=== PATIENT | female | born 1975 | race Caucasian/White ===

== ENCOUNTER 2016-12-08 08:35 | Day surgery (SDC) | payer OTHER ==
[~2016-12-08 08:35] MED LIST: Kenalog-40 IM ONE; Sensorcaine 0.25% 10 ML IJ ONE
[2016-12-08] MEDS ORDERED: DIPRIVAN 200 MG/20 ML IV ONE (09:00)
[2016-12-08] MEDS ORDERED: Lactated Ringers 1,000 ML IV SCH (10:30)
[2016-12-08] MEDS ORDERED: Lactated Ringers 1,000 ML IV ONE (10:48)
[2016-12-08 11:34] VITALS: BP 144/98; PULSE 100; O2SAT 94
[2016-12-08] MEDS ORDERED: XYLOCAINE 1% HCL 20 ML MDV ONE (12:14)
--- NOTE | 2016-12-08 14:00 | XRAY ---
Indication: Right SI injection. Intraoperative fluoroscopy was provided for 22 seconds. A single digital spot image demonstrates a needle tip projecting over the right SI joint. Small amount of contrast injected for needle tip placement. Correlate with intraoperative findings/report.
--- NOTE | 2016-12-08 14:50 | XRAY ---
22 seconds fluoroscopy time in surgery for right JESSICA S1.
== END 2016-12-08 13:03 | disposition home or self-care (01) ==
LOC: SDC-PAIN 08:35
PROVIDERS: ATTEND Pain Medicine Interventional Pain Medicine
DX: M46.1 Sacroiliitis, not elsewhere classified (principal); M51.36 Other intervertebral disc degeneration, lumbar region; M79.7 Fibromyalgia; Z79.891 Long term (current) use of opiate analgesic
CPT/HCPCS: 01992; 27096; 72020; 77003; J2704; J3301

== ENCOUNTER 2017-07-22 15:31 | Observation (INO) | payer OTHER ==
[2017-07-22] MEDS ORDERED: NITRO-BID 2% UD PACKETS TOP ONE (15:41)
[2017-07-22] MEDS ORDERED: BABY ASPIRIN 81 MG CHEW PO ONE (15:41)
--- NOTE | 2017-07-22 15:49 | ERPHSYRPT ---
- History of Present Illness Time Seen by Provider: 07/22/17 15:41 Historian: patient Physician History: CC: chest pain Hx: 42 y/o patient of Dr Obrien and Dr Moi Moise. She has hx of CHF, alpha 1 antitrypsen def, DM, obesity. She has 3 days of chest pain, central, some in her back. She has FRANCOIS that is uncharacteristic for her. No cough. No fever or chills. Pain off and on and moderate. Prior BTL. She has port a cath. Prior heart cath 2016- no cardiac stents. Quality: aching, sharpness Location: central Chest Pain Radiation: jaw, neck, back Severity of Pain-Max: moderate Severity of Pain-Current: moderate Aspirin Treatment Today: 81 mg x 2, provided by ED Allergies/Adverse Reactions: Iodinated Contrast- Oral and IV Dye [IV Dye, Iodine Containing Contrast ] Allergy (Mild, Verified 07/22/17 15:45) Sulfa (Sulfonamide Antibiotics) [Sulfa(Sulfonamide Antibiotics)] Allergy (Mild, Verified 07/22/17 15:45) Home Medications: Albuterol Sulfate [Proair Hfa] 8.5 gm IH BID 12/19/14 [History] Budesonide/Formoterol Fumarate [Symbicort 160-4.5 Mcg Inhaler] 6 gm IH BID 12/19 [History] Levothyroxine Sodium 50 Mcg [Synthroid 50 Mcg] 75 mcg PO DAILY 12/19/14 [ History] Loratadine 10 mg [Claritin 10 mg] 10 mg PO DAILY 12/19/14 [History] Metoclopramide HCl 10 mg [Reglan 10 MG] 10 mg PO BID 12/19/14 [History] Montelukast Sodium [Singulair] 10 mg PO DAILY 12/19/14 [History] Nabumetone [Relafen] 750 mg PO BID 12/19/14 [History] Aspirin [Aspirin EC] 81 mg PO DAILY 09/02/16 [History] Bumetanide [Bumex] 2 mg PO UD 09/02/16 [History] Dicyclomine HCl 20 mg [Bentyl 20 mg] 20 mg PO BID 09/02/16 [History] Famotidine 40 mg PO BID 09/02/16 [History] Hydroxyzine HCl 25 mg [Atarax 25 mg] 25 mg PO UD 09/02/16 [History] Metformin HCl 500 mg [Glucophage 500 MG] 500 mg PO DAILY 09/02/16 [History ] Nebulizer 09/02/16 [History] Nitroglycerin 0.4 mg Tablet [Nitrostat 0.4 MG Tablet] UD 09/02/16 [History ] Potassium Chloride 20 Meq [Klor-Con 20 MEQ] 20 meq PO UD 09/02/16 [History] Pregabalin [Lyrica] 75 mg PO BID 09/02/16 [History] Simvastatin 20 mg PO DAILY 09/02/16 [History] Spironolactone 25 mg [Aldactone 25 MG] 25 mg PO UD 09/02/16 [History] Venlafaxine HCl [Venlafaxine HCl ER] 150 mg PO DAILY 09/02/16 [History] Ferrous Sulfate 325 mg PO DAILY 12/08/16 [History] Ibuprofen 200 mg [Motrin 200 mg] 600 mg PO TID 12/08/16 [History] Metoprolol Tartrate 50 mg [Lopressor 50 MG] 50 mg PO BID 12/08/16 [History ] Hx Tetanus, Diphtheria Vaccination/Date Given: Yes Hx Influenza Vaccination/Date Given: No Hx Pneumococcal Vaccination/Date Given: No - Review of Systems Constitutional: No Fever, No Chills Eyes: No Symptoms Ears, Nose, & Throat: No Symptoms Respiratory: Dyspnea on Exertion (FRANCOIS), No Cough Cardiac: Chest Pain Abdominal/Gastrointestinal: No Abdominal Pain, No Nausea, No Vomiting Genitourinary Symptoms: No Dysuria Skin: No Rash Neurological: No Focal Weakness, No Headache, No Parasthesia All Other Systems: Reviewed and Negative - Past Medical History Pertinent Past Medical History: Yes Neurological History: Migraines, Seizures Cardiac History: Arrhythmia, Congestive Heart Failure, Hypertension Respiratory History: Asthma, COPD, Other (alpha 1 antitrypsen deficiency) Endocrine Medical History: Diabetes Type II, Hypothyroidism Musculoskeletal History: Arthritis, Fibromyalgia GI Medical History: No Pertinent History History: No Pertinent History Psycho-Social History: Anxiety, Depression Female Reproductive Disorders: No Pertinent History Other Medical History: Carpal tunnes both hands 2016. - Past Surgical History Past Surgical History: Yes Cardiac: Cardiac Catheterization Gastrointestinal: Cholecystectomy Female Surgical History: Tubal Ligation, Other - Social History Smoking Status: Never smoker Exposure to second hand smoke: No Drug Use: none Patient Lives Alone: No - Female History Hx Now: No - Nursing Vital Signs Nursing Vital Signs: Initial Vital Signs Temperature 97.4 F 07/22/17 15:35 Pulse Rate 98 H 07/22/17 15:35 Respiratory Rate 18 07/22/17 15:35 Blood Pressure 143/108 07/22/17 15:35 O2 Sat by Pulse Oximetry 97 07/22/17 15:35 Pain Scale Pain Intensity 5 - Physical Exam General Appearance: alert, obese Eye Exam: PERRL/EOMI Ears, Nose, Throat Exam: normal ENT inspection, moist mucous membranes Neck Exam: normal inspection, non-tender, supple Respiratory Exam: normal breath sounds Cardiovascular Exam: regular rate/rhythm Gastrointestinal/Abdomen Exam: soft, No tenderness, No distention Extremity Exam: pedal edema (trace), No calf tenderness Skin Exam: warm, dry, No rash - Course Nursing assessment & vital signs reviewed: Yes EKG Interpreted by Me: RATE (99), Sinus Rhythm, Left [place] Deviation, NORMAL INTERVALS (QTc 462), Other (r R wave progression) - Radiology Exams cxr X-ray Interpretation: Reviewed by me (limited but grossly normal) Ordered Tests: Active Orders 24 hr Category Date Time Status Field Education Director STAT Care 07/22/17 15:42 Active EKG-ER Only STAT Care 07/22/17 15:41 Active IV Insertion STAT Care 07/22/17 15:41 Active Pulse Oximetry (ED) STAT Care 07/22/17 15:41 Active CHEST 1 VIEW (PORTABLE) Stat Exams 07/22/17 15:42 Taken CBC W DIFF Stat Lab 07/22/17 16:15 Completed CMP Stat Lab 07/22/17 16:15 Completed NT PRO BNP Stat Lab 07/22/17 16:15 Completed TROPONIN Q3H Lab 07/22/17 16:15 Completed TROPONIN Q3H Lab 07/22/17 18:45 Ordered TROPONIN Q3H Lab 07/22/17 21:45 Ordered TROPONIN Q3H Lab 07/23/17 00:45 Ordered TROPONIN Q3H Lab 07/23/17 03:45 Ordered Medication Summary Discontinued Medications Generic Name Dose Route Start Last Admin Trade Name Suresh PRN Reason Stop Dose Admin Aspirin 162 mg 07/22/17 15:41 07/22/17 15:59 Baby Aspirin 81 Mg Chew PO 07/22/17 15:42 162 mg STAT ONE Administration Aspirin Confirm 07/22/17 15:53 Baby Aspirin 81 Mg Chew Administered 07/22/17 15:54 Dose 162 mg .ROUTE .STK-MED ONE Nitroglycerin 1 gm 07/22/17 15:41 07/22/17 15:59 Nitro-Bid 2% Ud Packets TOP 07/22/17 15:42 1 gm STAT ONE Administration Nitroglycerin Confirm 07/22/17 15:53 Nitro-Bid 2% Ud Packets Administered 07/22/17 15:54 Dose 1 gm .ROUTE .STK-MED ONE Lab/Rad Data: Laboratory Result Diagrams 07/22/17 16:15 07/22/17 16:15 Laboratory Results 07/22/17 07/22/17 07/22/17 Range/Units 16:15 16:15 16:15 WBC 8.8 (4.0-10.5) K/mm3 RBC 4.15 (4.1-5.4) M/mm3 Hgb 11.7 L (12.0-16.0) gm/dl Hct 36.3 (35-47) % MCV 87.5 (78-100) fl MCH 28.1 (26-32) pg MCHC 32.2 (32-36) g/dl RDW 14.2 H (11.5-14.0) % Plt Count 244 (150-450) K/mm3 MPV 11.5 H (6-9.5) fl Gran % 68.4 H (36.0-66.0) % Lymphocytes % 22.1 L (24.0-44.0) % Monocytes % 5.7 (0.0-12.0) % Eosinophils % 3.5 (0.00-5.0) % Basophils % 0.3 (0.0-0.4) % Basophils # 0.03 (0-0.4) Sodium 140 (136-145) mEq/L Potassium 4.1 (3.5-5.1) mEq/L Chloride 104 (98-107) mEq/L Carbon Dioxide 25.8 (21-32) mEq/L Anion Gap 14.0 (5-15) MEQ/L BUN 12 (9-20) mg/dL Creatinine 1.00 (0.55-1.30) mg/dl Estimated GFR > 60 ML/MIN Glucose 174 H (70-110) MG/DL Calcium 8.9 (8.5-10.1) mg/dL Total Bilirubin 0.50 (0.2-1.0) mg/dL AST 25 (15-37) U/L ALT 43 (12-78) U/L Alkaline Phosphatase 86 (46-116) U/L Troponin I < 0.017 (0.000-0.056) ng/ml NT-Pro-B Natriuret Pep 85 (0-125) pg/ml Serum Total Protein 7.6 (6.4-8.2) gm/dL Albumin 3.6 (3.4-5.0) g/dL - Progress Progress Note: 07/22/17 17:23 Pain improved with NTG paste. She agrees for chest pain observation. Called Dr Mehta for [place] and will place in tele obs. Discussed with : Tyson Will see patient in: hospital (observation) Counseled pt/family regarding: lab results, diagnosis, need for follow-up, rad results - Departure Time of Disposition: 17:24 Departure Disposition: Observation (Tele) Clinical Impression: Chest pain, rule out acute myocardial infarction Condition: Fair Critical Care Time: No Referrals: RICKY OBRIEN [Primary Care Provider] -
[2017-07-22] MEDS ORDERED: BABY ASPIRIN 81 MG CHEW ONE (15:53)
[2017-07-22] MEDS ORDERED: NITRO-BID 2% UD PACKETS ONE (15:53)
[2017-07-22 16:31] LABS: BASOPHIL % 0.3 % (0.0-0.4); Eosinophil % 3.5 % (0.00-5.0); Granulocytes % 68.4 % (36.0-66.0); Lymphocytes % 22.1 % (24.0-44.0); Mean Cell Volume 87.5 fl (78-100); Mean Platelet Volume 11.5 fl (6-9.5); Monocytes % 5.7 % (0.0-12.0); Platelet Count 244 K/mm3 (150-450); Red Blood Count 4.15 M/mm3 (4.1-5.4); Red Cell Distribution Width 14.2 % (11.5-14.0); White Blood Count 8.8 K/mm3 (4.0-10.5)
[2017-07-22 16:38] LABS: Mean Corpuscular Hemoglobin 28.1 pg (26-32)
[2017-07-22 16:51] LABS: ALBUMIN 3.6 g/dL (3.4-5.0); ALKALINE PHOSPHATASE 86 U/L (46-116); BLOOD UREA NITROGEN 12 mg/dL (9-20); CHLORIDE 104 mEq/L (98-107); Carbon Dioxide 25.8 mEq/L (21-32); Glucose 174 MG/DL (70-110); Potassium 4.1 mEq/L (3.5-5.1); SGOT/AST 25 U/L (15-37); SGPT/ALT 43 U/L (12-78); SODIUM 140 mEq/L (136-145); Total Protein 7.6 gm/dL (6.4-8.2)
[2017-07-22] MEDS ORDERED: Zofran 4 MG/2 ML VIAL IV PRN (17:45)
[2017-07-22] MEDS ORDERED: MILK OF MAGNESIA 30 ML PO PRN (17:45)
[2017-07-22] MEDS ORDERED: Senokot-S Tablet PO PRN (17:45)
[2017-07-22] MEDS ORDERED: NovoLOG Insulin SQ PRN (17:45)
[2017-07-22] MEDS ORDERED: MAALOX ES 30 ML UNIT DOSE PO PRN (17:45)
[2017-07-22] MEDS: TYLENOL 325 MG PO PRN ×2 (19:10→23:10)
[2017-07-22] MEDS ORDERED: PATIENT OWN MEDICATION IH PRN (20:32)
[2017-07-22] MEDS ORDERED: DUONEB 0.5-3 MG/3 ml Neb IH PRN (20:38)
[2017-07-22] MEDS ORDERED: Cyclobenzaprine 10 MG PO PRN (20:45)
[2017-07-22] MEDS ORDERED: ZOCOR 20MG PO SCH (22:00)
[2017-07-22] MEDS ORDERED: ATARAX 25 MG PO PRN (22:00)
--- NOTE | 2017-07-22 22:15 | XRAY ---
Indication: Chest pain. Comparison: May 31, 2009. Portable chest demonstrates new right-sided Port-A-Cath without complications. Remaining heart, lungs, and bony thorax normal.
[2017-07-22] MEDS: Pepcid 20 MG PO SCH (22:52)
[2017-07-22] MEDS: Lopressor 50 MG PO SCH (22:52)
[2017-07-22] MEDS: LYRICA 150MG PO SCH (22:52)
[2017-07-22] MEDS: Glucophage 500 MG PO SCH (22:53)
[2017-07-22] MEDS: Reglan 10 MG PO SCH (22:53)
[2017-07-22] MEDS: NITRO-BID 2% UD PACKETS TOP SCH (22:53)
[2017-07-23] MEDS: NITRO-BID 2% UD PACKETS TOP SCH (06:27)
[2017-07-23] MEDS ORDERED: PATIENT OWN MEDICATION IH SCH ×2 (07:00→19:00)
[2017-07-23] MEDS ORDERED: Cyclobenzaprine 10 MG PO PRN (08:00)
[2017-07-23] MEDS: Reglan 10 MG PO SCH (09:38)
[2017-07-23] MEDS: Glucophage 500 MG PO SCH (09:38)
[2017-07-23] MEDS: Pepcid 20 MG PO SCH (09:38)
[2017-07-23] MEDS: LYRICA 150MG PO SCH (09:39)
[2017-07-23] MEDS: Lopressor 50 MG PO SCH (09:39)
[2017-07-23] MEDS: TYLENOL 325 MG PO PRN (09:44)
[2017-07-23] MEDS ORDERED: Ecotrin 325 MG PO SCH (10:00)
[2017-07-23] MEDS ORDERED: Lopressor 25MG Tab PO ONE (11:00)
[2017-07-23] MEDS ORDERED: MOTRIN 200 MG PO PRN (11:15)
[2017-07-23] MEDS ORDERED: BENTYL 20 MG PO SCH (11:30)
[2017-07-23] MEDS ORDERED: SYNTHROID 75 MCG PO SCH (11:30)
[2017-07-23] MEDS ORDERED: Singulair 10 MG PO SCH (11:30)
[2017-07-23] MEDS ORDERED: Effexor XR 75 MG PO SCH (11:30)
[2017-07-23] MEDS ORDERED: CLARITIN 10 MG PO SCH (11:30)
[2017-07-23] MEDS ORDERED: ENOXAPARIN SODIUM SQ SCH (12:00)
[2017-07-23] MEDS ORDERED: SYNTHROID 50 MCG PO SCH (12:00)
[2017-07-23 12:04] VITALS: BP 134/77; PULSE 77; O2SAT 95
--- NOTE | 2017-07-23 12:18 | PCM.DCORD ---
- Discharge Discharge Date: 07/23/17 Disposition: Home, Self-Care Condition: Good Prescriptions: Continue Levothyroxine Sodium 50 Mcg [Synthroid 50 Mcg] 75 mcg PO DAILY Montelukast Sodium [Singulair] 10 mg PO DAILY Albuterol Sulfate [Proair Hfa] 2 puff IH BID Budesonide/Formoterol Fumarate [Symbicort 160-4.5 Mcg Inhaler] 2 puff IH BID Aspirin [Aspirin EC] 81 mg PO DAILY Famotidine 40 mg PO BID Dicyclomine HCl 20 mg [Bentyl 20 mg] 20 mg PO BID Metformin HCl 500 mg [Glucophage 500 MG] 500 mg PO DAILY Venlafaxine HCl [Venlafaxine HCl ER] 150 mg PO DAILY Nitroglycerin 0.4 mg Tablet [Nitrostat 0.4 MG Tablet] 1 tab SL UD Ibuprofen 200 mg [Motrin 200 mg] 800 mg PO TIDPRN Pregabalin [Lyrica 150Mg] 150 mg PO BID Cyclobenzaprine HCl 10 mg [Cyclobenzaprine 10 MG] 10 mg PO TIDPRN Loratadine [Claritin] 10 mg PO DAILY Metoclopramide HCl [Reglan] 10 mg PO BID Hydroxyzine HCl 25 mg [Atarax 25 mg] 25 mg PO Q4HPRN PRN PRN Reason: Itching Atorvastatin Calcium [Lipitor 20MG Tablet] 20 mg PO HS Ipratropium/Albuterol Sulfate [Iprat-Albut 0.5-3(2.5) mg/3 ml] 3 ml IH Q4HPRN PRN PRN Reason: sob Changed Metoprolol Tartrate 50 mg [Lopressor 50 MG] 75 mg PO BID #90 tablet Discontinued Nabumetone [Relafen] 750 mg PO BID Simvastatin 20 mg PO HS Additional Instructions: Relafen and ibuprofen are both NSAIDS. You should not be taking these together. Follow up with: RICKY OBRIEN [Primary Care Provider] - Forms: Patient Portal Information
--- NOTE | 2017-07-23 16:25 | SSS ---
AMENDED REPORT: DISCHARGE DIAGNOSES: 1) CHEST PAIN. 2) HYPERTENSION. 3) HYPERLIPIDEMIA. 4) DIABETES MELLITUS TYPE 2. HISTORY OF PRESENT ILLNESS: This is a 42 y/o patient of Dr. Garrett who presented to the Emergency Department with history of 3 days of chest pain. She reports it started in the middle of her chest and went to the right shoulder initially and then to the back of her right neck. She states it was better 2 days ago, but then worse again yesterday. She states it was sharp. The nitro paste seemed to help some in the Emergency Department, but now she has a headache. She states most of the pain went away last night, but still a little pressure at the top of her sternum. She denies any dyspnea. No nausea or vomiting. She had sweating for approximately 3 days. She usually sees Dr. Samira Moise for her repair order clerk and last saw him March 2017, but she reports right now he is not following up with her as her insurance has not paid him. She reports she had a cardiac cath in 2013 and was told that was okay. She reports a stress test last year, but she is unsure of the exact results. She is considering seeing a different repair order clerk. REVIEW OF SYSTEMS: She denies any cough. No rhinorrhea. She reports a little bit of swelling in her left foot. No abdominal pain. No nausea or vomiting. Otherwise, Review of Systems is negative. PAST MEDICAL HISTORY: Anemia, chronic obstructive pulmonary disease, antitrypsin deficiency which she sees vision teacher, Dr. Monroe Monterroso, for, fibromyalgia, congestive heart failure, cardiac arrhythmia, edema, hypotension, hypertension, diabetes mellitus type 2. PAST SURGICAL HISTORY: Bilateral carpal tunnel, tubal ligation, cholecystectomy, heart catheterization, uterine thermal ablation, a port placed as she gets weekly infusions for the antitrypsin deficiency. SOCIAL HISTORY: Her daughter lives at home with her. She denies any tobacco or alcohol use. FAMILY HISTORY: Her mother is living and has chronic obstructive pulmonary disease, heart conditions, congestive heart failure, and borderline diabetes mellitus type 2. Her father's history is unknown. She reports her daughter also has a heart condition. CURRENT MEDICATIONS: Please see the home medication list. ALLERGIES: IODINE AND SULFA. PHYSICAL EXAMINATION: VITAL SIGNS: Temperature current 98.4, temperature maximum 98.4, heart rate 77-80, respiratory rate 18-20, O2 saturation 95-98% on room air, BP 134-140/77-84. GENERAL: The patient is sitting up a pleasant, talkative lady in no acute distress. She is obese. CVS: She has a regular rate and rhythm. No murmurs, gallops, or rubs. CHEST: Clear to auscultation bilaterally. No crackles or wheezes. ABDOMEN: Soft, nontender, nondistended with normal bowel sounds. EXTREMITIES: No clubbing, cyanosis, or edema. SKIN: Warm, dry, and intact. LABORATORY DATA: Serial troponins have been negative. CBC reveals an Hgb of 11.7, Hgb A1C was 7.4. Triglycerides 383, HDL 20. EKG's reveal sinus rhythm with poor R wave progression, nonspecific T wave changes. Chest x-ray was read as right-sided Port-a-Cath without complications. ASSESSMENT AND PLAN: 1. CHEST PAIN. She has been ruled out for an acute myocardial infarction. Will have her follow-up with Dr. Busby. She reports she already has an appointment set up with him on Tuesday and she is going to talk to him about a repair order clerk. Her nitro paste was removed and 2 hours after it was removed, she was still doing well. 2. HYPERTENSION. Will continue with her home antihypertensives. 3. HYPERLIPIDEMIA. Will continue with her home cholesterol medicine. 4. DIABETES MELLITUS TYPE 2. Will continue with her home medications.
[2017-07-23] MEDS ORDERED: Pepcid 20 MG PO SCH (22:00)
[2017-07-23] MEDS ORDERED: Lopressor 50 MG PO SCH (22:00)
[2017-07-23] MEDS ORDERED: Lopressor 25MG Tab PO SCH (22:00)
[2017-07-24] MEDS ORDERED: ECOTRIN 81 MG PO SCH (10:00)
[2017-07-24] MEDS ORDERED: NON-FORMULARY ITEM (Loratadine [Claritin] 10 MG) PO SCH (10:00)
== END 2017-07-23 12:45 | disposition home or self-care (01) ==
LOC: ED 15:31 → MED SURG 17:40
PROVIDERS: ADMIT Internal Medicine; ATTEND Family Medicine
DX: R07.9 Chest pain, unspecified (principal); I10 Essential (primary) hypertension; E78.5 Hyperlipidemia, unspecified; E11.9 Type 2 diabetes mellitus without complications; R51 Headache
CPT/HCPCS: 36000; 36415; 71010; 80053; 80061; 83036; 83721; 83880; 84484; 85025; 93005; 93041; 93268; 94660; 94760; 99285; G0378; J1642; J1650; A9270-GY

== ENCOUNTER 2018-01-18 08:06 | Day surgery (SDC) | payer OTHER ==
[2012-06-03 16:31] VITALS: BP 101/52
[2018-01-18] MEDS ORDERED: Lactated Ringers 1,000 ML IV ONE (08:07)
[2018-01-18] MEDS ORDERED: DIPRIVAN 200 MG/20 ML IV ONE (08:07)
[2018-01-18] MEDS ORDERED: DEXAMETHASONE 10 MG/ML VIAL PF IV ONE (08:07)
[2018-01-18] MEDS ORDERED: Xylocaine-Mpf 2 ML IJ ONE (08:07)
[2018-01-18] MEDS ORDERED: Xylocaine 1% Vial 30 ML PF IJ ONE (09:25)
--- NOTE | 2018-01-18 10:04 | XRAY ---
Indication: Right L5 JESSICA. Intraoperative fluoroscopy was provided for 22 seconds. Single digital spot image submitted for interpretation demonstrates 2 posterior spinal needle tips projecting over what appears to be the the right L5 pedicle and midline L5 segment. Correlate with intraoperative findings/report.
--- NOTE | 2018-01-18 10:38 | XRAY ---
22 seconds fluoroscopy time in surgery for Right L5 JESSICA.
--- NOTE | 2018-01-18 14:26 | OP ---
DATE OF PROCEDURE: 01/18/2018 0907 SURGEON: Nathan Denton D.O. PREOPERATIVE DIAGNOSIS: Degenerative lumbar spine disease, lumbar spondylosis. POSTOPERATIVE DIAGNOSIS: Degenerative lumbar spine disease, lumbar spondylosis. PROCEDURES PERFORMED: Right L5 epidural steroid injection under fluoroscopic guidance. DESCRIPTION OF PROCEDURE: The patient was taken to the operating room and laid in the prone position on the table. Skin over the injection site was prepped and draped in sterile fashion. Under fluoroscope bony anatomy at the targeted injection site was visualized. Induction agent was given as per anesthesia while vital signs were monitored. Local anesthetic agent was introduced to anesthetize the skin in the subcutaneous tissue through injection site. Under fluoroscopic guidance a #22-gauge standard spinal needle was advanced into the target facet joint through an oblique approach. 1 cc of preservative free Decadron was injected into each of the target epidural space. While the needle was being removed normal saline was simultaneously infiltrated to avoid sterile needle tract. Skin was cleansed with alcohol and then a bandage was applied. There was preoperative pain level 10, postoperative pain level 4 out of 10. No complications or adverse consequences were observed. The patient was returned to the holding area until stabilized before discharge to home. The patient will be followed up within ten days after the injection for re-evaluation.
== END 2018-01-18 10:00 | disposition home or self-care (01) ==
LOC: SDC-PAIN 08:06
PROVIDERS: ATTEND Internal Medicine
DX: M54.16 Radiculopathy, lumbar region (principal); M51.36 Other intervertebral disc degeneration, lumbar region; M54.5 Low back pain; M62.838 Other muscle spasm
CPT/HCPCS: 64483; 72020; 76000; J1642; J2001; J2704

== ENCOUNTER 2019-01-17 08:38 | Day surgery (SDC) | payer OTHER ==
[2012-06-03 16:31] VITALS: BP 101/52
[2019-01-17] MEDS ORDERED: Marcaine 0.5% SDV 10 ML IJ ONE (08:39)
[2019-01-17] MEDS ORDERED: Depo-Medrol 40 MG/ML IM ONE (08:39)
[2019-01-17] MEDS ORDERED: DIPRIVAN 200 MG/20 ML IV ONE (08:39)
[2019-01-17] MEDS ORDERED: Ketamine HCl 50 MG/ML IJ ONE (08:39)
--- NOTE | 2019-01-17 11:22 | XRAY ---
Indication: Bilateral SI joint injection. Intraoperative fluoroscopy was provided for 37 seconds. 3 digital spot images submitted for interpretation demonstrates posterior needle tip projecting over the inferior right SI joint. Correlate with intraoperative findings/report.
--- NOTE | 2019-01-17 11:24 | XRAY ---
37 seconds fluoroscopy time in surgery for bilateral S-I joint injections.
[2019-01-17] MEDS ORDERED: Lactated Ringers 1,000 ML IV ONE (18:02)
== END 2019-01-17 10:37 | disposition home or self-care (01) ==
LOC: SDC-PAIN 08:38
PROVIDERS: ATTEND Psychiatry & Neurology Pain Medicine
DX: M53.3 Sacrococcygeal disorders, not elsewhere classified (principal); M46.1 Sacroiliitis, not elsewhere classified; E11.9 Type 2 diabetes mellitus without complications; J44.9 Chronic obstructive pulmonary disease, unspecified; Z79.899 Other long term (current) drug therapy; I10 Essential (primary) hypertension; Z79.01 Long term (current) use of anticoagulants
CPT/HCPCS: 27096; 72020; 77002; 82962; J1030; J2704; G0260

== ENCOUNTER 2020-07-02 08:06 | Day surgery (SDC) | payer OTHER ==
[2012-06-03 16:31] VITALS: BP 101/52
[~2020-07-02 08:06] MED LIST changes: +DIPRIVAN 200 MG/20 ML IV ONE; -Kenalog-40 IM ONE; +Ketamine HCl 50 MG/ML ONE; -Sensorcaine 0.25% 10 ML IJ ONE
[2020-07-02] MEDS ORDERED: Sodium Chloride 0.9(Preservative Free) 10 ML IJ ONE (08:07)
[2020-07-02] MEDS ORDERED: Depo-Medrol 40 MG/ML IM ONE (08:07)
--- NOTE | 2020-07-02 11:43 | XRAY ---
Indication: Left L4-S1 transforaminal JESSICA. Intraoperative fluoroscopy was provided for 40 seconds. 5 digital spot images submitted for interpretation demonstrates posterior needle tips projecting over the expected left L4 and L5 nerve roots. Small amount of contrast injected for needle tip placement. Correlate with intraoperative findings/report.
--- NOTE | 2020-07-02 11:51 | XRAY ---
40 seconds fluoroscopy time in surgery for left L4-S1 transforaminal JESSICA.
[2020-07-02] MEDS ORDERED: Lactated Ringers 1,000 ML IV ONE (15:49)
== END 2020-07-02 10:41 | disposition home or self-care (01) ==
LOC: SDC-PAIN 08:06
PROVIDERS: ATTEND Psychiatry & Neurology Pain Medicine
DX: M54.16 Radiculopathy, lumbar region (principal); J44.9 Chronic obstructive pulmonary disease, unspecified; M79.7 Fibromyalgia; I12.9 Hypertensive chronic kidney disease with stage 1 through stage 4 chronic kidney disease, or unspecified chronic kidney disease; E11.22 Type 2 diabetes mellitus with diabetic chronic kidney disease; N18.9 Chronic kidney disease, unspecified; Z86.711 Personal history of pulmonary embolism; Z79.01 Long term (current) use of anticoagulants
CPT/HCPCS: 72100; 77003; 82962; J1030; J1642; J2704

== ENCOUNTER 2020-08-27 08:25 | Day surgery (SDC) | payer OTHER ==
[2012-06-03 16:31] VITALS: BP 101/52
[2020-08-27] MEDS ORDERED: Xylocaine-Mpf 2% 5 Ml Vial IJ ONE (08:26)
[2020-08-27] MEDS ORDERED: Depo-Medrol 40 MG/ML IM ONE (08:26)
[2020-08-27] MEDS ORDERED: DIPRIVAN 200 MG/20 ML IV ONE (09:40)
[2020-08-27] MEDS ORDERED: Ketamine HCl 50 MG/ML ONE (09:40)
[2020-08-27] MEDS ORDERED: MORPHINE SULFATE 10 MG/ML ONE (10:00)
--- NOTE | 2020-08-27 11:05 | XRAY ---
Indication: Bilateral L4-S1 MBB. Intraoperative fluoroscopy was provided for 12 seconds. Single digital spot image submitted for interpretation demonstrates posterior needle tips projecting over the expected left and right L4-S1 nerve roots. Correlate with intraoperative findings/report.
--- NOTE | 2020-08-27 11:22 | XRAY ---
12 seconds fluoroscopy time in surgery for bilateral L4-S1 MBB.
[2020-08-27] MEDS ORDERED: Lactated Ringers 1,000 ML IV ONE (15:13)
== END 2020-08-27 10:10 | disposition home or self-care (01) ==
LOC: SDC-PAIN 08:25
PROVIDERS: ATTEND Psychiatry & Neurology Pain Medicine
DX: M47.816 Spondylosis without myelopathy or radiculopathy, lumbar region (principal); J44.9 Chronic obstructive pulmonary disease, unspecified; E11.9 Type 2 diabetes mellitus without complications; I10 Essential (primary) hypertension; Z79.01 Long term (current) use of anticoagulants; Z79.899 Other long term (current) drug therapy; K50.90 Crohn's disease, unspecified, without complications; Z86.711 Personal history of pulmonary embolism
CPT/HCPCS: 64493; 64494; 72020; 77002; 82947; 82962; J1030; J1642; J2270; J2704

== ENCOUNTER 2020-10-06 17:36 | Emergency (ER) | payer OTHER ==
[2020-10-06] MEDS ORDERED: TORAdol 30 mg Injection IM ONE (18:09)
[2020-10-06] MEDS ORDERED: TORAdol 30 mg Injection ONE (18:12)
--- NOTE | 2020-10-06 18:38 | ERPHSYRPT ---
- History of Present Illness Time Seen by Provider: 10/06/20 17:50 Source: patient Exam Limitations: no limitations Patient Subjective Stated Complaint: pt here for pain to left shoulder after a fall on tuesday, she denies any other injury. no loc Triage Nursing Assessment: pt alert, walked in, resp easy, skin w/d/p. has no swelling or bruising noted to Physician giorgi History: Patient is a 45-year-old female presents to our ED for evaluation of left shoulder pain. Patient states she was walking in the dark 3 days ago when she tripped on an uneven sidewalk. Patient fell onto her outstretched arm and felt a pop in her left shoulder. Since then patient has been experiencing constant pain to her left shoulder. Pain described as an ache that is localized. Pain worse with movement and palpation. Pain improved with rest. No other injuries reported. No BHT or LOC. No neck pain. Cervical spine cleared clinically. The fall was mechanical. There was no associated cardiovascular or neurologic symptomology. No chest pain or shortness of breath. No numbness tingling or weakness. Patient voices no other complaints or concerns at this time. Timing/Duration: day(s) (3 days) Severity: mild Modifying Factors: Improves With: movement Associated Symptoms: denies symptoms Allergies/Adverse Reactions: Iodinated Contrast Media [IV Dye, Iodine Containing Contrast ] Allergy (Mild, Verified 10/06/20 17:51) "asthma attck" Sulfa (Sulfonamide Antibiotics) [Sulfa(Sulfonamide Antibiotics)] Allergy (Mild, Verified 10/06/20 17:51) "asthma attck" Home Medications: Albuterol Sulfate [Proair Hfa] 2 puff IH BID 12/19/14 [History] Budesonide/Formoterol Fumarate [Symbicort 160-4.5 Mcg Inhaler] 2 puff IH BID 12/19/14 [History] Levothyroxine Sodium 50 Mcg [Synthroid 50 Mcg] 75 mcg PO DAILY 12/19/14 [History] Montelukast Sodium [Singulair] 10 mg PO DAILY 12/19/14 [History] Metformin HCl 500 mg [Glucophage 500 MG] 500 mg PO BID 09/02/16 [History] Nitroglycerin 0.4 mg Tablet [Nitrostat 0.4 MG Tablet] 1 tab SL UD PRN 09/02/16 [History] Atorvastatin Calcium [Lipitor 20MG Tablet] 20 mg PO HS 07/22/17 [History] Ipratropium/Albuterol Sulfate [Iprat-Albut 0.5-3(2.5) mg/3 ml] 3 ml IH Q4HPRN PRN 07/22/17 [History] Loratadine [Claritin] 10 mg PO DAILY 07/22/17 [History] Gabapentin 300 - 600 mg PO HS 12/13/17 [History] Omeprazole 20 MG [Prilosec 20 mg] 20 mg PO DAILY 12/13/17 [History] lisinopriL [Lisinopril] 5 mg PO DAILY 12/13/17 [History] Xliee-0-Eptrgxjyrt Inhibitor [Prolastin C] 0 mg IV UD 01/17/18 [History] Potassium Chloride 20 Meq [Klor-Con 20 MEQ] 20 meq PO DAILY PRN PRN 01/17/18 [History] Spironolactone 25 mg [Aldactone 25 MG] 25 mg PO DAILY PRN PRN 01/17/18 [History] Qrnqk-1-Qpxvjopnra Inhibitor [Prolastin C] 1,000 mg IV WEEKLY 02/06/18 [History] Furosemide 40 mg [Lasix 40 MG] 1 ea DAILY 10/06/20 [History] Mv,Calcium,Min/Iron/Folic/Vitk [Multi For Her Tablet] 1 ea DAILY 10/06/20 [History] [place]-3 Fatty Acids/Fish Oil [Fish Oil 1,000 mg Capsule] 1 ea BID 10/06/20 [History] Hx Tetanus, Diphtheria Vaccination/Date Given: Yes Hx Influenza Vaccination/Date Given: Yes Hx Pneumococcal Vaccination/Date Given: No Immunizations Up to Date: Yes Travel Risk - International Travel Have you traveled outside of the country in past 3 weeks: No - Coronavirus Screening Are you exhibiting any of the following symptoms?: No Close contact with a COVID-19 positive Pt in past 14-21 Days: No - Review of Systems Constitutional: No Symptoms, No Fever, No Chills Eyes: No Symptoms Ears, Nose, & Throat: No Symptoms Respiratory: No Symptoms, No Cough, No Dyspnea Cardiac: No Symptoms, No Chest Pain, No Edema, No Syncope Abdominal/Gastrointestinal: No Symptoms, No Abdominal Pain, No Nausea, No Vomiting, No Diarrhea Genitourinary Symptoms: No Symptoms, No Dysuria Musculoskeletal: No Symptoms, No Back Pain, No Neck Pain Skin: No Symptoms, No Rash Neurological: No Symptoms, No Dizziness, No Focal Weakness, No Sensory Changes Psychological: No Symptoms Endocrine: No Symptoms Hematologic/Lymphatic: No Symptoms Immunological/Allergic: No Symptoms All Other Systems: Reviewed and Negative - Past Medical History Pertinent Past Medical History: Yes Neurological History: Migraines, Seizures ENT History: No Pertinent History Cardiac History: Arrhythmia, Congestive Heart Failure, High Cholesterol, Hypertension Respiratory History: Asthma, COPD Endocrine Medical History: Diabetes Type II, Hypothyroidism Musculoskeletal History: Arthritis, Degenerative Disk Disease GI Medical History: No Pertinent History History: No Pertinent History Psycho-Social History: Anxiety, Depression Female Reproductive Disorders: No Pertinent History Other Medical History: Carpal tunnel both hands 2016. 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" - Past Surgical History Past Surgical History: Yes Neuro Surgical History: No Pertinent History Cardiac: Cardiac Catheterization Respiratory: No Pertinent History Gastrointestinal: Cholecystectomy Genitourinary: No Pertinent History Musculoskeletal: No Pertinent History Female Surgical History: Hysterectomy, Tubal Ligation Other Surgical History: PORT PLACEMENTd- states "prolastin infusion weekly" - Social History Smoking Status: Never smoker Exposure to second hand smoke: Yes Drug Use: none Patient Lives Alone: No - Female History Hx Last Menstrual Period: hyster Hx Now: No - Nursing Vital Signs Nursing Vital Signs: Initial Vital Signs Pulse Rate 98 H 10/06/20 17:41 Respiratory Rate 18 10/06/20 17:41 Blood Pressure 142/63 10/06/20 17:41 O2 Sat by Pulse Oximetry 96 10/06/20 17:41 Pain Scale Pain Intensity 6 - Physical Exam General Appearance: no apparent distress, alert Eye Exam: PERRL/EOMI, eyes nml inspection Ears, Nose, Throat Exam: normal ENT inspection, TMs normal, pharynx normal, moist mucous membranes Neck Exam: normal inspection, non-tender, supple, full range of motion Respiratory Exam: normal breath sounds, lungs clear, No respiratory distress Cardiovascular Exam: regular rate/rhythm, normal heart sounds, normal peripheral pulses Gastrointestinal/Abdomen Exam: soft, normal bowel sounds, No tenderness, No mass Back Exam: normal inspection, normal range of motion, No CVA tenderness, No vertebral tenderness Extremity Exam: normal inspection, normal range of motion, pelvis stable, other (Left upper extremity neurovascular intact distally. Pain to palpation at anterolateral shoulder. Pain significantly worse with shoulder flexion and abduction. Overlying soft tissue intact. Compartments are soft.) Neurologic Exam: alert, oriented x 3, cooperative, normal mood/affect, sensation nml, No motor deficits Skin Exam: normal color, warm, dry, No rash Lymphatic Exam: No adenopathy SpO2 Interpretation: normal SpO2: 96 O2 Delivery: Room Air - Course Nursing assessment & vital signs reviewed: Yes - Radiology Exams Shoulder X-ray Interpretation: Reviewed by me (No fracture or dislocation.) Ordered Tests: Active Orders 24 hr Category Date Time Status SHOULDER Stat Exams 10/06/20 18:08 Taken Medication Summary Discontinued Medications Generic Name Dose Route Start Last Admin Trade Name Freq PRN Reason Stop Dose Admin Ketorolac Tromethamine 60 mg 10/06/20 18:09 10/06/20 18:14 Toradol 30 Mg Injection IM 10/06/20 18:10 60 mg STAT ONE Administration Ketorolac Tromethamine Confirm 10/06/20 18:12 Toradol 30 Mg Injection Administered 10/06/20 18:13 Dose 60 mg .ROUTE .iCook.tw-MED ONE - Progress Progress: improved Progress Note: 10/06/20 18:52 X-ray negative for acute pathology. Given negative x-ray patient may have injured her shoulder musculature particularly rotator cuff. Patient immobilized in a shoulder sling. Patient given Toradol for pain control. Patient advised immobilization for 1 week. If pain does not significantly improve or resolve patient should see her family doctor. Patient may require an MRI for further evaluation. Patient has [place] at home. She voices no other complaints or concerns at this time. Will discharge home. Patient agrees to call her primary care doctor within 48 hours for reevaluation. Counseled pt/family regarding: diagnosis, need for follow-up, rad results - Departure Departure Disposition: Home Clinical Impression: Fall, Muscle strain Condition: Stable Critical Care Time: No Referrals: RICKY OBRIEN [Primary Care Provider] - Additional Instructions: Discharge/Care Plan NAEVENSANDHYA was seen on 10/06/20 in the Emergency Room. The patient was counseled regarding Diagnosis,Lab results, Imaging studies, need for follow up and when to return to the Emergency Room. Prescriptions given: Discharge Note I have spoken with the patient and/or caregivers. I have explained the patient's condition, diagnosis and treatment plan based on the information available to me at this time. I have answered the patient's and/or caregiver's questions and addressed any concerns. The patient and/or caregivers have as good understanding of the patient's diagnosis, condition and treatment plan as can be expected at this point. The vital signs have been stable. The patient's condition is stable and appropriate for discharge from the emergency department. The patient will pursue further outpatient evaluation with the primary care physician or other designated or consulting physician as outlined in the discharge instructions. The patient and/or caregivers are agreeable to this plan of care and follow-up instructions have been explained in detail. The patient and/or caregivers have received these instruction. The patient/and or caregivers are aware that any significant change in condition or worsening of symptoms should prompt an immediate return to this or the closest emergency department or call 911.
[2020-10-06 19:21] VITALS: BP 136/80; PULSE 86; O2SAT 98
--- NOTE | 2020-10-07 09:02 | XRAY ---
Indication: Pain following trauma. Comparison: None 3 view left shoulder obtained. No bony, articular, or soft tissue abnormalities.
== END 2020-10-06 19:10 | disposition home or self-care (01) ==
LOC: ED 17:36
DX: S46.912A Strain of unspecified muscle, fascia and tendon at shoulder and upper arm level, left arm, initial encounter (principal); M25.512 Pain in left shoulder; W01.0XXA Fall on same level from slipping, tripping and stumbling without subsequent striking against object, initial encounter
CPT/HCPCS: 73030; 96372; 99284; J1885

== ENCOUNTER 2021-04-29 06:48 | Day surgery (SDC) | payer OTHER ==
[2012-06-03 16:31] VITALS: BP 101/52
[2021-04-29] MEDS ORDERED: BUPIVACAINE 0.5% VIAL IJ ONE (06:49)
[2021-04-29] MEDS ORDERED: DIPRIVAN 200 MG/20 ML IV ONE (08:53)
--- NOTE | 2021-04-29 15:56 | XRAY ---
27 seconds of fluoroscopy was used in surgery for a bilateral L4-S1 MBB.
[2021-04-29] MEDS ORDERED: Lactated Ringers 1,000 ML IV ONE (17:29)
== END 2021-04-29 09:19 | disposition home or self-care (01) ==
LOC: SDC-PAIN 06:48
PROVIDERS: ATTEND Psychiatry & Neurology Pain Medicine
DX: M47.816 Spondylosis without myelopathy or radiculopathy, lumbar region (principal); E11.9 Type 2 diabetes mellitus without complications; I10 Essential (primary) hypertension; Z79.899 Other long term (current) drug therapy; Z79.01 Long term (current) use of anticoagulants; Z86.711 Personal history of pulmonary embolism; J44.9 Chronic obstructive pulmonary disease, unspecified
CPT/HCPCS: 64493; 64494; 72020; 77002; 82947; J1642; J2704

== ENCOUNTER 2021-06-24 06:17 | Day surgery (SDC) | payer OTHER ==
[2012-06-03 16:31] VITALS: BP 101/52
[2021-06-24] MEDS ORDERED: Depo-Medrol 40 MG/ML IM ONE (06:18)
[2021-06-24] MEDS ORDERED: BUPIVACAINE 0.5% VIAL IJ ONE (06:18)
[2021-06-24] MEDS ORDERED: DIPRIVAN 200 MG/20 ML IV ONE (08:08)
[2021-06-24] MEDS ORDERED: Lactated Ringers 1,000 ML IV ONE (08:46)
--- NOTE | 2021-06-24 10:08 | XRAY ---
Indication: Right greater trochanter bursa injection. Intraoperative fluoroscopy provided for 22 seconds. Single digital spot image submitted for interpretation demonstrates needle tip projecting lateral to the right greater trochanter. Small amount of contrast injected for needle tip placement. Correlate with intraoperative findings/report.
--- NOTE | 2021-06-24 11:03 | XRAY ---
22 seconds of fluoroscopy was used in surgery for a right greater trochanteric bursa injection.
== END 2021-06-24 08:59 | disposition home or self-care (01) ==
LOC: SDC-PAIN 06:17
PROVIDERS: ATTEND Psychiatry & Neurology Pain Medicine
DX: M70.61 Trochanteric bursitis, right hip (principal); E11.9 Type 2 diabetes mellitus without complications; Z79.899 Other long term (current) drug therapy
CPT/HCPCS: 20610; 73501; 77002; 82947; J1030; J1642; J2704; Q9966

== ENCOUNTER 2023-03-16 08:54 | Day surgery (SDC) | payer OTHER ==
[2012-06-03 16:31] VITALS: BP 101/52
[2023-03-16] MEDS ORDERED: Depo-Medrol 40 MG/ML IM ONE (08:55)
[2023-03-16] MEDS ORDERED: Sodium Chloride 0.9(Preservative Free) 10 ML IJ ONE (08:55)
[2023-03-16] MEDS ORDERED: LIDOCAINE HCL 1% 50 MG/5 ML VL PF IJ ONE (08:55)
[2023-03-16] MEDS ORDERED: DIPRIVAN 200 MG/20 ML IV ONE (11:36)
--- NOTE | 2023-03-16 12:49 | XRAY ---
Indication: Lumbar JESSICA. Intraoperative fluoroscopy provided for 15 seconds. 2 digital spot image submitted for interpretation demonstrates posterior needle tip projecting posterior to last lumbar segment. Correlate with intraoperative findings/report.
--- NOTE | 2023-03-16 14:11 | XRAY ---
15 seconds of fluoroscopy was used in surgery for a lumbar JESSICA.
[2023-03-16] MEDS ORDERED: Lactated Ringers 1,000 ML IV ONE (15:18)
== END 2023-03-16 12:13 | disposition home or self-care (01) ==
LOC: SDC-PAIN 08:54
PROVIDERS: ATTEND Psychiatry & Neurology Pain Medicine
DX: M54.16 Radiculopathy, lumbar region (principal); E11.9 Type 2 diabetes mellitus without complications; Z79.899 Other long term (current) drug therapy
CPT/HCPCS: 62323; 72100; 77003; 82947; J1030; J1642; J2001; J2704; Q9966

== ENCOUNTER 2023-05-11 15:56 | Day surgery (SDC) | payer OTHER ==
[2012-06-03 16:31] VITALS: BP 101/52
[2023-05-11] MEDS ORDERED: Depo-Medrol 40 MG/ML IM ONE (15:57)
[2023-05-11] MEDS ORDERED: LIDOCAINE HCL 1% 50 MG/5 ML VL PF IJ ONE (15:57)
[2023-05-11] MEDS ORDERED: BUPIVACAINE 0.5% VIAL IJ ONE (15:57)
--- NOTE | 2023-05-11 20:25 | XRAY ---
Indication: Bilateral SI joint injection. Intraoperative fluoroscopy provided for 19 seconds. 5 digital spot images submitted for interpretation demonstrates posterior needle tip projecting over the left and right SI joint. Correlate with intraoperative findings/report.
--- NOTE | 2023-05-12 08:48 | XRAY ---
19 seconds of fluoroscopy was used in surgery for a bilateral sacroiliac joint injection.
== END 2023-05-11 18:35 | disposition home or self-care (01) ==
LOC: SDC-PAIN 15:56
PROVIDERS: ATTEND Psychiatry & Neurology Pain Medicine
DX: M46.1 Sacroiliitis, not elsewhere classified (principal); E11.9 Type 2 diabetes mellitus without complications; Z79.899 Other long term (current) drug therapy
CPT/HCPCS: 27096; 72202; 77002; 82947; J1030; J2001; G0260

== ENCOUNTER 2023-11-19 10:30 | Emergency (ER) | payer OTHER ==
--- NOTE | 2023-11-19 10:35 | ERPHSYRPT ---
- History of Present Illness Time Seen by Provider: 11/19/23 10:35 Source: patient, family Exam Limitations: no limitations Physician History: pt fell last pm onto left hand/wrist and has swelling and pain persisting. Full ROm left elbow and shoulder and all other jts without pain. Nontender to palp except left wrist and hand and distal forearm. CHest , abd, spine and ribs all nontender to palpation. Full ROM hips and knees and ankles without any pain. No LOC , CP , dizziness, or SOBreath. did not hit head or have any prodrome or syncope. distal N/V intact. Familky is present as independent source for confirmation of Hx in ER. DIscussed risk/benefit of x-rays with pt and family and they wish to proceed with left hand, wrist, forearm - these are ordered. results discussed. Timing/Duration: yesterday Severity: moderate Modifying Factors: Improves With: cold therapy, immobilization, movement Associated Symptoms: denies symptoms Allergies/Adverse Reactions: Iodinated Contrast Media [IV Dye, Iodine Containing Contrast ] Allergy (Mild, Verified 11/19/23 10:50) "asthma attck" Sulfa (Sulfonamide Antibiotics) [Sulfa(Sulfonamide Antibiotics)] Allergy (Mild, Verified 11/19/23 10:50) "asthma attck" Home Medications: Albuterol Sulfate [Proair Hfa] 2 puff IH BID 12/19/14 [History] Budesonide/Formoterol Fumarate [Symbicort 160-4.5 Mcg Inhaler] 2 puff IH BID 12/19/14 [History] Levothyroxine Sodium 50 Mcg [Synthroid 50 Mcg] 50 mcg PO DAILY 12/19/14 [History] Nitroglycerin 0.4 mg Tablet [Nitrostat 0.4 MG Tablet] 1 tab SL UD PRN 09/02/16 [History] Atorvastatin Calcium [Lipitor 20MG Tablet] 20 mg PO HS 07/22/17 [History] Ipratropium/Albuterol Sulfate [Iprat-Albut 0.5-3(2.5) mg/3 ml] 3 ml IH Q4HPRN PRN 07/22/17 [History] Loratadine [Claritin] 10 mg PO DAILY 07/22/17 [History] lisinopriL [Lisinopril] 5 mg PO DAILY 12/13/17 [History] Bdfvw-5-Hvciaupxqh Inhibitor [Prolastin C] 0 mg IV UD 01/17/18 [History] Qnjst-0-Iaapregtdd Inhibitor [Prolastin C] 1,000 mg IV WEEKLY 02/06/18 [History] Mv,Calcium,Min/Iron/Folic/Vitk [Multi For Her Tablet] 1 ea DAILY 10/06/20 [History] [place]-3 Fatty Acids/Fish Oil [Fish Oil 1,000 mg Capsule] 1 ea BID 10/06/20 [History] Adalimumab [Humira] 40 mg SQ UD 11/19/23 [History] Allopurinol 100 mg [Zyloprim 100 mg] 100 mg PO DAILY 11/19/23 [History] Amitriptyline HCl 25 mg [Amitriptyline 25 mg Tablet] 25 mg PO DAILY 11/19/23 [History] Amlodipine Besylate 1 ea DAILY 11/19/23 [History] Asenapine Maleate [Saphris] 2.5 mg SL UD 11/19/23 [History] Baclofen 10 mg [Lioresal 10 mg] 10 mg PO BID 11/19/23 [History] Cholecalciferol (Vitamin D3) [Vitamin D3] 1 ea UD 11/19/23 [History] Fluoxetine HCl 1 ea DAILY 11/19/23 [History] Hydroxyzine HCl 25 mg [Atarax 25 mg] 25 mg PO DAILY 11/19/23 [History] Losartan Potassium [Cozaar] 100 mg PO DAILY 11/19/23 [History] Metoprolol Tartrate 50 mg [Lopressor 50 MG] 25 mg PO BID 11/19/23 [History] Mirabegron [Myrbetriq] 1 ea DAILY 11/19/23 [History] Oxycodone HCl/Acetaminophen [Percocet 10-325 mg Tablet] 1 each PO TID 11/19/23 [History] Pregabalin 25 mg [Lyrica 25 MG] 25 mg PO BID 11/19/23 [History] Ubrogepant [Ubrelvy] 50 mg PO UD 11/19/23 [History] lamoTRIgine [Subvenite (Blue)] 25 mg PO DAILY 11/19/23 [History] Hx Tetanus, Diphtheria Vaccination/Date Given: Yes Hx Influenza Vaccination/Date Given: Yes Hx Pneumococcal Vaccination/Date Given: No - Review of Systems Constitutional: No Fever, No Chills Eyes: No Symptoms Ears, Nose, & Throat: No Symptoms Respiratory: No Cough, No Dyspnea Cardiac: No Chest Pain, No Edema, No Syncope Abdominal/Gastrointestinal: No Abdominal Pain, No Nausea, No Vomiting, No Diarrhea Genitourinary Symptoms: No Dysuria Musculoskeletal: Fall, Injury, Joint Pain, Joint Swelling, No Back Pain, No Neck Pain Skin: No Rash Neurological: No Dizziness, No Focal Weakness, No Sensory Changes Psychological: No Symptoms Endocrine: No Symptoms Hematologic/Lymphatic: No Symptoms Immunological/Allergic: No Symptoms All Other Systems: Reviewed and Negative - Past Medical History Pertinent Past Medical History: Yes Neurological History: Migraines, Seizures ENT History: No Pertinent History Cardiac History: Coronary Artery Disease, High Cholesterol, Hypertension Respiratory History: Asthma, CHF, COPD, Pulmonary Embolism Endocrine Medical History: Diabetes Type II, Hypothyroidism Musculoskeletal History: Arthritis, Degenerative Disk Disease, Fibromyalgia GI Medical History: No Pertinent History History: No Pertinent History Psycho-Social History: Anxiety, Depression Female Reproductive Disorders: No Pertinent History Other Medical History: HX OF 1 SEIZURE WHEN SHE WAS A CHILDREN. GASTRIC BYPASS IN MAY 2022, "SCARRED LUNGS", HEART PALPITATIONS. L HAND CARPAL TUNNEL SX SEPT 5, ALPHA 1 ANTITRYPSIN DEFICIENCY, CROHNS, ANXIETY, DEPRESSION, PTSD, DEUCE, BIPOLAR, NEUROPATHY, OCD, LUMBAR RADICULOPATHY, MULTIPLE JOINT PAIN, SIJ PAIN, SPONDYLOSIS WITHOUT MYELOPATHY, BILATERAL TROCHANTERIS BURSITIS, CERVICAL SPONDYLOSIS WITHOUT MYELOPATHY, CKD, GALLBLADDER REMOVAL, BLADDER SLING - Past Surgical History Past Surgical History: Yes Neuro Surgical History: No Pertinent History Cardiac: Cardiac Catheterization Respiratory: No Pertinent History Gastrointestinal: Cholecystectomy Genitourinary: No Pertinent History Musculoskeletal: No Pertinent History Female Surgical History: Hysterectomy, Tubal Ligation Other Surgical History: PORT PLACEMENTd- states "prolastin infusion weekly" - Social History Smoking Status: Never smoker Exposure to second hand smoke: Yes Drug Use: none Patient Lives Alone: No - Nursing Vital Signs Nursing Vital Signs: Initial Vital Signs Temperature 97.0 F 11/19/23 10:50 Pulse Rate 86 11/19/23 10:50 Respiratory Rate 18 11/19/23 10:50 Blood Pressure 166/92 11/19/23 10:50 O2 Sat by Pulse Oximetry 97 11/19/23 10:50 Pain Scale Pain Intensity 7 - Physical Exam General Appearance: no apparent distress, alert Eye Exam: PERRL/EOMI, eyes nml inspection Ears, Nose, Throat Exam: normal ENT inspection, TMs normal, pharynx normal, moist mucous membranes Neck Exam: normal inspection, non-tender, supple, full range of motion Respiratory Exam: normal breath sounds, lungs clear, airway intact, No respiratory distress Cardiovascular Exam: regular rate/rhythm, normal heart sounds, normal peripheral pulses Gastrointestinal/Abdomen Exam: soft, normal bowel sounds, No tenderness, No mass Pelvic Exam: deferred Rectal Exam: deferred Back Exam: normal inspection, normal range of motion, No CVA tenderness, No vertebral tenderness Extremity Exam: normal range of motion, pelvis stable, joint swelling, swelling, tenderness (left hand, wrist, distal forearm) Neurologic Exam: alert, oriented x 3, cooperative, normal mood/affect, nml cerebellar function, nml station & gait, sensation nml, No motor deficits Skin Exam: normal color, warm, dry, No rash Lymphatic Exam: No adenopathy SpO2 Interpretation: normal SpO2: 97 O2 Delivery: Room Air - Radiology Exams Left Wrist X-ray Interpretation: Reviewed by me, Non-displaced Fracture (distal radius) Left Hand X-ray Interpretation: Reviewed by me, Non-displaced Fracture (distal radius) Left Forearm X-ray Interpretation: Reviewed by me, Non-displaced Fracture (distal radius) Ordered Tests: Active Orders 24 hr Category Date Time Status FOREARM Stat Exams 11/19/23 11:22 Taken HAND (MINIMUM 3 VIEWS) Stat Exams 11/19/23 11:21 Taken WRIST (MIN 3 VIEWS) Stat Exams 11/19/23 11:23 Taken - Progress Progress: improved, re-examined Progress Note: 11/19/23 12:03 discussed results with pt and family and need for splinting and they wish to proceed so this is ordered. discussed risk/benefit pain meds and pt/family wish to continue on her current regimen for fibromyalgia and she is doing ok on this right now without any new meds. . 11/19/23 12:27 11/19/23 12:31 also discussed the possibility for undtected injuries from the fall and need for evaluation if any other symptoms - the pt and family understand and wish DC with outpt f/u PMD at this time without further evaluation in ER at this time and have the capacity to make this choice. Counseled pt/family regarding: diagnosis, need for follow-up, rad results Medical Desision Making - Independent Historian Additional History obtained from: Family - Discussion of managment Reviewed:: Test results, Need for additional workup Agreed on:: Treatment plan, need for follow-up - Diagnostic Testing Diagnostic test were ordered, analyzed, and reviewed by me: Yes Radiological Interpretation: Reviewed by me - Risk of complications The pt has a mod risk of morbidity or mortality based on: Need for prescription drug management - Departure Departure Disposition: Home Clinical Impression: Fracture of left distal radius Condition: Good Critical Care Time: No Referrals: RICKY OBRIEN [Primary Care Provider] - Follow up/PCP as directed Instructions: Radius Fracture (DC), Wrist Fracture (DC) Additional Instructions: follow-up with your Tuesday for final radiology report. use splint. return meantime if increased pain, numbness, or other concerns. Since there could be undetected injuries also from the fall remain alert if other symtpoms such as dizziness or pain in other areas occur and return for evaluation. also followup your blood pressure with your
[2023-11-19 10:51] VITALS: PULSE 86; RESP 18; TEMP 97
[2023-11-19 12:02] VITALS: BP 124/78
[2023-11-19 12:04] VITALS: O2SAT 97
--- NOTE | 2023-11-19 20:24 | XRAY ---
Indication: Pain following fall. Comparison: None 2 view left forearm demonstrates tiny cortical buckle fracture distal metadiaphysis radius laterally. No other bony, articular, or soft tissue abnormalities.
--- NOTE | 2023-11-19 20:26 | XRAY ---
Indication: Pain following fall. Comparison: None 3 view left hand demonstrates tiny cortical fracture distal metadiaphysis radius laterally. No other bony, articular, or soft tissue abnormalities.
--- NOTE | 2023-11-19 20:26 | XRAY ---
Indication: Pain following fall. Comparison: December 28, 2022 3 view left wrist demonstrates new tiny cortical buckle fracture distal metadiaphysis radius laterally. No other bony, articular, or soft tissue abnormalities.
== END 2023-11-19 12:39 | disposition home or self-care (01) ==
LOC: ED 10:30
DX: S52.592A Other fractures of lower end of left radius, initial encounter for closed fracture (principal); W19.XXXA Unspecified fall, initial encounter; M79.642 Pain in left hand; E78.5 Hyperlipidemia, unspecified; I10 Essential (primary) hypertension; E11.9 Type 2 diabetes mellitus without complications; Z79.4 Long term (current) use of insulin; Z79.891 Long term (current) use of opiate analgesic; Z79.899 Other long term (current) drug therapy
CPT/HCPCS: 73090; 73110; 73130; 99283; L3908

== ENCOUNTER 2023-12-05 15:20 | Emergency (ER) | payer OTHER ==
[2023-12-05 15:42] VITALS: TEMP 97.7
--- NOTE | 2023-12-05 15:51 | ERPHSYRPT ---
- History of Present Illness Time Seen by Provider: 12/05/23 15:51 Source: patient, EMS Exam Limitations: no limitations Patient Subjective Stated Complaint: C/O "having no energy" for approx 2 weeks. Denies fever, N/V, or diarrhea. States she was started on lasix and K+ about 2 weeks ago and jardiance one week ago. Triage Nursing Assessment: Patient transferred self off of ambulance cot and ambulated to the restroom and then to her ER room independently without difficulties for assessment upon arrival. AQUINO WNL. NO SOB. She is alert and oriented. Some edema present to BLE. Patient pale. Physician History: This is an obese 48-year-old white female patient Dr. Busby who states she has had weakness and fatigue for 2-week. At time. Approximate 2 weeks ago patient was started on potassium and Lasix. Approxi-1 week ago patient was placed on Jardiance by her commercial credit lead. Patient denies chest pain. Patient denies fevers or chills. Patient denies nausea vomiting or diarrhea symptoms. Patient has a history of alpha 1 antitrypsin deficiency. Patient has a history of hypertension, hypothyroidism, migraine headaches, seizure disorder, coronary artery disease, hyperlipidemia, CHF, COPD, diabetes, fibromyalgia, degenerative disc disease, anxiety, depression, PTSD and chronic kidney disease. Timing/Duration: week(s) (2 weeks), worse Severity: moderate Associated Symptoms: weakness, No nausea, No vomiting, No abdominal pain, No shortness of breath, No chest pain, No fever, No headaches Allergies/Adverse Reactions: Iodinated Contrast Media [IV Dye, Iodine Containing Contrast ] Allergy (Mild, Verified 12/05/23 15:30) "asthma attck" Sulfa (Sulfonamide Antibiotics) [Sulfa(Sulfonamide Antibiotics)] Allergy (Mild, Verified 12/05/23 15:30) "asthma attck" Home Medications: Albuterol Sulfate [Proair Hfa] 2 puff IH BID 12/19/14 [History] Budesonide/Formoterol Fumarate [Symbicort 160-4.5 Mcg Inhaler] 2 puff IH BID 12/19/14 [History] Levothyroxine Sodium 50 Mcg [Synthroid 50 Mcg] 50 mcg PO DAILY 12/19/14 [History] Nitroglycerin 0.4 mg Tablet [Nitrostat 0.4 MG Tablet] 1 tab SL UD PRN 09/02/16 [History] Atorvastatin Calcium [Lipitor 20MG Tablet] 20 mg PO HS 07/22/17 [History] Ipratropium/Albuterol Sulfate [Iprat-Albut 0.5-3(2.5) mg/3 ml] 3 ml IH Q4HPRN PRN 07/22/17 [History] Loratadine [Claritin] 10 mg PO DAILY 07/22/17 [History] Mv,Calcium,Min/Iron/Folic/Vitk [Multi For Her Tablet] 1 ea PO DAILY 10/06/20 [History] [place]-3 Fatty Acids/Fish Oil [Fish Oil 1,000 mg Capsule] 1 ea PO BID 10/06/20 [History] Allopurinol 100 mg [Zyloprim 100 mg] 100 mg PO DAILY 11/19/23 [History] Amitriptyline HCl 25 mg [Amitriptyline 25 mg Tablet] 25 mg PO HS 11/19/23 [History] Amlodipine Besylate 1 tab PO DAILY 11/19/23 [History] Asenapine Maleate [Saphris] 10 mg SL HS 11/19/23 [History] Baclofen 10 mg [Lioresal 10 mg] 20 mg PO BID 11/19/23 [History] Cholecalciferol (Vitamin D3) [Vitamin D3] 2,000 unit PO DAILY 11/19/23 [History] Fluoxetine HCl 1 cap PO DAILY 11/19/23 [History] Hydroxyzine HCl 25 mg [Atarax 25 mg] 25 mg PO BID 11/19/23 [History] Losartan Potassium [Cozaar] 100 mg PO DAILY 11/19/23 [History] Mirabegron [Myrbetriq] 1 ea PO DAILY 11/19/23 [History] Oxycodone HCl/Acetaminophen [Percocet 10-325 mg Tablet] 1 each PO TID PRN 11/19/23 [History] Ubrogepant [Ubrelvy] 50 mg PO UD 11/19/23 [History] lamoTRIgine [Subvenite (Blue)] 50 mg PO DAILY 11/19/23 [History] Empagliflozin [Jardiance] 1 tab PO DAILY 12/05/23 [History] Furosemide 40 mg [Lasix 40 MG] 1 tab PO DAILY 12/05/23 [History] Lactobacillus Acidophilus [Probiotic] 1 cap PO DAILY 12/05/23 [History] Metoprolol Succinate 25 mg Xl* [Toprol-Xl 25MG Tablets] 1 tab PO BID 12/05/23 [History] Potassium Chloride 1 tab PO DAILY 12/05/23 [History] Pregabalin 1 cap PO BID 12/05/23 [History] Thiamine HCl 100 mg [Vitamin B-1 100 mg] 1 tab PO DAILY 12/05/23 [History] Hx Tetanus, Diphtheria Vaccination/Date Given: Yes Hx Influenza Vaccination/Date Given: Yes Hx Pneumococcal Vaccination/Date Given: No Immunizations Up to Date: Yes Travel Risk - International Travel Have you traveled outside of the country in past 3 weeks: No - Coronavirus Screening Are you exhibiting any of the following symptoms?: No Close contact with a COVID-19 positive Pt in past 14-21 Days: No - Vaccine Status Have you recieved a Covid-19 vaccination: Yes 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 - Review of Systems Constitutional: Weakness Eyes: No Symptoms Ears, Nose, & Throat: No Symptoms Respiratory: No Symptoms Cardiac: No Symptoms Abdominal/Gastrointestinal: No Symptoms Genitourinary Symptoms: No Symptoms Musculoskeletal: No Symptoms Skin: No Symptoms Neurological: No Symptoms Psychological: No Symptoms Endocrine: No Symptoms Hematologic/Lymphatic: No Symptoms Immunological/Allergic: No Symptoms All Other Systems: Reviewed and Negative - Past Medical History Pertinent Past Medical History: Yes Neurological History: Migraines, Seizures ENT History: No Pertinent History Cardiac History: Coronary Artery Disease, High Cholesterol, Hypertension Respiratory History: Asthma, CHF, COPD, Pulmonary Embolism Endocrine Medical History: Diabetes Type II, Hypothyroidism Musculoskeletal History: Arthritis, Degenerative Disk Disease, Fibromyalgia GI Medical History: No Pertinent History History: No Pertinent History Psycho-Social History: Anxiety, Depression Female Reproductive Disorders: No Pertinent History Other Medical History: HEART PALPITATIONS. L HAND CARPAL TUNNEL SX SEPT 5, ALPHA 1 ANTITRYPSIN DEFICIENCY, CROHNS, PTSD, DEUCE, BIPOLAR, NEUROPATHY, OCD, LUMBAR RADICULOPATHY, MULTIPLE JOINT PAIN, SIJ PAIN, SPONDYLOSIS WITHOUT MYELOPATHY, BILATERAL TROCHANTERIS BURSITIS, CERVICAL SPONDYLOSIS WITHOUT MYELOPATHY, CKD, BLADDER SLING - Past Surgical History Past Surgical History: Yes Neuro Surgical History: No Pertinent History Cardiac: Cardiac Catheterization Respiratory: No Pertinent History Gastrointestinal: Cholecystectomy Genitourinary: No Pertinent History Musculoskeletal: No Pertinent History Female Surgical History: Hysterectomy, Tubal Ligation Other Surgical History: PORT PLACEMENTd- states "prolastin infusion weekly" - Social History Smoking Status: Never smoker Exposure to second hand smoke: Yes Drug Use: none Patient Lives Alone: No - Female History Hx Last Menstrual Period: No longer has Hx Now: No (hysterectomy) - Nursing Vital Signs Nursing Vital Signs: Initial Vital Signs Temperature 97.7 F 12/05/23 15:30 Pulse Rate 81 12/05/23 15:30 Respiratory Rate 17 12/05/23 15:30 Blood Pressure 104/34 12/05/23 15:30 O2 Sat by Pulse Oximetry 98 12/05/23 15:30 Pain Scale Pain Intensity 0 - Physical Exam General Appearance: no apparent distress, alert, anxiety, obese Eye Exam: PERRL/EOMI, pale conjunctivae Ears, Nose, Throat Exam: normal ENT inspection, dry mucous membranes Neck Exam: normal inspection, non-tender, supple, full range of motion Respiratory Exam: normal breath sounds, lungs clear, airway intact, No chest tenderness, No respiratory distress Cardiovascular Exam: regular rate/rhythm, normal heart sounds, normal peripheral pulses Gastrointestinal/Abdomen Exam: soft, normal bowel sounds, No tenderness Pelvic Exam: not done Rectal Exam: not done Back Exam: normal inspection, normal range of motion, No CVA tenderness, No vertebral tenderness Extremity Exam: normal inspection, normal range of motion, pelvis stable Neurologic Exam: alert, oriented x 3, cooperative, community development coordinator II-XII nml as tested, normal mood/affect, sensation nml, No nml cerebellar function, No nml station & gait Skin Exam: warm, dry, pale Lymphatic Exam: No adenopathy SpO2 Interpretation: normal SpO2: 98 O2 Delivery: Room Air - Course Nursing assessment & vital signs reviewed: Yes EKG Interpreted by Me: RATE (78), LAFB, NORMAL INTERVALS, NORMAL QRS, Other (There are no changes consistent with acute ischemia. I compared today's twelve-lead EKG with the twelve-lead EKG performed on 07/22/2017. There are no changes that suggest acute ischemia on either twelve-lead EKG.) Ordered Tests: Active Orders 24 hr Category Date Time Status [employer] STAT Care 12/05/23 16:11 Active EKG-ER Only STAT Care 12/05/23 16:10 Active IV Insertion STAT Care 12/05/23 16:10 Active Pulse Oximetry (ED) STAT Care 12/05/23 16:10 Active BLOOD CULTURE Stat Lab 12/05/23 17:20 Received CBC W DIFF Stat Lab 12/05/23 16:55 Completed CMP Stat Lab 12/05/23 16:55 Completed Lactic Acid Stat Lab 12/05/23 16:10 Completed MONO SCREEN Stat Lab 12/05/23 16:55 Completed NT PRO BNPII Stat Lab 12/05/23 16:55 Completed TROPONIN Q4H Lab 12/05/23 16:55 Completed TROPONIN Q4H Lab 12/05/23 20:15 Ordered TROPONIN Q4H Lab 12/06/23 00:15 Ordered TSH, 3RD Generation Stat Lab 12/05/23 16:55 Completed UA W/RFX UR CULTURE Stat Lab 12/05/23 16:10 Completed Medication Summary Generic Name Dose Route Start Last Admin Trade Name Freq PRN Reason Stop Dose Admin Sodium Chloride 1,000 mls @ 100 mls/hr 12/05/23 16:15 12/05/23 16:22 Sodium Chloride 0.9% 1000 Ml IV 01/04/24 16:14 Not Given .Q10H JALEN Discontinued Medications Generic Name Dose Route Start Last Admin Trade Name Freq PRN Reason Stop Dose Admin Ceftriaxone Sodium 1 gm in 100 mls @ 200 mls/hr 12/05/23 17:22 12/05/23 18:22 Rocephin 1 Gm / 100 Ml Nacl IV 12/05/23 17:51 Infused STAT ONE Infusion Ceftriaxone Sodium Confirm 12/05/23 17:49 Rocephin 1 Gm / 100 Ml Nacl Administered 12/05/23 17:50 Dose 1 gm in 100 mls @ ud IV .STK-MED ONE Lab/Rad Data: Laboratory Result Diagrams 12/05/23 16:55 12/05/23 16:55 Laboratory Results 12/05/23 12/05/23 12/05/23 Range/Units 16:55 16:55 16:55 WBC (4.0-10.5) x10^3/uL RBC (4.1-5.4) x10^6/uL Hgb (12.0-16.0) g/dL Hct (35-47) % MCV (78-100) fL MCH (26-32) pg MCHC (32-36) g/dL RDW (11.5-14.0) % Plt Count (150-450) x10^3/uL MPV (7.5-11.0) fL Gran % (36.0-66.0) % Immature Gran % (Auto) (0.00-0.4) % Nucleat RBC Rel Count (0.00-0.1) % Eos # (Auto) (0-0.5) x10^3/uL Immature Gran # (Auto) (0.00-0.03) x10^3u/L Absolute Lymphs (auto) (1.0-4.6) x10^3/uL Absolute Monos (auto) (0.0-1.3) x10^3/uL Absolute Nucleated RBC (0.00-0.01) x10^3u/L Lymphocytes % (24.0-44.0) % Monocytes % (0.0-12.0) % Eosinophils % (0.00-5.0) % Basophils % (0.0-0.4) % Absolute Granulocytes (1.4-6.9) x10^3/uL Basophils # (0-0.4) x10^3/uL Sodium (137-145) mmol/L Potassium (3.5-5.1) mmol/L Chloride (98-107) mmol/L Carbon Dioxide (22-30) mmol/L Anion Gap (5-15) MEQ/L BUN (7-17) mg/dL Creatinine (0.52-1.04) mg/dL Estimated GFR ML/MIN Glucose (74-106) mg/dL Lactic Acid (0.4-2.0) Calcium (8.4-10.2) mg/dL Total Bilirubin (0.2-1.3) mg/dL AST (14-36) U/L ALT (0-35) U/L Alkaline Phosphatase (38-126) U/L Troponin I < 0.012 (0.000-0.034) ng/mL NT-Pro-B Natriuret Pep (<300) pg/mL Serum Total Protein (6.3-8.2) g/dL Albumin (3.5-5.0) g/dL Free T4 1.64 (0.78-2.19) ng/dL TSH 3rd Generation (0.47-4.68) mIU/L Urine Color (Yellow) Urine Appearance (Clear) Urine pH (4.6-8.0) Ur Specific [place] (1.005-1.030) Urine Protein (Negative) Urine Glucose (UA) (Negative) mg/dL Urine Ketones (Negative) Urine Blood (Negative) Urine Nitrite (Negative) Urine Bilirubin (Negative) Urine Urobilinogen (0.2) mg/dL Ur Leukocyte Esterase (Negative) U Hyaline Cast (Auto) (0-2) /LPF Urine Microscopic RBC (0-5) /HPF Urine Microscopic WBC (0-5) /HPF Ur Epithelial Cells (None Seen) /HPF Urine Bacteria (None Seen) /HPF Urine Culture Reflexed (NO) Monoscreen NEGATIVE (NEGATIVE) Influenza Type A Ag (NEGATIVE) Influenza Type B Ag (NEGATIVE) RSV (PCR) (NEGATIVE) SARS-CoV-2 (PCR) (NEGATIVE) 12/05/23 12/05/23 12/05/23 Range/Units 16:55 16:55 16:50 WBC 8.6 (4.0-10.5) x10^3/uL RBC 3.98 L (4.1-5.4) x10^6/uL Hgb 11.7 L (12.0-16.0) g/dL Hct 36.6 (35-47) % MCV 92.0 (78-100) fL MCH 29.4 (26-32) pg MCHC 32.0 (32-36) g/dL RDW 13.3 (11.5-14.0) % Plt Count 183 (150-450) x10^3/uL MPV 12.3 H (7.5-11.0) fL Gran % 64.5 (36.0-66.0) % Immature Gran % (Auto) 0.2 (0.00-0.4) % Nucleat RBC Rel Count 0.0 (0.00-0.1) % Eos # (Auto) 0.15 (0-0.5) x10^3/uL Immature Gran # (Auto) 0.02 (0.00-0.03) x10^3u/L Absolute Lymphs (auto) 2.16 (1.0-4.6) x10^3/uL Absolute Monos (auto) 0.67 (0.0-1.3) x10^3/uL Absolute Nucleated RBC 0.00 (0.00-0.01) x10^3u/L Lymphocytes % 25.1 (24.0-44.0) % Monocytes % 7.8 (0.0-12.0) % Eosinophils % 1.7 (0.00-5.0) % Basophils % 0.7 (0.0-0.4) % Absolute Granulocytes 5.53 (1.4-6.9) x10^3/uL Basophils # 0.06 (0-0.4) x10^3/uL Sodium 138 (137-145) mmol/L Potassium 4.2 (3.5-5.1) mmol/L Chloride 112 H (98-107) mmol/L Carbon Dioxide 19 L (22-30) mmol/L Anion Gap 11.0 (5-15) MEQ/L BUN 41 H (7-17) mg/dL Creatinine 0.97 (0.52-1.04) mg/dL Estimated GFR 73.0 ML/MIN Glucose 81 (74-106) mg/dL Lactic Acid (0.4-2.0) Calcium 8.5 (8.4-10.2) mg/dL Total Bilirubin 1.30 (0.2-1.3) mg/dL AST 32 (14-36) U/L ALT 47 H (0-35) U/L Alkaline Phosphatase 172 H (38-126) U/L Troponin I (0.000-0.034) ng/mL NT-Pro-B Natriuret Pep 27.9 (<300) pg/mL Serum Total Protein 5.9 L (6.3-8.2) g/dL Albumin 2.9 L (3.5-5.0) g/dL Free T4 (0.78-2.19) ng/dL TSH 3rd Generation 0.391 L (0.47-4.68) mIU/L Urine Color (Yellow) Urine Appearance (Clear) Urine pH (4.6-8.0) Ur Specific [place] (1.005-1.030) Urine Protein (Negative) Urine Glucose (UA) (Negative) mg/dL Urine Ketones (Negative) Urine Blood (Negative) Urine Nitrite (Negative) Urine Bilirubin (Negative) Urine Urobilinogen (0.2) mg/dL Ur Leukocyte Esterase (Negative) U Hyaline Cast (Auto) (0-2) /LPF Urine Microscopic RBC (0-5) /HPF Urine Microscopic WBC (0-5) /HPF Ur Epithelial Cells (None Seen) /HPF Urine Bacteria (None Seen) /HPF Urine Culture Reflexed (NO) Monoscreen (NEGATIVE) Influenza Type A Ag NEGATIVE (NEGATIVE) Influenza Type B Ag NEGATIVE (NEGATIVE) RSV (PCR) NEGATIVE (NEGATIVE) SARS-CoV-2 (PCR) NEGATIVE (NEGATIVE) 12/05/23 12/05/23 Range/Units 16:10 16:10 WBC (4.0-10.5) x10^3/uL RBC (4.1-5.4) x10^6/uL Hgb (12.0-16.0) g/dL Hct (35-47) % MCV (78-100) fL MCH (26-32) pg MCHC (32-36) g/dL RDW (11.5-14.0) % Plt Count (150-450) x10^3/uL MPV (7.5-11.0) fL Gran % (36.0-66.0) % Immature Gran % (Auto) (0.00-0.4) % Nucleat RBC Rel Count (0.00-0.1) % Eos # (Auto) (0-0.5) x10^3/uL Immature Gran # (Auto) (0.00-0.03) x10^3u/L Absolute Lymphs (auto) (1.0-4.6) x10^3/uL Absolute Monos (auto) (0.0-1.3) x10^3/uL Absolute Nucleated RBC (0.00-0.01) x10^3u/L Lymphocytes % (24.0-44.0) % Monocytes % (0.0-12.0) % Eosinophils % (0.00-5.0) % Basophils % (0.0-0.4) % Absolute Granulocytes (1.4-6.9) x10^3/uL Basophils # (0-0.4) x10^3/uL Sodium (137-145) mmol/L Potassium (3.5-5.1) mmol/L Chloride (98-107) mmol/L Carbon Dioxide (22-30) mmol/L Anion Gap (5-15) MEQ/L BUN (7-17) mg/dL Creatinine (0.52-1.04) mg/dL Estimated GFR ML/MIN Glucose (74-106) mg/dL Lactic Acid 1.2 (0.4-2.0) Calcium (8.4-10.2) mg/dL Total Bilirubin (0.2-1.3) mg/dL AST (14-36) U/L ALT (0-35) U/L Alkaline Phosphatase (38-126) U/L Troponin I (0.000-0.034) ng/mL NT-Pro-B Natriuret Pep (<300) pg/mL Serum Total Protein (6.3-8.2) g/dL Albumin (3.5-5.0) g/dL Free T4 (0.78-2.19) ng/dL TSH 3rd Generation (0.47-4.68) mIU/L Urine Color Yellow (Yellow) Urine Appearance Clear (Clear) Urine pH 5.5 (4.6-8.0) Ur Specific [place] 1.020 (1.005-1.030) Urine Protein Negative (Negative) Urine Glucose (UA) Negative (Negative) mg/dL Urine Ketones Negative (Negative) Urine Blood Negative (Negative) Urine Nitrite Negative (Negative) Urine Bilirubin Negative (Negative) Urine Urobilinogen 0.2 (0.2) mg/dL Ur Leukocyte Esterase Moderate A (Negative) U Hyaline Cast (Auto) NONE SEEN (0-2) /LPF Urine Microscopic RBC 0-2 (0-5) /HPF Urine Microscopic WBC 6-10 A (0-5) /HPF Ur Epithelial Cells Rare (None Seen) /HPF Urine Bacteria None Seen (None Seen) /HPF Urine Culture Reflexed NO (NO) Monoscreen (NEGATIVE) Influenza Type A Ag (NEGATIVE) Influenza Type B Ag (NEGATIVE) RSV (PCR) (NEGATIVE) SARS-CoV-2 (PCR) (NEGATIVE) - Progress Progress: improved, re-examined Progress Note: 12/05/23 17:01 This patient's medical issue is 1 of moderate to high complexity. The level of complexity in the workup performed is based on review of the patient's past medical history, review of the patient's medication list, review of patient drug allergy list, history present illness and physical findings on examination. The workup in this patient includes placement of intravenous line, infusion of normal saline solution, CBC, CMP, BNP, troponin level, twelve-lead EKG, urinalysis, free T4 and TSH levels. 12/05/23 18:46 I interpreted the patient's laboratory data results. The patient has a urinary tract infection but no other acute, emergent findings on laboratory data results. Counseled pt/family regarding: lab results, diagnosis, need for follow-up Medical Desision Making - Diagnostic Testing Diagnostic test were ordered, analyzed, and reviewed by me: Yes - Departure Departure Disposition: Home Clinical Impression: Weakness, UTI (urinary tract infection) Condition: Stable Critical Care Time: No Referrals: RICKY BUSBY [Primary Care Provider] - Follow up/PCP as directed Additional Instructions: Drink plenty of fluids. Take your antibiotics and other medications as prescribed. Call your primary care provider tomorrow, 12/06/2023 to make arrangements for follow-up appointment and for further evaluation management. Prescriptions: Cefdinir 300 mg PO BID #14 cap
[2023-12-05] MEDS: Sodium Chloride 0.9% 1000 ML 1,000 ML IV SCH (16:22)
[2023-12-05 16:24] LABS: Appearance Clear (Clear); Bacteria None Seen /HPF (None Seen); Bilirubin Negative (Negative); Blood Negative (Negative); Epithelial Cells Rare /HPF (None Seen); Glucose, Urine Negative (Negative); Hyaline Casts NONE SEEN /LPF (0-2); Ketones Negative (Negative); Leukocyte Esterase Moderate (Negative); Nitrite Negative (Negative); Ph 5.5 (4.6-8.0); Protein,Urine Dip Negative (Negative); RBC 0-2 /HPF (0-5); Urobilinogen 0.2 mg/dL (0.2)
[2023-12-05 16:26] LABS: ADD URINE CULTURE? NO (NO)
[2023-12-05 17:02] LABS: Absolute Neutrophil Ct (ANC) 5.53 x10^3/uL (1.4-6.9); BASOPHIL % 0.7 % (0.0-0.4); Basophil (Absolute #) 0.06 x10^3/uL (0-0.4); Eosinophil % 1.7 % (0.00-5.0); Eosinophil (Absolute #) 0.15 x10^3/uL (0-0.5); Hematocrit 36.6 % (35-47); Hemoglobin 11.7 g/dL (12.0-16.0); IMMATURE GRAN # 0.02 x10^3u/L (0.00-0.03); IMMATURE GRAN % 0.2 % (0.00-0.4); Lymphocyte (Absolute #) 2.16 x10^3/uL (1.0-4.6); Lymphocytes % 25.1 % (24.0-44.0); Mean Corpuscular Hemoglobin 29.4 pg (26-32); Mean Platelet Volume 12.3 fL (7.5-11.0); Monocyte (Absolute #) 0.67 x10^3/uL (0.0-1.3); Monocytes % 7.8 % (0.0-12.0); Neutrophil % 64.5 % (36.0-66.0); Platelet Count 183 x10^3/uL (150-450); Red Blood Count 3.98 x10^6/uL (4.1-5.4); Red Cell Distribution Width 13.3 % (11.5-14.0); White Blood Count 8.6 x10^3/uL (4.0-10.5)
[2023-12-05 17:48] LABS: ALBUMIN 2.9 g/dL (3.5-5.0); BILIRUBIN,TOTAL 1.3 mg/dL (0.2-1.3); Calcium 8.5 mg/dL (8.4-10.2); Creatinine 1 0.97 mg/dL (0.52-1.04); NT PRO BNPII 27.9 pg/mL (<300); Potassium 4.2 mmol/L (3.5-5.1); TSH, 3RD Generation 0.391 mIU/L (0.47-4.68); Total Protein 5.9 g/dL (6.3-8.2)
[2023-12-05] MEDS ORDERED: ROCEPHIN 1 GM / 100 ML NaCl 1 GM/100 ML IVPB IV ONE (17:49)
[2023-12-05] MEDS: ROCEPHIN 1 GM / 100 ML NaCl 1 GM/100 ML IVPB IV ONE (17:50)
[2023-12-05 18:28] LABS: INFLUENZA A NEGATIVE (NEGATIVE); INFLUENZA B NEGATIVE (NEGATIVE); RESPIRATORY SYNCTIAL VIRUS NEGATIVE (NEGATIVE); SARS-CoV-2 Xpert Express NEGATIVE (NEGATIVE)
[2023-12-05 18:29] VITALS: BP 82/58; PULSE 77; RESP 16
[2023-12-05 18:49] VITALS: O2SAT 98
== END 2023-12-05 19:15 | disposition home or self-care (01) ==
LOC: ED 15:20
DX: N39.0 Urinary tract infection, site not specified (principal); R53.1 Weakness; R53.83 Other fatigue; E88.01 Alpha-1-antitrypsin deficiency; I13.0 Hypertensive heart and chronic kidney disease with heart failure and stage 1 through stage 4 chronic kidney disease, or unspecified chronic kidney disease; E11.22 Type 2 diabetes mellitus with diabetic chronic kidney disease; I50.9 Heart failure, unspecified; N18.9 Chronic kidney disease, unspecified; E78.5 Hyperlipidemia, unspecified; Z79.84 Long term (current) use of oral hypoglycemic drugs; Z79.891 Long term (current) use of opiate analgesic; Z79.899 Other long term (current) drug therapy
CPT/HCPCS: 0241U; 36415; 80053; 81001; 83605; 83880; 84439; 84443; 84484; 85025; 86308; 87040; 93005; 93041; 94760; 99284; J0696

== ENCOUNTER 2023-12-10 15:56 | Emergency (ER) | payer OTHER ==
[2023-12-10 16:32] VITALS: TEMP 96.8; O2SAT 97
[2023-12-10 16:54] LABS: BASOPHIL % 1.2 % (0.0-0.4); Basophil (Absolute #) 0.08 x10^3/uL (0-0.4); Eosinophil % 1.5 % (0.00-5.0); Hematocrit 34.6 % (35-47); Hemoglobin 10.9 g/dL (12.0-16.0); IMMATURE GRAN # 0.09 x10^3u/L (0.00-0.03); IMMATURE GRAN % 1.3 % (0.00-0.4); Lymphocyte (Absolute #) 2.04 x10^3/uL (1.0-4.6); Lymphocytes % 29.7 % (24.0-44.0); Mean Cell Volume 92.5 fL (78-100); Mean Corpuscular Hemoglobin 29.1 pg (26-32); Mean Corpuscular Hgb Concent. 31.5 g/dL (32-36); Mean Platelet Volume 11.8 fL (7.5-11.0); Monocyte (Absolute #) 0.37 x10^3/uL (0.0-1.3); Monocytes % 5.4 % (0.0-12.0); Neutrophil % 60.9 % (36.0-66.0); Platelet Count 188 x10^3/uL (150-450); Red Blood Count 3.74 x10^6/uL (4.1-5.4); Red Cell Distribution Width 13.1 % (11.5-14.0); White Blood Count 6.9 x10^3/uL (4.0-10.5)
--- NOTE | 2023-12-10 17:05 | ERPHSYRPT ---
- History of Present Illness Time Seen by Provider: 12/10/23 16:30 Source: patient Exam Limitations: no limitations Patient Subjective Stated Complaint: Behavioral problems- Hallucinating Triage Nursing Assessment: Patient ambulated back to ED and transferred self to bed. Patient A+O X 3. Patient's skin pink, warm and dry. Patient states she has parasites crawling all over her body. Patient reports she has been hallucinating on and off for the past couple days with today being the worse. Patient denies feelings of suicide or homicide. Physician History: This is a morbidly obese 48-year-old white female patient who was seen here 5 days ago and had a workup which found her to have a urinary tract infection. She is on cefdinir for this. This is the only new medication and her medication list. Patient does have a history of psychiatric medical issues. Her medication and medication dosages have not changed. Today, the patient is seeing entities/animals that are monique yellow and have tails and they are fly ing around her. She also is convinced that there are bugs burrowing in and underneath her skin. Patient states she is not suicidal and she is not homicidal. She states that she is taking her medication as prescribed. She is not using any illicit drugs per her report. Timing/Duration: today Severity of Symptoms-Max: mild (To moderate) Severity of Symptoms-Current: mild (To moderate) Context related to: other (Hallucinations/visual) Associated Symptoms: anxiety, hallucinating (Visual) Previous symptoms: same symptoms as today (In the past), recently seen (For different medical condition) Allergies/Adverse Reactions: Iodinated Contrast Media [IV Dye, Iodine Containing Contrast ] Allergy (Mild, Verified 12/10/23 16:25) "asthma attck" Sulfa (Sulfonamide Antibiotics) [Sulfa(Sulfonamide Antibiotics)] Allergy (Mild, Verified 12/10/23 16:25) "asthma attck" Home Medications: Albuterol Sulfate [Proair Hfa] 2 puff IH BID 12/19/14 [History] Budesonide/Formoterol Fumarate [Symbicort 160-4.5 Mcg Inhaler] 2 puff IH BID 12/19/14 [History] Levothyroxine Sodium 50 Mcg [Synthroid 50 Mcg] 50 mcg PO DAILY 12/19/14 [History] Nitroglycerin 0.4 mg Tablet [Nitrostat 0.4 MG Tablet] 1 tab SL UD PRN 09/02/16 [History] Atorvastatin Calcium [Lipitor 20MG Tablet] 20 mg PO HS 07/22/17 [History] Ipratropium/Albuterol Sulfate [Iprat-Albut 0.5-3(2.5) mg/3 ml] 3 ml IH Q4HPRN PRN 07/22/17 [History] Loratadine [Claritin] 10 mg PO DAILY 07/22/17 [History] Mv,Calcium,Min/Iron/Folic/Vitk [Multi For Her Tablet] 1 ea PO DAILY 10/06/20 [History] [place]-3 Fatty Acids/Fish Oil [Fish Oil 1,000 mg Capsule] 1 ea PO BID 10/06/20 [History] Allopurinol 100 mg [Zyloprim 100 mg] 100 mg PO DAILY 11/19/23 [History] Amitriptyline HCl 25 mg [Amitriptyline 25 mg Tablet] 25 mg PO HS 11/19/23 [History] Amlodipine Besylate 1 tab PO DAILY 11/19/23 [History] Asenapine Maleate [Saphris] 10 mg SL HS 11/19/23 [History] Baclofen 10 mg [Lioresal 10 mg] 20 mg PO BID 11/19/23 [History] Cholecalciferol (Vitamin D3) [Vitamin D3] 2,000 unit PO DAILY 11/19/23 [History] Fluoxetine HCl 1 cap PO DAILY 11/19/23 [History] Hydroxyzine HCl 25 mg [Atarax 25 mg] 25 mg PO BID 11/19/23 [History] Losartan Potassium [Cozaar] 100 mg PO DAILY 11/19/23 [History] Mirabegron [Myrbetriq] 1 ea PO DAILY 11/19/23 [History] Oxycodone HCl/Acetaminophen [Percocet 10-325 mg Tablet] 1 each PO TID PRN 11/19/23 [History] Ubrogepant [Ubrelvy] 50 mg PO UD 11/19/23 [History] lamoTRIgine [Subvenite (Blue)] 50 mg PO DAILY 11/19/23 [History] Empagliflozin [Jardiance] 1 tab PO DAILY 12/05/23 [History] Furosemide 40 mg [Lasix 40 MG] 1 tab PO DAILY 12/05/23 [History] Lactobacillus Acidophilus [Probiotic] 1 cap PO DAILY 12/05/23 [History] Metoprolol Succinate 25 mg Xl* [Toprol-Xl 25MG Tablets] 1 tab PO BID 12/05/23 [History] Potassium Chloride 1 tab PO DAILY 12/05/23 [History] Pregabalin 1 cap PO BID 12/05/23 [History] Thiamine HCl 100 mg [Vitamin B-1 100 mg] 1 tab PO DAILY 12/05/23 [History] Hx Tetanus, Diphtheria Vaccination/Date Given: Yes Hx Influenza Vaccination/Date Given: Yes Hx Pneumococcal Vaccination/Date Given: No Immunizations Up to Date: Yes Travel Risk - International Travel Have you traveled outside of the country in past 3 weeks: No - Coronavirus Screening Are you exhibiting any of the following symptoms?: No Close contact with a COVID-19 positive Pt in past 14-21 Days: No - Vaccine Status Have you recieved a Covid-19 vaccination: Yes 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 - Past Medical History Pertinent Past Medical History: Yes Neurological History: Migraines, Seizures ENT History: No Pertinent History Cardiac History: Coronary Artery Disease, High Cholesterol, Hypertension Respiratory History: Asthma, CHF, COPD, Pulmonary Embolism Endocrine Medical History: Diabetes Type II, Hypothyroidism Musculoskeletal History: Arthritis, Degenerative Disk Disease, Fibromyalgia GI Medical History: No Pertinent History History: No Pertinent History Psycho-Social History: Anxiety, Depression Female Reproductive Disorders: No Pertinent History Other Medical History: HEART PALPITATIONS. L HAND CARPAL TUNNEL SX SEPT 5, ALPHA 1 ANTITRYPSIN DEFICIENCY, CROHNS, PTSD, DEUCE, BIPOLAR, NEUROPATHY, OCD, LUMBAR RADICULOPATHY, MULTIPLE JOINT PAIN, SIJ PAIN, SPONDYLOSIS WITHOUT MYELOPATHY, BILATERAL TROCHANTERIS BURSITIS, CERVICAL SPONDYLOSIS WITHOUT MYELOPATHY, CKD, BLADDER SLING - Past Surgical History Past Surgical History: Yes Neuro Surgical History: No Pertinent History Cardiac: Cardiac Catheterization Respiratory: No Pertinent History Gastrointestinal: Cholecystectomy Genitourinary: No Pertinent History Musculoskeletal: No Pertinent History Female Surgical History: Hysterectomy, Tubal Ligation Other Surgical History: PORT PLACEMENTd- states "prolastin infusion weekly" - Social History Smoking Status: Never smoker Exposure to second hand smoke: Yes Drug Use: none Patient Lives Alone: No - Female History Hx Last Menstrual Period: hysterectomy Hx Now: No - Review of Systems Constitutional: No Symptoms Eyes: No Symptoms Ears, Nose, & Throat: No Symptoms Respiratory: No Symptoms Cardiac: No Symptoms Abdominal/Gastrointestinal: No Symptoms Genitourinary Symptoms: No Symptoms Musculoskeletal: No Symptoms Skin: No Symptoms Neurological: Other (Visual hallucinations) Psychological: Hallucinations (Visual hallucinations) Endocrine: No Symptoms Hematologic/Lymphatic: No Symptoms Immunological/Allergic: No Symptoms All Other Systems: Reviewed and Negative - Nursing Vital Signs Nursing Vital Signs: Initial Vital Signs Temperature 96.8 F 12/10/23 16:26 Pulse Rate 79 12/10/23 16:26 Respiratory Rate 18 12/10/23 16:26 Blood Pressure 161/98 12/10/23 16:26 O2 Sat by Pulse Oximetry 97 12/10/23 16:26 Pain Scale Pain Intensity 0 - Physical Exam General Appearance: no apparent distress, alert, anxiety, obese Eyes, Ears, Nose, Throat Exam: normal ENT inspection, moist mucous membranes Neck Exam: normal inspection, non-tender, supple, full range of motion Respiratory Exam: normal breath sounds, lungs clear, airway intact, No chest tenderness, No respiratory distress Cardiovascular Exam: regular rate/rhythm, normal heart sounds, normal peripheral pulses Gastrointestinal/Abdominal Exam: soft, normal bowel sounds, No tenderness Neurological Exam: alert, stone unloader II-XII nml as tested, oriented x 3, anxious Appearance: appropriate appearance, impaired insight Behavior/Eye Contact/Speech: alert & cooperative, cooperative, good eye contact Thoughts/Hallucinations: normal thought pattern, visual hallucinations Skin Exam: normal color, warm, dry SpO2 Interpretation: normal SpO2: 97 O2 Delivery: Room Air - Course Nursing assessment & vital signs reviewed: Yes EKG Interpreted by Me: RATE (83), Left [place] Deviation, NORMAL INTERVALS, NORMAL QRS, Other (No acute ischemic changes on today's twelve-lead EKG.) Ordered Tests: Active Orders 24 hr Category Date Time Status Payment Manager STAT Care 12/10/23 16:31 Active EKG-ER Only STAT Care 12/10/23 16:30 Active ACETAMINOPHEN Stat Lab 12/10/23 16:50 Completed CBC W DIFF Stat Lab 12/10/23 16:50 Completed CMP Stat Lab 12/10/23 16:50 Completed ETHYL ALCOHOL Stat Lab 12/10/23 16:50 Completed SALICYLATE Stat Lab 12/10/23 16:50 Completed UA W/RFX UR CULTURE Stat Lab 12/10/23 16:36 Completed Urine Triage Profile Stat Lab 12/10/23 16:36 Completed Lab/Rad Data: Laboratory Result Diagrams 12/10/23 16:50 12/10/23 16:50 Laboratory Results 12/10/23 12/10/23 12/10/23 Range/Units 16:50 16:50 16:36 WBC 6.9 (4.0-10.5) x10^3/uL RBC 3.74 L (4.1-5.4) x10^6/uL Hgb 10.9 L (12.0-16.0) g/dL Hct 34.6 L (35-47) % MCV 92.5 (78-100) fL MCH 29.1 (26-32) pg MCHC 31.5 L (32-36) g/dL RDW 13.1 (11.5-14.0) % Plt Count 188 (150-450) x10^3/uL MPV 11.8 H (7.5-11.0) fL Gran % 60.9 (36.0-66.0) % Immature Gran % (Auto) 1.3 H (0.00-0.4) % Nucleat RBC Rel Count 0.0 (0.00-0.1) % Eos # (Auto) 0.10 (0-0.5) x10^3/uL Immature Gran # (Auto) 0.09 H (0.00-0.03) x10^3u/L Absolute Lymphs (auto) 2.04 (1.0-4.6) x10^3/uL Absolute Monos (auto) 0.37 (0.0-1.3) x10^3/uL Absolute Nucleated RBC 0.00 (0.00-0.01) x10^3u/L Lymphocytes % 29.7 (24.0-44.0) % Monocytes % 5.4 (0.0-12.0) % Eosinophils % 1.5 (0.00-5.0) % Basophils % 1.2 (0.0-0.4) % Absolute Granulocytes 4.20 (1.4-6.9) x10^3/uL Basophils # 0.08 (0-0.4) x10^3/uL Sodium 140 (137-145) mmol/L Potassium 3.6 (3.5-5.1) mmol/L Chloride 111 H (98-107) mmol/L Carbon Dioxide 22 (22-30) mmol/L Anion Gap 10.2 (5-15) MEQ/L BUN 19 H (7-17) mg/dL Creatinine 0.87 (0.52-1.04) mg/dL Estimated GFR 83.2 ML/MIN Glucose 89 (74-106) mg/dL Calcium 8.6 (8.4-10.2) mg/dL Total Bilirubin 0.50 (0.2-1.3) mg/dL AST 39 H (14-36) U/L ALT 61 H (0-35) U/L Alkaline Phosphatase 201 H (38-126) U/L Serum Total Protein 6.4 (6.3-8.2) g/dL Albumin 3.2 L (3.5-5.0) g/dL Urine Color (Yellow) Urine Appearance (Clear) Urine pH (4.6-8.0) Ur Specific [place] (1.005-1.030) Urine Protein (Negative) Urine Glucose (UA) (Negative) mg/dL Urine Ketones (Negative) Urine Blood (Negative) Urine Nitrite (Negative) Urine Bilirubin (Negative) Urine Urobilinogen (0.2) mg/dL Ur Leukocyte Esterase (Negative) U Hyaline Cast (Auto) (0-2) /LPF Urine Microscopic RBC (0-5) /HPF Urine Microscopic WBC (0-5) /HPF Ur Epithelial Cells (None Seen) /HPF Urine Bacteria (None Seen) /HPF Urine Culture Reflexed (NO) Salicylates < 1.0 L (2-20) mg/dL Urine Opiates Level NEGATIVE (NEGATIVE) Ur Methadone NEGATIVE (NEGATIVE) Acetaminophen < 10 L (10-30) ug/ml Urine Barbiturates NEGATIVE (NEGATIVE) Ur Phencyclidine (PCP) NEGATIVE (NEGATIVE) Urine Amphetamine NEGATIVE (NEGATIVE) U Benzodiazepine Level NEGATIVE (NEGATIVE) Urine Cocaine NEGATIVE (NEGATIVE) Urine Marijuana (THC) NEGATIVE (NEGATIVE) Ethyl Alcohol < 10 (0-10) mg/dL 12/10/23 Range/Units 16:36 WBC (4.0-10.5) x10^3/uL RBC (4.1-5.4) x10^6/uL Hgb (12.0-16.0) g/dL Hct (35-47) % MCV (78-100) fL MCH (26-32) pg MCHC (32-36) g/dL RDW (11.5-14.0) % Plt Count (150-450) x10^3/uL MPV (7.5-11.0) fL Gran % (36.0-66.0) % Immature Gran % (Auto) (0.00-0.4) % Nucleat RBC Rel Count (0.00-0.1) % Eos # (Auto) (0-0.5) x10^3/uL Immature Gran # (Auto) (0.00-0.03) x10^3u/L Absolute Lymphs (auto) (1.0-4.6) x10^3/uL Absolute Monos (auto) (0.0-1.3) x10^3/uL Absolute Nucleated RBC (0.00-0.01) x10^3u/L Lymphocytes % (24.0-44.0) % Monocytes % (0.0-12.0) % Eosinophils % (0.00-5.0) % Basophils % (0.0-0.4) % Absolute Granulocytes (1.4-6.9) x10^3/uL Basophils # (0-0.4) x10^3/uL Sodium (137-145) mmol/L Potassium (3.5-5.1) mmol/L Chloride (98-107) mmol/L Carbon Dioxide (22-30) mmol/L Anion Gap (5-15) MEQ/L BUN (7-17) mg/dL Creatinine (0.52-1.04) mg/dL Estimated GFR ML/MIN Glucose (74-106) mg/dL Calcium (8.4-10.2) mg/dL Total Bilirubin (0.2-1.3) mg/dL AST (14-36) U/L ALT (0-35) U/L Alkaline Phosphatase (38-126) U/L Serum Total Protein (6.3-8.2) g/dL Albumin (3.5-5.0) g/dL Urine Color Yellow (Yellow) Urine Appearance Clear (Clear) Urine pH 5.5 (4.6-8.0) Ur Specific [place] 1.020 (1.005-1.030) Urine Protein Negative (Negative) Urine Glucose (UA) 250 A (Negative) mg/dL Urine Ketones Trace A (Negative) Urine Blood Negative (Negative) Urine Nitrite Negative (Negative) Urine Bilirubin Negative (Negative) Urine Urobilinogen 0.2 (0.2) mg/dL Ur Leukocyte Esterase Trace A (Negative) U Hyaline Cast (Auto) NONE SEEN (0-2) /LPF Urine Microscopic RBC 0-2 (0-5) /HPF Urine Microscopic WBC 0-2 (0-5) /HPF Ur Epithelial Cells Rare (None Seen) /HPF Urine Bacteria Rare A (None Seen) /HPF Urine Culture Reflexed NO (NO) Salicylates (2-20) mg/dL Urine Opiates Level (NEGATIVE) Ur Methadone (NEGATIVE) Acetaminophen (10-30) ug/ml Urine Barbiturates (NEGATIVE) Ur Phencyclidine (PCP) (NEGATIVE) Urine Amphetamine (NEGATIVE) U Benzodiazepine Level (NEGATIVE) Urine Cocaine (NEGATIVE) Urine Marijuana (THC) (NEGATIVE) Ethyl Alcohol (0-10) mg/dL - Progress Progress: unchanged Progress Note: 12/10/23 17:03 This patient's medical issue is 1 of moderate complexity. The level of complexity and the workup performed is based on review of the patient's past medical history, review of the patient's medication list, review the patient's drug allergy list, history present illness and physical findings on examination. The medical issue may increase to high complexity if psychiatry/psychologist feels that this patient needs to be placed in an inpatient setting. The workup today includes a twelve-lead EKG, CBC, CMP, acetaminophen and salicylate level, urinalysis and urine drug triage. In addition the patient will have a blood alcohol level obtained. I will not repeat a T4 and TSH level. The T4 level was normal on 12/05/2023. The TSH level was only slightly low on 12/05/2023 12/10/23 17:46 I reviewed and interpreted the patient's laboratory data results. In addition I interpreted the patient's twelve-lead EKG which is listed in the patient's chart. The patient does not have any acute or emergent laboratory data. The patient was told that her psychiatric evaluation will not be until around 7 PM this evening. Patient is refusing to stay. The patient will sign out AGAINST MEDICAL ADVICE. She is aware of the risks of signing out against medical advic e. She is also aware of benefits of staying for complete workup including psychiatric evaluation. Patient does not not have any homicidal or suicidal ideations. She has no further complaints of hallucinations. 12/10/23 17:48 Patient states that she will follow-up on 12/12/2023, with her [facility] therapist. 12/10/23 17:49 Counseled pt/family regarding: lab results, diagnosis, need for follow-up Medical Desision Making - Diagnostic Testing Diagnostic test were ordered, analyzed, and reviewed by me: Yes - Risk of complications Low Risk: Low risk of morbidity from additional dx testing or treatment - Departure Departure Disposition: AMA Clinical Impression: Hallucinations, unspecified Condition: Stable Critical Care Time: No Referrals: RICKY OBRIEN [Primary Care Provider] - Follow up/PCP as directed Additional Instructions: Take your medications as prescribed. Follow-up with [facility] on 12/12/2023 as you planned on doing. In addition, on 12/12/2023, call your primary care provider to make arranges for follow-up appointment and further evaluation management.
[2023-12-10 17:07] LABS: Appearance Clear (Clear); Bilirubin Negative (Negative); Blood Negative (Negative); Epithelial Cells Rare /HPF (None Seen); Glucose, Urine 250 mg/dL (Negative); Hyaline Casts NONE SEEN /LPF (0-2); Ketones Trace (Negative); Leukocyte Esterase Trace (Negative); Nitrite Negative (Negative); Ph 5.5 (4.6-8.0); Protein,Urine Dip Negative (Negative); RBC 0-2 /HPF (0-5); Urobilinogen 0.2 mg/dL (0.2); WBC 0-2 /HPF (0-5)
[2023-12-10 17:12] VITALS: BP 152/97; PULSE 85; RESP 19
[2023-12-10 17:13] LABS: ACETAMINOPHEN < 10 ug/ml (10-30); ALBUMIN 3.2 g/dL (3.5-5.0); ALKALINE PHOSPHATASE 201 U/L (38-126); ANION GAP 10.2 MEQ/L (5-15); BLOOD UREA NITROGEN 19 mg/dL (7-17); CHLORIDE 111 mmol/L (98-107); Calcium 8.6 mg/dL (8.4-10.2); Carbon Dioxide 22 mmol/L (22-30); Creatinine 1 0.87 mg/dL (0.52-1.04); EST GLOMERULAR FILTRATION RATE 83.2 ML/MIN; ETHYL ALCOHOL < 10 mg/dL (0-10); Glucose 89 mg/dL (74-106); Potassium 3.6 mmol/L (3.5-5.1); SALICYLATE < 1.0 mg/dL (2-20); SGOT/AST 39 U/L (14-36); SGPT/ALT 61 U/L (0-35); SODIUM 140 mmol/L (137-145); Total Protein 6.4 g/dL (6.3-8.2)
[2023-12-10 17:18] LABS: Bacteria Rare /HPF (None Seen)
[2023-12-10 17:19] LABS: ADD URINE CULTURE? NO (NO)
[2023-12-10 17:22] LABS: Amphetamine,Urine NEGATIVE (NEGATIVE); Barbiturate,Urine NEGATIVE (NEGATIVE); Benzodiazepine,Urine NEGATIVE (NEGATIVE); Cocaine,Urine NEGATIVE (NEGATIVE); Methadone,Urine NEGATIVE (NEGATIVE); Opiate,Urine NEGATIVE (NEGATIVE); PCP,Urine NEGATIVE (NEGATIVE); THC,Urine NEGATIVE (NEGATIVE)
[2023-12-10 18:07] LABS: INFLUENZA A NEGATIVE (NEGATIVE); INFLUENZA B NEGATIVE (NEGATIVE); RESPIRATORY SYNCTIAL VIRUS NEGATIVE (NEGATIVE); SARS-CoV-2 Xpert Express NEGATIVE (NEGATIVE)
== END 2023-12-10 18:02 | disposition left against medical advice (07) ==
LOC: ED 15:56
DX: R44.1 Visual hallucinations (principal); R44.2 Other hallucinations; E78.5 Hyperlipidemia, unspecified; I11.0 Hypertensive heart disease with heart failure; I50.9 Heart failure, unspecified; E11.9 Type 2 diabetes mellitus without complications; Z79.891 Long term (current) use of opiate analgesic; Z79.84 Long term (current) use of oral hypoglycemic drugs; Z79.899 Other long term (current) drug therapy
CPT/HCPCS: 0241U; 36415; 80053; 80143; 80179; 80307; 81001; 82077; 85025; 93005; 93041; 99284

== ENCOUNTER 2023-12-11 00:38 | Emergency (ER) | payer OTHER ==
--- NOTE | 2023-12-11 00:59 | ERPHSYRPT ---
- History of Present Illness Time Seen by Provider: 12/11/23 00:55 Source: patient, EMS, old records Physician History: This is a morbidly obese 48-year-old white female patient of Dr. Busby who was here several hours ago secondary to 2 main issues of hallucinations. They included monique/yellow creatures flying around with long tails around her. In addition she felt as though she has been infested with parasites all in her extremities. Patient had a full workup and was 1 hour away from having a telepsych evaluation. However, the patient did not want to wait for the hour to obtain her evaluation from psychiatry. Patient states she had to leave because she did not have transportation. Patient returns this morning because she states that she has parasites crawling on her and underneath her skin in and out of sores that are present. She no longer sees the monique/yellow creatures with the long tails flying around her. Patient denies being suicidal. Patient denies being homicidal. Timing/Duration: yesterday Severity of Symptoms-Max: mild Severity of Symptoms-Current: mild Context related to: other (Hallucinations of parasites in and on her body) Associated Symptoms: hallucinating Previous symptoms: recently seen, recently treated Allergies/Adverse Reactions: Iodinated Contrast Media [IV Dye, Iodine Containing Contrast ] Allergy (Mild, Verified 12/11/23 00:42) "asthma attck" Sulfa (Sulfonamide Antibiotics) [Sulfa(Sulfonamide Antibiotics)] Allergy (Mild, Verified 12/11/23 00:42) "asthma attck" Home Medications: Albuterol Sulfate [Proair Hfa] 2 puff IH BID 12/19/14 [History] Budesonide/Formoterol Fumarate [Symbicort 160-4.5 Mcg Inhaler] 2 puff IH BID 12/19/14 [History] Levothyroxine Sodium 50 Mcg [Synthroid 50 Mcg] 50 mcg PO DAILY 12/19/14 [History] Nitroglycerin 0.4 mg Tablet [Nitrostat 0.4 MG Tablet] 0.4 mg SL UD PRN 09/02/16 [History] Atorvastatin Calcium [Lipitor 20MG Tablet] 20 mg PO DAILY 07/22/17 [History] Ipratropium/Albuterol Sulfate [Iprat-Albut 0.5-3(2.5) mg/3 ml] 3 ml IH Q4HPRN PRN 07/22/17 [History] Loratadine [Claritin] 10 mg PO DAILY 07/22/17 [History] [employer]-3 Fatty Acids/Fish Oil [Fish Oil 1,000 mg Capsule] 1,000 mcg PO BID 10/06/20 [History] Allopurinol 100 mg [Zyloprim 100 mg] 100 mg PO DAILY 11/19/23 [History] Amitriptyline HCl 25 mg [Amitriptyline 25 mg Tablet] 25 mg PO HS 11/19/23 [History] Asenapine Maleate [Saphris] 10 mg SL HS 11/19/23 [History] Baclofen 10 mg [Lioresal 10 mg] 20 mg PO BID 11/19/23 [History] Fluoxetine HCl 40 mg PO DAILY 11/19/23 [History] Hydroxyzine HCl 25 mg [Atarax 25 mg] 25 mg PO BID 11/19/23 [History] Losartan Potassium [Cozaar] 100 mg PO DAILY 11/19/23 [History] Mirabegron [Myrbetriq] 1 ea PO DAILY 11/19/23 [History] Oxycodone HCl/Acetaminophen [Percocet 10-325 mg Tablet] 1 tab PO TID PRN PRN 11/19/23 [History] Ubrogepant [Ubrelvy] 50 mg PO BID 11/19/23 [History] lamoTRIgine [Subvenite (Blue)] 50 mg PO DAILY 11/19/23 [History] Empagliflozin [Jardiance] 10 mg PO DAILY 12/05/23 [History] Furosemide 40 mg [Lasix 40 MG] 40 mg PO DAILY 12/05/23 [History] Lactobacillus Acidophilus [Probiotic] 1 cap PO DAILY 12/05/23 [History] Metoprolol Succinate 25 mg Xl* [Toprol-Xl 25MG Tablets] 25 mg PO BID 12/05/23 [History] Potassium Chloride 8 meq PO DAILY 12/05/23 [History] Pregabalin 225 mg PO BID 12/05/23 [History] Adalimumab [Humira] 40 mg SQ WEEKLY 12/11/23 [History] Ufpxm-9-[id number] Inhibitor [Prolastin C] 1 each IV WEEKLY 12/11/23 [History] Cholecalciferol (Vitamin D3) [Vitamin D3] 2,000 mcg PO DAILY 12/11/23 [History] Erenumab-Aooe [Aimovig Autoinjector] 70 mg SQ UD 12/11/23 [History] Hydrocortisone 2.5% 30 gm [Anusol-Hc 2.5% Cream 30 gm] 1 applic TOP BID 12/11/23 [History] Multivitamin 1 tab PO BID 12/11/23 [History] Naloxone HCl [Narcan] 4 mg IH DAILY PRN PRN 12/11/23 [History] Non-Formulary Drug [Non-Formulary Bulk Item] 1,000 mcg SQ UD 12/11/23 [History] Thiamine Mononitrate (Vit B1) [Vitamin B-1] 100 mg PO WEEKLY 12/11/23 [History] Hx Tetanus, Diphtheria Vaccination/Date Given: Yes Hx Influenza Vaccination/Date Given: Yes Hx Pneumococcal Vaccination/Date Given: No Travel Risk - International Travel Have you traveled outside of the country in past 3 weeks: No - Coronavirus Screening Are you exhibiting any of the following symptoms?: No Close contact with a COVID-19 positive Pt in past 14-21 Days: No - Vaccine Status Have you recieved a Covid-19 vaccination: Yes 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 - Past Medical History Pertinent Past Medical History: Yes Neurological History: Migraines, Seizures ENT History: No Pertinent History Cardiac History: Coronary Artery Disease, High Cholesterol, Hypertension Respiratory History: Asthma, CHF, COPD, Pulmonary Embolism Endocrine Medical History: Diabetes Type II, Hypothyroidism Musculoskeletal History: Arthritis, Degenerative Disk Disease, Fibromyalgia GI Medical History: No Pertinent History History: No Pertinent History Psycho-Social History: Anxiety, Depression Female Reproductive Disorders: No Pertinent History Other Medical History: HEART PALPITATIONS. L HAND CARPAL TUNNEL SX SEPT 5, ALPHA 1 ANTITRYPSIN DEFICIENCY, CROHNS, PTSD, DEUCE, BIPOLAR, NEUROPATHY, OCD, LUMBAR RADICULOPATHY, MULTIPLE JOINT PAIN, SIJ PAIN, SPONDYLOSIS WITHOUT MYELOPATHY, BILATERAL TROCHANTERIS BURSITIS, CERVICAL SPONDYLOSIS WITHOUT MYELOPATHY, CKD, BLADDER SLING - Past Surgical History Past Surgical History: Yes Neuro Surgical History: No Pertinent History Cardiac: Cardiac Catheterization Respiratory: No Pertinent History Gastrointestinal: Cholecystectomy Genitourinary: No Pertinent History Musculoskeletal: No Pertinent History Female Surgical History: Hysterectomy, Tubal Ligation Other Surgical History: PORT PLACEMENTd- states "prolastin infusion weekly" - Social History Smoking Status: Never smoker Exposure to second hand smoke: Yes Drug Use: none Patient Lives Alone: No - Review of Systems Constitutional: No Symptoms Eyes: No Symptoms Ears, Nose, & Throat: No Symptoms Respiratory: No Symptoms Cardiac: No Symptoms Abdominal/Gastrointestinal: No Symptoms Genitourinary Symptoms: No Symptoms Musculoskeletal: No Symptoms Skin: Other (Patient senses parasites in and on her body) Neurological: No Symptoms Psychological: Anxiety Endocrine: No Symptoms Hematologic/Lymphatic: No Symptoms Immunological/Allergic: No Symptoms All Other Systems: Reviewed and Negative - Nursing Vital Signs Nursing Vital Signs: Initial Vital Signs Temperature 97.1 F 12/11/23 00:43 Pulse Rate 117 H 12/11/23 00:43 Respiratory Rate 18 12/11/23 00:43 Blood Pressure 134/74 12/11/23 00:43 O2 Sat by Pulse Oximetry 100 12/11/23 00:43 Pain Scale Pain Intensity 4 - Physical Exam General Appearance: no apparent distress, alert, anxiety, obese Eyes, Ears, Nose, Throat Exam: normal ENT inspection, moist mucous membranes Neck Exam: normal inspection, non-tender, supple, full range of motion Respiratory Exam: normal breath sounds, lungs clear, airway intact, No chest tenderness, No respiratory distress Cardiovascular Exam: regular rate/rhythm, normal heart sounds, normal peripheral pulses Gastrointestinal/Abdominal Exam: No tenderness Neurological Exam: siebel consultant II-XII nml as tested, oriented x 3, anxious Appearance: appropriate appearance, appropriate insight Behavior/Eye Contact/Speech: alert & cooperative, good eye contact Thoughts/Hallucinations: tactile hallucinations, visual hallucinations Skin Exam: other SpO2 Interpretation: normal O2 Delivery: Room Air - Course Nursing assessment & vital signs reviewed: Yes - Progress Progress: unchanged Progress Note: 12/11/23 00:59 Patient's medical issue is 1 of moderate complexity. The level of complexity in the workup performed is based on review of the patient's past medical history, review the patient's medication list, review of patient drug allergy list, history present illness and physical findings on examination. Workup in this patient will be directly contacting telepsych to obtain an evaluation. Patient had a full psychiatric request workup within the last several hours. I have reviewed those results and there is no acute, emergent findings. 12/11/23 01:13 12/11/23 04:18 [facility] performed a telepsych consultation. Patient is being discharged to home with a safety plan in place. Patient is not suicidal patient is not homicidal. Counseled pt/family regarding: lab results, diagnosis, need for follow-up Medical Desision Making - Diagnostic Testing Diagnostic test were ordered, analyzed, and reviewed by me: Yes - Risk of complications Low Risk: Low risk of morbidity from additional dx testing or treatment - Departure Departure Disposition: Home Clinical Impression: PTSD (post-traumatic stress disorder), Hallucinations, Delusions of parasitosis Condition: Stable Critical Care Time: No Referrals: RICKY BUSBY [Primary Care Provider] - Follow up/PCP as directed Additional Instructions: Take all your medication as prescribed. Follow-up with [facility] as an outpatient. Call your primary care provider today, 12/11/1999 9:24 AM to make arranges for follow-up appointment for further evaluation management. Follow the safety plan [facility] arrange for you
[2023-12-11 01:01] VITALS: RESP 18
[2023-12-11 02:46] VITALS: TEMP 97.1
[2023-12-11 04:02] VITALS: PULSE 91
[2023-12-11] MEDS ORDERED: TYLENOL 325 MG ONE (04:27)
[2023-12-11] MEDS: TYLENOL 325 MG PO ONE (04:27)
[2023-12-11 05:07] VITALS: BP 148/78; O2SAT 100
== END 2023-12-11 05:08 | disposition home or self-care (01) ==
LOC: ED 00:38
DX: F43.10 Post-traumatic stress disorder, unspecified (principal); F22 Delusional disorders; B37.2 Candidiasis of skin and nail; E78.5 Hyperlipidemia, unspecified; I11.0 Hypertensive heart disease with heart failure; I50.9 Heart failure, unspecified; E11.9 Type 2 diabetes mellitus without complications; Z79.84 Long term (current) use of oral hypoglycemic drugs; Z79.891 Long term (current) use of opiate analgesic; Z79.899 Other long term (current) drug therapy
CPT/HCPCS: 99282; A9270-GY

== ENCOUNTER 2024-05-25 20:58 | Inpatient (IN) | payer OTHER ==
--- NOTE | 2024-05-25 21:10 | ERPHSYRPT ---
- History of Present Illness Time Seen by Provider: 05/25/24 21:06 Source: patient, EMS, old records Exam Limitations: clinical condition Physician History: This is a morbidly obese 49-year-old white female who is a patient of Dr. Busby and pain specialist Dr. Waters and presents to the emergency department by paramedics secondary to altered mental status and with lethargy. Paramedics were called out for lift assist only. However, the patient was very lethargic and patient was brought into the emergency department for further evaluation management. Patient is sleepy but arousable. Approximately 2 weeks ago patient states that her propranolol dosing had changed. No other changes in her medication. Patient did take her narcotics this evening and only took what she was supposed to per her report. Patient denies chest pain. Patient denies shortness of breath. She has no abdominal pain. The paramedics did not obtain a blood sugar level and we are running that at this time. Patient has a history of hypothyroidism, hypertension, migraine headaches, seizure disorder, coronary disease, hyperlipidemia, CHF, COPD, diabetes, fibromyalgia, degenerative disc disease, chronic renal disease, anxiety/depression/PTSD. Timing/Duration: today Severity: moderate Modifying Factors: Improves With: nothing Associated Symptoms: weakness, No nausea, No vomiting, No abdominal pain, No shortness of breath, No chest pain, No syncope, No seizure Allergies/Adverse Reactions: Iodinated Contrast Media [IV Dye, Iodine Containing Contrast ] Allergy (Mild, Verified 05/25/24 21:04) "asthma attck" Sulfa (Sulfonamide Antibiotics) [Sulfa(Sulfonamide Antibiotics)] Allergy (Mild, Verified 05/25/24 21:04) "asthma attck" Home Medications: Albuterol Sulfate [Proair Hfa] 2 puff IH DAILY PRN 12/19/14 [History] Budesonide/Formoterol Fumarate [Symbicort 160-4.5 Mcg Inhaler] 2 puff IH BID 12/19/14 [History] Levothyroxine Sodium 50 Mcg [Synthroid 50 Mcg] 50 mcg PO DAILY 12/19/14 [History] Nitroglycerin 0.4 mg Tablet [Nitrostat 0.4 MG Tablet] 0.4 mg SL UD PRN 09/02/16 [History] Atorvastatin Calcium [Lipitor 20MG Tablet] 20 mg PO DAILY 07/22/17 [History] Ipratropium/Albuterol Sulfate [Iprat-Albut 0.5-3(2.5) mg/3 ml] 3 ml IH Q4HPRN PRN 07/22/17 [History] Loratadine [Claritin] 10 mg PO DAILY 07/22/17 [History] Barton-3 Fatty Acids/Fish Oil [Fish Oil 1,000 mg Capsule] 1,000 mcg PO BID 10/06/20 [History] Allopurinol 100 mg [Zyloprim 100 mg] 100 mg PO DAILY 11/19/23 [History] Amitriptyline HCl 25 mg [Amitriptyline 25 mg Tablet] 25 mg PO HS 11/19/23 [History] Baclofen 10 mg [Lioresal 10 mg] 10 mg PO UD 11/19/23 [History] Hydroxyzine HCl 25 mg [Atarax 25 mg] 25 mg PO HS 11/19/23 [History] Mirabegron [Myrbetriq] 1 ea PO DAILY 11/19/23 [History] Oxycodone HCl/Acetaminophen [Percocet 10-325 mg Tablet] 1 tab PO TID PRN PRN 11/19/23 [History] Ubrogepant [Ubrelvy] 50 mg PO BID PRN 11/19/23 [History] lamoTRIgine [Subvenite (Blue)] 100 mg PO DAILY 11/19/23 [History] Furosemide 40 mg [Lasix 40 MG] 40 mg PO DAILY 12/05/23 [History] Lactobacillus Acidophilus [Probiotic] 1 cap PO DAILY 12/05/23 [History] Potassium Chloride 8 meq PO DAILY 12/05/23 [History] Pregabalin 225 mg PO BID 12/05/23 [History] Adalimumab [Humira] 40 mg SQ WEEKLY 12/11/23 [History] Ljddm-4-Sclmtgczua Inhibitor [Prolastin C] 1 each IV WEEKLY 12/11/23 [History] Cholecalciferol (Vitamin D3) [Vitamin D3] 2,000 mcg PO DAILY 12/11/23 [History] Erenumab-Aooe [Aimovig Autoinjector] 140 mg SQ UD 12/11/23 [History] Hydrocortisone 2.5% 30 gm [Anusol-Hc 2.5% Cream 30 gm] 1 applic TOP BID 12/11/23 [History] Multivitamin 1 tab PO BID 12/11/23 [History] Naloxone HCl [Narcan] 4 mg IH DAILY PRN PRN 12/11/23 [History] Non-Formulary Drug [Non-Formulary Bulk Item] 1,000 mcg SQ UD 12/11/23 [History] Thiamine Mononitrate (Vit B1) [Vitamin B-1] 100 mg PO WEEKLY 12/11/23 [History] Levetiracetam [Keppra] 500 mg PO BID 05/25/24 [History] Lurasidone HCl 80 mg PO DAILY 05/25/24 [History] Ondansetron [Ondansetron Odt ] 4 mg SL Q6HPRN PRN 05/25/24 [History] Pantoprazole 20 mg [Protonix 20MG Tablet] 20 mg PO DAILY 05/25/24 [History] Propranolol HCl 20 mg PO BID 05/25/24 [History] hydrOXYzine HCL [Hydroxyzine HCl] 50 mg PO HS 05/25/24 [History] Hx Tetanus, Diphtheria Vaccination/Date Given: Yes Hx Influenza Vaccination/Date Given: Yes Hx Pneumococcal Vaccination/Date Given: No Travel Risk - International Travel Have you traveled outside of the country in past 3 weeks: No - Emerging Infectious Disease Are you exhibiting symptoms associated with any current EIDs: No - Review of Systems Constitutional: Weakness Eyes: No Symptoms Ears, Nose, & Throat: No Symptoms Respiratory: No Symptoms Cardiac: No Symptoms Abdominal/Gastrointestinal: No Symptoms Genitourinary Symptoms: No Symptoms Musculoskeletal: No Symptoms Skin: No Symptoms Neurological: Lethargy Psychological: No Symptoms Endocrine: No Symptoms Hematologic/Lymphatic: No Symptoms Immunological/Allergic: No Symptoms All Other Systems: Reviewed and Negative - Past Medical History Pertinent Past Medical History: Yes Neurological History: Other ENT History: No Pertinent History Cardiac History: Other Respiratory History: Other Endocrine Medical History: Other Musculoskeletal History: Other GI Medical History: No Pertinent History History: No Pertinent History Psycho-Social History: Anxiety, Depression Female Reproductive Disorders: No Pertinent History Other Medical History: Please see patient's chart for complete medical and surgical history. - Past Surgical History Past Surgical History: Yes Neuro Surgical History: No Pertinent History Cardiac: Cardiac Catheterization Respiratory: No Pertinent History Gastrointestinal: Cholecystectomy Genitourinary: No Pertinent History Musculoskeletal: No Pertinent History Female Surgical History: Hysterectomy, Tubal Ligation Other Surgical History: PORT PLACEMENTd- states "prolastin infusion weekly" - Female History Hx Last Menstrual Period: ABLASION - Social History Smoking Status: Never smoker Exposure to second hand smoke: Yes Drug Use: none Patient Lives Alone: No - Nursing Vital Signs Nursing Vital Signs: Initial Vital Signs Temperature 97.6 F 05/25/24 21:05 Pulse Rate 101 H 05/25/24 21:05 Respiratory Rate 10 L 05/25/24 21:05 Blood Pressure 134/114 05/25/24 21:05 O2 Sat by Pulse Oximetry 98 05/25/24 21:05 Pain Scale Pain Intensity 4 - Physical Exam General Appearance: no apparent distress, alert, lethargy, obese Eye Exam: PERRL/EOMI, eyes nml inspection Ears, Nose, Throat Exam: normal ENT inspection, moist mucous membranes Neck Exam: normal inspection, non-tender, supple, full range of motion Respiratory Exam: normal breath sounds, lungs clear, airway intact, No chest tenderness, No respiratory distress Cardiovascular Exam: regular rate/rhythm, normal heart sounds, normal peripheral pulses Gastrointestinal/Abdomen Exam: soft, normal bowel sounds, No tenderness Pelvic Exam: not done Rectal Exam: not done Back Exam: normal inspection, normal range of motion, No CVA tenderness, No vertebral tenderness Extremity Exam: normal inspection, normal range of motion, pelvis stable Neurologic Exam: oriented x 3 (After asking questions.), warp tension tester II-XII nml as tested, sensation nml, other (Patient is sleepy/mildly lethargic but arousable and answers questions appropriately), No slurred speech Skin Exam: normal color, warm, dry Lymphatic Exam: No adenopathy SpO2 Interpretation: normal O2 Delivery: Room Air - Course Nursing assessment & vital signs reviewed: Yes EKG Interpreted by Me: RATE (102), Sinus Tach, NORMAL AXIS, LAFB, NORMAL INTERVALS, Other (Ischemia. 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 STAT Care 05/25/24 21:13 Active EKG-ER Only STAT Care 05/25/24 21:12 Active IV Insertion STAT Care 05/25/24 21:12 Active Pulse Oximetry (ED) STAT Care 05/25/24 21:12 Active HEAD WITHOUT CONTRAST [CT] Stat Exams 05/25/24 21:11 Completed CBC W DIFF Stat Lab 05/25/24 22:00 Completed CMP Stat Lab 05/25/24 22:00 Completed CULTURE,URINE Stat Lab 05/25/24 23:06 Received ETHYL ALCOHOL Stat Lab 05/25/24 22:00 Completed POCT GLUCOSE Stat Lab 05/25/24 21:16 Completed POCT GLUCOSE Stat Lab 05/25/24 22:27 Completed POCT GLUCOSE Stat Lab 05/25/24 23:52 Completed UA W/RFX UR CULTURE Stat Lab 05/25/24 23:06 Completed Urine Triage Profile Stat Lab 05/25/24 23:06 Results Medication Summary Generic Name Dose Route Start Last Admin Trade Name Freq PRN Reason Stop Dose Admin Dextrose/Sodium Chloride 1,000 mls @ 200 mls/hr 05/25/24 22:00 05/25/24 21:54 Dextrose 5%-Ns Iv Solution 1000 Ml IV 06/24/24 21:59 200 mls/hr .Q5H JALEN Administration Dextrose 250 mls @ 75 mls/hr 05/26/24 00:30 Dextrose 10% 250 Ml IV 06/25/24 00:29 .Q3H20M JALEN Discontinued Medications Generic Name Dose Route Start Last Admin Trade Name Freq PRN Reason Stop Dose Admin Dextrose Confirm 05/25/24 21:18 Dextrose 50%-Water 50 Ml Abboject Administered 05/25/24 21:19 Dose 50 ml IV .STK-MED ONE Dextrose 50 ml 05/25/24 21:43 05/25/24 21:46 Dextrose 50%-Water 50 Ml Abboject IV 05/25/24 21:44 50 ml STAT ONE Administration Dextrose 50 ml 05/26/24 00:00 05/26/24 00:02 Dextrose 50%-Water 50 Ml Abboject IV 05/26/24 00:01 50 ml STAT ONE Administration Dextrose Confirm 05/26/24 00:01 Dextrose 50%-Water 50 Ml Abboject Administered 05/26/24 00:02 Dose 50 ml IV .STK-MED ONE Ceftriaxone Sodium 1 gm in 100 mls @ 200 mls/hr 05/25/24 23:39 05/26/24 00:03 Rocephin 1 Gm / 100 Ml Nacl IV 05/26/24 00:08 200 mls/hr STAT ONE 200 mls/hr Administration Ceftriaxone Sodium Confirm 05/26/24 00:01 Rocephin 1 Gm / 100 Ml Nacl Administered 05/26/24 00:02 Dose 1 gm in 100 mls @ ud IV .STK-MED ONE Naloxone HCl 0.4 mg 05/25/24 21:12 05/25/24 21:52 Naloxone Hcl 0.4 Mg/Ml Ml IV 05/25/24 21:13 Not Given STAT ONE Naloxone HCl Confirm 05/25/24 21:15 Naloxone Hcl 0.4 Mg/Ml Ml Administered 05/25/24 21:16 Dose 0.4 mg .ROUTE .STK-MED ONE Ondansetron HCl 4 mg 05/25/24 21:12 05/25/24 21:52 Ondansetron Hcl 4 Mg/2 Ml Vial IV 05/25/24 21:13 Not Given STAT ONE Ondansetron HCl Confirm 05/25/24 21:15 Ondansetron Hcl 4 Mg/2 Ml Vial Administered 05/25/24 21:16 Dose 4 mg .ROUTE .STK-MED ONE Lab/Rad Data: Laboratory Result Diagrams 05/25/24 22:00 05/25/24 22:00 Laboratory Results 05/25/24 05/25/24 05/25/24 Range/Units 23:52 23:06 23:06 WBC (3.98-10.04) x10^3/uL RBC (3.93-5.22) x10^6/uL Hgb (11.2-15.7) g/dL Hct (34.1-44.9) % MCV (79.4-94.8) fL MCH (25.6-32.2) pg MCHC (32.2-35.5) g/dL RDW (11.7-14.4) % Plt Count (182-369) x10^3/uL MPV (9.4-12.3) fL Gran % (34.0-71.1) % Immature Gran % (Auto) (0.001-0.429) % Nucleat RBC Rel Count (0.00-0.2) % Eos # (Auto) (0.04-0.36) x10^3/uL Immature Gran # (Auto) (0.001-0.031) x10^3u/L Absolute Lymphs (auto) (1.18-3.74) x10^3/uL Absolute Monos (auto) (0.24-0.86) x10^3/uL Absolute Nucleated RBC (0.00-0.012) x10^3u/L Lymphocytes % (19.3-51.7) % Monocytes % (4.7-12.5) % Eosinophils % (0.7-5.8) % Basophils % (0.1-1.2) % Absolute Granulocytes (1.56-6.13) x10^3/uL Basophils # (0.01-0.08) x10^3/uL Sodium (135-145) mmol/L Potassium (3.5-5.1) mmol/L Chloride (98-107) mmol/L Carbon Dioxide (22-30) mmol/L Anion Gap (5-15) MEQ/L BUN (7-17) mg/dL Creatinine (0.52-1.04) mg/dL Estimated GFR ML/MIN Glucose (74-106) mg/dL POC Glucometer 78 (74 to 106) mg/dL Calcium (8.4-10.2) mg/dL Total Bilirubin (0.2-1.3) mg/dL AST (14-36) U/L ALT (0-35) U/L Alkaline Phosphatase (38-126) U/L Serum Total Protein (6.3-8.2) g/dL Albumin (3.5-5.0) g/dL Urine Color Dark Yellow A (Yellow) Urine Appearance Turbid A (Clear) Urine pH 5.0 (4.6-8.0) Ur Specific [place] 1.025 (1.005-1.030) Urine Protein 300 A (Negative) Urine Glucose (UA) Negative (Negative) mg/dL Urine Ketones Negative (Negative) Urine Blood Moderate A (Negative) Urine Nitrite Positive A (Negative) Urine Bilirubin Moderate A (Negative) Urine Urobilinogen 2.0 A (0.2) mg/dL Ur Leukocyte Esterase Large A (Negative) U Hyaline Cast (Auto) None Seen (0-2) /LPF Urine Microscopic RBC 6-10 A (0-5) /HPF Urine Microscopic WBC >100 A (0-5) /HPF Ur Epithelial Cells Rare (None Seen) /HPF Urine Bacteria Many A (None Seen) /HPF Urine Culture Reflexed YES (NO) Urine Opiates Level POSITIVE A (NEGATIVE) Ur Methadone NEGATIVE (NEGATIVE) Urine Barbiturates NEGATIVE (NEGATIVE) Ur Phencyclidine (PCP) NEGATIVE (NEGATIVE) Urine Amphetamine NEGATIVE (NEGATIVE) U Benzodiazepine Level Pending Urine Cocaine NEGATIVE (NEGATIVE) Urine Marijuana (THC) NEGATIVE (NEGATIVE) Ethyl Alcohol (0-10) mg/dL Slides for Path Review 05/25/24 05/25/24 05/25/24 Range/Units 22:27 22:00 22:00 WBC 20.0 H (3.98-10.04) x10^3/uL RBC 3.07 L (3.93-5.22) x10^6/uL Hgb 9.4 L (11.2-15.7) g/dL Hct 29.1 L (34.1-44.9) % MCV 94.8 (79.4-94.8) fL MCH 30.6 (25.6-32.2) pg MCHC 32.3 (32.2-35.5) g/dL RDW 14.4 (11.7-14.4) % Plt Count 146 L (182-369) x10^3/uL MPV 12.9 H (9.4-12.3) fL Gran % 79.0 H (34.0-71.1) % Immature Gran % (Auto) 1.1 H (0.001-0.429) % Nucleat RBC Rel Count 0.0 (0.00-0.2) % Eos # (Auto) 0.02 L (0.04-0.36) x10^3/uL Immature Gran # (Auto) 0.22 H (0.001-0.031) x10^3u/L Absolute Lymphs (auto) 1.63 (1.18-3.74) x10^3/uL Absolute Monos (auto) 2.28 H (0.24-0.86) x10^3/uL Absolute Nucleated RBC 0.00 (0.00-0.012) x10^3u/L Lymphocytes % 8.2 L (19.3-51.7) % Monocytes % 11.4 (4.7-12.5) % Eosinophils % 0.1 L (0.7-5.8) % Basophils % 0.2 (0.1-1.2) % Absolute Granulocytes 15.81 H (1.56-6.13) x10^3/uL Basophils # 0.03 (0.01-0.08) x10^3/uL Sodium 139 (135-145) mmol/L Potassium 3.5 (3.5-5.1) mmol/L Chloride 112 H (98-107) mmol/L Carbon Dioxide 18 L (22-30) mmol/L Anion Gap 12.0 (5-15) MEQ/L BUN 23 H (7-17) mg/dL Creatinine 1.53 H (0.52-1.04) mg/dL Estimated GFR 42.0 ML/MIN Glucose 94 (74-106) mg/dL POC Glucometer 101 (74 to 106) mg/dL Calcium 7.3 L (8.4-10.2) mg/dL Total Bilirubin 1.60 H (0.2-1.3) mg/dL AST 195 H (14-36) U/L ALT 93 H (0-35) U/L Alkaline Phosphatase 196 H (38-126) U/L Serum Total Protein 5.1 L (6.3-8.2) g/dL Albumin 2.1 L (3.5-5.0) g/dL Urine Color (Yellow) Urine Appearance (Clear) Urine pH (4.6-8.0) Ur Specific [place] (1.005-1.030) Urine Protein (Negative) Urine Glucose (UA) (Negative) mg/dL Urine Ketones (Negative) Urine Blood (Negative) Urine Nitrite (Negative) Urine Bilirubin (Negative) Urine Urobilinogen (0.2) mg/dL Ur Leukocyte Esterase (Negative) U Hyaline Cast (Auto) (0-2) /LPF Urine Microscopic RBC (0-5) /HPF Urine Microscopic WBC (0-5) /HPF Ur Epithelial Cells (None Seen) /HPF Urine Bacteria (None Seen) /HPF Urine Culture Reflexed (NO) Urine Opiates Level (NEGATIVE) Ur Methadone (NEGATIVE) Urine Barbiturates (NEGATIVE) Ur Phencyclidine (PCP) (NEGATIVE) Urine Amphetamine (NEGATIVE) U Benzodiazepine Level Urine Cocaine (NEGATIVE) Urine Marijuana (THC) (NEGATIVE) Ethyl Alcohol < 10 (0-10) mg/dL Slides for Path Review YES 05/25/24 Range/Units 21:16 WBC (3.98-10.04) x10^3/uL RBC (3.93-5.22) x10^6/uL Hgb (11.2-15.7) g/dL Hct (34.1-44.9) % MCV (79.4-94.8) fL MCH (25.6-32.2) pg MCHC (32.2-35.5) g/dL RDW (11.7-14.4) % Plt Count (182-369) x10^3/uL MPV (9.4-12.3) fL Gran % (34.0-71.1) % Immature Gran % (Auto) (0.001-0.429) % Nucleat RBC Rel Count (0.00-0.2) % Eos # (Auto) (0.04-0.36) x10^3/uL Immature Gran # (Auto) (0.001-0.031) x10^3u/L Absolute Lymphs (auto) (1.18-3.74) x10^3/uL Absolute Monos (auto) (0.24-0.86) x10^3/uL Absolute Nucleated RBC (0.00-0.012) x10^3u/L Lymphocytes % (19.3-51.7) % Monocytes % (4.7-12.5) % Eosinophils % (0.7-5.8) % Basophils % (0.1-1.2) % Absolute Granulocytes (1.56-6.13) x10^3/uL Basophils # (0.01-0.08) x10^3/uL Sodium (135-145) mmol/L Potassium (3.5-5.1) mmol/L Chloride (98-107) mmol/L Carbon Dioxide (22-30) mmol/L Anion Gap (5-15) MEQ/L BUN (7-17) mg/dL Creatinine (0.52-1.04) mg/dL Estimated GFR ML/MIN Glucose (74-106) mg/dL POC Glucometer 53 L (74 to 106) mg/dL Calcium (8.4-10.2) mg/dL Total Bilirubin (0.2-1.3) mg/dL AST (14-36) U/L ALT (0-35) U/L Alkaline Phosphatase (38-126) U/L Serum Total Protein (6.3-8.2) g/dL Albumin (3.5-5.0) g/dL Urine Color (Yellow) Urine Appearance (Clear) Urine pH (4.6-8.0) Ur Specific [place] (1.005-1.030) Urine Protein (Negative) Urine Glucose (UA) (Negative) mg/dL Urine Ketones (Negative) Urine Blood (Negative) Urine Nitrite (Negative) Urine Bilirubin (Negative) Urine Urobilinogen (0.2) mg/dL Ur Leukocyte Esterase (Negative) U Hyaline Cast (Auto) (0-2) /LPF Urine Microscopic RBC (0-5) /HPF Urine Microscopic WBC (0-5) /HPF Ur Epithelial Cells (None Seen) /HPF Urine Bacteria (None Seen) /HPF Urine Culture Reflexed (NO) Urine Opiates Level (NEGATIVE) Ur Methadone (NEGATIVE) Urine Barbiturates (NEGATIVE) Ur Phencyclidine (PCP) (NEGATIVE) Urine Amphetamine (NEGATIVE) U Benzodiazepine Level Urine Cocaine (NEGATIVE) Urine Marijuana (THC) (NEGATIVE) Ethyl Alcohol (0-10) mg/dL Slides for Path Review - Progress Progress: improved, re-examined Progress Note: 05/25/24 21:51 My medical decision making and the assignment of moderate complexity to this patient's medical issue today is based on review the patient's past medical history, review of the patient's medication list, review of the patient's drug allergy list, history present illness and physical findings on examination. The workup in this patient includes a bedside Accu-Chek, IV line placement with infusion of crystalloid solution, CT scan of the head, urinalysis, CBC, CMP, twelve-lead EKG. Ammonia level. Differential diagnosis includes but is not limited to hypoglycemia. Dehyd ration, urinary tract infection, acute intracranial abnormality, arrhythmia, electrolyte abnormality The Accu-Chek reading at bedside is 53. This is likely the underlying cause of this patient's altered mental status/lethargy. 05/25/24 23:37 I interpreted the patient's laboratory data results. The patient's repeat blood sugar after oral glucose, intravenous glucose increased to 101. Patient cl inically is much more awake and alert. We are waiting for her urinalysis. CT scan of the head without contrast was interpreted by the radiologist and I reviewed the impression. There is no evidence of any acute intracranial abnormality. 05/25/24 23:40 The patient has a significant urinary tract infection. She had hypoglycemia on admission to the emergency department as well as evidence of leukocytosis. 05/26/24 00:[address] Hanna, the telehospitalist on at this time. I reviewed the patient history, presenting complaint, physical findings on examination and workup results. We will admit this patient to telemetry. He wants to change the IV fluids to D10 W at 75 cc an hour. He wants the blood glucose levels checked every hour. We will continue intravenous antibiotics and repeat labs in the morning. Counseled pt/family regarding: lab results, diagnosis, rad results Medical Desision Making - Independent Historian Additional History obtained from: Family, Tower Climber/EMT - Diagnostic Testing Diagnostic test were ordered, analyzed, and reviewed by me: Yes Radiological Interpretation: Reviewed by me, Teleradiologist Report - Risk of complications The pt has a high risk of morbidity or mortality based on: Decision regarding hospitilization or escalation of hosp level of care - Departure Departure Disposition: In-patient Admission Clinical Impression: UTI (urinary tract infection), Hypoglycemia, Leukocytosis, Hypotension Condition: Fair Critical Care Time: Yes Critical Care Time(excluding separately billable procedures): Critical 30-74 mins (50 minutes) Referrals: RICKY BUSBY [Primary Care Provider] - Follow up/PCP as directed
[2024-05-25] MEDS ORDERED: Narcan 0.4 MG/ML ONE (21:15)
[2024-05-25] MEDS ORDERED: Zofran 4 MG/2 ML VIAL ONE (21:15)
[2024-05-25] MEDS ORDERED: D50W 50 ml Abboject IV ONE (21:18)
[2024-05-25] MEDS: D50W 50 ml Abboject IV ONE (21:46)
[2024-05-25] MEDS ORDERED: Dextrose 5%-NS IV Solution 1000 ML 1,000 ML IV ONE (21:51)
[2024-05-25] MEDS: Narcan 0.4 MG/ML IV ONE (21:52)
[2024-05-25] MEDS: Zofran 4 MG/2 ML VIAL IV ONE (21:52)
[2024-05-25] MEDS: Dextrose 5%-NS IV Solution 1000 ML 1,000 ML IV SCH (21:54)
[2024-05-25 22:02] LABS: Absolute Neutrophil Ct (ANC) 15.81 x10^3/uL (1.56-6.13); BASOPHIL % 0.2 % (0.1-1.2); Basophil (Absolute #) 0.03 x10^3/uL (0.01-0.08); Eosinophil % 0.1 % (0.7-5.8); Eosinophil (Absolute #) 0.02 x10^3/uL (0.04-0.36); Hematocrit 29.1 % (34.1-44.9); Hemoglobin 9.4 g/dL (11.2-15.7); IMMATURE GRAN # 0.22 x10^3u/L (0.001-0.031); IMMATURE GRAN % 1.1 % (0.001-0.429); Lymphocyte (Absolute #) 1.63 x10^3/uL (1.18-3.74); Lymphocytes % 8.2 % (19.3-51.7); Mean Cell Volume 94.8 fL (79.4-94.8); Mean Corpuscular Hemoglobin 30.6 pg (25.6-32.2); Mean Corpuscular Hgb Concent. 32.3 g/dL (32.2-35.5); Mean Platelet Volume 12.9 fL (9.4-12.3); Monocyte (Absolute #) 2.28 x10^3/uL (0.24-0.86); Monocytes % 11.4 % (4.7-12.5); Platelet Count 146 x10^3/uL (182-369); Red Blood Count 3.07 x10^6/uL (3.93-5.22); Red Cell Distribution Width 14.4 % (11.7-14.4)
[2024-05-25 22:19] LABS: ALBUMIN 2.1 g/dL (3.5-5.0); ALKALINE PHOSPHATASE 196 U/L (38-126); BLOOD UREA NITROGEN 23 mg/dL (7-17); CHLORIDE 112 mmol/L (98-107); Calcium 7.3 mg/dL (8.4-10.2); Carbon Dioxide 18 mmol/L (22-30); Creatinine 1 1.53 mg/dL (0.52-1.04); ETHYL ALCOHOL < 10 mg/dL (0-10); Glucose 94 mg/dL (74-106); Potassium 3.5 mmol/L (3.5-5.1); SGOT/AST 195 U/L (14-36); SGPT/ALT 93 U/L (0-35); SODIUM 139 mmol/L (135-145); Total Protein 5.1 g/dL (6.3-8.2)
[2024-05-25 22:36] LABS: Slide Review 1 YES
--- NOTE | 2024-05-25 23:14 | XRAY ---
CLINICAL HISTORY: Lethargic; altered mental status COMPARISON: 10/26/2017 TECHNIQUE: Axial noncontrast CT scan of the brain was performed from the skull base to the high parietal region with multiple reformats. One of the following dose reduction techniques were utilized for this exam: Automated exposure control, adjustment of the mA and/or kV according to patient size, use of iterative reconstruction. FINDINGS: The visualized brain parenchyma shows normal appearance. Juares-white matter differentiation is maintained. No midline shifts or deformity. No intracerebral or extra axial hematoma. Normal size and configuration of the cerebral ventricles. Normal CT appearance of the posterior fossa structures namely the cerebellar hemispheres, brainstem and cerebellar peduncles. The cerebello-pontine angles are clear. The osseous structures in the skull base are unremarkable. No definite calvarium fractures. The scanned paranasal sinuses are clear. IMPRESSION: 1. No acute abnormality detected in plain CT brain 2. No significant interval changes Electronically Signed by: Jaya Gonzalez MD. (05/25/2024 23:10:25 EDT)
[2024-05-25 23:26] LABS: Amphetamine,Urine NEGATIVE (NEGATIVE); Barbiturate,Urine NEGATIVE (NEGATIVE); Cocaine,Urine NEGATIVE (NEGATIVE); Methadone,Urine NEGATIVE (NEGATIVE); Opiate,Urine POSITIVE (NEGATIVE); PCP,Urine NEGATIVE (NEGATIVE); THC,Urine NEGATIVE (NEGATIVE)
[2024-05-25 23:28] LABS: ADD URINE CULTURE? YES (NO); Appearance Turbid (Clear); Bacteria Many /HPF (None Seen); Bilirubin Moderate (Negative); Blood Moderate (Negative); Epithelial Cells Rare /HPF (None Seen); Glucose, Urine Negative (Negative); Hyaline Casts None Seen /LPF (0-2); Ketones Negative (Negative); Leukocyte Esterase Large (Negative); Nitrite Positive (Negative); Protein,Urine Dip 300 (Negative); Specific Gravity 1.025 (1.005-1.030); WBC >100 /HPF (0-5)
[2024-05-26] MEDS ORDERED: D50W 50 ml Abboject IV ONE (00:01)
[2024-05-26] MEDS ORDERED: ROCEPHIN 1 GM / 100 ML NaCl 1 GM/100 ML IVPB IV ONE (00:01)
[2024-05-26] MEDS: D50W 50 ml Abboject IV ONE (00:02)
[2024-05-26] MEDS: ROCEPHIN 1 GM / 100 ML NaCl 1 GM/100 ML IVPB IV ONE (00:03)
[2024-05-26] MEDS: DEXTROSE 10% 250 ML 250 ML IV SCH (00:26)
--- NOTE | 2024-05-26 03:15 | PCM.HP ---
History of Present Illness - Chief Complaint Chief Complaint: Hypoglycemia Date: 05/26/24 History of Present Illness: Ms. Horowitz is a 49 year-old female with DEUCE on CPAP, HTN, hypothyroidism, morbid obesity, chronic pain, HLD, and chart diagnoses of - DM2, CAD, CHF, COPD who presents with altered mental status and hypoglycemia. EMS was called to help with the lift, but when they arrived at her home, they found her to be very altered from a mentation standpoint. Upon arrival to [facility], her laboratory data was remarkable for a UTI, an elevated Cr, increased LFTs, HCO3 18, WBC 20, and chronic anemia. She was given D50 and a D5 infusion, but her blood sugar could not be maintained above 70, therefore she is now in the ICU on a D10 drip. On my examination, she is comfortable, sleepy but arousable, and with stable vital signs. - Review of Systems Constitutional: Other (UNABLE TO OBTAIN BASED ON MENTAL STATUS) Medications & Allergies Home Medications: Home Medication List Albuterol Sulfate [Proair Hfa] 2 puff IH DAILY PRN 12/19/14 [History Confirmed 05/26/24] Budesonide/Formoterol Fumarate [Symbicort 160-4.5 Mcg Inhaler] 2 puff IH BID 12/19/14 [History Confirmed 05/26/24] Levothyroxine Sodium 50 Mcg [Synthroid 50 Mcg] 50 mcg PO DAILY 12/19/14 [History Confirmed 05/26/24] Nitroglycerin 0.4 mg Tablet [Nitrostat 0.4 MG Tablet] 0.4 mg SL UD PRN 09/02/16 [History Confirmed 05/26/24] Atorvastatin Calcium [Lipitor 20MG Tablet] 20 mg PO DAILY 07/22/17 [History Confirmed 05/26/24] Ipratropium/Albuterol Sulfate [Iprat-Albut 0.5-3(2.5) mg/3 ml] 3 ml IH Q4HPRN PRN 07/22/17 [History Confirmed 05/26/24] Loratadine [Claritin] 10 mg PO DAILY 07/22/17 [History Confirmed 05/26/24] [place]-3 Fatty Acids/Fish Oil [Fish Oil 1,000 mg Capsule] 1,000 mcg PO BID 10/06/20 [History Confirmed 05/26/24] Allopurinol 100 mg [Zyloprim 100 mg] 100 mg PO DAILY 11/19/23 [History Confirmed 05/26/24] Amitriptyline HCl 25 mg [Amitriptyline 25 mg Tablet] 25 mg PO HS 11/19/23 [History Confirmed 05/26/24] Baclofen 10 mg [Lioresal 10 mg] 10 mg PO UD 11/19/23 [History Confirmed 05/26/24] Hydroxyzine HCl 25 mg [Atarax 25 mg] 25 mg PO HS 11/19/23 [History Confirmed 05/26/24] Mirabegron [Myrbetriq] 1 ea PO DAILY 11/19/23 [History Confirmed 05/26/24] Oxycodone HCl/Acetaminophen [Percocet 10-325 mg Tablet] 1 tab PO TID PRN PRN 11/19/23 [History Confirmed 05/26/24] Ubrogepant [Ubrelvy] 50 mg PO BID PRN 11/19/23 [History Confirmed 05/26/24] lamoTRIgine [Subvenite (Blue)] 100 mg PO DAILY 11/19/23 [History Confirmed 05/26/24] Furosemide 40 mg [Lasix 40 MG] 40 mg PO DAILY 12/05/23 [History Confirmed 05/26/24] Lactobacillus Acidophilus [Probiotic] 1 cap PO DAILY 12/05/23 [History Confirmed 05/26/24] Potassium Chloride 8 meq PO DAILY 12/05/23 [History Confirmed 05/26/24] Pregabalin 225 mg PO BID 12/05/23 [History Confirmed 05/26/24] Adalimumab [Humira] 40 mg SQ WEEKLY 12/11/23 [History Confirmed 05/26/24] Fufto-8-Woyzkuukuq Inhibitor [Prolastin C] 1 each IV WEEKLY 12/11/23 [History Confirmed 05/26/24] Cholecalciferol (Vitamin D3) [Vitamin D3] 2,000 mcg PO DAILY 12/11/23 [History Confirmed 05/26/24] Erenumab-Aooe [Aimovig Autoinjector] 140 mg SQ UD 12/11/23 [History Confirmed 05/26/24] Hydrocortisone 2.5% 30 gm [Anusol-Hc 2.5% Cream 30 gm] 1 applic TOP BID 12/11/23 [History Confirmed 05/26/24] Multivitamin 1 tab PO BID 12/11/23 [History Confirmed 05/26/24] Naloxone HCl [Narcan] 4 mg IH DAILY PRN PRN 12/11/23 [History Confirmed 05/26/24] Non-Formulary Drug [Non-Formulary Bulk Item] 1,000 mcg SQ UD 12/11/23 [History Confirmed 05/26/24] Thiamine Mononitrate (Vit B1) [Vitamin B-1] 100 mg PO WEEKLY 12/11/23 [History Confirmed 05/26/24] Levetiracetam [Keppra] 500 mg PO BID 05/25/24 [History Confirmed 05/26/24] Lurasidone HCl 80 mg PO DAILY 05/25/24 [History Confirmed 05/26/24] Ondansetron [Ondansetron Odt ] 4 mg SL Q6HPRN PRN 05/25/24 [History Confirmed 05/26/24] Pantoprazole 20 mg [Protonix 20MG Tablet] 20 mg PO DAILY 05/25/24 [History Confirmed 05/26/24] Propranolol HCl 20 mg PO BID 05/25/24 [History Confirmed 05/26/24] hydrOXYzine HCL [Hydroxyzine HCl] 50 mg PO HS 05/25/24 [History Confirmed 05/26/24] Allergies/Adverse Reactions: Allergies Allergy/AdvReac Type Severity Reaction Status Date / Time Iodinated Contrast Media Allergy Mild Verified 05/26/24 01:39 [IV Dye, Iodine Containing Contrast ] Sulfa (Sulfonamide Allergy Mild Verified 05/26/24 01:39 Antibiotics) [Sulfa(Sulfonamide Antibiotics)] benztropine Allergy Verified 05/26/24 01:39 triamcinolone Allergy Verified 05/26/24 01:39 - Past Medical History Past Medical History: Yes Neurological History: Migraines, Seizures, Other ENT History: No Pertinent History Cardiac History: Congestive Heart Failure, High Cholesterol, Hypertension, Other Respiratory History: Asthma, COPD Endocrine Medical History: Diabetes Type II, Hyperthyroidism, Other Musculoskelatal History: Degenerative Disk Disease, Fibromyalgia, Other GI Medical History: Crohns Disease, GERD History: No Pertinent History Pyscho-Social History: Anxiety, Bipolar, Depression Reproductive Disorders: No Pertinent History Comment: Alpha 1 Antitrypsin deficiency, Hidradentitis Suppurative, Lumbar Rad iculopathy, OCD - Female History Are you now?: No - Past Surgical History Past Surgical History: Yes Neuro Surgical History: No Pertinent History Cardiac History: Cardiac Catheterization Respiratory Surgery: No Pertinent History GI Surgical History: Cholecystectomy Genitourinary Surgical Hx: No Pertinent History Musculskeletal Surgical Hx: No Pertinent History Female Surgical History: Hysterectomy, Tubal Ligation Other Surgical History: PORT PLACEMENT- states "prolastin infusion weekly", gastric bypass, carpl tunnel release Significant Family History: no pertinent family hx - Social History Smoking Status: Never smoker Exposure to second hand smoke: Yes Alcohol: None Drug Use: none - Social Determinants of Health Will the patient participate in the screening: Yes Do you worry about a steady place to live?: No Do you have any problems with any of the following?: No known problems In the past 12 months,have you had to go without utilities?: No Have you or anyone in your house had to go without enough: No Transportation Issues: No Has anyone in your support network made you feel unsafe?: No Does the patient want assistance with any of the above?: No - Physical Exam Vital Signs: Vital Signs - 24 hr Temp Pulse Resp BP BP Pulse Ox 05/26/24 02:00 96 05/26/24 01:50 103 H 18 95 05/26/24 01:47 97.6 F 104 H 20 143/61 96 05/26/24 01:00 104 H 12 117/92 100 05/26/24 00:45 104 H 19 101/72 100 05/26/24 00:17 101 H 19 97/82 99 05/26/24 00:15 102 H 15 100 05/26/24 00:00 99 H 13 91/57 100 05/25/24 23:50 92/54 05/25/24 23:45 98 H 13 104/58 100 05/25/24 23:30 96 H 9 L 91/65 100 05/25/24 23:21 96 H 13 92/52 100 05/25/24 23:15 96 H 16 83/50 100 05/25/24 23:02 97 H 16 94/75 100 05/25/24 22:00 100 H 11 L 90/73 100 05/25/24 21:48 100 H 18 97/55 100 05/25/24 21:13 92 L 05/25/24 21:05 97.6 F 101 H 10 L 134/114 98 General Appearance: other (SOMNOLENT) Neurologic Exam: other (SOMNOLENT) Eye Exam: PERRL/EOMI Ears, Nose, Throat Exam: normal ENT inspection Neck Exam: normal inspection Respiratory Exam: normal breath sounds Cardiovascular Exam: regular rate/rhythm, normal heart sounds Gastrointestinal/Abdomen Exam: soft, normal bowel sounds Pelvic Exam: not done Rectal Exam: deferred Back Exam: normal inspection Extremity Exam: normal inspection Skin Exam: normal color, warm, dry Results - Labs Lab/Micro Results: Lab Results-Last 24 Hours 05/25/24 05/25/24 05/25/24 Range/Units 21:16 22:00 22:00 WBC 20.0 H (3.98-10.04) x10^3/uL RBC 3.07 L (3.93-5.22) x10^6/uL Hgb 9.4 L (11.2-15.7) g/dL Hct 29.1 L (34.1-44.9) % MCV 94.8 (79.4-94.8) fL MCH 30.6 (25.6-32.2) pg MCHC 32.3 (32.2-35.5) g/dL RDW 14.4 (11.7-14.4) % Plt Count 146 L (182-369) x10^3/uL MPV 12.9 H (9.4-12.3) fL Gran % 79.0 H (34.0-71.1) % Immature Gran % (Auto) 1.1 H (0.001-0.429) % Nucleat RBC Rel Count 0.0 (0.00-0.2) % Eos # (Auto) 0.02 L (0.04-0.36) x10^3/uL Immature Gran # (Auto) 0.22 H (0.001-0.031) x10^3u/L Absolute Lymphs (auto) 1.63 (1.18-3.74) x10^3/uL Absolute Monos (auto) 2.28 H (0.24-0.86) x10^3/uL Absolute Nucleated RBC 0.00 (0.00-0.012) x10^3u/L Lymphocytes % 8.2 L (19.3-51.7) % Monocytes % 11.4 (4.7-12.5) % Eosinophils % 0.1 L (0.7-5.8) % Basophils % 0.2 (0.1-1.2) % Absolute Granulocytes 15.81 H (1.56-6.13) x10^3/uL Basophils # 0.03 (0.01-0.08) x10^3/uL Sodium 139 (135-145) mmol/L Potassium 3.5 (3.5-5.1) mmol/L Chloride 112 H (98-107) mmol/L Carbon Dioxide 18 L (22-30) mmol/L Anion Gap 12.0 (5-15) MEQ/L BUN 23 H (7-17) mg/dL Creatinine 1.53 H (0.52-1.04) mg/dL Estimated GFR 42.0 ML/MIN Glucose 94 (74-106) mg/dL POC Glucometer 53 L (74 to 106) mg/dL Calcium 7.3 L (8.4-10.2) mg/dL Total Bilirubin 1.60 H (0.2-1.3) mg/dL AST 195 H (14-36) U/L ALT 93 H (0-35) U/L Alkaline Phosphatase 196 H (38-126) U/L Serum Total Protein 5.1 L (6.3-8.2) g/dL Albumin 2.1 L (3.5-5.0) g/dL Urine Color (Yellow) Urine Appearance (Clear) Urine pH (4.6-8.0) Ur Specific [place] (1.005-1.030) Urine Protein (Negative) Urine Glucose (UA) (Negative) mg/dL Urine Ketones (Negative) Urine Blood (Negative) Urine Nitrite (Negative) Urine Bilirubin (Negative) Urine Urobilinogen (0.2) mg/dL Ur Leukocyte Esterase (Negative) U Hyaline Cast (Auto) (0-2) /LPF Urine Microscopic RBC (0-5) /HPF Urine Microscopic WBC (0-5) /HPF Ur Epithelial Cells (None Seen) /HPF Urine Bacteria (None Seen) /HPF Urine Culture Reflexed (NO) Urine Opiates Level (NEGATIVE) Ur Methadone (NEGATIVE) Urine Barbiturates (NEGATIVE) Ur Phencyclidine (PCP) (NEGATIVE) Urine Amphetamine (NEGATIVE) U Benzodiazepine Level Urine Cocaine (NEGATIVE) Urine Marijuana (THC) (NEGATIVE) Ethyl Alcohol < 10 (0-10) mg/dL Slides for Path Review YES 05/25/24 05/25/24 05/25/24 Range/Units 22:27 23:06 23:06 WBC (3.98-10.04) x10^3/uL RBC (3.93-5.22) x10^6/uL Hgb (11.2-15.7) g/dL Hct (34.1-44.9) % MCV (79.4-94.8) fL MCH (25.6-32.2) pg MCHC (32.2-35.5) g/dL RDW (11.7-14.4) % Plt Count (182-369) x10^3/uL MPV (9.4-12.3) fL Gran % (34.0-71.1) % Immature Gran % (Auto) (0.001-0.429) % Nucleat RBC Rel Count (0.00-0.2) % Eos # (Auto) (0.04-0.36) x10^3/uL Immature Gran # (Auto) (0.001-0.031) x10^3u/L Absolute Lymphs (auto) (1.18-3.74) x10^3/uL Absolute Monos (auto) (0.24-0.86) x10^3/uL Absolute Nucleated RBC (0.00-0.012) x10^3u/L Lymphocytes % (19.3-51.7) % Monocytes % (4.7-12.5) % Eosinophils % (0.7-5.8) % Basophils % (0.1-1.2) % Absolute Granulocytes (1.56-6.13) x10^3/uL Basophils # (0.01-0.08) x10^3/uL Sodium (135-145) mmol/L Potassium (3.5-5.1) mmol/L Chloride (98-107) mmol/L Carbon Dioxide (22-30) mmol/L Anion Gap (5-15) MEQ/L BUN (7-17) mg/dL Creatinine (0.52-1.04) mg/dL Estimated GFR ML/MIN Glucose (74-106) mg/dL POC Glucometer 101 (74 to 106) mg/dL Calcium (8.4-10.2) mg/dL Total Bilirubin (0.2-1.3) mg/dL AST (14-36) U/L ALT (0-35) U/L Alkaline Phosphatase (38-126) U/L Serum Total Protein (6.3-8.2) g/dL Albumin (3.5-5.0) g/dL Urine Color Dark Yellow A (Yellow) Urine Appearance Turbid A (Clear) Urine pH 5.0 (4.6-8.0) Ur Specific [place] 1.025 (1.005-1.030) Urine Protein 300 A (Negative) Urine Glucose (UA) Negative (Negative) mg/dL Urine Ketones Negative (Negative) Urine Blood Moderate A (Negative) Urine Nitrite Positive A (Negative) Urine Bilirubin Moderate A (Negative) Urine Urobilinogen 2.0 A (0.2) mg/dL Ur Leukocyte Esterase Large A (Negative) U Hyaline Cast (Auto) None Seen (0-2) /LPF Urine Microscopic RBC 6-10 A (0-5) /HPF Urine Microscopic WBC >100 A (0-5) /HPF Ur Epithelial Cells Rare (None Seen) /HPF Urine Bacteria Many A (None Seen) /HPF Urine Culture Reflexed YES (NO) Urine Opiates Level POSITIVE A (NEGATIVE) Ur Methadone NEGATIVE (NEGATIVE) Urine Barbiturates NEGATIVE (NEGATIVE) Ur Phencyclidine (PCP) NEGATIVE (NEGATIVE) Urine Amphetamine NEGATIVE (NEGATIVE) U Benzodiazepine Level Pending Urine Cocaine NEGATIVE (NEGATIVE) Urine Marijuana (THC) NEGATIVE (NEGATIVE) Ethyl Alcohol (0-10) mg/dL Slides for Path Review 05/25/24 05/26/24 Range/Units 23:52 02:01 WBC (3.98-10.04) x10^3/uL RBC (3.93-5.22) x10^6/uL Hgb (11.2-15.7) g/dL Hct (34.1-44.9) % MCV (79.4-94.8) fL MCH (25.6-32.2) pg MCHC (32.2-35.5) g/dL RDW (11.7-14.4) % Plt Count (182-369) x10^3/uL MPV (9.4-12.3) fL Gran % (34.0-71.1) % Immature Gran % (Auto) (0.001-0.429) % Nucleat RBC Rel Count (0.00-0.2) % Eos # (Auto) (0.04-0.36) x10^3/uL Immature Gran # (Auto) (0.001-0.031) x10^3u/L Absolute Lymphs (auto) (1.18-3.74) x10^3/uL Absolute Monos (auto) (0.24-0.86) x10^3/uL Absolute Nucleated RBC (0.00-0.012) x10^3u/L Lymphocytes % (19.3-51.7) % Monocytes % (4.7-12.5) % Eosinophils % (0.7-5.8) % Basophils % (0.1-1.2) % Absolute Granulocytes (1.56-6.13) x10^3/uL Basophils # (0.01-0.08) x10^3/uL Sodium (135-145) mmol/L Potassium (3.5-5.1) mmol/L Chloride (98-107) mmol/L Carbon Dioxide (22-30) mmol/L Anion Gap (5-15) MEQ/L BUN (7-17) mg/dL Creatinine (0.52-1.04) mg/dL Estimated GFR ML/MIN Glucose (74-106) mg/dL POC Glucometer 78 112 H (74 to 106) mg/dL Calcium (8.4-10.2) mg/dL Total Bilirubin (0.2-1.3) mg/dL AST (14-36) U/L ALT (0-35) U/L Alkaline Phosphatase (38-126) U/L Serum Total Protein (6.3-8.2) g/dL Albumin (3.5-5.0) g/dL Urine Color (Yellow) Urine Appearance (Clear) Urine pH (4.6-8.0) Ur Specific [place] (1.005-1.030) Urine Protein (Negative) Urine Glucose (UA) (Negative) mg/dL Urine Ketones (Negative) Urine Blood (Negative) Urine Nitrite (Negative) Urine Bilirubin (Negative) Urine Urobilinogen (0.2) mg/dL Ur Leukocyte Esterase (Negative) U Hyaline Cast (Auto) (0-2) /LPF Urine Microscopic RBC (0-5) /HPF Urine Microscopic WBC (0-5) /HPF Ur Epithelial Cells (None Seen) /HPF Urine Bacteria (None Seen) /HPF Urine Culture Reflexed (NO) Urine Opiates Level (NEGATIVE) Ur Methadone (NEGATIVE) Urine Barbiturates (NEGATIVE) Ur Phencyclidine (PCP) (NEGATIVE) Urine Amphetamine (NEGATIVE) U Benzodiazepine Level Urine Cocaine (NEGATIVE) Urine Marijuana (THC) (NEGATIVE) Ethyl Alcohol (0-10) mg/dL Slides for Path Review - Radiology Impressions Radiology Exams & Impressions: Radiology Procedures Category Date Time Status HEAD WITHOUT CONTRAST [CT] Stat Exams 05/25/24 21:11 Completed - Other Procedures and Tests Respiratory Therapy 05/26/24 02:39 BiPap/CPAP ROUTINE Respiratory Therapy Assessment DAILY Assessment/Plan (1) UTI (urinary tract infection) Current Visit: Yes Status: Acute Assessment & Plan: DRIPS D10 ANTIBIOTICS AND STEROIDS Ceftriaxone ASSESSMENT 1. Hypoglycemia 2. Altered Mental Status 3. Urinary Tract Infection 4. Acute Kidney Injury 5. Non-Anion Gap Metabolic Acidosis 6. Acute Transaminitis 7. Hypertension 8. Hyperlipidemia 9. Obstructive Sleep Apnea on CPAP 10. Chronic Pain Syndrome 11. Morbid Obesity PLAN 1. Mental status slowly improving; CT head negative 2. Continue D10; last glucose: 112 and 97 3. Ceftriaxone for UTI; cultures pending 4. RUQ US if LFTs don't improve; last RUQ US was in 2022 - showed a large liver 5. CPAP for DEUCE 6. Hold all narcotic and pain medications for now SQ Heparin Critical Care Time: 60 Minutes The entirety of this encounter was done via telemedicine with audio and visual. Consent was not obtained for a telemedicine encounter due to patient's mental status. Noah Hanna MD Pulmonary and Critical Care Medicine Code(s): N39.0 - URINARY TRACT INFECTION, SITE NOT SPECIFIED Telemedicine Encounter - Telemedicine Encounter Telemedicine Encounter: "The entirety of this encounter was performed via Telemedicine" This visit was performed using real-time audio and video connection between my location and thepatients locationwith the assistance of a surrogateat the patients location. Written or verbal consent was obtained from the patient/guardian to perform this visit [email or web address] / [employer] technology. Any patient questions regarding the telemedicine interaction were answered.
[2024-05-26 06:32] LABS: Absolute Neutrophil Ct (ANC) 11.36 x10^3/uL (1.56-6.13); BASOPHIL % 0.2 % (0.1-1.2); Basophil (Absolute #) 0.03 x10^3/uL (0.01-0.08); Eosinophil % 0.1 % (0.7-5.8); Eosinophil (Absolute #) 0.02 x10^3/uL (0.04-0.36); Hematocrit 30.9 % (34.1-44.9); Hemoglobin 10.3 g/dL (11.2-15.7); IMMATURE GRAN # 0.13 x10^3u/L (0.001-0.031); Lymphocyte (Absolute #) 1.27 x10^3/uL (1.18-3.74); Lymphocytes % 9.3 % (19.3-51.7); Mean Cell Volume 92.2 fL (79.4-94.8); Mean Corpuscular Hemoglobin 30.7 pg (25.6-32.2); Mean Corpuscular Hgb Concent. 33.3 g/dL (32.2-35.5); Mean Platelet Volume 12.9 fL (9.4-12.3); Monocyte (Absolute #) 0.85 x10^3/uL (0.24-0.86); Monocytes % 6.2 % (4.7-12.5); Neutrophil % 83.2 % (34.0-71.1); Platelet Count 136 x10^3/uL (182-369); Red Blood Count 3.35 x10^6/uL (3.93-5.22); Red Cell Distribution Width 14.6 % (11.7-14.4); White Blood Count 13.7 x10^3/uL (3.98-10.04)
[2024-05-26 06:58] LABS: ALBUMIN 2.1 g/dL (3.5-5.0); ANION GAP 11.8 MEQ/L (5-15); BILIRUBIN,TOTAL 1.7 mg/dL (0.2-1.3); Calcium 7.2 mg/dL (8.4-10.2); Creatinine 1 1.55 mg/dL (0.52-1.04); EST GLOMERULAR FILTRATION RATE 41.3 ML/MIN; Potassium 3.4 mmol/L (3.5-5.1)
[2024-05-26 09:59] LABS: A-aADO2 26; ABG HEMOGLOBIN 9.3; ABG POTASSIUM 3.1 (3.5-5.1); ABG SITE RIGHT RADIAL; ALLEN TEST OK? YES; ARTERIAL BLD GAS O2 SATURATION 95.8 % (95-100); ARTERIAL BLOOD GAS BASE EXCESS -4.3 (-2.0-2.0); ARTERIAL BLOOD GAS FIO2 21 %; ARTERIAL BLOOD GAS PCO2 32 mmHg (35-45); ARTERIAL BLOOD GAS PO2 84 mmHg (75-100); CARBOXYHEMOGLOBIN 0.7 % THgb (0.0-6.9); HCO3- 19.8 (22-28); HGB O2 SAT 94.3 g/dF (94-100); paO2 pAO1 0.76
[2024-05-26] MEDS: Zofran 4 MG/2 ML VIAL IV PRN (11:38)
[2024-05-26] MEDS: ZOCOR 20MG PO SCH (11:38)
[2024-05-26] MEDS: SYNTHROID 50 MCG PO SCH (11:38)
--- NOTE | 2024-05-26 11:38 | PCM.NOTE ---
Ms. Horowitz is a 49 year-old female with DEUCE on CPAP, HTN, hypothyroidism, morbid obesity, chronic pain, HLD, and chart diagnoses of - DM2, CAD, CHF, COPD admitted 05/26/24 with urosepsis after experiencing altered mental status and hypoglycemia requiring ED visit via EMS. EMS was called to help with the lift, but when they arrived at her home, they found her to be very altered from a m entation standpoint. Upon arrival to [facility], her laboratory data was remarkable for a UTI, an elevated Cr, increased LFTs, HCO3 18, WBC 20, and chronic anemia. CT head negative. She was given D50 and a D5 infusion, but her blood sugar could not be maintained above 70, therefore she is now on a D10 drip. Patient remains lethargic and weak with nausea this morning. Lab findings are improving with the exception of her transaminitis. Blood glucose levels are stable. IP treatment with ceftriaxone/IVF hydration- cultures pending. Will order CT of the abdomen and pelvis.
[2024-05-26] MEDS: lamICTAL 100MG TABLET PO SCH (11:39)
[2024-05-26] MEDS: Protonix 20MG Tablet PO SCH (11:39)
[2024-05-26] MEDS: KEPPRA PO SCH (11:39)
[2024-05-26] MEDS: Inderal PO SCH (11:39)
[2024-05-26] MEDS: CLARITIN 10 MG PO SCH (11:39)
[2024-05-26] MEDS: DEXTROSE 10%-WATER IV SOLUTION 1,000 ML IV SCH (11:52)
--- NOTE | 2024-05-26 13:36 | XRAY ---
CLINICAL HISTORY: nausea/vomiting transaminitis COMPARISON: No prior studies available for comparison. TECHNIQUE: Non-contrast CT of the abdomen was performed, with the following protocol: axial images and reconstructed coronal and sagittal images. One of the following dose reduction techniques was utilized for this exam: Automated exposure control, adjustment of the mA and/or kV according to patient size, and use of iterative reconstruction. FINDINGS: Suture material in gastric topography. Liver: Mild hepatomegaly and diffuse steatosis. Metal clips in gallbladder topography Common bile duct without dilatation. Pancreas: Pancreatic head, body, and tail are visualized and appear normal in size and density. No pancreatic masses, cysts, or calcifications were noted. The main pancreatic duct is [normal size/diameter] without dilatation. Spleen: Normal in size, shape, and density. No splenic lesions or masses were identified. Kidneys and Adrenal Glands: Both kidneys are normal in size, shape, and position. Cortical thickness is within normal limits. Right renal microlithiasis. No renal hydronephrosis. Mild perinephric fat stranding mainly around the left kidney Adrenal glands are unremarkable. Appendix: No visualized in the imaged sections. Bowel: Imaged bowel structures appear unremarkable. No significant bowel dilatation. Peritoneal and Retroperitoneal Structures: No free fluid or abnormal fluid collections were identified within the abdomen or pelvis. No lymphadenopathy was noted. IMPRESSION: 1. Hepatomegaly and diffuse steatosis. 2. Nonobstructing small right renal calculus 3. Clinical correlation is suggested. Electronically Signed by: Jaya Gonzalez MD. (05/26/2024 13:32:12 EDT)
[2024-05-26] MEDS: HEPARIN 5000 UNITS/0.5 ML (HIGH RISK MED) SQ SCH (16:07)
[2024-05-26] MEDS: PROTONIX 40 MG IV IV SCH (16:07)
[2024-05-26] MEDS: ROCEPHIN 1 GM / 100 ML NaCl 1 GM/100 ML IVPB IV SCH (22:05)
[2024-05-27] MEDS: TYLENOL 325 MG PO PRN (02:08)
[2024-05-27 06:30] LABS: Hematocrit 29.5 % (34.1-44.9); Hemoglobin 9.7 g/dL (11.2-15.7); Mean Cell Volume 91.9 fL (79.4-94.8); Mean Corpuscular Hemoglobin 30.2 pg (25.6-32.2); Mean Corpuscular Hgb Concent. 32.9 g/dL (32.2-35.5); Mean Platelet Volume 12.9 fL (9.4-12.3); Platelet Count 122 x10^3/uL (182-369); Red Blood Count 3.21 x10^6/uL (3.93-5.22); Red Cell Distribution Width 14.6 % (11.7-14.4); White Blood Count 14.9 x10^3/uL (3.98-10.04)
[2024-05-27 06:49] LABS: ALBUMIN 1.9 g/dL (3.5-5.0); ANION GAP 9.1 MEQ/L (5-15); Calcium 7.2 mg/dL (8.4-10.2); Creatinine 1 1.27 mg/dL (0.52-1.04); EST GLOMERULAR FILTRATION RATE 52.5 ML/MIN; Total Protein 4.7 g/dL (6.3-8.2)
[2024-05-27] MEDS ORDERED: GlucaGen 1 MG IM PRN (07:22)
[2024-05-27] MEDS ORDERED: Glutose 15 GM ORAL GEL PO PRN (07:22)
[2024-05-27] MEDS ORDERED: D50W 50 ml Abboject IV PRN (07:22)
[2024-05-27] MEDS: MAGNESIUM SULF 2 G/50 ML BAG 2 GM/50 ML PIGGYBACK IV ONE (07:52)
[2024-05-27] MEDS: POTASSIUM CHLORIDE 20 mEq IN WATER 100ML 100 ML IV SCH (08:47)
[2024-05-27] MEDS ORDERED: Nitrostat 0.4 MG Tablet SL PRN (09:02)
[2024-05-27] MEDS ORDERED: MEDICATION INTERVENTION MC SCH (09:30)
[2024-05-27] MEDS ORDERED: LURASIDONE HCL 80 MG PO SCH (10:00)
[2024-05-27] MEDS: PHARMACY RENAL DOSING MC ONE (10:37)
[2024-05-27] MEDS: Acidophilus TABLET PO SCH (10:37)
[2024-05-27] MEDS: Abilify 10 MG PO SCH (10:37)
[2024-05-27] MEDS: MYRBETRIQ PO SCH (10:37)
[2024-05-27] MEDS: THERAGRAN MULTIVITAMIN PO SCH (10:37)
[2024-05-27] MEDS: VENTOLIN COMMON CANISTER IH PRN (10:50)
[2024-05-27] MEDS: Advair Hfa 115/21 Common canister IH SCH (10:50)
--- NOTE | 2024-05-27 11:28 | PCM.NOTE ---
Date and Time: 05/27/24 1120 Subjective Assessment: Ms. Horowitz is a 49 year-old female with DEUCE on CPAP, HTN, hypothyroidism, morbid obesity, chronic pain, HLD, and chart diagnoses of - DM2, CAD, CHF, COPD admitted 05/26/24 with urosepsis after experiencing altered mental status and hypoglycemia requiring ED visit via EMS. EMS was called to help with the lift, but when they arrived at her home, they found her to be very altered from a mentation standpoint. Upon arrival to [place], her laboratory data was remarkable for a UTI, an elevated Cr, increased LFTs, HCO3 18, WBC 20, and chronic anemia. CT head negative. Patient with transaminitis. CT abdomen demonstrates hepatomegaly and diffuse steatosis.Nonobstructing small right renal calculus. IN ED she was given D50 and a D5 infusion, but her blood sugar could not be maintained above 70, therefore she is now on a D10 drip. Blood glucose levels are stable with D10 infusion. Unsure of what is causing these episodes of hypoglycemia. A1c level is low at 4.03. Patient states she has had issues in the past. Would like her to follow up with endocrinology as OP and does have a gl ucometer at home to check blood glucose levels. She may need strips/lancets. IP treatment with ceftriaxone/IVF hydration- cultures with gram negative ID - sensitivity pending. Clinically she is looking much better today. Weakness has improved. She endorses that she has been having some hallucinations of levitating above the bed. Patient is normally on lurasidone but pharmacy does not carry this and no one at home can bring it in. Will sub with abilify which patient states she has tolerated in the past. Potassium and magnesium depleted and will replenish today. Creat levels improving. <VINCENT DASILVA - Last Filed: 05/27/24 11:20> Date and Time: 05/27/24 2220 <HAMIDA NEUMANN - Last Filed: 05/27/24 22:22> - Review of Systems Constitutional: No Symptoms Eyes: No Symptoms Ears, Nose, & Throat: No Symptoms Respiratory: No Symptoms Cardiac: No Symptoms Abdominal/Gastrointestinal: No Symptoms Genitourinary Symptoms: No Symptoms Musculoskeletal: No Symptoms Skin: No Symptoms Neurological: No Symptoms Psychological: Hallucinations Endocrine: No Symptoms Hematologic/Lymphatic: No Symptoms Immunological/Allergic: No Symptoms <VINCENT DASILVA - Last Filed: 05/27/24 11:20> Objective Exam General Appearance: no apparent distress Neurologic Exam: alert, oriented x 3, cooperative Skin Exam: normal color Eye Exam: PERRL Ears, Nose, Throat Exam: normal ENT inspection Neck Exam: normal inspection Respiratory Exam: normal breath sounds, lungs clear Cardiovascular Exam: regular rate/rhythm, normal heart sounds Gastrointestinal/Abdomen Exam: soft, normal bowel sounds Extremity Exam: normal inspection Back Exam: normal inspection Pelvic Exam: deferred Rectal Exam: deferred <VINCENT DASILVA - Last Filed: 05/27/24 11:20> Objective Data Vital Signs: Vital Signs - 24 hr Temp Pulse Resp BP Pulse Ox 05/27/24 08:00 97.7 F 114 H 20 95/54 91 L 05/27/24 04:00 97.5 F 106 H 18 121/72 96 05/27/24 00:00 96.8 F 102 H 18 133/71 96 05/26/24 20:00 96.5 F 102 H 20 114/57 97 05/26/24 18:35 97 05/26/24 16:00 97.6 F 100 H 16 121/62 98 05/26/24 12:00 96.6 F 106 H 16 104/55 93 L Pain Assessment - Last Documented Pain Intensity 9 Pain Scale Used 0-10 Pain Scale Intake and Output: Intake & Output 05/24/24 05/25/24 05/26/24 05/27/24 11:59 11:59 11:59 11:59 Intake Total 254 540 Output Total 800 Balance 254 -260 Weight 122 kg Lab Results: Lab Results-Last 24 Hours 05/26/24 05/26/24 05/26/24 Range/Units 11:47 12:51 14:03 WBC (3.98-10.04) x10^3/uL RBC (3.93-5.22) x10^6/uL Hgb (11.2-15.7) g/dL Hct (34.1-44.9) % MCV (79.4-94.8) fL MCH (25.6-32.2) pg MCHC (32.2-35.5) g/dL RDW (11.7-14.4) % Plt Count (182-369) x10^3/uL MPV (9.4-12.3) fL Sodium (135-145) mmol/L Potassium (3.5-5.1) mmol/L Chloride (98-107) mmol/L Carbon Dioxide (22-30) mmol/L Anion Gap (5-15) MEQ/L BUN (7-17) mg/dL Creatinine (0.52-1.04) mg/dL Estimated GFR ML/MIN Glucose (74-106) mg/dL POC Glucometer 109 H 113 H 110 H (74 to 106) mg/dL Calcium (8.4-10.2) mg/dL Magnesium (1.6-2.3) mg/dL Total Bilirubin (0.2-1.3) mg/dL AST (14-36) U/L ALT (0-35) U/L Alkaline Phosphatase (38-126) U/L Serum Total Protein (6.3-8.2) g/dL Albumin (3.5-5.0) g/dL 05/26/24 05/26/24 05/26/24 Range/Units 15:15 16:40 21:12 WBC (3.98-10.04) x10^3/uL RBC (3.93-5.22) x10^6/uL Hgb (11.2-15.7) g/dL Hct (34.1-44.9) % MCV (79.4-94.8) fL MCH (25.6-32.2) pg MCHC (32.2-35.5) g/dL RDW (11.7-14.4) % Plt Count (182-369) x10^3/uL MPV (9.4-12.3) fL Sodium (135-145) mmol/L Potassium (3.5-5.1) mmol/L Chloride (98-107) mmol/L Carbon Dioxide (22-30) mmol/L Anion Gap (5-15) MEQ/L BUN (7-17) mg/dL Creatinine (0.52-1.04) mg/dL Estimated GFR ML/MIN Glucose (74-106) mg/dL POC Glucometer 113 H 114 H 77 (74 to 106) mg/dL Calcium (8.4-10.2) mg/dL Magnesium (1.6-2.3) mg/dL Total Bilirubin (0.2-1.3) mg/dL AST (14-36) U/L ALT (0-35) U/L Alkaline Phosphatase (38-126) U/L Serum Total Protein (6.3-8.2) g/dL Albumin (3.5-5.0) g/dL 05/27/24 05/27/24 05/27/24 Range/Units 00:39 04:25 06:20 WBC 14.9 H (3.98-10.04) x10^3/uL RBC 3.21 L (3.93-5.22) x10^6/uL Hgb 9.7 L (11.2-15.7) g/dL Hct 29.5 L (34.1-44.9) % MCV 91.9 (79.4-94.8) fL MCH 30.2 (25.6-32.2) pg MCHC 32.9 (32.2-35.5) g/dL RDW 14.6 H (11.7-14.4) % Plt Count 122 L (182-369) x10^3/uL MPV 12.9 H (9.4-12.3) fL Sodium (135-145) mmol/L Potassium (3.5-5.1) mmol/L Chloride (98-107) mmol/L Carbon Dioxide (22-30) mmol/L Anion Gap (5-15) MEQ/L BUN (7-17) mg/dL Creatinine (0.52-1.04) mg/dL Estimated GFR ML/MIN Glucose (74-106) mg/dL POC Glucometer 83 74 (74 to 106) mg/dL Calcium (8.4-10.2) mg/dL Magnesium (1.6-2.3) mg/dL Total Bilirubin (0.2-1.3) mg/dL AST (14-36) U/L ALT (0-35) U/L Alkaline Phosphatase (38-126) U/L Serum Total Protein (6.3-8.2) g/dL Albumin (3.5-5.0) g/dL 05/27/24 05/27/24 05/27/24 Range/Units 06:20 06:56 06:56 WBC (3.98-10.04) x10^3/uL RBC (3.93-5.22) x10^6/uL Hgb (11.2-15.7) g/dL Hct (34.1-44.9) % MCV (79.4-94.8) fL MCH (25.6-32.2) pg MCHC (32.2-35.5) g/dL RDW (11.7-14.4) % Plt Count (182-369) x10^3/uL MPV (9.4-12.3) fL Sodium 137 (135-145) mmol/L Potassium 3.0 L* (3.5-5.1) mmol/L Chloride 110 H (98-107) mmol/L Carbon Dioxide 22 (22-30) mmol/L Anion Gap 9.1 (5-15) MEQ/L BUN 23 H (7-17) mg/dL Creatinine 1.27 H (0.52-1.04) mg/dL Estimated GFR 52.5 ML/MIN Glucose 72 L (74-106) mg/dL POC Glucometer 70 L (74 to 106) mg/dL Calcium 7.2 L (8.4-10.2) mg/dL Magnesium 1.4 L (1.6-2.3) mg/dL Total Bilirubin 1.00 (0.2-1.3) mg/dL AST 140 H (14-36) U/L ALT 92 H (0-35) U/L Alkaline Phosphatase 248 H (38-126) U/L Serum Total Protein 4.7 L (6.3-8.2) g/dL Albumin 1.9 L (3.5-5.0) g/dL 05/27/24 Range/Units 10:58 WBC (3.98-10.04) x10^3/uL RBC (3.93-5.22) x10^6/uL Hgb (11.2-15.7) g/dL Hct (34.1-44.9) % MCV (79.4-94.8) fL MCH (25.6-32.2) pg MCHC (32.2-35.5) g/dL RDW (11.7-14.4) % Plt Count (182-369) x10^3/uL MPV (9.4-12.3) fL Sodium (135-145) mmol/L Potassium (3.5-5.1) mmol/L Chloride (98-107) mmol/L Carbon Dioxide (22-30) mmol/L Anion Gap (5-15) MEQ/L BUN (7-17) mg/dL Creatinine (0.52-1.04) mg/dL Estimated GFR ML/MIN Glucose (74-106) mg/dL POC Glucometer 76 (74 to 106) mg/dL Calcium (8.4-10.2) mg/dL Magnesium (1.6-2.3) mg/dL Total Bilirubin (0.2-1.3) mg/dL AST (14-36) U/L ALT (0-35) U/L Alkaline Phosphatase (38-126) U/L Serum Total Protein (6.3-8.2) g/dL Albumin (3.5-5.0) g/dL Radiology Exams: Radiology Procedures Category Date Time Status ABDOMEN WITHOUT CONTRAST [CT] Stat Exams 05/26/24 11:32 Completed HEAD WITHOUT CONTRAST [CT] Stat Exams 05/25/24 21:11 Completed Multi-Disciplinary Progress Notes: Multi-Disciplinary Progress Notes 05/27/24 07:34 Pharmacy Note by Ranulfo Spangler [facility] reviewed for renal dosing. No changes needed. Initialized on 05/27/24 07:34 - END OF NOTE <VINCENT DASILVA - Last Filed: 05/27/24 11:20> Vital Signs: Vital Signs - 24 hr Temp Pulse Resp BP Pulse Ox 05/27/24 20:00 97.7 F 100 H 18 106/59 96 05/27/24 19:49 100 H 16 96 05/27/24 16:00 96.9 F 94 H 18 99/55 95 05/27/24 11:50 97.4 F 103 H 20 94/52 97 05/27/24 11:34 108 H 22 93 L 05/27/24 08:00 97.7 F 114 H 20 95/54 91 L 05/27/24 04:00 97.5 F 106 H 18 121/72 96 05/27/24 00:00 96.8 F 102 H 18 133/71 96 Pain Assessment - Last Documented Pain Intensity 3 Pain Scale Used 0-10 Pain Scale Intake and Output: Intake & Output 05/25/24 05/26/24 05/27/24 05/28/24 11:59 11:59 11:59 11:59 Intake Total 254 540 680 Output Total 800 600 Balance 254 -260 80 Weight 122 kg Lab Results: Lab Results-Last 24 Hours 05/27/24 05/27/24 05/27/24 Range/Units 00:39 04:25 06:20 WBC 14.9 H (3.98-10.04) x10^3/uL RBC 3.21 L (3.93-5.22) x10^6/uL Hgb 9.7 L (11.2-15.7) g/dL Hct 29.5 L (34.1-44.9) % MCV 91.9 (79.4-94.8) fL MCH 30.2 (25.6-32.2) pg MCHC 32.9 (32.2-35.5) g/dL RDW 14.6 H (11.7-14.4) % Plt Count 122 L (182-369) x10^3/uL MPV 12.9 H (9.4-12.3) fL Sodium (135-145) mmol/L Potassium (3.5-5.1) mmol/L Chloride (98-107) mmol/L Carbon Dioxide (22-30) mmol/L Anion Gap (5-15) MEQ/L BUN (7-17) mg/dL Creatinine (0.52-1.04) mg/dL Estimated GFR ML/MIN Glucose (74-106) mg/dL POC Glucometer 83 74 (74 to 106) mg/dL Calcium (8.4-10.2) mg/dL Magnesium (1.6-2.3) mg/dL Total Bilirubin (0.2-1.3) mg/dL AST (14-36) U/L ALT (0-35) U/L Alkaline Phosphatase (38-126) U/L Serum Total Protein (6.3-8.2) g/dL Albumin (3.5-5.0) g/dL 05/27/24 05/27/24 05/27/24 Range/Units 06:20 06:56 06:56 WBC (3.98-10.04) x10^3/uL RBC (3.93-5.22) x10^6/uL Hgb (11.2-15.7) g/dL Hct (34.1-44.9) % MCV (79.4-94.8) fL MCH (25.6-32.2) pg MCHC (32.2-35.5) g/dL RDW (11.7-14.4) % Plt Count (182-369) x10^3/uL MPV (9.4-12.3) fL Sodium 137 (135-145) mmol/L Potassium 3.0 L* (3.5-5.1) mmol/L Chloride 110 H (98-107) mmol/L Carbon Dioxide 22 (22-30) mmol/L Anion Gap 9.1 (5-15) MEQ/L BUN 23 H (7-17) mg/dL Creatinine 1.27 H (0.52-1.04) mg/dL Estimated GFR 52.5 ML/MIN Glucose 72 L (74-106) mg/dL POC Glucometer 70 L (74 to 106) mg/dL Calcium 7.2 L (8.4-10.2) mg/dL Magnesium 1.4 L (1.6-2.3) mg/dL Total Bilirubin 1.00 (0.2-1.3) mg/dL AST 140 H (14-36) U/L ALT 92 H (0-35) U/L Alkaline Phosphatase 248 H (38-126) U/L Serum Total Protein 4.7 L (6.3-8.2) g/dL Albumin 1.9 L (3.5-5.0) g/dL 05/27/24 05/27/24 05/27/24 Range/Units 10:58 12:50 15:42 WBC (3.98-10.04) x10^3/uL RBC (3.93-5.22) x10^6/uL Hgb (11.2-15.7) g/dL Hct (34.1-44.9) % MCV (79.4-94.8) fL MCH (25.6-32.2) pg MCHC (32.2-35.5) g/dL RDW (11.7-14.4) % Plt Count (182-369) x10^3/uL MPV (9.4-12.3) fL Sodium (135-145) mmol/L Potassium 3.9 D (3.5-5.1) mmol/L Chloride (98-107) mmol/L Carbon Dioxide (22-30) mmol/L Anion Gap (5-15) MEQ/L BUN (7-17) mg/dL Creatinine (0.52-1.04) mg/dL Estimated GFR ML/MIN Glucose (74-106) mg/dL POC Glucometer 76 107 H (74 to 106) mg/dL Calcium (8.4-10.2) mg/dL Magnesium (1.6-2.3) mg/dL Total Bilirubin (0.2-1.3) mg/dL AST (14-36) U/L ALT (0-35) U/L Alkaline Phosphatase (38-126) U/L Serum Total Protein (6.3-8.2) g/dL Albumin (3.5-5.0) g/dL 05/27/24 05/27/24 Range/Units 20:15 21:51 WBC (3.98-10.04) x10^3/uL RBC (3.93-5.22) x10^6/uL Hgb (11.2-15.7) g/dL Hct (34.1-44.9) % MCV (79.4-94.8) fL MCH (25.6-32.2) pg MCHC (32.2-35.5) g/dL RDW (11.7-14.4) % Plt Count (182-369) x10^3/uL MPV (9.4-12.3) fL Sodium (135-145) mmol/L Potassium 4.2 (3.5-5.1) mmol/L Chloride (98-107) mmol/L Carbon Dioxide (22-30) mmol/L Anion Gap (5-15) MEQ/L BUN (7-17) mg/dL Creatinine (0.52-1.04) mg/dL Estimated GFR ML/MIN Glucose (74-106) mg/dL POC Glucometer 70 L (74 to 106) mg/dL Calcium (8.4-10.2) mg/dL Magnesium (1.6-2.3) mg/dL Total Bilirubin (0.2-1.3) mg/dL AST (14-36) U/L ALT (0-35) U/L Alkaline Phosphatase (38-126) U/L Serum Total Protein (6.3-8.2) g/dL Albumin (3.5-5.0) g/dL Radiology Exams: Radiology Procedures Category Date Time Status ABDOMEN WITHOUT CONTRAST [CT] Stat Exams 05/26/24 11:32 Completed Multi-Disciplinary Progress Notes: Multi-Disciplinary Progress Notes 05/27/24 07:34 Pharmacy Note by Ranulfo Spangler Meds reviewed for renal dosing. No changes needed. Initialized on 05/27/24 07:34 - END OF NOTE <HAMIDA NEUMANN - Last Filed: 05/27/24 22:22> Assessment/Plan (1) UTI (urinary tract infection) Current Visit: Yes Status: Acute Assessment & Plan: -UA suspicious for infection - culture with gram negative ID, sensitivity pending -continue ceftriaxone for now Code(s): N39.0 - URINARY TRACT INFECTION, SITE NOT SPECIFIED (2) AMS (altered mental status) Current Visit: Yes Status: Acute Assessment & Plan: -Mentation has improved to baseline -Head CT with no acute findings Code(s): R41.82 - ALTERED MENTAL STATUS, UNSPECIFIED (3) GABY (acute kidney injury) Current Visit: Yes Status: Acute Assessment & Plan: -Improving, continue fluids -Avoid nephrotoxic meds -monitor renal/lytes daily Code(s): N17.9 - ACUTE KIDNEY FAILURE, UNSPECIFIED (4) HTN (hypertension) Current Visit: Yes Status: Acute Assessment & Plan: -stable Code(s): I10 - ESSENTIAL (PRIMARY) HYPERTENSION (5) Transaminitis Current Visit: Yes Status: Acute Assessment & Plan: -CT abdomen showing hepatomegaly and diffuse steatosis -LFTs downtrending, TBili now wnl - continue to monitor Code(s): R74.01 - ELEVATION OF LEVELS OF LIVER TRANSAMINASE LEVELS (6) Increased anion gap metabolic acidosis Current Visit: Yes Status: Acute Assessment & Plan: -resolved Code(s): E87.29 - OTHER ACIDOSIS (7) HLD (hyperlipidemia) Current Visit: Yes Status: Acute Assessment & Plan: -continue statin Code(s): E78.5 - HYPERLIPIDEMIA, UNSPECIFIED (8) DEUCE (obstructive sleep apnea) Current Visit: Yes Status: Acute Assessment & Plan: -Cpap Code(s): G47.33 - OBSTRUCTIVE SLEEP APNEA (ADULT) (PEDIATRIC) (9) Chronic pain syndrome Current Visit: Yes Status: Acute Assessment & Plan: -Hold narcotics one more day due to increased lethargy Code(s): G89.4 - CHRONIC PAIN SYNDROME (10) Morbid obesity Current Visit: Yes Status: Acute Assessment & Plan: -advised heart healthy diet and exercise Code(s): E66.01 - MORBID (SEVERE) OBESITY DUE TO EXCESS CALORIES (11) Hypoglycemia Current Visit: Yes Status: Acute Assessment & Plan: -Unknown etiology - ? secondary to meds -A1c 4.03 -Continue D10 until able to tolerate diet Code(s): E16.2 - HYPOGLYCEMIA, UNSPECIFIED (12) Hallucinations, unspecified Current Visit: No Status: Acute Assessment & Plan: -Abilify while IP Code(s): R44.3 - HALLUCINATIONS, UNSPECIFIED (13) Hypokalemia Current Visit: Yes Status: Acute Assessment & Plan: -Potassium low this morning - will replenish per protocol -tele Code(s): E87.6 - HYPOKALEMIA (14) Hypomagnesemia Current Visit: Yes Status: Acute Assessment & Plan: -replenish per protocol Code(s): E83.42 - HYPOMAGNESEMIA <VINCENT DASILVA - Last Filed: 05/27/24 11:20> AILEEN Encounter - AILEEN Encounter Attestation AILEEN Encounter Attestation: "IhmeñopersonallyseenandexSANDHYA Acharya JANINE andhavediscussed pertinent aspects of their care with Vincent Campos agree with the history, physical exam (any modifications based on my personal exam will be noted below), assessment, and plan as outlined in original note. Please see immediately below for my summary of findings and additional assessment and plan along with any meaningful corrections/explanations to the Subjective/Objective portions of the AILEEN note will be noted." My portion of the encounter took place via telemedicine. -reports right knee pain, has mild swelling without redness. Has history of gout, suspect gout flare. Start solumedrol for treatment (avoid indomethacin due to GABY). There is plan for further debridement of her right groin wound with possible wound vac. <HAMIDA NEUMANN - Last Filed: 05/27/24 22:22>
[2024-05-28 07:41] LABS: Hematocrit 26.5 % (34.1-44.9); Hemoglobin 9.1 g/dL (11.2-15.7); Mean Cell Volume 89.8 fL (79.4-94.8); Mean Corpuscular Hemoglobin 30.8 pg (25.6-32.2); Mean Corpuscular Hgb Concent. 34.3 g/dL (32.2-35.5); Mean Platelet Volume 12.8 fL (9.4-12.3); Platelet Count 113 x10^3/uL (182-369); Red Blood Count 2.95 x10^6/uL (3.93-5.22); Red Cell Distribution Width 14.6 % (11.7-14.4)
[2024-05-28 07:50] LABS: White Blood Count 26.8 x10^3/uL (3.98-10.04)
[2024-05-28 08:12] LABS: ALBUMIN 1.6 g/dL (3.5-5.0); ANION GAP 9.1 MEQ/L (5-15); BILIRUBIN,TOTAL 1.1 mg/dL (0.2-1.3); Calcium 7.2 mg/dL (8.4-10.2); Creatinine 1 1.18 mg/dL (0.52-1.04); EST GLOMERULAR FILTRATION RATE 57.3 ML/MIN; MAGNESIUM 1.9 mg/dL (1.6-2.3); Potassium 3.7 mmol/L (3.5-5.1); Total Protein 4.2 g/dL (6.3-8.2)
[2024-05-28 08:42] LABS: Eosinophil 1 % (0.00-3.0); Lymphocytes 5 % (24-44); Monocyte 5 % (0.0-12.0); Neutrophils 89 % (1.56-6.13); Total Cells Counted 100
[2024-05-28 08:45] LABS: Hypochromia 1+; Platelet Estimate DECREASED (NORMAL)
[2024-05-28] MEDS: Klor Con PO SCH (09:56)
[2024-05-28 14:35] LABS: Hematocrit 29.3 % (34.1-44.9); Hemoglobin 9.9 g/dL (11.2-15.7); Mean Corpuscular Hemoglobin 30.7 pg (25.6-32.2); Mean Corpuscular Hgb Concent. 33.8 g/dL (32.2-35.5); Mean Platelet Volume 12.9 fL (9.4-12.3); Platelet Count 105 x10^3/uL (182-369); Red Blood Count 3.22 x10^6/uL (3.93-5.22); Red Cell Distribution Width 14.6 % (11.7-14.4)
[2024-05-28 14:44] LABS: White Blood Count 26.7 x10^3/uL (3.98-10.04)
--- NOTE | 2024-05-28 16:15 | PCM.NOTE ---
Date and Time: 05/28/24 1609 Subjective Assessment: 05/28/24 Ms. Horowitz is a 49 year-old female with DEUCE on CPAP, HTN, hypothyroidism, morbid obesity, chronic pain, HLD, and chart diagnoses of - DM2, CAD, CHF, COPD admitted 05/26/24 with urosepsis after experiencing altered mental status and hypoglycemia requiring ED visit via EMS. EMS was called to help with the lift, but when they arrived at her home, they found her to be very altered from a mentation standpoint. Upon arrival to [place], her laboratory data was remarkable for a UTI, an elevated Cr, increased LFTs, HCO3 18, WBC 20, and chronic anemia. CT head negative. Patient with transaminitis. CT abdomen demonstrates hepatomegaly and diffuse steatosis.Nonobstructing small right renal calculus. IN ED she was given D50 and a D5 infusion, but her blood sugar could not be maintained above 70, therefore she is now on a D10 drip. Blood glucose levels are stable with D10 infusion. Unsure of what is causing these episodes of hypoglycemia. A1c level is low at 4.03. Patient states she has had issues in the past. Would like her to follow up with endocrinology as OP and does have a glucometer at home to check blood glucose levels. She may need strips/lancets. IP treatment with ceftriaxone/IVF hydration- cultures with gram negative ID - sensitivity pending. Clinically she is looking much better today. Weakness has improved. She endorses that she has been having some hallucinations of levitating above the bed. Patient is normally on lurasidone but pharmacy does not carry this and no one at home can bring it in. Will sub with abilify which patient states she has tolerated in the past. Today pt is awake and alert. UC + for Klebsiella and e-coli. Continued ceftriaxone per sensitivity. Stool culture pending. WBC elevated today even after repeat lab ordered. Blood cultures ordered for AM as she is refusing any further IV sticks. She has not had a temp or any further concerning sxs. She denies any further concerns at this time. - Review of Systems Constitutional: Fatigue, No Fever, No Chills Eyes: No Symptoms Ears, Nose, & Throat: No Symptoms Respiratory: No Cough, No Short Of Breath Cardiac: No Chest Pain, No Edema, No Syncope Abdominal/Gastrointestinal: Diarrhea, No Abdominal Pain, No Nausea, No Vomiting Genitourinary Symptoms: No Dysuria Musculoskeletal: No Back Pain, No Neck Pain Skin: No Rash Neurological: No Dizziness, No Focal Weakness, No Sensory Changes Psychological: No Symptoms Endocrine: No Symptoms Hematologic/Lymphatic: No Symptoms Immunological/Allergic: No Symptoms Objective Exam General Appearance: no apparent distress, alert, obese Neurologic Exam: alert, oriented x 3, cooperative, normal mood/affect, nml cerebellar function, sensation nml, No motor deficits Skin Exam: normal color, warm, dry Eye Exam: PERRL, EOMI, eyes nml inspection Ears, Nose, Throat Exam: normal ENT inspection, pharynx normal, moist mucous membranes Neck Exam: normal inspection, non-tender, supple, full range of motion Respiratory Exam: normal breath sounds, lungs clear, No respiratory distress Cardiovascular Exam: regular rate/rhythm, normal heart sounds, edema (BLLE non-pitting) Gastrointestinal/Abdomen Exam: soft, No tenderness, No mass Extremity Exam: normal inspection, normal range of motion Back Exam: normal inspection, normal range of motion, No CVA tenderness, No vertebral tenderness Pelvic Exam: deferred Rectal Exam: deferred Objective Data Vital Signs: Vital Signs - 24 hr Temp Pulse Resp BP Pulse Ox 05/28/24 12:00 98.0 F 88 16 106/57 93 L 05/28/24 07:59 98.0 F 97 H 16 115/69 98 05/28/24 06:53 96 H 20 96 05/28/24 04:00 97.2 F 98 H 20 120/58 96 05/28/24 00:00 97.5 F 95 H 20 101/63 96 05/27/24 20:00 97.7 F 100 H 18 106/59 96 05/27/24 19:49 100 H 16 96 Pain Assessment - Last Documented Pain Intensity 4 Pain Scale Used 0-10 Pain Scale Intake and Output: Intake & Output 05/26/24 05/27/24 05/28/24 05/29/24 11:59 11:59 11:59 11:59 Intake Total 500 136 8475 480 Output Total 800 3725 250 Balance 918 -100 -6387 230 Weight 122 kg Lab Results: Lab Results-Last 24 Hours 05/25/24 05/27/24 05/27/24 Range/Units 23:06 20:15 21:51 WBC (3.98-10.04) x10^3/uL RBC (3.93-5.22) x10^6/uL Hgb (11.2-15.7) g/dL Hct (34.1-44.9) % MCV (79.4-94.8) fL MCH (25.6-32.2) pg MCHC (32.2-35.5) g/dL RDW (11.7-14.4) % Plt Count (182-369) x10^3/uL MPV (9.4-12.3) fL Segmented Neutrophils (1.56-6.13) % Lymphocytes (Manual) (24-44) % Monocytes (Manual) (0.0-12.0) % Eosinophils (Manual) (0.00-3.0) % Hypochromia Platelet Estimate (NORMAL) RBC Morphology Smear Path Review Sodium (135-145) mmol/L Potassium 4.2 (3.5-5.1) mmol/L Chloride (98-107) mmol/L Carbon Dioxide (22-30) mmol/L Anion Gap (5-15) MEQ/L BUN (7-17) mg/dL Creatinine (0.52-1.04) mg/dL Estimated GFR ML/MIN Glucose (74-106) mg/dL POC Glucometer 70 L (74 to 106) mg/dL Calcium (8.4-10.2) mg/dL Magnesium (1.6-2.3) mg/dL Total Bilirubin (0.2-1.3) mg/dL AST (14-36) U/L ALT (0-35) U/L Alkaline Phosphatase (38-126) U/L Serum Total Protein (6.3-8.2) g/dL Albumin (3.5-5.0) g/dL Urine Opiates Level POSITIVE A (NEGATIVE) Ur Methadone NEGATIVE (NEGATIVE) Urine Barbiturates NEGATIVE (NEGATIVE) Ur Phencyclidine (PCP) NEGATIVE (NEGATIVE) Urine Amphetamine NEGATIVE (NEGATIVE) U Benzodiazepine Level Not Reportable Urine Cocaine NEGATIVE (NEGATIVE) Urine Marijuana (THC) NEGATIVE (NEGATIVE) 05/28/24 05/28/24 05/28/24 Range/Units 00:18 04:12 05:15 WBC (3.98-10.04) x10^3/uL RBC (3.93-5.22) x10^6/uL Hgb (11.2-15.7) g/dL Hct (34.1-44.9) % MCV (79.4-94.8) fL MCH (25.6-32.2) pg MCHC (32.2-35.5) g/dL RDW (11.7-14.4) % Plt Count (182-369) x10^3/uL MPV (9.4-12.3) fL Segmented Neutrophils (1.56-6.13) % Lymphocytes (Manual) (24-44) % Monocytes (Manual) (0.0-12.0) % Eosinophils (Manual) (0.00-3.0) % Hypochromia Platelet Estimate (NORMAL) RBC Morphology Smear Path Review Sodium 136 (135-145) mmol/L Potassium 3.7 (3.5-5.1) mmol/L Chloride 110 H (98-107) mmol/L Carbon Dioxide 21 L (22-30) mmol/L Anion Gap 9.1 (5-15) MEQ/L BUN 21 H (7-17) mg/dL Creatinine 1.18 H (0.52-1.04) mg/dL Estimated GFR 57.3 ML/MIN Glucose 93 (74-106) mg/dL POC Glucometer 76 88 (74 to 106) mg/dL Calcium 7.2 L (8.4-10.2) mg/dL Magnesium 1.9 (1.6-2.3) mg/dL Total Bilirubin 1.10 (0.2-1.3) mg/dL AST 101 H (14-36) U/L ALT 84 H (0-35) U/L Alkaline Phosphatase 222 H (38-126) U/L Serum Total Protein 4.2 L (6.3-8.2) g/dL Albumin 1.6 L (3.5-5.0) g/dL Urine Opiates Level (NEGATIVE) Ur Methadone (NEGATIVE) Urine Barbiturates (NEGATIVE) Ur Phencyclidine (PCP) (NEGATIVE) Urine Amphetamine (NEGATIVE) U Benzodiazepine Level Urine Cocaine (NEGATIVE) Urine Marijuana (THC) (NEGATIVE) 05/28/24 05/28/24 05/28/24 Range/Units 05:20 07:39 11:51 WBC 26.8 H* (3.98-10.04) x10^3/uL RBC 2.95 L (3.93-5.22) x10^6/uL Hgb 9.1 L (11.2-15.7) g/dL Hct 26.5 L (34.1-44.9) % MCV 89.8 (79.4-94.8) fL MCH 30.8 (25.6-32.2) pg MCHC 34.3 (32.2-35.5) g/dL RDW 14.6 H (11.7-14.4) % Plt Count 113 L (182-369) x10^3/uL MPV 12.8 H (9.4-12.3) fL Segmented Neutrophils 89 H (1.56-6.13) % Lymphocytes (Manual) 5 L (24-44) % Monocytes (Manual) 5 (0.0-12.0) % Eosinophils (Manual) 1 (0.00-3.0) % Hypochromia 1+ Platelet Estimate DECREASED (NORMAL) RBC Morphology ABNORMAL Smear Path Review Pending Sodium (135-145) mmol/L Potassium (3.5-5.1) mmol/L Chloride (98-107) mmol/L Carbon Dioxide (22-30) mmol/L Anion Gap (5-15) MEQ/L BUN (7-17) mg/dL Creatinine (0.52-1.04) mg/dL Estimated GFR ML/MIN Glucose (74-106) mg/dL POC Glucometer TNP 108 H (74 to 106) mg/dL Calcium (8.4-10.2) mg/dL Magnesium (1.6-2.3) mg/dL Total Bilirubin (0.2-1.3) mg/dL AST (14-36) U/L ALT (0-35) U/L Alkaline Phosphatase (38-126) U/L Serum Total Protein (6.3-8.2) g/dL Albumin (3.5-5.0) g/dL Urine Opiates Level (NEGATIVE) Ur Methadone (NEGATIVE) Urine Barbiturates (NEGATIVE) Ur Phencyclidine (PCP) (NEGATIVE) Urine Amphetamine (NEGATIVE) U Benzodiazepine Level Urine Cocaine (NEGATIVE) Urine Marijuana (THC) (NEGATIVE) 05/28/24 Range/Units 14:25 WBC 26.7 H* (3.98-10.04) x10^3/uL RBC 3.22 L (3.93-5.22) x10^6/uL Hgb 9.9 L (11.2-15.7) g/dL Hct 29.3 L (34.1-44.9) % MCV 91.0 (79.4-94.8) fL MCH 30.7 (25.6-32.2) pg MCHC 33.8 (32.2-35.5) g/dL RDW 14.6 H (11.7-14.4) % Plt Count 105 L (182-369) x10^3/uL MPV 12.9 H (9.4-12.3) fL Segmented Neutrophils (1.56-6.13) % Lymphocytes (Manual) (24-44) % Monocytes (Manual) (0.0-12.0) % Eosinophils (Manual) (0.00-3.0) % Hypochromia Platelet Estimate (NORMAL) RBC Morphology Smear Path Review Sodium (135-145) mmol/L Potassium (3.5-5.1) mmol/L Chloride (98-107) mmol/L Carbon Dioxide (22-30) mmol/L Anion Gap (5-15) MEQ/L BUN (7-17) mg/dL Creatinine (0.52-1.04) mg/dL Estimated GFR ML/MIN Glucose (74-106) mg/dL POC Glucometer (74 to 106) mg/dL Calcium (8.4-10.2) mg/dL Magnesium (1.6-2.3) mg/dL Total Bilirubin (0.2-1.3) mg/dL AST (14-36) U/L ALT (0-35) U/L Alkaline Phosphatase (38-126) U/L Serum Total Protein (6.3-8.2) g/dL Albumin (3.5-5.0) g/dL Urine Opiates Level (NEGATIVE) Ur Methadone (NEGATIVE) Urine Barbiturates (NEGATIVE) Ur Phencyclidine (PCP) (NEGATIVE) Urine Amphetamine (NEGATIVE) U Benzodiazepine Level Urine Cocaine (NEGATIVE) Urine Marijuana (THC) (NEGATIVE) Assessment/Plan (1) UTI (urinary tract infection) Current Visit: Yes Status: Acute Code(s): N39.0 - URINARY TRACT INFECTION, SITE NOT SPECIFIED (2) GABY (acute kidney injury) Current Visit: Yes Status: Acute Code(s): N17.9 - ACUTE KIDNEY FAILURE, UNSP ECIFIED (3) AMS (altered mental status) Current Visit: Yes Status: Acute Code(s): R41.82 - ALTERED MENTAL STATUS, UNSPECIFIED (4) Chronic pain syndrome Current Visit: Yes Status: Acute Code(s): G89.4 - CHRONIC PAIN SYNDROME (5) HLD (hyperlipidemia) Current Visit: Yes Status: Acute Code(s): E78.5 - HYPERLIPIDEMIA, UNSPECIFIED (6) HTN (hypertension) Current Visit: Yes Status: Acute Code(s): I10 - ESSENTIAL (PRIMARY) HYPERTENSION (7) Hypoglycemia Current Visit: Yes Status: Acute Code(s): E16.2 - HYPOGLYCEMIA, UNSPECIFIED (8) Hypokalemia Current Visit: Yes Status: Acute Code(s): E87.6 - HYPOKALEMIA (9) Hypomagnesemia Current Visit: Yes Status: Acute Code(s): E83.42 - HYPOMAGNESEMIA (10) Increased anion gap metabolic acidosis Current Visit: Yes Status: Acute Code(s): E87.29 - OTHER ACIDOSIS (11) Morbid obesity Current Visit: Yes Status: Acute Code(s): E66.01 - MORBID (SEVERE) OBESITY DUE TO EXCESS CALORIES (12) DEUCE (obstructive sleep apnea) Current Visit: Yes Status: Acute Code(s): G47.33 - OBSTRUCTIVE SLEEP APNEA (ADULT) (PEDIATRIC) (13) Transaminitis Current Visit: Yes Status: Acute Code(s): R74.01 - ELEVATION OF LEVELS OF LIVER TRANSAMINASE LEVELS (14) Hallucinations, unspecified Current Visit: No Status: Acute Assessment & Plan: (1) UTI (urinary tract infection) Current Visit: Yes Status: Acute Assessment & Plan: -UC + for e-coli and Klebsiella -continue ceftriaxone per sensitivity - WBC 26.7- trend - BC x2 ordered Code(s): N39.0 - URINARY TRACT INFECTION, SITE NOT SPECIFIED (2) AMS (altered mental status) Current Visit: Yes Status: Acute Assessment & Plan: -Mentation has improved to baseline -Head CT with no acute findings Code(s): R41.82 - ALTERED MENTAL STATUS, UNSPECIFIED (3) GABY (acute kidney injury) Current Visit: Yes Status: Acute Assessment & Plan: -At baseline -Avoid nephrotoxic meds -monitor renal/lytes daily Code(s): N17.9 - ACUTE KIDNEY FAILURE, UNSPECIFIED (4) HTN (hypertension) Current Visit: Yes Status: Acute Assessment & Plan: -stable Code(s): I10 - ESSENTIAL (PRIMARY) HYPERTENSION (5) Transaminitis Current Visit: Yes Status: Acute Assessment & Plan: -CT abdomen showing hepatomegaly and diffuse steatosis -LFTs downtrending, TBili now wnl - continue to monitor Code(s): R74.01 - ELEVATION OF LEVELS OF LIVER TRANSAMINASE LEVELS (6) Increased anion gap metabolic acidosis Current Visit: Yes Status: Acute Assessment & Plan: -resolved Code(s): E87.29 - OTHER ACIDOSIS (7) HLD (hyperlipidemia) Current Visit: Yes Status: Acute Assessment & Plan: -continue statin Code(s): E78.5 - HYPERLIPIDEMIA, UNSPECIFIED (8) DEUCE (obstructive sleep apnea) Current Visit: Yes Status: Acute Assessment & Plan: -Cpap at [facility] Code(s): G47.33 - OBSTRUCTIVE SLEEP APNEA (ADULT) (PEDIATRIC) (9) Chronic pain syndrome Current Visit: Yes Status: Acute Assessment & Plan: -Hold narcotics due to lethargy Code(s): G89.4 - CHRONIC PAIN SYNDROME (10) Morbid obesity Current Visit: Yes Status: Acute Assessment & Plan: -advised heart healthy diet and exercise Code(s): E66.01 - MORBID (SEVERE) OBESITY DUE TO EXCESS CALORIES (11) Hypoglycemia Current Visit: Yes Status: Acute Assessment & Plan: -Unknown etiology - ? secondary to meds -A1c 4.03 -Continue D10 until able to tolerate diet - will need referral to endocrinology OP Code(s): E16.2 - HYPOGLYCEMIA, UNSPECIFIED (12) Hallucinations, unspecified Current Visit: No Status: Acute Assessment & Plan: -Abilify while IP Code(s): R44.3 - HALLUCINATIONS, UNSPECIFIED (13) Hypokalemia Current Visit: Yes Status: Acute Assessment & Plan: -resolved -tele Code(s): E87.6 - HYPOKALEMIA (14) Hypomagnesemia Current Visit: Yes Status: Acute Assessment & Plan: -resolved Code(s): E83.42 - HYPOMAGNESEMIA VTE: Heparin PPI: Protonix D/c plan: 1-2 days Code(s): R44.3 - HALLUCINATIONS, UNSPECIFIED (15) Diarrhea Current Visit: Yes Status: Acute Assessment & Plan: - stool culture pending - c-dif pending - Abd CT IMPRESSION: 1. Hepatomegaly and diffuse steatosis. 2. Nonobstructing small right renal calculus 3. Clinical correlation is suggested. Code(s): R19.7 - DIARRHEA, UNSPECIFIED
[2024-05-28 17:22] LABS: 027 TOX PROD PRESUMPTIVE NEGATIVE (NEGATIVE); TOXIGENIC C. DIFF ORG NEGATIVE (NEGATIVE)
[2024-05-29 09:51] LABS: Hematocrit 28.1 % (34.1-44.9); Hemoglobin 9.7 g/dL (11.2-15.7); Mean Cell Volume 88.9 fL (79.4-94.8); Mean Corpuscular Hemoglobin 30.7 pg (25.6-32.2); Mean Corpuscular Hgb Concent. 34.5 g/dL (32.2-35.5); Mean Platelet Volume 12.2 fL (9.4-12.3); Platelet Count 94 x10^3/uL (182-369); Red Blood Count 3.16 x10^6/uL (3.93-5.22); Red Cell Distribution Width 14.3 % (11.7-14.4)
[2024-05-29 09:52] LABS: ANION GAP 9.5 MEQ/L (5-15); BILIRUBIN,TOTAL 1.1 mg/dL (0.2-1.3); Calcium 7.5 mg/dL (8.4-10.2); Creatinine 1 1.12 mg/dL (0.52-1.04); Potassium 3.7 mmol/L (3.5-5.1); Total Protein 4.9 g/dL (6.3-8.2); White Blood Count 45.5 x10^3/uL (3.98-10.04)
[2024-05-29] MEDS: Sodium Chloride 0.9% 1000 ML 1,000 ML IV STA (11:06)
[2024-05-29 11:56] LABS: Appearance Clear (Clear); Bacteria None Seen /HPF (None Seen); Bilirubin Negative (Negative); Blood Negative (Negative); Epithelial Cells None Seen /HPF (None Seen); Glucose, Urine Negative (Negative); Hyaline Casts NONE SEEN /LPF (0-2); Ketones Negative (Negative); Leukocyte Esterase Trace (Negative); Nitrite Negative (Negative); Ph 5.5 (4.6-8.0); Protein,Urine Dip 30 (Negative); Specific Gravity 1.015 (1.005-1.030); Urobilinogen 0.2 mg/dL (0.2)
[2024-05-29 11:58] LABS: ADD URINE CULTURE? ORDERED SEPARATELY (NO)
--- NOTE | 2024-05-29 12:24 | XRAY ---
Indication: Elevated WBC. Multiple contiguous axial images obtained through the abdomen and pelvis without contrast. Comparison: CT abdomen only May 26, 2024 Lung bases again demonstrates mild scattered bibasilar fibrosis/scarring. No infiltrate or effusion. Heart not enlarged with new small pericardial effusion/thickening anteriorly. Stable small hiatal hernia. Again gastric bypass surgery. Noncontrasted stomach and bowel loops appear nonobstructed with normal appendix. Again 21.2 cm fatty hepatomegaly, nonobstructing right renal punctate calculus, nonspecific bilateral perinephric stranding, and cholecystectomy. Urinary bladder was not previously imaged and demonstrates intraluminal air either iatrogenic from recent catheterization versus gas-forming infection. Hysterectomy. No free fluid/air. Remaining liver, pancreas, spleen, adrenal glands, kidneys, ureters, bladder, and aorta are unremarkable for noncontrast exam. Impression: 1. New pericardial effusion/thickening better evaluated with echocardiogram. 2. Urinary bladder intraluminal air either iatrogenic versus gas-forming infection. 3. Again chronic findings including small hiatal hernia, fatty hepatomegaly, and nonobstructing right renal micro-calculus.
--- NOTE | 2024-05-29 12:28 | XRAY ---
Indication: Leukocytosis. Comparison: October 27, 2023 AP/lateral chest obtained in wheelchair again demonstrates normal heart and lungs with incidental right Port-A-Cath. Bony thorax intact. No new/acute findings.
[2024-05-29] MEDS: VITAMIN B-1 100 MG PO SCH (12:46)
--- NOTE | 2024-05-29 14:32 | PCM.NOTE ---
Date and Time: 05/29/24 141 Subjective Assessment: 05/28/24 Ms. Horowitz is a 49 year-old female with DEUCE on CPAP, HTN, hypothyroidism, morbid obesity, chronic pain, HLD, and chart diagnoses of - DM2, CAD, CHF, COPD admitted 05/26/24 with urosepsis after experiencing altered mental status and hypoglycemia requiring ED visit via EMS. EMS was called to help with the lift, but when they arrived at her home, they found her to be very altered from a mentation standpoint. Upon arrival to [facility], her laboratory data was remarkable for a UTI, an elevated Cr, increased LFTs, HCO3 18, WBC 20, and chronic anemia. CT head negative. Patient with transaminitis. CT abdomen demonstrates hepatomegaly and diffuse steatosis.Nonobstructing small right renal calculus. IN ED she was given D50 and a D5 infusion, but her blood sugar could not be maintained above 70, therefore she is now on a D10 drip. Blood glucose levels are stable with D10 infusion. Unsure of what is causing these episodes of hypoglycemia. A1c level is low at 4.03. Patient states she has had issues in the past. Would like her to follow up with endocrinology as OP and does have a glucometer at home to check blood glucose levels. She may need strips/lancets. IP treatment with ceftriaxone/IVF hydration- cultures with gram negative ID - sensitivity pending. Clinically she is looking much better today. Weakness has improved. She endorses that she has been having some hallucinations of levitating above the bed. Patient is normally on lurasidone but pharmacy does not carry this and no one at home can bring it in. Will sub with abilify which patient states she has tolerated in the past. Today pt is awake and alert. UC + for Klebsiella and e-coli. Continued ceftriaxone per sensitivity. Stool culture pending. WBC elevated today even after repeat lab ordered. Blood cultures ordered for AM as she is refusing any further IV sticks. She has not had a temp or any further concerning sxs. She denies any further concerns at this time. 05/29/24 Pt sitting up in the chair today. She is awake and alert. She is c/o some chronic lower back pain and would like her pain meds restarted at BID dosing. Labs were late to be done as she was a difficult stick per lab. WBC elevated at 45.5. LA elevated at 2.5. + for sepsis. 1 liter fluid bolus gave and will recheck. Ugarte d/cd's and may be the cause of infection. She denies any pain other than chronic back pain and her vitals are stable. CXR non-concerning. CT abd shows New pericardial effusion/thickening better evaluated with echocardiogram. Urinary bladder intraluminal air either iatrogenic versus gas-forming infection. Again chronic findings including small hiatal hernia, fatty hepatomegaly, and nonobstructing right renal micro-calculus. Echo ordered for further evaluation. Pt denies CP, SOB, abd. pain, N/V/D. - Review of Systems Constitutional: No Fever, No Chills Eyes: No Symptoms Ears, Nose, & Throat: No Symptoms Respiratory: No Cough, No Short Of Breath Cardiac: No Chest Pain, No Edema, No Syncope Abdominal/Gastrointestinal: No Abdominal Pain, No Nausea, No Vomiting, No Diarrhea Genitourinary Symptoms: No Dysuria Musculoskeletal: Back Pain, No Neck Pain Skin: No Rash Neurological: No Dizziness, No Focal Weakness, No Sensory Changes Psychological: No Symptoms Endocrine: No Symptoms Hematologic/Lymphatic: No Symptoms Immunological/Allergic: No Symptoms Objective Exam General Appearance: no apparent distress, alert Neurologic Exam: alert, oriented x 3, cooperative, normal mood/affect, nml cerebellar function, sensation nml, No motor deficits Skin Exam: normal color, warm, dry Eye Exam: PERRL, EOMI, eyes nml inspection Ears, Nose, Throat Exam: normal ENT inspection, pharynx normal, moist mucous membranes Neck Exam: normal inspection, non-tender, supple, full range of motion Respiratory Exam: normal breath sounds, lungs clear, No respiratory distress Cardiovascular Exam: regular rate/rhythm, normal heart sounds, tachycardia Gastrointestinal/Abdomen Exam: soft, No tenderness, No mass Extremity Exam: normal inspection, normal range of motion Back Exam: normal inspection, normal range of motion, No CVA tenderness, No vertebral tenderness Pelvic Exam: deferred Rectal Exam: deferred Objective Data Vital Signs: Vital Signs - 24 hr Temp Pulse Resp BP Pulse Ox 05/29/24 12:00 97.9 F 98 H 20 113/55 92 L 05/29/24 07:36 110 H 20 96 05/29/24 07:18 98.2 F 110 H 20 109/59 96 05/29/24 04:00 97.8 F 111 H 18 81/49 92 L 05/29/24 00:00 97.9 F 101 H 18 133/80 95 05/28/24 20:31 96 05/28/24 19:36 96.8 F 91 H 16 122/66 98 05/28/24 16:00 98.0 F 81 16 115/59 95 Pain Assessment - Last Documented Pain Intensity 7 Pain Scale Used 0-10 Pain Scale Intake and Output: Intake & Output 05/27/24 05/28/24 05/29/24 05/30/24 11:59 11:59 11:59 11:59 Intake Total 540 1700 960 Output Total 800 3725 1250 Balance -260 2024 - Weight 122 kg Lab Results: Lab Results-Last 24 Hours 05/27/24 05/28/24 05/28/24 Range/Units 15:35 14:25 16:27 WBC 26.7 H* (3.98-10.04) x10^3/uL RBC 3.22 L (3.93-5.22) x10^6/uL Hgb 9.9 L (11.2-15.7) g/dL Hct 29.3 L (34.1-44.9) % MCV 91.0 (79.4-94.8) fL MCH 30.7 (25.6-32.2) pg MCHC 33.8 (32.2-35.5) g/dL RDW 14.6 H (11.7-14.4) % Plt Count 105 L (182-369) x10^3/uL MPV 12.9 H (9.4-12.3) fL Sodium (135-145) mmol/L Potassium (3.5-5.1) mmol/L Chloride (98-107) mmol/L Carbon Dioxide (22-30) mmol/L Anion Gap (5-15) MEQ/L BUN (7-17) mg/dL Creatinine (0.52-1.04) mg/dL Estimated GFR ML/MIN Glucose (74-106) mg/dL POC Glucometer 100 (74 to 106) mg/dL Lactic Acid (0.4-2.0) Calcium (8.4-10.2) mg/dL Total Bilirubin (0.2-1.3) mg/dL AST (14-36) U/L ALT (0-35) U/L Alkaline Phosphatase (38-126) U/L Serum Total Protein (6.3-8.2) g/dL Albumin (3.5-5.0) g/dL Urine Color (Yellow) Urine Appearance (Clear) Urine pH (4.6-8.0) Ur Specific [place] (1.005-1.030) Urine Protein (Negative) Urine Glucose (UA) (Negative) mg/dL Urine Ketones (Negative) Urine Blood (Negative) Urine Nitrite (Negative) Urine Bilirubin (Negative) Urine Urobilinogen (0.2) mg/dL Ur Leukocyte Esterase (Negative) U Hyaline Cast (Auto) (0-2) /LPF Urine Microscopic RBC (0-5) /HPF Urine Microscopic WBC (0-5) /HPF Ur Epithelial Cells (None Seen) /HPF Urine Bacteria (None Seen) /HPF Urine Culture Reflexed (NO) C. difficile Screen NEGATIVE (NEGATIVE) C.difficile 027-NAP1-B1 PRESUMPTIVE NEGATIVE (NEGATIVE) 05/28/24 05/29/24 05/29/24 Range/Units 20:05 00:01 04:16 WBC (3.98-10.04) x10^3/uL RBC (3.93-5.22) x10^6/uL Hgb (11.2-15.7) g/dL Hct (34.1-44.9) % MCV (79.4-94.8) fL MCH (25.6-32.2) pg MCHC (32.2-35.5) g/dL RDW (11.7-14.4) % Plt Count (182-369) x10^3/uL MPV (9.4-12.3) fL Sodium (135-145) mmol/L Potassium (3.5-5.1) mmol/L Chloride (98-107) mmol/L Carbon Dioxide (22-30) mmol/L Anion Gap (5-15) MEQ/L BUN (7-17) mg/dL Creatinine (0.52-1.04) mg/dL Estimated GFR ML/MIN Glucose (74-106) mg/dL POC Glucometer 116 H 98 85 (74 to 106) mg/dL Lactic Acid (0.4-2.0) Calcium (8.4-10.2) mg/dL Total Bilirubin (0.2-1.3) mg/dL AST (14-36) U/L ALT (0-35) U/L Alkaline Phosphatase (38-126) U/L Serum Total Protein (6.3-8.2) g/dL Albumin (3.5-5.0) g/dL Urine Color (Yellow) Urine Appearance (Clear) Urine pH (4.6-8.0) Ur Specific [place] (1.005-1.030) Urine Protein (Negative) Urine Glucose (UA) (Negative) mg/dL Urine Ketones (Negative) Urine Blood (Negative) Urine Nitrite (Negative) Urine Bilirubin (Negative) Urine Urobilinogen (0.2) mg/dL Ur Leukocyte Esterase (Negative) U Hyaline Cast (Auto) (0-2) /LPF Urine Microscopic RBC (0-5) /HPF Urine Microscopic WBC (0-5) /HPF Ur Epithelial Cells (None Seen) /HPF Urine Bacteria (None Seen) /HPF Urine Culture Reflexed (NO) C. difficile Screen (NEGATIVE) C.difficile 027-NAP1-B1 (NEGATIVE) 05/29/24 05/29/24 05/29/24 Range/Units 06:58 09:12 09:12 WBC 45.5 H* (3.98-10.04) x10^3/uL RBC 3.16 L (3.93-5.22) x10^6/uL Hgb 9.7 L (11.2-15.7) g/dL Hct 28.1 L (34.1-44.9) % MCV 88.9 (79.4-94.8) fL MCH 30.7 (25.6-32.2) pg MCHC 34.5 (32.2-35.5) g/dL RDW 14.3 (11.7-14.4) % Plt Count 94 L (182-369) x10^3/uL MPV 12.2 (9.4-12.3) fL Sodium 134 L (135-145) mmol/L Potassium 3.7 (3.5-5.1) mmol/L Chloride 108 H (98-107) mmol/L Carbon Dioxide 20 L (22-30) mmol/L Anion Gap 9.5 (5-15) MEQ/L BUN 18 H (7-17) mg/dL Creatinine 1.12 H (0.52-1.04) mg/dL Estimated GFR 61.0 ML/MIN Glucose 115 H (74-106) mg/dL POC Glucometer 85 (74 to 106) mg/dL Lactic Acid (0.4-2.0) Calcium 7.5 L (8.4-10.2) mg/dL Total Bilirubin 1.10 (0.2-1.3) mg/dL AST 73 H (14-36) U/L ALT 80 H (0-35) U/L Alkaline Phosphatase 254 H (38-126) U/L Serum Total Protein 4.9 L (6.3-8.2) g/dL Albumin 2.0 L (3.5-5.0) g/dL Urine Color (Yellow) Urine Appearance (Clear) Urine pH (4.6-8.0) Ur Specific [place] (1.005-1.030) Urine Protein (Negative) Urine Glucose (UA) (Negative) mg/dL Urine Ketones (Negative) Urine Blood (Negative) Urine Nitrite (Negative) Urine Bilirubin (Negative) Urine Urobilinogen (0.2) mg/dL Ur Leukocyte Esterase (Negative) U Hyaline Cast (Auto) (0-2) /LPF Urine Microscopic RBC (0-5) /HPF Urine Microscopic WBC (0-5) /HPF Ur Epithelial Cells (None Seen) /HPF Urine Bacteria (None Seen) /HPF Urine Culture Reflexed (NO) C. difficile Screen (NEGATIVE) C.difficile 027-NAP1-B1 (NEGATIVE) 05/29/24 05/29/24 05/29/24 Range/Units 10:01 10:02 12:40 WBC (3.98-10.04) x10^3/uL RBC (3.93-5.22) x10^6/uL Hgb (11.2-15.7) g/dL Hct (34.1-44.9) % MCV (79.4-94.8) fL MCH (25.6-32.2) pg MCHC (32.2-35.5) g/dL RDW (11.7-14.4) % Plt Count (182-369) x10^3/uL MPV (9.4-12.3) fL Sodium (135-145) mmol/L Potassium (3.5-5.1) mmol/L Chloride (98-107) mmol/L Carbon Dioxide (22-30) mmol/L Anion Gap (5-15) MEQ/L BUN (7-17) mg/dL Creatinine (0.52-1.04) mg/dL Estimated GFR ML/MIN Glucose (74-106) mg/dL POC Glucometer 64 L (74 to 106) mg/dL Lactic Acid 2.5 H (0.4-2.0) Calcium (8.4-10.2) mg/dL Total Bilirubin (0.2-1.3) mg/dL AST (14-36) U/L ALT (0-35) U/L Alkaline Phosphatase (38-126) U/L Serum Total Protein (6.3-8.2) g/dL Albumin (3.5-5.0) g/dL Urine Color Dark Yellow A (Yellow) Urine Appearance Clear (Clear) Urine pH 5.5 (4.6-8.0) Ur Specific [place] 1.015 (1.005-1.030) Urine Protein 30 (Negative) Urine Glucose (UA) Negative (Negative) mg/dL Urine Ketones Negative (Negative) Urine Blood Negative (Negative) Urine Nitrite Negative (Negative) Urine Bilirubin Negative (Negative) Urine Urobilinogen 0.2 (0.2) mg/dL Ur Leukocyte Esterase Trace A (Negative) U Hyaline Cast (Auto) NONE SEEN (0-2) /LPF Urine Microscopic RBC 3-5 (0-5) /HPF Urine Microscopic WBC 6-10 A (0-5) /HPF Ur Epithelial Cells None Seen (None Seen) /HPF Urine Bacteria None Seen (None Seen) /HPF Urine Culture Reflexed ORDERED SEPARATELY (NO) C. difficile Screen (NEGATIVE) C.difficile 027-NAP1-B1 (NEGATIVE) Radiology Exams: Radiology Procedures Category Date Time Status ABDOMEN AND PELVIS W/0 CONTRAS [CT] Routine Exams 05/29/24 11:34 Completed CHEST 2 VIEWS (PA AND LAT) Stat Exams 05/29/24 10:16 Completed Multi-Disciplinary Progress Notes: Multi-Disciplinary Progress Notes 05/29/24 10:44 Case Management Note by Adry Miller NO CHANGE IN DC PLANS AT THIS TIME Initialized on 05/29/24 10:44 - END OF NOTE Assessment/Plan (1) Sepsis Current Visit: Yes Status: Acute Assessment & Plan: - 2:2 UTI - LA 2.5 - 1 liter fluid bolus - Changed antibiotics to Merrem - Repeat UA with culture - BC x2 - Tele - CT abd, CXR (2) UTI (urinary tract infection) Current Visit: Yes Status: Acute Code(s): N39.0 - URINARY TRACT INFECTION, SITE NOT SPECIFIED (3) GABY (acute kidney injury) Current Visit: Yes Status: Acute Code(s): N17.9 - ACUTE KIDNEY FAILURE, UNSPECIFIED (4) AMS (altered mental status) Current Visit: Yes Status: Acute Code(s): R41.82 - ALTERED MENTAL STATUS, UNSPECIFIED (5) Chronic pain syndrome Current Visit: Yes Status: Acute Code(s): G89.4 - CHRONIC PAIN SYNDROME (6) HLD (hyperlipidemia) Current Visit: Yes Status: Acute Code(s): E78.5 - HYPERLIPIDEMIA, UNSPECIFIED (7) HTN (hypertension) Current Visit: Yes Status: Acute Code(s): I10 - ESSENTIAL (PRIMARY) HYPERTENSION (8) Hypoglycemia Current Visit: Yes Status: Acute Code(s): E16.2 - HYPOGLYCEMIA, UNSPECIFIED (9) Hypokalemia Current Visit: Yes Status: Acute Code(s): E87.6 - HYPOKALEMIA (10) Hypomagnesemia Current Visit: Yes Status: Acute Code(s): E83.42 - HYPOMAGNESEMIA (11) Increased anion gap metabolic acidosis Current Visit: Yes Status: Acute Code(s): E87.29 - OTHER ACIDOSIS (12) Morbid obesity Current Visit: Yes Status: Acute Code(s): E66.01 - MORBID (SEVERE) OBESITY DUE TO EXCESS CALORIES (13) DEUCE (obstructive sleep apnea) Current Visit: Yes Status: Acute Code(s): G47.33 - OBSTRUCTIVE SLEEP APNEA (ADULT) (PEDIATRIC) (14) Transaminitis Current Visit: Yes Status: Acute Code(s): R74.01 - ELEVATION OF LEVELS OF LIVER TRANSAMINASE LEVELS (15) Hallucinations, unspecified Current Visit: No Status: Acute Code(s): R44.3 - HALLUCINATIONS, UNSPECIFIED (16) Diarrhea Current Visit: Yes Status: Acute Assessment & Plan: (1) UTI (urinary tract infection) Current Visit: Yes Status: Acute Assessment & Plan: -UC + for e-coli and Klebsiella -continue ceftriaxone per sensitivity - WBC 26.7- trend - BC x2 ordered 05/29 - WBC 45.5 - Antibiotic changed to Merrem - Blood cultures x2 this am as she refused labs yesterday. - Cath UA with UC pending - Ugarte removed Code(s): N39.0 - URINARY TRACT INFECTION, SITE NOT SPECIFIED (2) AMS (altered mental status) Current Visit: Yes Status: Acute Assessment & Plan: -Mentation has improved to baseline -Head CT with no acute findings Code(s): R41.82 - ALTERED MENTAL STATUS, UNSPECIFIED (3) GABY (acute kidney injury) Current Visit: Yes Status: Acute Assessment & Plan: -At baseline -Avoid nephrotoxic meds -monitor renal/lytes daily Code(s): N17.9 - ACUTE KIDNEY FAILURE, UNSPECIFIED (4) HTN (hypertension) Current Visit: Yes Status: Acute Assessment & Plan: -stable Code(s): I10 - ESSENTIAL (PRIMARY) HYPERTENSION (5) Transaminitis Current Visit: Yes Status: Acute Assessment & Plan: -CT abdomen showing hepatomegaly and diffuse steatosis -LFTs downtrending, TBili now wnl - continue to monitor Code(s): R74.01 - ELEVATION OF LEVELS OF LIVER TRANSAMINASE LEVELS (6) Increased anion gap metabolic acidosis Current Visit: Yes Status: Acute Assessment & Plan: -resolved Code(s): E87.29 - OTHER ACIDOSIS (7) HLD (hyperlipidemia) Current Visit: Yes Status: Acute Assessment & Plan: -continue statin Code(s): E78.5 - HYPERLIPIDEMIA, UNSPECIFIED (8) DEUCE (obstructive sleep apnea) Current Visit: Yes Status: Acute Assessment & Plan: -Cpap at [facility] Code(s): G47.33 - OBSTRUCTIVE SLEEP APNEA (ADULT) (PEDIATRIC) (9) Chronic pain syndrome Current Visit: Yes Status: Acute Assessment & Plan: -Hold narcotics due to lethargy Code(s): G89.4 - CHRONIC PAIN SYNDROME (10) Morbid obesity Current Visit: Yes Status: Acute Assessment & Plan: -advised heart healthy diet and exercise Code(s): E66.01 - MORBID (SEVERE) OBESITY DUE TO EXCESS CALORIES (11) Hypoglycemia Current Visit: Yes Status: Acute Assessment & Plan: -Unknown etiology - ? secondary to meds -A1c 4.03 -Continue D10 until able to tolerate diet - will need referral to endocrinology OP 05/29 - D10 decreased to 50ml/hr Code(s): E16.2 - HYPOGLYCEMIA, UNSPECIFIED (12) Hallucinations, unspecified Current Visit: No Status: Acute Assessment & Plan: -Abilify while IP Code(s): R44.3 - HALLUCINATIONS, UNSPECIFIED (13) Hypokalemia Current Visit: Yes Status: Acute Assessment & Plan: -resolved -tele Code(s): E87.6 - HYPOKALEMIA (14) Hypomagnesemia Current Visit: Yes Status: Acute Assessment & Plan: -resolved Code(s): E83.42 - HYPOMAGNESEMIA (15) Diarrhea Current Visit: Yes Status: Acute Assessment & Plan: - stool culture pending - c-dif pending - Abd CT IMPRESSION: 1. Hepatomegaly and diffuse steatosis. 2. Nonobstructing small right renal calculus 3. Clinical correlation is suggested. 05/29 - C-diff negative Code(s): R19.7 - DIARRHEA, UNSPECIFIED Code(s): R19.7 - DIARRHEA, UNSPECIFIED (17) Pericardial effusion Current Visit: Yes Status: Acute Assessment & Plan: - echo - decrease IVF - cardiology consult VTE: Heparin PPI: Protonix D/c plan: 1-2 days Code(s): I31.39 - OTHER PERICARDIAL EFFUSION (NONINFLAMMATORY)
[2024-05-29] MEDS: Merrem 1 GM in Sodium Chloride 100ML MINI-BAG PLUS 100 ML IV SCH (15:11)
--- NOTE | 2024-05-29 17:33 | PCM.CONS ---
History of Present Illness - Date of Consult Date of Encounter: 05/30/24 Consulting Help Desk Associate: PARTH ALLEN MD Requesting Provider: Attending Provider: BRANDI CEE MD Primary Care Provider: PCP: RICKY OBRIEN Consent was: Given for this tele-med encounter - Consult Narrative Reason for Consult: Pericardial effusion HPI: Patient is a severely obese 49 year old female with history of alpha-1 antitrypsin deficiency complicated by COPD, HTN, hyperlipidemia, DEUCE on CPAP, and hypothyroidism who was admitted with mental status changes and hypoglycemia as a consequence of urosepsis. She was found to have a small pericardial on CT scan yesterday prompting consultation. Her clincal course has been remarkable for a continuous D10 gtt to maintain a glucose of 70 while on broad spectrum antibiotics. Her WBC count was initially 20.0K and peaked at 45.5K yesterday before retreating to 18.9K this am. Urine culture was positive for E coli and Klebsiella pneumoniae. Blood cultures have been negative thus far. An echocardiogram showed normal left ventricular systolic function with an estimated EF 65%, normal diastolic function, normal right atrial pressure, and a small anterior pericardial effusion without echocardiographic evidence of tamponade. She denies any chest pain, orthopnea, or PND. She has chronic FRANCOIS. She is currently bothered by generalized weakness and light headedness with standing. She had a cardiac cath prior to her gastric bypass surgery in 05/2022 which demonstated normla coronary arteries. Her chart diagnosis of CHF is related to her chronic LE edema. She takes furosemide 40 mg by mouth 3-4 days weekly (withholds on doctor visit trips). She denies any pulmonary edema or admissions requiring IV furosemide. She denies her chart diagnosis of hyperthyroidism. She has only had hypothyroidism. Last TSH in 01/2024 was normal. cc:: The requesting physician will be sent a copy of the consult. Review of Systems - Review of Systems All systems: as per HPI (Bothered by back, hip, and leg pain from her fibromyalgia. Has lost appox. 64 lbs since her gastric bypass in 05/2022.) - Past Medical History Past Medical History: Yes Neurological History: Migraines, Seizures, Other ENT History: No Pertinent History Cardiac History: High Cholesterol, Hypertension, Other (Venous insufficiency) Respiratory History: Asthma, COPD (secondary to alpha-1 anti-trypsin deficiency) Endocrine Medical History: Diabetes Type II, Hypothyroidism, Other Musculoskelatal History: Degenerative Disk Disease, Fibromyalgia, Other GI Medical History: Crohns Disease, GERD History: No Pertinent History Pyscho-Social History: Anxiety, Bipolar, Depression Reproductive Disorders: No Pertinent History Comment: Alpha 1 Antitrypsin deficiency, Hidradentitis Suppurative, Lumbar Radiculopathy, OCD - Female History Are you now?: No - Past Surgical History Past Surgical History: Yes Neuro Surgical History: No Pertinent History Cardiac History: Cardiac Catheterization (Normal coronary arteries per patient's report) Respiratory Surgery: No Pertinent History GI Surgical History: Cholecystectomy Genitourinary Surgical Hx: No Pertinent History Musculskeletal Surgical Hx: No Pertinent History Female Surgical History: Hysterectomy, Tubal Ligation Other Surgical History: PORT PLACEMENT- states "prolastin infusion weekly", gastric bypass, carpl tunnel release Significant Family History: no pertinent family hx - Social History Smoking Status: Never smoker Exposure to second hand smoke: Yes Alcohol: None Drug Use: none - Social Determinants of Health Will the patient participate in the screening: Yes Do you worry about a steady place to live?: No Do you have any problems with any of the following?: No known problems In the past 12 months,have you had to go without utilities?: No Have you or anyone in your house had to go without enough: No Transportation Issues: No Has anyone in your support network made you feel unsafe?: No Does the patient want assistance with any of the above?: No Medications & Allergies Home Medications: Home Medication List Albuterol Sulfate [Proair Hfa] 2 puff IH DAILY PRN 12/19/14 [History Confirmed 05/26/24] Budesonide/Formoterol Fumarate [Symbicort 160-4.5 Mcg Inhaler] 2 puff IH BID 12/19/14 [History Confirmed 05/26/24] Levothyroxine Sodium 50 Mcg [Synthroid 50 Mcg] 50 mcg PO DAILY 12/19/14 [History Confirmed 05/26/24] Nitroglycerin 0.4 mg Tablet [Nitrostat 0.4 MG Tablet] 0.4 mg SL UD PRN 09/02/16 [History Confirmed 05/26/24] Atorvastatin Calcium [Lipitor 20MG Tablet] 20 mg PO DAILY 07/22/17 [History Confirmed 05/26/24] Ipratropium/Albuterol Sulfate [Iprat-Albut 0.5-3(2.5) mg/3 ml] 3 ml IH Q4HPRN PRN 07/22/17 [History Confirmed 05/26/24] Loratadine [Claritin] 10 mg PO DAILY 07/22/17 [History Confirmed 05/26/24] Colora-3 Fatty Acids/Fish Oil [Fish Oil 1,000 mg Capsule] 1,000 mcg PO BID [History Confirmed 05/26/24] Allopurinol 100 mg [Zyloprim 100 mg] 100 mg PO DAILY 11/19/23 [History Confirmed 05/26/24] Amitriptyline HCl 25 mg [Amitriptyline 25 mg Tablet] 25 mg PO HS 11/19/23 [History Confirmed 05/26/24] Baclofen 10 mg [Lioresal 10 mg] 10 mg PO UD 11/19/23 [History Confirmed 05/26/24] Hydroxyzine HCl 25 mg [Atarax 25 mg] 25 mg PO HS 11/19/23 [History Confirmed 05/26/24] Mirabegron [Myrbetriq] 1 ea PO DAILY 11/19/23 [History Confirmed 05/26/24] Oxycodone HCl/Acetaminophen [Percocet 10-325 mg Tablet] 1 tab PO TID PRN PRN 11/19/23 [History Confirmed 05/26/24] Ubrogepant [Ubrelvy] 50 mg PO BID PRN 11/19/23 [History Confirmed 05/26/24] lamoTRIgine [Subvenite (Blue)] 100 mg PO DAILY 11/19/23 [History Confirmed 05/26/24] Furosemide 40 mg [Lasix 40 MG] 40 mg PO DAILY 12/05/23 [History Confirmed 05/26/24] Lactobacillus Acidophilus [Probiotic] 1 cap PO DAILY 12/05/23 [History Confirmed 05/26/24] Potassium Chloride 8 meq PO DAILY 12/05/23 [History Confirmed 05/26/24] Pregabalin 225 mg PO BID 12/05/23 [History Confirmed 05/26/24] Adalimumab [Humira] 40 mg SQ WEEKLY 12/11/23 [History Confirmed 05/26/24] Uzbtn-1-Lmgdxynfhy Inhibitor [Prolastin C] 1 each IV WEEKLY 12/11/23 [History Confirmed 05/26/24] Cholecalciferol (Vitamin D3) [Vitamin D3] 2,000 mcg PO DAILY 12/11/23 [History Confirmed 05/26/24] Erenumab-Aooe [Aimovig Autoinjector] 140 mg SQ UD 12/11/23 [History Confirmed 05/26/24] Hydrocortisone 2.5% 30 gm [Anusol-Hc 2.5% Cream 30 gm] 1 applic TOP BID 12/11/23 [History Confirmed 05/26/24] Multivitamin 1 tab PO BID 12/11/23 [History Confirmed 05/26/24] Naloxone HCl [Narcan] 4 mg IH DAILY PRN PRN 12/11/23 [History Confirmed 05/26/24] Non-Formulary Drug [Non-Formulary Bulk Item] 1,000 mcg SQ UD 12/11/23 [History Confirmed 05/26/24] Thiamine Mononitrate (Vit B1) [Vitamin B-1] 100 mg PO WEEKLY 12/11/23 [History Confirmed 05/26/24] Levetiracetam [Keppra] 500 mg PO BID 05/25/24 [History Confirmed 05/26/24] Lurasidone HCl 80 mg PO DAILY 05/25/24 [History Confirmed 05/26/24] Ondansetron [Ondansetron Odt ] 4 mg SL Q6HPRN PRN 05/25/24 [History Confirmed 05/26/24] Pantoprazole 20 mg [Protonix 20MG Tablet] 20 mg PO DAILY 05/25/24 [History Confirmed 05/26/24] Propranolol HCl 20 mg PO BID 05/25/24 [History Confirmed 05/26/24] hydrOXYzine HCL [Hydroxyzine HCl] 50 mg PO HS 05/25/24 [History Confirmed 05/26/24] Allergies/Adverse Reactions: Allergies Allergy/AdvReac Type Severity Reaction Status Date / Time Iodinated Contrast Media Allergy Mild Verified 05/26/24 01:39 [IV Dye, Iodine Containing Contrast ] Sulfa (Sulfonamide Allergy Mild Verified 05/26/24 01:39 Antibiotics) [Sulfa(Sulfonamide Antibiotics)] benztropine Allergy Verified 05/26/24 01:39 triamcinolone Allergy Verified 05/26/24 01:39 Exam - Vitals Vital Signs: Vital Signs - 24 hr Temp Pulse Resp BP Pulse Ox 05/29/24 16:00 97 F 89 17 120/67 98 05/29/24 12:00 97.9 F 98 H 20 113/55 92 L 05/29/24 07:36 110 H 20 96 05/29/24 07:18 98.2 F 110 H 20 109/59 96 05/29/24 04:00 97.8 F 111 H 18 81/49 92 L 05/29/24 00:00 97.9 F 101 H 18 133/80 95 05/28/24 20:31 96 05/28/24 19:36 96.8 F 91 H 16 122/66 98 General:: alert and oriented x 4, no acute distress HEENT: EOMI, anicteric sclera Cardiovascular Exam: regular rate/rhythm, normal heart sounds, No murmur, No friction rub, No gallop Respiratory Exam: normal breath sounds SpO2: 98 Gastrointestinal/Abdomen Exam: normal bowel sounds Skin Exam: warm Extremity Exam: edema (1+ edema above her ankles bilaterally.) 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 BP 120/61 HR 88-107. Intake and Output: Intake & Output 05/27/24 05/28/24 05/29/24 05/30/24 11:59 11:59 11:59 11:59 Intake Total 540 1700 960 120 Output Total 800 3725 1250 Balance -260 -290 120 Weight 122 kg LAB: I have reviewed the Labs in [facility]. Radiology Exams: Radiology Procedures Category Date Time Status ABDOMEN AND PELVIS W/0 CONTRAS [CT] Routine Exams 05/29/24 11:34 Completed CHEST 2 VIEWS (PA AND LAT) Stat Exams 05/29/24 10:16 Completed ECHO W/2D AND DOPPLER [US] Stat Exams 05/29/24 14:21 Taken Transthoracic Echocardiogram 05/29/2024: 1. Normal biventricular wall thickness, chamber size, and systolic function. 2. Estimated left ventricular ejection fraction is 65%. 3. Normal diastolic function profile. 4. There is no significant valvular stenosis or regurgitation by Doppler flow analysis. 5. Normal PA systolic pressure (24 mmHg). 6. Normal right atrial pressure (3 mmHg). 7. Small anterior pericardial effusion around the anterior wall of the right ventricle. No echocardiographic evidence of tamponade. CXR (AP and LAT) 05/29/2024: Chest obtained in wheelchair again demonstrates normal heart and lungs with incidental right Port-A-Cath. CT of Abdomen and Pelvis without contrast 05/29/2024: 1. New pericardial effusion/thickening anteriorly better evaluated with echocardiogram. 2. Urinary bladder intraluminal air either iatrogenic versus gas-forming infection. 3. Again chronic findings including small hiatal hernia, fatty hepatomegaly, and nonobstructing right renal micro-calculus. CT of Abdomen without contrast 05/26/2024: 1. Hepatomegaly and diffuse steatosis. 2. Nonobstructing small right renal calculus 3. Clinical correlation is suggested. Tracing 1 Attestation: I have reviewed this EKG and interpreted as documented below. EKG Narrative: 05/25/2024: Sinus tachycardia at 102 bpm. LAFB. Low voltage in precordial leads. PRWP. 12/10/2023: NSR at 83 bpm. LAFB. Low voltage in precordial leads. PRWP. Multi-Disciplinary Progress Notes: Multi-Disciplinary Progress Notes 05/29/24 10:44 Case Management Note by Adry Miller NO CHANGE IN DC PLANS AT THIS TIME Initialized on 05/29/24 10:44 - END OF NOTE Assessment & Plan (1) Pericardial effusion (noninflammatory) Current Visit: Yes Status: Acute Assessment & Plan: Small anterior pericardial effusion identified on CT scan and confirmed by ECHO. No echocardiographic evidence of tamponade. This appears to be an incidental finding. No treatment is indicated. Will check TSH and free T4 in am. Code(s): I31.39 - OTHER PERICARDIAL EFFUSION (NONINFLAMMATORY) (2) Peripheral edema Current Visit: Yes Status: Acute Assessment & Plan: Most likely related to venous insufficiency in the setting of her severe obesity. No definite history of CHF. Continue furosemide prn +/- pressure support stocking. Code(s): R60.0 - LOCALIZED EDEMA (3) Hypothyroidism Current Visit: Yes Status: Acute Assessment & Plan: As above, check TSH and free T4. Code(s): E03.9 - HYPOTHYROIDISM, UNSPECIFIED (4) Sepsis Current Visit: Yes Status: Acute Assessment & Plan: Severe infection associated with a very high WBC yesterday (45.5K) and requiring a D10 infusion. As per primary service. - Encounter Encounter: "The entirety of this encounter was performed via Telemedicine using audio and visual " Case discussed with Suze Guillen. Will sign-off. Please contact our service if further questions arise. Parth Allen MD [facility] [phone]
[2024-05-29 20:12] LABS: Benzodiazepines Negative ng/mL (Cutoff=300)
[2024-05-29] MEDS: OXYCODONE-ACETAMINOPHEN 10-325 PO PRN (21:48)
[2024-05-30 05:07] LABS: Mean Corpuscular Hgb Concent. 33.3 g/dL (32.2-35.5); Platelet Count 100 x10^3/uL (182-369); Red Cell Distribution Width 14.6 % (11.7-14.4); White Blood Count 18.9 x10^3/uL (3.98-10.04)
[2024-05-30 05:30] LABS: ALBUMIN 1.9 g/dL (3.5-5.0); ANION GAP 6.3 MEQ/L (5-15); BILIRUBIN,TOTAL 0.8 mg/dL (0.2-1.3); Calcium 7.4 mg/dL (8.4-10.2); Creatinine 1 1.13 mg/dL (0.52-1.04); EST GLOMERULAR FILTRATION RATE 60.4 ML/MIN; Potassium 3.4 mmol/L (3.5-5.1); Total Protein 4.8 g/dL (6.3-8.2)
[2024-05-30] MEDS: Klor Con PO SCH (08:01)
--- NOTE | 2024-05-30 10:16 | PCM.NOTE ---
Date and Time: 05/30/24 1010 Subjective Assessment: 05/28/24 Ms. Horowitz is a 49 year-old female with DEUCE on CPAP, HTN, hypothyroidism, morbid obesity, chronic pain, HLD, and chart diagnoses of - DM2, CAD, CHF, COPD admitted 05/26/24 with urosepsis after experiencing altered mental status and hypoglycemia requiring ED visit via EMS. EMS was called to help with the lift, but when they arrived at her home, they found her to be very altered from a mentation standpoint. Upon arrival to [facility], her laboratory data was remarkable for a UTI, an elevated Cr, increased LFTs, HCO3 18, WBC 20, and chronic anemia. CT head negative. Patient with transaminitis. CT abdomen demonstrates hepatomegaly and diffuse steatosis.Nonobstructing small right renal calculus. IN ED she was given D50 and a D5 infusion, but her blood sugar could not be maintained above 70, therefore she is now on a D10 drip. Blood glucose levels are stable with D10 infusion. Unsure of what is causing these episodes of hypoglycemia. A1c level is low at 4.03. Patient states she has had issues in the past. Would like her to follow up with endocrinology as OP and does have a glucometer at home to check blood glucose levels. She may need strips/lancets. IP treatment with ceftriaxone/IVF hydration- cultures with gram negative ID - sensitivity pending. Clinically she is looking much better today. Weakness has improved. She endorses that she has been having some hallucinations of levitating above the bed. Patient is normally on lurasidone but pharmacy does not carry this and no one at home can bring it in. Will sub with abilify which patient states she has tolerated in the past. Today pt is awake and alert. UC + for Klebsiella and e-coli. Continued ceftriaxone per sensitivity. Stool culture pending. WBC elevated today even after repeat lab ordered. Blood cultures ordered for AM as she is refusing any further IV sticks. She has not had a temp or any further concerning sxs. She denies any further concerns at this time. 05/29/24 Pt sitting up in the chair today. She is awake and alert. She is c/o some chronic lower back pain and would like her pain meds restarted at BID dosing. Labs were late to be done as she was a difficult stick per lab. WBC elevated at 45.5. LA elevated at 2.5. + for sepsis. 1 liter fluid bolus gave and will recheck. Ugarte d/cd's and may be the cause of infection. She denies any pain other than chronic back pain and her vitals are stable. CXR non-concerning. CT abd shows New pericardial effusion/thickening better evaluated with echocardiogram. Urinary bladder intraluminal air either iatrogenic versus gas-forming infection. Again chronic findings including small hiatal hernia, fatty hepatomegaly, and nonobstructing right renal micro-calculus. Echo ordered for further evaluation. Pt denies CP, SOB, abd. pain, N/V/D. 05/30/24 Pt sitting up in the chair. She reports she is feeling better today. WBC has improved 18.9, since starting Merrem. K+ 3.4 and replaced. Corrected Ca+ 8.7. EF 65% per Echo results. She is alert and oriented. Cardiology consulted as pt had a pericardial effusion as seen on CT- echo reviewed for further evaluation and case discussed. No new changes at this time. She denies Cp, SOB, abd. pain, N/V/D. - Review of Systems Constitutional: Weakness, No Fever, No Chills Eyes: No Symptoms Ears, Nose, & Throat: No Symptoms Respiratory: No Cough, No Short Of Breath Cardiac: No Chest Pain, No Edema, No Syncope Abdominal/Gastrointestinal: No Abdominal Pain, No Nausea, No Vomiting, No Diarrhea Genitourinary Symptoms: No Dysuria Musculoskeletal: No Back Pain, No Neck Pain Skin: No Rash Neurological: No Dizziness, No Focal Weakness, No Sensory Changes Psychological: No Symptoms Endocrine: No Symptoms Hematologic/Lymphatic: No Symptoms Immunological/Allergic: No Symptoms Objective Exam General Appearance: no apparent distress, alert, obese Neurologic Exam: alert, oriented x 3, cooperative, normal mood/affect, nml cerebellar function, sensation nml, motor weakness, No motor deficits Skin Exam: normal color, warm, dry Eye Exam: PERRL, EOMI, eyes nml inspection Ears, Nose, Throat Exam: normal ENT inspection, pharynx normal, moist mucous membranes Neck Exam: normal inspection, non-tender, supple, full range of motion Respiratory Exam: normal breath sounds, lungs clear, No respiratory distress Cardiovascular Exam: regular rate/rhythm, normal heart sounds, edema Gastrointestinal/Abdomen Exam: soft, No tenderness, No mass Extremity Exam: normal inspection, normal range of motion, pedal edema Back Exam: normal inspection, normal range of motion, No CVA tenderness, No vertebral tenderness Pelvic Exam: deferred Rectal Exam: deferred Objective Data Vital Signs: Vital Signs - 24 hr Temp Pulse Resp BP Pulse Ox 05/30/24 08:00 96.6 F 107 H 18 125/66 99 05/30/24 06:57 94 H 18 98 05/30/24 04:00 97.3 F 85 18 137/61 96 05/30/24 00:00 97.5 F 80 20 106/56 95 05/29/24 22:54 98 05/29/24 20:00 97.3 F 92 H 16 120/60 95 05/29/24 19:10 90 16 98 05/29/24 16:00 97 F 89 17 120/67 98 05/29/24 12:00 97.9 F 98 H 20 113/55 92 L Pain Assessment - Last Documented Pain Intensity 4 Pain Scale Used 0-10 Pain Scale Intake and Output: Intake & Output 05/27/24 05/28/24 05/29/24 05/30/24 11:59 11:59 11:59 11:59 Intake Total 540 9387 566 4995 Output Total 800 3725 1250 500 Balance -260 -2024 -290 2770 Weight 122 kg Lab Results: Lab Results-Last 24 Hours 05/25/24 05/28/24 05/29/24 Range/Units 23:06 05:20 10:01 WBC (3.98-10.04) x10^3/uL RBC (3.93-5.22) x10^6/uL Hgb (11.2-15.7) g/dL Hct (34.1-44.9) % MCV (79.4-94.8) fL MCH (25.6-32.2) pg MCHC (32.2-35.5) g/dL RDW (11.7-14.4) % Plt Count (182-369) x10^3/uL MPV (9.4-12.3) fL Smear Path Review Sodium (135-145) mmol/L Potassium (3.5-5.1) mmol/L Chloride (98-107) mmol/L Carbon Dioxide (22-30) mmol/L Anion Gap (5-15) MEQ/L BUN (7-17) mg/dL Creatinine (0.52-1.04) mg/dL Estimated GFR ML/MIN Glucose (74-106) mg/dL POC Glucometer (74 to 106) mg/dL Lactic Acid (0.4-2.0) Calcium (8.4-10.2) mg/dL Total Bilirubin (0.2-1.3) mg/dL AST (14-36) U/L ALT (0-35) U/L Alkaline Phosphatase (38-126) U/L Serum Total Protein (6.3-8.2) g/dL Albumin (3.5-5.0) g/dL Urine Color Dark Yellow A (Yellow) Urine Appearance Clear (Clear) Urine pH 5.5 (4.6-8.0) Ur Specific [place] 1.015 (1.005-1.030) Urine Protein 30 (Negative) Urine Glucose (UA) Negative (Negative) mg/dL Urine Ketones Negative (Negative) Urine Blood Negative (Negative) Urine Nitrite Negative (Negative) Urine Bilirubin Negative (Negative) Urine Urobilinogen 0.2 (0.2) mg/dL Ur Leukocyte Esterase Trace A (Negative) U Hyaline Cast (Auto) NONE SEEN (0-2) /LPF Urine Microscopic RBC 3-5 (0-5) /HPF Urine Microscopic WBC 6-10 A (0-5) /HPF Ur Epithelial Cells None Seen (None Seen) /HPF Urine Bacteria None Seen (None Seen) /HPF Urine Culture Reflexed ORDERED SEPARATELY (NO) U Benzodiazepines Scrn Negative (Dytcge=043) ng/mL 05/29/24 05/29/24 05/29/24 Range/Units 12:40 16:05 16:43 WBC (3.98-10.04) x10^3/uL RBC (3.93-5.22) x10^6/uL Hgb (11.2-15.7) g/dL Hct (34.1-44.9) % MCV (79.4-94.8) fL MCH (25.6-32.2) pg MCHC (32.2-35.5) g/dL RDW (11.7-14.4) % Plt Count (182-369) x10^3/uL MPV (9.4-12.3) fL Smear Path Review Sodium (135-145) mmol/L Potassium (3.5-5.1) mmol/L Chloride (98-107) mmol/L Carbon Dioxide (22-30) mmol/L Anion Gap (5-15) MEQ/L BUN (7-17) mg/dL Creatinine (0.52-1.04) mg/dL Estimated GFR ML/MIN Glucose (74-106) mg/dL POC Glucometer 64 L 79 (74 to 106) mg/dL Lactic Acid 1.4 (0.4-2.0) Calcium (8.4-10.2) mg/dL Total Bilirubin (0.2-1.3) mg/dL AST (14-36) U/L ALT (0-35) U/L Alkaline Phosphatase (38-126) U/L Serum Total Protein (6.3-8.2) g/dL Albumin (3.5-5.0) g/dL Urine Color (Yellow) Urine Appearance (Clear) Urine pH (4.6-8.0) Ur Specific [place] (1.005-1.030) Urine Protein (Negative) Urine Glucose (UA) (Negative) mg/dL Urine Ketones (Negative) Urine Blood (Negative) Urine Nitrite (Negative) Urine Bilirubin (Negative) Urine Urobilinogen (0.2) mg/dL Ur Leukocyte Esterase (Negative) U Hyaline Cast (Auto) (0-2) /LPF Urine Microscopic RBC (0-5) /HPF Urine Microscopic WBC (0-5) /HPF Ur Epithelial Cells (None Seen) /HPF Urine Bacteria (None Seen) /HPF Urine Culture Reflexed (NO) U Benzodiazepines Scrn (Rofxix=941) ng/mL 05/29/24 05/30/24 05/30/24 Range/Units 21:54 02:21 04:15 WBC 18.9 H (3.98-10.04) x10^3/uL RBC 3.00 L (3.93-5.22) x10^6/uL Hgb 9.0 L (11.2-15.7) g/dL Hct 27.0 L (34.1-44.9) % MCV 90.0 (79.4-94.8) fL MCH 30.0 (25.6-32.2) pg MCHC 33.3 (32.2-35.5) g/dL RDW 14.6 H (11.7-14.4) % Plt Count 100 L (182-369) x10^3/uL MPV 13.0 H (9.4-12.3) fL Smear Path Review Sodium (135-145) mmol/L Potassium (3.5-5.1) mmol/L Chloride (98-107) mmol/L Carbon Dioxide (22-30) mmol/L Anion Gap (5-15) MEQ/L BUN (7-17) mg/dL Creatinine (0.52-1.04) mg/dL Estimated GFR ML/MIN Glucose (74-106) mg/dL POC Glucometer 78 88 (74 to 106) mg/dL Lactic Acid (0.4-2.0) Calcium (8.4-10.2) mg/dL Total Bilirubin (0.2-1.3) mg/dL AST (14-36) U/L ALT (0-35) U/L Alkaline Phosphatase (38-126) U/L Serum Total Protein (6.3-8.2) g/dL Albumin (3.5-5.0) g/dL Urine Color (Yellow) Urine Appearance (Clear) Urine pH (4.6-8.0) Ur Specific [place] (1.005-1.030) Urine Protein (Negative) Urine Glucose (UA) (Negative) mg/dL Urine Ketones (Negative) Urine Blood (Negative) Urine Nitrite (Negative) Urine Bilirubin (Negative) Urine Urobilinogen (0.2) mg/dL Ur Leukocyte Esterase (Negative) U Hyaline Cast (Auto) (0-2) /LPF Urine Microscopic RBC (0-5) /HPF Urine Microscopic WBC (0-5) /HPF Ur Epithelial Cells (None Seen) /HPF Urine Bacteria (None Seen) /HPF Urine Culture Reflexed (NO) U Benzodiazepines Scrn (Jmbsuh=642) ng/mL 05/30/24 05/30/24 Range/Units 04:15 07:13 WBC (3.98-10.04) x10^3/uL RBC (3.93-5.22) x10^6/uL Hgb (11.2-15.7) g/dL Hct (34.1-44.9) % MCV (79.4-94.8) fL MCH (25.6-32.2) pg MCHC (32.2-35.5) g/dL RDW (11.7-14.4) % Plt Count (182-369) x10^3/uL MPV (9.4-12.3) fL Smear Path Review Sodium 136 (135-145) mmol/L Potassium 3.4 L (3.5-5.1) mmol/L Chloride 108 H (98-107) mmol/L Carbon Dioxide 24 (22-30) mmol/L Anion Gap 6.3 (5-15) MEQ/L BUN 17 (7-17) mg/dL Creatinine 1.13 H (0.52-1.04) mg/dL Estimated GFR 60.4 ML/MIN Glucose 85 (74-106) mg/dL POC Glucometer 69 L (74 to 106) mg/dL Lactic Acid (0.4-2.0) Calcium 7.4 L (8.4-10.2) mg/dL Total Bilirubin 0.80 (0.2-1.3) mg/dL AST 58 H (14-36) U/L ALT 68 H (0-35) U/L Alkaline Phosphatase 247 H (38-126) U/L Serum Total Protein 4.8 L (6.3-8.2) g/dL Albumin 1.9 L (3.5-5.0) g/dL Urine Color (Yellow) Urine Appearance (Clear) Urine pH (4.6-8.0) Ur Specific [place] (1.005-1.030) Urine Protein (Negative) Urine Glucose (UA) (Negative) mg/dL Urine Ketones (Negative) Urine Blood (Negative) Urine Nitrite (Negative) Urine Bilirubin (Negative) Urine Urobilinogen (0.2) mg/dL Ur Leukocyte Esterase (Negative) U Hyaline Cast (Auto) (0-2) /LPF Urine Microscopic RBC (0-5) /HPF Urine Microscopic WBC (0-5) /HPF Ur Epithelial Cells (None Seen) /HPF Urine Bacteria (None Seen) /HPF Urine Culture Reflexed (NO) U Benzodiazepines Scrn (Zelyaf=506) ng/mL Radiology Exams: Radiology Procedures Category Date Time Status ABDOMEN AND PELVIS W/0 CONTRAS [CT] Routine Exams 05/29/24 11:34 Completed CHEST 2 VIEWS (PA AND LAT) Stat Exams 05/29/24 10:16 Completed ECHO W/2D AND DOPPLER [US] Stat Exams 05/29/24 14:21 Taken Multi-Disciplinary Progress Notes: Multi-Disciplinary Progress Notes 05/29/24 20:19 Physical Therapy Note by Vidal(Wallace#[id number])Neva PT. WAS SEEN BY P.T. THIS P.M. IN BEDSIDE RECLINER UPON P.T. ARRIVAL TO ROOM. PT. AGREEABLE TO P.T. PT. ALERT BUT NOTED SLURRED SPEECH. PT. ALSO REFRRED TO "KIDS IN THE CORNER OF HER ROOM." ATTEMPTED TO ALERT PT. THAT NO KIDS WERE IN HER ROOM WITHOUT SUCCESS. PERFORMED SIT TO STAND W/ MOD ASSIST X 1 W/ V.C. TO INCREASE TRUNK AND HIP FLEXION PRIOR TO STAND. AMBULATED ~ 30' W/ FWW AND MIN ASSIST. CADDIE ASSISTED W/ LINE MANAGEMENT AND MOVING RECLINER BEHIND HER. PT. PERFORMED SEATED LE EX'S OF LAQS, MARCHES, ANKLE PUMPS, AND HEEL SLIDES. FULL AROM NOT PRESENT EITHER LE D/T WEAKNESS. AGAIN DISCUSSED THAT PT. WOULD BENEFIT FROM REHAB STAY D/T LEVEL OF WEAKNESS AND NOTED CONCERNS ABOUT DAUGHTER'S ABILITY TO CARE FOR PT. AT HOME. PT. EXPRESSED THAT SHE IS WORRIED ABOUT DAUGHTER'S MENTAL HEALTH IF SHE DOES NOT RETURN HOME. PT. ASSISTED W/ TRANSFER TO BED FOR ECHO AFTER P.T. SAME ASSISTANCE REQUIRED NOTED ABOVE. WILL CONT. P.T. 5X/WK UNTIL D/C. Initialized on 05/29/24 20:19 - END OF NOTE 05/29/24 18:24 Radiology Note by PARTH ALLEN TRANSSTHORACI ECHOCARDIOGRAM 05/29/2024: 1. Normal biventricular wall thickness, chamber size, and systolic function. 2. Estimated left ventricular ejection fraction is 65%. 3. Normal diastolic function profile. 4. There is no significant valvular stenosis or regurgitation by Doppler flow analysis. 5. Normal PA systolic pressure (24 mmHg). 6. Normal right atrial pressure (3 mmHg). 7. Small anterior pericardial effusion around the anterior wall of the right ventricle. No echocardiographic evidence of tamponade. Parth Allen MD [facility] Initialized on 05/29/24 18:24 - END OF NOTE 05/29/24 10:44 Case Management Note by Adry Miller NO CHANGE IN DC PLANS AT THIS TIME Initialized on 05/29/24 10:44 - END OF NOTE Assessment/Plan (1) Sepsis Current Visit: Yes Status: Acute (2) UTI (urinary tract infection) Current Visit: Yes Status: Acute Code(s): N39.0 - URINARY TRACT INFECTION, SITE NOT SPECIFIED (3) GABY (acute kidney injury) Current Visit: Yes Status: Acute Code(s): N17.9 - ACUTE KIDNEY FAILURE, UNSPECIFIED (4) AMS (altered mental status) Current Visit: Yes Status: Acute Code(s): R41.82 - ALTERED MENTAL STATUS, UNSPECIFIED (5) Chronic pain syndrome Current Visit: Yes Status: Acute Code(s): G89.4 - CHRONIC PAIN SYNDROME (6) HLD (hyperlipidemia) Current Visit: Yes Status: Acute Code(s): E78.5 - HYPERLIPIDEMIA, UNSPECIFIED (7) HTN (hypertension) Current Visit: Yes Status: Acute Code(s): I10 - ESSENTIAL (PRIMARY) HYPERTENSION (8) Hypoglycemia Current Visit: Yes Status: Acute Code(s): E16.2 - HYPOGLYCEMIA, UNSPECIFIED (9) Hypokalemia Current Visit: Yes Status: Acute Code(s): E87.6 - HYPOKALEMIA (10) Hypomagnesemia Current Visit: Yes Status: Acute Code(s): E83.42 - HYPOMAGNESEMIA (11) Increased anion gap metabolic acidosis Current Visit: Yes Status: Acute Code(s): E87.29 - OTHER ACIDOSIS (12) Morbid obesity Current Visit: Yes Status: Acute Code(s): E66.01 - MORBID (SEVERE) OBESITY DUE TO EXCESS CALORIES (13) DEUCE (obstructive sleep apnea) Current Visit: Yes Status: Acute Code(s): G47.33 - OBSTRUCTIVE SLEEP APNEA (ADULT) (PEDIATRIC) (14) Transaminitis Current Visit: Yes Status: Acute Code(s): R74.01 - ELEVATION OF LEVELS OF LIVER TRANSAMINASE LEVELS (15) Hallucinations, unspecified Current Visit: No Status: Acute Code(s): R44.3 - HALLUCINATIONS, UNSPECIFIED (16) Diarrhea Current Visit: Yes Status: Acute Code(s): R19.7 - DIARRHEA, UNSPECIFIED (17) Pericardial effusion Current Visit: Yes Status: Acute Assessment & Plan: (1) UTI (urinary tract infection) Current Visit: Yes Status: Acute Assessment & Plan: -UC + for e-coli and Klebsiella -continue ceftriaxone per sensitivity - WBC 26.7- trend - BC x2 ordered 05/29 - WBC 45.5 - Antibiotic changed to Merrem - Blood cultures x2 this am as she refused labs yesterday. - Cath UA with UC pending - Ugarte removed 05/30 - WBC 18.9 - Continue Merrem IV - no urinary retention Code(s): N39.0 - URINARY TRACT INFECTION, SITE NOT SPECIFIED (2) AMS (altered mental status) Current Visit: Yes Status: Acute Assessment & Plan: -Mentation has improved to baseline -Head CT with no acute findings Code(s): R41.82 - ALTERED MENTAL STATUS, UNSPECIFIED (3) GABY (acute kidney injury) Current Visit: Yes Status: Acute Assessment & Plan: -At baseline -Avoid nephrotoxic meds -monitor renal/lytes daily Code(s): N17.9 - ACUTE KIDNEY FAILURE, UNSPECIFIED (4) HTN (hypertension) Current Visit: Yes Status: Acute Assessment & Plan: -stable Code(s): I10 - ESSENTIAL (PRIMARY) HYPERTENSION (5) Transaminitis Current Visit: Yes Status: Acute Assessment & Plan: -CT abdomen showing hepatomegaly and diffuse steatosis -LFTs downtrending, TBili now wnl - continue to monitor Code(s): R74.01 - ELEVATION OF LEVELS OF LIVER TRANSAMINASE LEVELS (6) Increased anion gap metabolic acidosis Current Visit: Yes Status: Acute Assessment & Plan: -resolved Code(s): E87.29 - OTHER ACIDOSIS (7) HLD (hyperlipidemia) Current Visit: Yes Status: Acute Assessment & Plan: -continue statin Code(s): E78.5 - HYPERLIPIDEMIA, UNSPECIFIED (8) DEUCE (obstructive sleep apnea) Current Visit: Yes Status: Acute Assessment & Plan: -[facility] at [facility] Code(s): G47.33 - OBSTRUCTIVE SLEEP APNEA (ADULT) (PEDIATRIC) (9) Chronic pain syndrome Current Visit: Yes Status: Acute Assessment & Plan: - Narcotic pain meds BID restarted 05/29 Code(s): G89.4 - CHRONIC PAIN SYNDROME (10) Morbid obesity Current Visit: Yes Status: Acute Assessment & Plan: -advised heart healthy diet and exercise Code(s): E66.01 - MORBID (SEVERE) OBESITY DUE TO EXCESS CALORIES (11) Hypoglycemia Current Visit: Yes Status: Acute Assessment & Plan: -Unknown etiology - ? secondary to meds -A1c 4.03 -Continue D10 until able to tolerate diet - will need referral to endocrinology OP 05/29 - D10 decreased to 50ml/hr 05/30 - Continued hypoglycemia- cont. IVF Code(s): E16.2 - HYPOGLYCEMIA, UNSPECIFIED (12) Hallucinations, unspecified Current Visit: No Status: Acute Assessment & Plan: -Abilify while IP 05/30 - denies current hallucinations Code(s): R44.3 - HALLUCINATIONS, UNSPECIFIED (13) Hypokalemia Current Visit: Yes Status: Acute Assessment & Plan: -tele 05/30 - K+ 3.4- replaced- trend Code(s): E87.6 - HYPOKALEMIA (14) Hypomagnesemia Current Visit: Yes Status: Acute Assessment & Plan: -resolved Code(s): E83.42 - HYPOMAGNESEMIA (15) Diarrhea Current Visit: Yes Status: Acute Assessment & Plan: - stool culture pending - c-dif pending - Abd CT IMPRESSION: 1. Hepatomegaly and diffuse steatosis. 2. Nonobstructing small right renal calculus 3. Clinical correlation is suggested. 05/29 - C-diff negative 05/30 - Pt reports chronic diarrhea - probiotics Code(s): R19.7 - DIARRHEA, UNSPECIFIED (17) Pericardial effusion Current Visit: Yes Status: Acute Assessment & Plan: - echo- EF 65% - decrease IVF - cardiology consult- reviewed note and agree with plan of care VTE: Heparin PPI: Protonix D/c plan: 1-2 days Code(s): I31.39 - OTHER PERICARDIAL EFFUSION (NONINFLAMMATORY)
[2024-05-31 05:10] LABS: Hematocrit 24.4 % (34.1-44.9); Hemoglobin 8.2 g/dL (11.2-15.7); Mean Cell Volume 91.4 fL (79.4-94.8); Mean Corpuscular Hemoglobin 30.7 pg (25.6-32.2); Mean Corpuscular Hgb Concent. 33.6 g/dL (32.2-35.5); Platelet Count 103 x10^3/uL (182-369); Red Blood Count 2.67 x10^6/uL (3.93-5.22); Red Cell Distribution Width 14.6 % (11.7-14.4); White Blood Count 16.6 x10^3/uL (3.98-10.04)
[2024-05-31 06:03] LABS: ALBUMIN 1.7 g/dL (3.5-5.0); ANION GAP 6.5 MEQ/L (5-15); BILIRUBIN,TOTAL 0.6 mg/dL (0.2-1.3); Calcium 7.2 mg/dL (8.4-10.2); Creatinine 1 1.09 mg/dL (0.52-1.04); EST GLOMERULAR FILTRATION RATE 63.1 ML/MIN; MAGNESIUM 1.9 mg/dL (1.6-2.3); Potassium 4.1 mmol/L (3.5-5.1); TSH, 3RD Generation 3.898 mIU/L (0.470-4.680); Total Protein 4.6 g/dL (6.3-8.2)
--- NOTE | 2024-05-31 11:04 | PCM.NOTE ---
Date and Time: 05/31/24 1059 Subjective Assessment: 05/28/24 Ms. Horowitz is a 49 year-old female with DEUCE on CPAP, HTN, hypothyroidism, morbid obesity, chronic pain, HLD, and chart diagnoses of - DM2, CAD, CHF, COPD admitted 05/26/24 with urosepsis after experiencing altered mental status and hypoglycemia requiring ED visit via EMS. EMS was called to help with the lift, but when they arrived at her home, they found her to be very altered from a mentation standpoint. Upon arrival to [place], her laboratory data was remarkable for a UTI, an elevated Cr, increased LFTs, HCO3 18, WBC 20, and chronic anemia. CT head negative. Patient with transaminitis. CT abdomen demonstrates hepatomegaly and diffuse steatosis.Nonobstructing small right renal calculus. IN ED she was given D50 and a D5 infusion, but her blood sugar could not be maintained above 70, therefore she is now on a D10 drip. Blood glucose levels are stable with D10 infusion. Unsure of what is causing these episodes of hypoglycemia. A1c level is low at 4.03. Patient states she has had issues in the past. Would like her to follow up with endocrinology as OP and does have a glucometer at home to check blood glucose levels. She may need strips/lancets. IP treatment with ceftriaxone/IVF hydration- cultures with gram negative ID - sensitivity pending. Clinically she is looking much better today. Weakness has improved. She endorses that she has been having some hallucinations of levitating above the bed. Patient is normally on lurasidone but pharmacy does not carry this and no one at home can bring it in. Will sub with abilify which patient states she has tolerated in the past. Today pt is awake and alert. UC + for Klebsiella and e-coli. Continued ceftriaxone per sensitivity. Stool culture pending. WBC elevated today even after repeat lab ordered. Blood cultures ordered for AM as she is refusing any further IV sticks. She has not had a temp or any further concerning sxs. She denies any further concerns at this time. 05/29/24 Pt sitting up in the chair today. She is awake and alert. She is c/o some chronic lower back pain and would like her pain meds restarted at BID dosing. Labs were late to be done as she was a difficult stick per lab. WBC elevated at 45.5. LA elevated at 2.5. + for sepsis. 1 liter fluid bolus gave and will recheck. Ugarte d/cd's and may be the cause of infection. She denies any pain other than chronic back pain and her vitals are stable. CXR non-concerning. CT abd shows New pericardial effusion/thickening better evaluated with echocardiogram. Urinary bladder intraluminal air either iatrogenic versus gas-forming infection. Again chronic findings including small hiatal hernia, fatty hepatomegaly, and nonobstructing right renal micro-calculus. Echo ordered for further evaluation. Pt denies CP, SOB, abd. pain, N/V/D. 05/30/24 Pt sitting up in the chair. She reports she is feeling better today. WBC has improved 18.9, since starting Merrem. K+ 3.4 and replaced. Corrected Ca+ 8.7. EF 65% per Echo results. She is alert and oriented. Cardiology consulted as pt had a pericardial effusion as seen on CT- echo reviewed for further evaluation and case discussed. No new changes at this time. She denies Cp, SOB, abd. pain, N/V/D. 05/31/24 Pt sitting up in the chair. She states she is feeling better but still weak. She admits to not eating well and encouraged pt to try and eat something Q2 hours to keep glucose up. D10 stopped. Pharmacist- Ranulfo- Reviewed meds and explained Inderal can cause hypoglycemia so this med was stopped. Pt having some edema of BLLE, DUY berger ordered. She is to work again with PT and she has continued weakness. Plan is for d/c in 1-2 days if glucose is controlled. - Review of Systems Constitutional: Weakness, No Fever, No Chills Eyes: No Symptoms Ears, Nose, & Throat: No Symptoms Respiratory: No Cough, No Short Of Breath Cardiac: Edema (BLLE), No Chest Pain, No Syncope Abdominal/Gastrointestinal: No Abdominal Pain, No Nausea, No Vomiting, No Diarrhea Genitourinary Symptoms: No Dysuria Musculoskeletal: No Back Pain, No Neck Pain Skin: No Rash Neurological: No Dizziness, No Focal Weakness, No Sensory Changes Psychological: No Symptoms Endocrine: No Symptoms Hematologic/Lymphatic: No Symptoms Immunological/Allergic: No Symptoms Objective Exam General Appearance: no apparent distress, alert, obese Neurologic Exam: alert, oriented x 3, cooperative, normal mood/affect, nml cerebellar function, sensation nml, No motor deficits Skin Exam: normal color, warm, dry Eye Exam: PERRL, EOMI, eyes nml inspection Ears, Nose, Throat Exam: normal ENT inspection, pharynx normal, moist mucous membranes Neck Exam: normal inspection, non-tender, supple, full range of motion Respiratory Exam: normal breath sounds, lungs clear, No respiratory distress Cardiovascular Exam: regular rate/rhythm, normal heart sounds, edema (BLLE) Gastrointestinal/Abdomen Exam: soft, No tenderness, No mass Extremity Exam: normal inspection, normal range of motion Back Exam: normal inspection, normal range of motion, No CVA tenderness, No vertebral tenderness Pelvic Exam: deferred Rectal Exam: deferred Objective Data Vital Signs: Vital Signs - 24 hr Temp Pulse Resp BP Pulse Ox 05/31/24 08:00 100.1 F 97 H 18 126/71 96 05/31/24 06:58 106 H 18 92 L 05/31/24 03:45 97.8 F 97 H 22 108/64 96 05/30/24 23:57 97.5 F 87 20 102/51 96 05/30/24 20:00 97.4 F 94 H 20 136/71 98 05/30/24 19:10 63 16 96 05/30/24 16:57 98 05/30/24 16:00 97.4 F 86 17 123/53 97 05/30/24 12:00 97.3 F 88 16 120/61 97 Pain Assessment - Last Documented Pain Intensity 8 Pain Scale Used 0-10 Pain Scale Intake and Output: Intake & Output 05/28/24 05/29/24 05/30/24 05/31/24 11:59 11:59 11:59 11:59 Intake Total 1766 479 6738 2378 Output Total 3725 1250 500 Balance -2024 - 2770 2378 Weight 122 kg Lab Results: Lab Results-Last 24 Hours 05/30/24 05/30/24 05/30/24 Range/Units 11:29 15:10 21:05 WBC (3.98-10.04) x10^3/uL RBC (3.93-5.22) x10^6/uL Hgb (11.2-15.7) g/dL Hct (34.1-44.9) % MCV (79.4-94.8) fL MCH (25.6-32.2) pg MCHC (32.2-35.5) g/dL RDW (11.7-14.4) % Plt Count (182-369) x10^3/uL MPV (9.4-12.3) fL Sodium (135-145) mmol/L Potassium (3.5-5.1) mmol/L Chloride (98-107) mmol/L Carbon Dioxide (22-30) mmol/L Anion Gap (5-15) MEQ/L BUN (7-17) mg/dL Creatinine (0.52-1.04) mg/dL Estimated GFR ML/MIN Glucose (74-106) mg/dL POC Glucometer 99 72 L 81 (74 to 106) mg/dL Calcium (8.4-10.2) mg/dL Magnesium (1.6-2.3) mg/dL Total Bilirubin (0.2-1.3) mg/dL AST (14-36) U/L ALT (0-35) U/L Alkaline Phosphatase (38-126) U/L Serum Total Protein (6.3-8.2) g/dL Albumin (3.5-5.0) g/dL Free T4 (0.78-2.19) ng/dL TSH 3rd Generation (0.470-4.680) mIU/L 05/31/24 05/31/24 05/31/24 Range/Units 02:13 04:30 04:30 WBC 16.6 H (3.98-10.04) x10^3/uL RBC 2.67 L (3.93-5.22) x10^6/uL Hgb 8.2 L (11.2-15.7) g/dL Hct 24.4 L (34.1-44.9) % MCV 91.4 (79.4-94.8) fL MCH 30.7 (25.6-32.2) pg MCHC 33.6 (32.2-35.5) g/dL RDW 14.6 H (11.7-14.4) % Plt Count 103 L (182-369) x10^3/uL MPV 13.0 H (9.4-12.3) fL Sodium 134 L (135-145) mmol/L Potassium 4.1 D (3.5-5.1) mmol/L Chloride 108 H (98-107) mmol/L Carbon Dioxide 24 (22-30) mmol/L Anion Gap 6.5 (5-15) MEQ/L BUN 15 (7-17) mg/dL Creatinine 1.09 H (0.52-1.04) mg/dL Estimated GFR 63.1 ML/MIN Glucose 81 (74-106) mg/dL POC Glucometer 68 L (74 to 106) mg/dL Calcium 7.2 L (8.4-10.2) mg/dL Magnesium 1.9 (1.6-2.3) mg/dL Total Bilirubin 0.60 (0.2-1.3) mg/dL AST 173 H (14-36) U/L ALT 107 H (0-35) U/L Alkaline Phosphatase 322 H (38-126) U/L Serum Total Protein 4.6 L (6.3-8.2) g/dL Albumin 1.7 L (3.5-5.0) g/dL Free T4 (0.78-2.19) ng/dL TSH 3rd Generation 3.898 (0.470-4.680) mIU/L 05/31/24 05/31/24 05/31/24 Range/Units 04:30 07:08 07:47 WBC (3.98-10.04) x10^3/uL RBC (3.93-5.22) x10^6/uL Hgb (11.2-15.7) g/dL Hct (34.1-44.9) % MCV (79.4-94.8) fL MCH (25.6-32.2) pg MCHC (32.2-35.5) g/dL RDW (11.7-14.4) % Plt Count (182-369) x10^3/uL MPV (9.4-12.3) fL Sodium (135-145) mmol/L Potassium (3.5-5.1) mmol/L Chloride (98-107) mmol/L Carbon Dioxide (22-30) mmol/L Anion Gap (5-15) MEQ/L BUN (7-17) mg/dL Creatinine (0.52-1.04) mg/dL Estimated GFR ML/MIN Glucose (74-106) mg/dL POC Glucometer 57 L 93 (74 to 106) mg/dL Calcium (8.4-10.2) mg/dL Magnesium (1.6-2.3) mg/dL Total Bilirubin (0.2-1.3) mg/dL AST (14-36) U/L ALT (0-35) U/L Alkaline Phosphatase (38-126) U/L Serum Total Protein (6.3-8.2) g/dL Albumin (3.5-5.0) g/dL Free T4 1.37 (0.78-2.19) ng/dL TSH 3rd Generation (0.470-4.680) mIU/L 05/31/24 Range/Units 10:47 WBC (3.98-10.04) x10^3/uL RBC (3.93-5.22) x10^6/uL Hgb (11.2-15.7) g/dL Hct (34.1-44.9) % MCV (79.4-94.8) fL MCH (25.6-32.2) pg MCHC (32.2-35.5) g/dL RDW (11.7-14.4) % Plt Count (182-369) x10^3/uL MPV (9.4-12.3) fL Sodium (135-145) mmol/L Potassium (3.5-5.1) mmol/L Chloride (98-107) mmol/L Carbon Dioxide (22-30) mmol/L Anion Gap (5-15) MEQ/L BUN (7-17) mg/dL Creatinine (0.52-1.04) mg/dL Estimated GFR ML/MIN Glucose (74-106) mg/dL POC Glucometer 93 (74 to 106) mg/dL Calcium (8.4-10.2) mg/dL Magnesium (1.6-2.3) mg/dL Total Bilirubin (0.2-1.3) mg/dL AST (14-36) U/L ALT (0-35) U/L Alkaline Phosphatase (38-126) U/L Serum Total Protein (6.3-8.2) g/dL Albumin (3.5-5.0) g/dL Free T4 (0.78-2.19) ng/dL TSH 3rd Generation (0.470-4.680) mIU/L Radiology Exams: Radiology Procedures Category Date Time Status ABDOMEN AND PELVIS W/0 CONTRAS [CT] Routine Exams 05/29/24 11:34 Completed CHEST 2 VIEWS (PA AND LAT) Stat Exams 05/29/24 10:16 Completed ECHO W/2D AND DOPPLER [US] Stat Exams 05/29/24 14:21 Taken Multi-Disciplinary Progress Notes: Multi-Disciplinary Progress Notes 05/30/24 17:50 Physical Therapy Note by Vidal(Wallace#[id number])Neva PT. WAS SEEN BY P.T. BID THIS DATE. PT. REPORTS SHE IS FEELING BETTER. IN AM PT. SEATED ON SIDE OF BED UPON P.T. ARRIVAL TO ROOM. AGREEABLE TO P.T. PERFORMED SIT TO STAND W/ CGA-MIN ASSIST W/ 2-3 TRUNK LEANS FORWARD FOR MOMENTUM. PT. AMBULATED 15' TO BATHROOM W/ FWW AND CGA-SBA. VERY SLOW PACE NOTED AND SHORT STRIDE LENGTH. ABLE TO PERFORM TOILET TRANSFER W/ CGA-MIN ASSIST. REPORTS SHE CANNOT REACH HER [place] AREA TO PERFORM AFTER TOILETING HYGIENE HERSELF. LOOSE STOOLS NOTED AND PT. HAD SMEAR OF B.M. IN DEPEND WELL. PT. SAT IN BEDSIDE RECLINER FOR LUNCH. IN P.M. AMBULATED TO RESTROOM AGAIN AND PERFORMED SIT TO STAND AND TOILET TRANSFER W/ SAME LEVEL OF ASSIST NOTED ABOVE. AFTER TOILETING, PT. AMBULATED ~80' W/ FWW AND CGA-SBA. AGAIN VERY SLOW PACE AND DECREASED STRIDE LENGTH NOTED. NO SIGNIFICANT UNSTEADINESS PRESENT BUT SLOW MOVEMENTS ARE A FALL RISK. PT. CONT. TO REPORT SHE WANTS TO D/C HOME W/ DAUGHTER AND DOES NOT WANT A REHAB STAY D/T CONCERNS FOR HER DAUGHTER'S MENTAL HEALTH. PT'S WEAKNESS AND DECREASED GAIT TOLERANCE CAUSE CONCERN FOR HER ABILITY TO CARE FOR HERSELF SAFELY AT HOME. WILL CONT. W/ P.T. 5X/WK UNTIL D/C. Initialized on 05/30/24 17:50 - END OF NOTE 05/30/24 11:35 Case Management Note by Adry Miller S/W PATIENT- SHE CONTINUES TO DECLINE A REHAB STAY AT THIS TIME. PATIENT VERY HOPEFUL TO RETURN HOME AT TIME OF DC. PATIENT ENCOURAGED TO WORK WITH PHYSICAL THERAPY AND WALK WITH NURSING. SHE VERIFIED UNDERSTANDING. PATIENT DOES NOT WANT HHC AT THIS TIME D/T ROACHES AT HOME BUT SHE IS AGREEABLE TO OTPT PHYSICAL THERAPY Initialized on 05/30/24 11:35 - END OF NOTE Assessment/Plan (1) Sepsis Current Visit: Yes Status: Acute (2) UTI (urinary tract infection) Current Visit: Yes Status: Acute Code(s): N39.0 - URINARY TRACT INFECTION, SITE NOT SPECIFIED (3) GABY (acute kidney injury) Current Visit: Yes Status: Acute Code(s): N17.9 - ACUTE KIDNEY FAILURE, UNSPECIFIED (4) AMS (altered mental status) Current Visit: Yes Status: Acute Code(s): R41.82 - ALTERED MENTAL STATUS, UNSPECIFIED (5) Chronic pain syndrome Current Visit: Yes Status: Acute Code(s): G89.4 - CHRONIC PAIN SYNDROME (6) HLD (hyperlipidemia) Current Visit: Yes Status: Acute Code(s): E78.5 - HYPERLIPIDEMIA, UNSPECIFIED (7) HTN (hypertension) Current Visit: Yes Status: Acute Code(s): I10 - ESSENTIAL (PRIMARY) HYPERTENSION (8) Hypoglycemia Current Visit: Yes Status: Acute Code(s): E16.2 - HYPOGLYCEMIA, UNSPECIFIED (9) Hypokalemia Current Visit: Yes Status: Acute Code(s): E87.6 - HYPOKALEMIA (10) Hypomagnesemia Current Visit: Yes Status: Acute Code(s): E83.42 - HYPOMAGNESEMIA (11) Increased anion gap metabolic acidosis Current Visit: Yes Status: Acute Code(s): E87.29 - OTHER ACIDOSIS (12) Morbid obesity Current Visit: Yes Status: Acute Code(s): E66.01 - MORBID (SEVERE) OBESITY DUE TO EXCESS CALORIES (13) DEUCE (obstructive sleep apnea) Current Visit: Yes Status: Acute Code(s): G47.33 - OBSTRUCTIVE SLEEP APNEA (ADULT) (PEDIATRIC) (14) Transaminitis Current Visit: Yes Status: Acute Code(s): R74.01 - ELEVATION OF LEVELS OF LIVER TRANSAMINASE LEVELS (15) Hallucinations, unspecified Current Visit: No Status: Acute Code(s): R44.3 - HALLUCINATIONS, UNSPECIFIED (16) Diarrhea Current Visit: Yes Status: Acute Code(s): R19.7 - DIARRHEA, UNSPECIFIED (17) Pericardial effusion Current Visit: Yes Status: Acute Assessment & Plan: (1) UTI (urinary tract infection) Current Visit: Yes Status: Acute Assessment & Plan: -UC + for e-coli and Klebsiella -continue ceftriaxone per sensitivity - WBC 26.7- trend - BC x2 ordered 05/29 - WBC 45.5 - Antibiotic changed to Merrem - Blood cultures x2 this am as she refused labs yesterday. - Cath UA with UC pending - Ugarte removed 05/30 - WBC 18.9 - Continue Merrem IV - no urinary retention 05/31 - WBC 16.6- improved - IV antibiotics Code(s): N39.0 - URINARY TRACT INFECTION, SITE NOT SPECIFIED (2) AMS (altered mental status) Current Visit: Yes Status: Acute Assessment & Plan: -Mentation has improved to baseline -Head CT with no acute findings Code(s): R41.82 - ALTERED MENTAL STATUS, UNSPECIFIED (3) GABY (acute kidney injury) Current Visit: Yes Status: Acute Assessment & Plan: -At baseline -Avoid nephrotoxic meds -monitor renal/lytes daily Code(s): N17.9 - ACUTE KIDNEY FAILURE, UNSPECIFIED (4) HTN (hypertension) Current Visit: Yes Status: Acute Assessment & Plan: -stable Code(s): I10 - ESSENTIAL (PRIMARY) HYPERTENSION (5) Transaminitis Current Visit: Yes Status: Acute Assessment & Plan: -CT abdomen showing hepatomegaly and diffuse steatosis -LFTs downtrending, TBili now wnl - continue to monitor Code(s): R74.01 - ELEVATION OF LEVELS OF LIVER TRANSAMINASE LEVELS (6) Increased anion gap metabolic acidosis Current Visit: Yes Status: Acute Assessment & Plan: -resolved Code(s): E87.29 - OTHER ACIDOSIS (7) HLD (hyperlipidemia) Current Visit: Yes Status: Acute Assessment & Plan: -continue statin Code(s): E78.5 - HYPERLIPIDEMIA, UNSPECIFIED (8) DEUCE (obstructive sleep apnea) Current Visit: Yes Status: Acute Assessment & Plan: -Cpap at [facility] Code(s): G47.33 - OBSTRUCTIVE SLEEP APNEA (ADULT) (PEDIATRIC) (9) Chronic pain syndrome Current Visit: Yes Status: Acute Assessment & Plan: - Narcotic pain meds BID restarted 05/29 Code(s): G89.4 - CHRONIC PAIN SYNDROME (10) Morbid obesity Current Visit: Yes Status: Acute Assessment & Plan: -advised heart healthy diet and exercise Code(s): E66.01 - MORBID (SEVERE) OBESITY DUE TO EXCESS CALORIES (11) Hypoglycemia Current Visit: Yes Status: Acute Assessment & Plan: -Unknown etiology - ? secondary to meds -A1c 4.03 -Continue D10 until able to tolerate diet - will need referral to endocrinology OP 05/29 - D10 decreased to 50ml/hr 05/30 - Continued hypoglycemia- cont. IVF 05/31 - Stop Inderal - Stop D10 - accucheck Q4 - Encouraged pt to eat Q2 hours to keep glucose up. Code(s): E16.2 - HYPOGLYCEMIA, UNSPECIFIED (12) Hallucinations, unspecified Current Visit: No Status: Acute Assessment & Plan: -Abilify while IP 05/30 - denies current hallucinations Code(s): R44.3 - HALLUCINATIONS, UNSPECIFIED (13) Hypokalemia Current Visit: Yes Status: Acute Assessment & Plan: -tele 05/30 - K+ 3.4- replaced- trend 05/31 - resolved Code(s): E87.6 - HYPOKALEMIA (14) Hypomagnesemia Current Visit: Yes Status: Acute Assessment & Plan: -resolved Code(s): E83.42 - HYPOMAGNESEMIA (15) Diarrhea Current Visit: Yes Status: Acute Assessment & Plan: - stool culture pending - c-dif pending - Abd CT IMPRESSION: 1. Hepatomegaly and diffuse steatosis. 2. Nonobstructing small right renal calculus 3. Clinical correlation is suggested. 05/29 - C-diff negative 05/30 - Pt reports chronic diarrhea - probiotics Code(s): R19.7 - DIARRHEA, UNSPECIFIED (17) Pericardial effusion Current Visit: Yes Status: Acute Assessment & Plan: - echo- EF 65% - decrease IVF - cardiology consult- reviewed note and agree with plan of care 05/31 - stop IVF - DUY hose for edema - Elevate legs VTE: Heparin PPI: Protonix D/c plan: 1-2 days Code(s): I31.39 - OTHER PERICARDIAL EFFUSION (NONINFLAMMATORY)
[2024-05-31] MEDS: Flonase NASAL NS SCH ×2 (15:53→16:06)
[2024-06-01 05:23] LABS: Hematocrit 27.9 % (34.1-44.9); Hemoglobin 9.3 g/dL (11.2-15.7); Mean Cell Volume 90.6 fL (79.4-94.8); Mean Corpuscular Hemoglobin 30.2 pg (25.6-32.2); Mean Corpuscular Hgb Concent. 33.3 g/dL (32.2-35.5); Mean Platelet Volume 12.1 fL (9.4-12.3); Platelet Count 140 x10^3/uL (182-369); Red Blood Count 3.08 x10^6/uL (3.93-5.22); Red Cell Distribution Width 14.6 % (11.7-14.4); White Blood Count 19.3 x10^3/uL (3.98-10.04)
[2024-06-01 05:52] LABS: ALBUMIN 2.3 g/dL (3.5-5.0); ANION GAP 8.6 MEQ/L (5-15); BILIRUBIN,TOTAL 0.8 mg/dL (0.2-1.3); Calcium 7.9 mg/dL (8.4-10.2); Creatinine 1 1.11 mg/dL (0.52-1.04); EST GLOMERULAR FILTRATION RATE 61.7 ML/MIN; Potassium 4.4 mmol/L (3.5-5.1); Total Protein 5.6 g/dL (6.3-8.2)
[2024-06-01] MEDS: Lasix 40 MG/4 ML IV ONE (12:08)
--- NOTE | 2024-06-01 12:35 | PCM.NOTE ---
Date and Time: 06/01/24 1228 Subjective Assessment: 05/28/24 Ms. Horowitz is a 49 year-old female with DEUCE on CPAP, HTN, hypothyroidism, morbid obesity, chronic pain, HLD, and chart diagnoses of - DM2, CAD, CHF, COPD admitted 05/26/24 with urosepsis after experiencing altered mental status and hypoglycemia requiring ED visit via EMS. EMS was called to help with the lift, but when they arrived at her home, they found her to be very altered from a mentation standpoint. Upon arrival to [facility], her laboratory data was remarkable for a UTI, an elevated Cr, increased LFTs, HCO3 18, WBC 20, and chronic anemia. CT head negative. Patient with transaminitis. CT abdomen demonstrates hepatomegaly and diffuse steatosis.Nonobstructing small right renal calculus. IN ED she was given D50 and a D5 infusion, but her blood sugar could not be maintained above 70, therefore she is now on a D10 drip. Blood glucose levels are stable with D10 infusion. Unsure of what is causing these episodes of hypoglycemia. A1c level is low at 4.03. Patient states she has had issues in the past. Would like her to follow up with endocrinology as OP and does have a glucometer at home to check blood glucose levels. She may need strips/lancets. IP treatment with ceftriaxone/IVF hydration- cultures with gram negative ID - sensitivity pending. Clinically she is looking much better today. Weakness has improved. She endorses that she has been having some hallucinations of levitating above the bed. Patient is normally on lurasidone but pharmacy does not carry this and no one at home can bring it in. Will sub with abilify which patient states she has tolerated in the past. Today pt is awake and alert. UC + for Klebsiella and e-coli. Continued ceftriaxone per sensitivity. Stool culture pending. WBC elevated today even after repeat lab ordered. Blood cultures ordered for AM as she is refusing any further IV sticks. She has not had a temp or any further concerning sxs. She denies any further concerns at this time. 05/29/24 Pt sitting up in the chair today. She is awake and alert. She is c/o some chronic lower back pain and would like her pain meds restarted at BID dosing. Labs were late to be done as she was a difficult stick per lab. WBC elevated at 45.5. LA elevated at 2.5. + for sepsis. 1 liter fluid bolus gave and will recheck. Ugarte d/cd's and may be the cause of infection. She denies any pain other than chronic back pain and her vitals are stable. CXR non-concerning. CT abd shows New pericardial effusion/thickening better evaluated with echocardiogram. Urinary bladder intraluminal air either iatrogenic versus gas-forming infection. Again chronic findings including small hiatal hernia, fatty hepatomegaly, and nonobstructing right renal micro-calculus. Echo ordered for further evaluation. Pt denies CP, SOB, abd. pain, N/V/D. 05/30/24 Pt sitting up in the chair. She reports she is feeling better today. WBC has improved 18.9, since starting Merrem. K+ 3.4 and replaced. Corrected Ca+ 8.7. EF 65% per Echo results. She is alert and oriented. Cardiology consulted as pt had a pericardial effusion as seen on CT- echo reviewed for further evaluation and case discussed. No new changes at this time. She denies Cp, SOB, abd. pain, N/V/D. 05/31/24 Pt sitting up in the chair. She states she is feeling better but still weak. She admits to not eating well and encouraged pt to try and eat something Q2 hours to keep glucose up. D10 stopped. Pharmacist- Ranulfo- Reviewed meds and explained Inderal can cause hypoglycemia so this med was stopped. Pt having some edema of BLLE, DUY berger ordered. She is to work again with PT and she has continued weakness. Plan is for d/c in 1-2 days if glucose is controlled. 06/01/24 Pt resting in chair. She asked provider not to give any more lasix today as she is tired of urinating on herself. Explained I have not been giving her any lasix. However, she would benefit from some today as she is edematous, AST, ALT elevated form fluid retention. Went back into room later and she is agreeable x1 dose. She has decided to go to rehab facility. She is psychologically stable. She will likely require 30 days or less. She wants to be home with her daughter. Offered transfer to higher level of care for continued low blood glucose and she opted to go to rehab and f/u OP with endocrinology. Discussed that she will need to eat every 2 hours to continue to keep her glucose up. She will also need her blood sugars checked more often. She reported she understood all of this. She wa s unable to walk steps yesterday with PT and she has steps into her home. She denies CP, SOB, abd. pain, N/V/D. - Review of Systems Constitutional: No Fever, No Chills Eyes: No Symptoms Ears, Nose, & Throat: No Symptoms Respiratory: No Cough, No Short Of Breath Cardiac: Edema, No Chest Pain, No Syncope Abdominal/Gastrointestinal: No Abdominal Pain, No Nausea, No Vomiting, No Diarrhea Genitourinary Symptoms: No Dysuria Musculoskeletal: No Back Pain, No Neck Pain Skin: No Rash Neurological: No Dizziness, No Focal Weakness, No Sensory Changes Psychological: No Symptoms Endocrine: No Symptoms Hematologic/Lymphatic: No Symptoms Immunological/Allergic: No Symptoms Objective Exam General Appearance: no apparent distress, alert, obese Neurologic Exam: alert, oriented x 3, cooperative, normal mood/affect, nml cerebellar function, sensation nml, No motor deficits Skin Exam: normal color, warm, dry Eye Exam: PERRL, EOMI, eyes nml inspection Ears, Nose, Throat Exam: normal ENT inspection, pharynx normal, moist mucous membranes Neck Exam: normal inspection, non-tender, supple, full range of motion Respiratory Exam: normal breath sounds, lungs clear, No respiratory distress Cardiovascular Exam: regular rate/rhythm, normal heart sounds, edema Gastrointestinal/Abdomen Exam: soft, No tenderness, No mass Extremity Exam: normal inspection, normal range of motion Back Exam: normal inspection, normal range of motion, No CVA tenderness, No vertebral tenderness Pelvic Exam: deferred Rectal Exam: deferred Objective Data Vital Signs: Vital Signs - 24 hr Temp Pulse Resp BP Pulse Ox 06/01/24 08:00 99.3 F 112 H 20 129/70 97 06/01/24 04:00 97.8 F 104 H 20 113/55 97 06/01/24 00:00 97.9 F 97 H 16 115/55 94 L 05/31/24 20:10 95 05/31/24 20:00 98.1 F 92 H 20 115/61 97 05/31/24 16:00 99.1 F 94 H 20 121/67 95 Pain Assessment - Last Documented Pain Intensity 5 Pain Scale Used 0-10 Pain Scale Intake and Output: Intake & Output 05/30/24 05/31/24 06/01/24 06/02/24 11:59 11:59 11:59 11:59 Intake Total 3270 2378 740 Output Total 500 Balance 2770 2378 740 Lab Results: Lab Results-Last 24 Hours 05/31/24 05/31/24 05/31/24 Range/Units 15:43 16:30 20:26 WBC (3.98-10.04) x10^3/uL RBC (3.93-5.22) x10^6/uL Hgb (11.2-15.7) g/dL Hct (34.1-44.9) % MCV (79.4-94.8) fL MCH (25.6-32.2) pg MCHC (32.2-35.5) g/dL RDW (11.7-14.4) % Plt Count (182-369) x10^3/uL MPV (9.4-12.3) fL Sodium (135-145) mmol/L Potassium (3.5-5.1) mmol/L Chloride (98-107) mmol/L Carbon Dioxide (22-30) mmol/L Anion Gap (5-15) MEQ/L BUN (7-17) mg/dL Creatinine (0.52-1.04) mg/dL Estimated GFR ML/MIN Glucose (74-106) mg/dL POC Glucometer 68 L 107 H 70 L (74 to 106) mg/dL Calcium (8.4-10.2) mg/dL Total Bilirubin (0.2-1.3) mg/dL AST (14-36) U/L ALT (0-35) U/L Alkaline Phosphatase (38-126) U/L Serum Total Protein (6.3-8.2) g/dL Albumin (3.5-5.0) g/dL 06/01/24 06/01/24 06/01/24 Range/Units 03:44 04:35 04:35 WBC 19.3 H (3.98-10.04) x10^3/uL RBC 3.08 L (3.93-5.22) x10^6/uL Hgb 9.3 L (11.2-15.7) g/dL Hct 27.9 L (34.1-44.9) % MCV 90.6 (79.4-94.8) fL MCH 30.2 (25.6-32.2) pg MCHC 33.3 (32.2-35.5) g/dL RDW 14.6 H (11.7-14.4) % Plt Count 140 L D (182-369) x10^3/uL MPV 12.1 (9.4-12.3) fL Sodium 135 (135-145) mmol/L Potassium 4.4 (3.5-5.1) mmol/L Chloride 106 (98-107) mmol/L Carbon Dioxide 25 (22-30) mmol/L Anion Gap 8.6 (5-15) MEQ/L BUN 13 (7-17) mg/dL Creatinine 1.11 H (0.52-1.04) mg/dL Estimated GFR 61.7 ML/MIN Glucose 105 (74-106) mg/dL POC Glucometer 64 L (74 to 106) mg/dL Calcium 7.9 L (8.4-10.2) mg/dL Total Bilirubin 0.80 (0.2-1.3) mg/dL AST 138 H (14-36) U/L ALT 120 H (0-35) U/L Alkaline Phosphatase 388 H (38-126) U/L Serum Total Protein 5.6 L (6.3-8.2) g/dL Albumin 2.3 L (3.5-5.0) g/dL 06/01/24 06/01/24 Range/Units 05:27 07:56 WBC (3.98-10.04) x10^3/uL RBC (3.93-5.22) x10^6/uL Hgb (11.2-15.7) g/dL Hct (34.1-44.9) % MCV (79.4-94.8) fL MCH (25.6-32.2) pg MCHC (32.2-35.5) g/dL RDW (11.7-14.4) % Plt Count (182-369) x10^3/uL MPV (9.4-12.3) fL Sodium (135-145) mmol/L Potassium (3.5-5.1) mmol/L Chloride (98-107) mmol/L Carbon Dioxide (22-30) mmol/L Anion Gap (5-15) MEQ/L BUN (7-17) mg/dL Creatinine (0.52-1.04) mg/dL Estimated GFR ML/MIN Glucose (74-106) mg/dL POC Glucometer 94 61 L (74 to 106) mg/dL Calcium (8.4-10.2) mg/dL Total Bilirubin (0.2-1.3) mg/dL AST (14-36) U/L ALT (0-35) U/L Alkaline Phosphatase (38-126) U/L Serum Total Protein (6.3-8.2) g/dL Albumin (3.5-5.0) g/dL Multi-Disciplinary Progress Notes: Multi-Disciplinary Progress Notes 06/01/24 10:28 Physical Therapy Note by Joslyn(Wallace#[id number])Jeanna PATIENT AWAKE IN BED UPON P.T. ARRIVAL TO ROOM. PATIENT STATES SHE IS UPSET DUE TO [employer] BEING UPSET ABOUT FACEBOOK POST MADE BY SISTER. STATES HE TOLD HER IF SHE DIDN'T LIKE LIVING THERE SHE COULD FIND SOME PLACE ELSE. PATIENT REPORTS SHE IS CONCERNED ABOUT GETTING UP STEPS TO GET IN HOME AND HE WON'T PUT IN RAMP. PATIENT REPORTS STEPS ARE ABOUT 3" AND IN PAST WOULD JUST PULL HERSELF IN. STATES WOULD ONLY GO IN/OUT OF OME 1-2 TIMES A MONTH. ON THIS DATE PATIENT REQUIRED ASSIST TO SIT ON EDGE OF BED - MIN/MOD ASSIST. STATES AT HOME SHE IS ABLE TO ROLL FULLY TO HER SIDE AND GET UP WITHOUT ASSIST MOST MORNINGS. SITTING ON EDGE OF BED ON THIS DATE PATIENT ABLE TO MOVE SIT TO STAND WITH 2WW WITHOUT P.T. ASSIST X 3. AMBULATED TO/FROM BATHROOM WITHOUT ASSIST WITH 2WW WITH GOOD FOOT CLEARANCE. SIT TO STAND TO SIT OFF TOILET WITH ELEVATED SEAT INDEP. PATIENT REPORTS HAS STANDARD TOILET AT HOME AND SOMETIMES DAUGHTER HAS TO HELP HER OFF TOILET. PATIENT ABLE TO PLACE FOOT ON 6" STEP WITHOUT DIFFICULTY BUT NOT CONFIDENT TO STEP UP. RECOMMENDATION: PATIENT DECLINES REHAB PLACEMENT. DOES AGREE TO HOME HEALTH TO CONTINUE THERAPY AND ASSIST WITH POSSIBLE EQUIPMENT/HOME MODIFICATIONS. RECOMMEND ELEVATED TOILET SEAT AND GRAB BARS IN BATHROOM AND FOR ENTRY/EXIT OF HOME. Initialized on 06/01/24 10:28 - END OF NOTE 05/31/24 17:21 Physical Therapy Note by Vidal(Wallace#[id number])Neva PT. WAS SEEN BY [employer]. THIS P.M. REPORTS SHE IS FEELING SLIGHTLY BETTER BUT STILL C/O FATIGUE AND HAS HAD LOW BLOOD SUGARS. WHIRLEY OPERATOR TOOK BLOOD GLUCOSE @ BEGINNING OF RX AND WAS 68. PT. DRANK SWEETENED ORANGE JUICE. PERFORMING SIT TO STAND W/ MIN ASSIST W/ TRUNK FLEXION WEIGHT SHIFTS X 3 PRIOR TO STAND TO INCREASE MOMENTUM. PT. AMBULATED ~ 60' IN ROOM W/ FWW AND CGA-SBA. SLIGHTLY IMPROVED PACE AND FOOT CLEARANCE NOTED. PT. HAS 3 STEPS AND NO HR TO ENTER HOME. REPORTS SHE HOLDS ON TO DOOR FOR SUPPORT. ATTEMPTED TO STEP ONTO SINGKE 6" STEP W/ WALKER AND PT. NOTE ABLE TO PERFORM D/T WEAKNESS AND FEAR OF FALLING. ABLE TO STEP EACH FOOT UP ONTO STEP W/ MIN-MOD ASSIST TO LIFT FOOT ALL THE WAY ONTO STEP. PT.'S DAUGHTER SENT PIC OF ENTRY TO HOME AND STEPS APPEAR TO BE 3" HIGH, BUT FEEL THIS WILL STILL BE VERY DIFFICULT FOR PT. TO NAVIGATE AT HER CURRENT FUNCTIONAL STATUS D/T WEAKNESS AND DECREASED BALANCE. AGAIN, DISCUSSED NEED FOR A REHAB STAY TO ADDRESS WEAKNESS AND DECREASED ACTIVITY TOLERANCE TO INCREASE PT'S ABILITY TO CARE FOR HERSELF W/ SOME ASSIST OF DAUGHTER AT D/C. ADVISED PT. THAT [facility] IS CLOSE TO HER RESIDENCE AND WOULD BE EASIER FOR DAUGHTER TO VISIT. PT. DID NOT AGREE TO REHAB STAY AT THIS TIME. WILL CONT. P.T. 5X/WK UNTIL D/C TO ADDRESS WEAKNESS AND DECREASED BALANCE AND ACTIVITY TOLERANCE. Initialized on 05/31/24 17:21 - END OF NOTE 05/31/24 14:10 Case Management Note by Adry Miller PATIENT CONTINUES TO BE HOPEFUL TO DC HOME AT TIME OF DC. SHE IS WORKING WITH PHYSICAL THERAPY. SHE UNDERSTANDS THAT IF SHE DISCHARGES HOME SHE IS AT JIL FOR FALL, INJURY AND . Initialized on 05/31/24 14:10 - END OF NOTE Assessment/Plan (1) Sepsis Current Visit: Yes Status: Acute (2) UTI (urinary tract infection) Current Visit: Yes Status: Acute Code(s): N39.0 - URINARY TRACT INFECTION, SITE NOT SPECIFIED (3) GABY (acute kidney injury) Current Visit: Yes Status: Acute Code(s): N17.9 - ACUTE KIDNEY FAILURE, UNSPECIFIED (4) AMS (altered mental status) Current Visit: Yes Status: Acute Code(s): R41.82 - ALTERED MENTAL STATUS, UNSPECIFIED (5) Chronic pain syndrome Current Visit: Yes Status: Acute Code(s): G89.4 - CHRONIC PAIN SYNDROME (6) HLD (hyperlipidemia) Current Visit: Yes Status: Acute Code(s): E78.5 - HYPERLIPIDEMIA, UNSPECIFIED (7) HTN (hypertension) Current Visit: Yes Status: Acute Code(s): I10 - ESSENTIAL (PRIMARY) HYPERTENSION (8) Hypoglycemia Current Visit: Yes Status: Acute Code(s): E16.2 - HYPOGLYCEMIA, UNSPECIFIED (9) Hypokalemia Current Visit: Yes Status: Acute Code(s): E87.6 - HYPOKALEMIA (10) Hypomagnesemia Current Visit: Yes Status: Acute Code(s): E83.42 - HYPOMAGNESEMIA (11) Increased anion gap metabolic acidosis Current Visit: Yes Status: Acute Code(s): E87.29 - OTHER ACIDOSIS (12) Morbid obesity Current Visit: Yes Status: Acute Code(s): E66.01 - MORBID (SEVERE) OBESITY DUE TO EXCESS CALORIES (13) DEUCE (obstructive sleep apnea) Current Visit: Yes Status: Acute Code(s): G47.33 - OBSTRUCTIVE SLEEP APNEA (ADULT) (PEDIATRIC) (14) Transaminitis Current Visit: Yes Status: Acute Code(s): R74.01 - ELEVATION OF LEVELS OF LIVER TRANSAMINASE LEVELS (15) Hallucinations, unspecified Current Visit: No Status: Acute Code(s): R44.3 - HALLUCINATIONS, UNSPECIFIED (16) Diarrhea Current Visit: Yes Status: Acute Code(s): R19.7 - DIARRHEA, UNSPECIFIED (17) Pericardial effusion Current Visit: Yes Status: Acute Assessment & Plan: (1) UTI (urinary tract infection) Current Visit: Yes Status: Acute Assessment & Plan: -UC + for e-coli and Klebsiella -continue ceftriaxone per sensitivity - WBC 26.7- trend - BC x2 ordered 8/13 - WBC 45.5 - Antibiotic changed to Merrem - Blood cultures x2 this am as she refused labs yesterday. - Cath UA with UC pending - Ugarte removed 05/30 - WBC 18.9 - Continue Merrem IV - no urinary retention 05/31 - WBC 16.6- improved - IV antibiotics Code(s): N39.0 - URINARY TRACT INFECTION, SITE NOT SPECIFIED (2) AMS (altered mental status) Current Visit: Yes Status: Acute Assessment & Plan: -Mentation has improved to baseline -Head CT with no acute findings Code(s): R41.82 - ALTERED MENTAL STATUS, UNSPECIFIED (3) GABY (acute kidney injury) Current Visit: Yes Status: Acute Assessment & Plan: -At baseline -Avoid nephrotoxic meds -monitor renal/lytes daily Code(s): N17.9 - ACUTE KIDNEY FAILURE, UNSPECIFIED (4) HTN (hypertension) Current Visit: Yes Status: Acute Assessment & Plan: -stable Code(s): I10 - ESSENTIAL (PRIMARY) HYPERTENSION (5) Transaminitis Current Visit: Yes Status: Acute Assessment & Plan: -CT abdomen showing hepatomegaly and diffuse steatosis -LFTs downtrending, TBili now wnl - continue to monitor Code(s): R74.01 - ELEVATION OF LEVELS OF LIVER TRANSAMINASE LEVELS (6) Increased anion gap metabolic acidosis Current Visit: Yes Status: Acute Assessment & Plan: -resolved Code(s): E87.29 - OTHER ACIDOSIS (7) HLD (hyperlipidemia) Current Visit: Yes Status: Acute Assessment & Plan: -continue statin Code(s): E78.5 - HYPERLIPIDEMIA, UNSPECIFIED (8) DEUCE (obstructive sleep apnea) Current Visit: Yes Status: Acute Assessment & Plan: -Cpap at [facility] Code(s): G47.33 - OBSTRUCTIVE SLEEP APNEA (ADULT) (PEDIATRIC) (9) Chronic pain syndrome Current Visit: Yes Status: Acute Assessment & Plan: - Narcotic pain meds BID restarted 05/29 Code(s): G89.4 - CHRONIC PAIN SYNDROME (10) Morbid obesity Current Visit: Yes Status: Acute Assessment & Plan: -advised heart healthy diet and exercise Code(s): E66.01 - MORBID (SEVERE) OBESITY DUE TO EXCESS CALORIES (11) Hypoglycemia Current Visit: Yes Status: Acute Assessment & Plan: -Unknown etiology - ? secondary to meds -A1c 4.03 -Continue D10 until able to tolerate diet - will need referral to endocrinology OP 05/29 - D10 decreased to 50ml/hr 05/30 - Continued hypoglycemia- cont. IVF 05/31 - Stop Inderal - Stop D10 - accucheck Q4 - Encouraged pt to eat Q2 hours to keep glucose up. 06/01 - continued intermittent hyoglycemia - pt refused tx to higher level of care - she is willing to f/u OP with endocrinology. Code(s): E16.2 - HYPOGLYCEMIA, UNSPECIFIED (12) Hallucinations, unspecified Current Visit: No Status: Acute Assessment & Plan: -Abilify while IP 05/30 - denies current hallucinations Code(s): R44.3 - HALLUCINATIONS, UNSPECIFIED (13) Hypokalemia Current Visit: Yes Status: Acute Assessment & Plan: -tele 05/30 - K+ 3.4- replaced- trend 05/31 - resolved Code(s): E87.6 - HYPOKALEMIA (14) Hypomagnesemia Current Visit: Yes Status: Acute Assessment & Plan: -resolved Code(s): E83.42 - HYPOMAGNESEMIA (15) Diarrhea Current Visit: Yes Status: Acute Assessment & Plan: - stool culture pending - c-dif pending - Abd CT IMPRESSION: 1. Hepatomegaly and diffuse steatosis. 2. Nonobstructing small right renal calculus 3. Clinical correlation is suggested. 05/29 - C-diff negative 05/30 - Pt reports chronic diarrhea - probiotics Code(s): R19.7 - DIARRHEA, UNSPECIFIED (17) Pericardial effusion Current Visit: Yes Status: Acute Assessment & Plan: - echo- EF 65% - decrease IVF - cardiology consult- reviewed note and agree with plan of care 05/31 - stop IVF - DUY hose for edema - Elevate legs Code(s): I31.39 - OTHER PERICARDIAL EFFUSION (NONINFLAMMATORY) (18) Edema Current Visit: Yes Status: Acute Assessment & Plan: - Lasix IV x1- she refused any more than that - re-eval edema tomorrow - AST/ALT elevated - likely cause of WBC elevation VTE: Heparin PPI: Protonix D/c plan: Tuesday? - when accepted by rehab Code(s): R60.9 - EDEMA, UNSPECIFIED
[2024-06-02 06:33] LABS: ALBUMIN 1.8 g/dL (3.5-5.0); ANION GAP 9.7 MEQ/L (5-15); BILIRUBIN,TOTAL 0.6 mg/dL (0.2-1.3); Calcium 7.5 mg/dL (8.4-10.2); Creatinine 1 0.9 mg/dL (0.52-1.04); EST GLOMERULAR FILTRATION RATE 79.4 ML/MIN; Potassium 4.1 mmol/L (3.5-5.1); Total Protein 4.7 g/dL (6.3-8.2)
[2024-06-02 08:13] LABS: Hematocrit 23.5 % (34.1-44.9); Mean Corpuscular Hemoglobin 30.7 pg (25.6-32.2); Mean Platelet Volume 11.4 fL (9.4-12.3); Platelet Count 179 x10^3/uL (182-369); Red Blood Count 2.61 x10^6/uL (3.93-5.22); White Blood Count 14.2 x10^3/uL (3.98-10.04)
--- NOTE | 2024-06-02 11:20 | PCM.NOTE ---
Date and Time: 06/02/24 1111 Subjective Assessment: 05/28/24 Ms. Horowitz is a 49 year-old female with DEUCE on CPAP, HTN, hypothyroidism, morbid obesity, chronic pain, HLD, and chart diagnoses of - DM2, CAD, CHF, COPD admitted 05/26/24 with urosepsis after experiencing altered mental status and hypoglycemia requiring ED visit via EMS. EMS was called to help with the lift, but when they arrived at her home, they found her to be very altered from a mentation standpoint. Upon arrival to [place], her laboratory data was remarkable for a UTI, an elevated Cr, increased LFTs, HCO3 18, WBC 20, and chronic anemia. CT head negative. Patient with transaminitis. CT abdomen demonstrates hepatomegaly and diffuse steatosis.Nonobstructing small right renal calculus. IN ED she was given D50 and a D5 infusion, but her blood sugar could not be maintained above 70, therefore she is now on a D10 drip. Blood glucose levels are stable with D10 infusion. Unsure of what is causing these episodes of hypoglycemia. A1c level is low at 4.03. Patient states she has had issues in the past. Would like her to follow up with endocrinology as OP and does have a glucometer at home to check blood glucose levels. She may need strips/lancets. IP treatment with ceftriaxone/IVF hydration- cultures with gram negative ID - sensitivity pending. Clinically she is looking much better today. Weakness has improved. She endorses that she has been having some hallucinations of levitating above the bed. Patient is normally on lurasidone but pharmacy does not carry this and no one at home can bring it in. Will sub with abilify which patient states she has tolerated in the past. Today pt is awake and alert. UC + for Klebsiella and e-coli. Continued ceftriaxone per sensitivity. Stool culture pending. WBC elevated today even after repeat lab ordered. Blood cultures ordered for AM as she is refusing any further IV sticks. She has not had a temp or any further concerning sxs. She denies any further concerns at this time. 05/29/24 Pt sitting up in the chair today. She is awake and alert. She is c/o some chronic lower back pain and would like her pain meds restarted at BID dosing. Labs were late to be done as she was a difficult stick per lab. WBC elevated at 45.5. LA elevated at 2.5. + for sepsis. 1 liter fluid bolus gave and will recheck. Ugarte d/cd's and may be the cause of infection. She denies any pain other than chronic back pain and her vitals are stable. CXR non-concerning. CT abd shows New pericardial effusion/thickening better evaluated with echocardiogram. Urinary bladder intraluminal air either iatrogenic versus gas-forming infection. Again chronic findings including small hiatal hernia, fatty hepatomegaly, and nonobstructing right renal micro-calculus. Echo ordered for further evaluation. Pt denies CP, SOB, abd. pain, N/V/D. 05/30/24 Pt sitting up in the chair. She reports she is feeling better today. WBC has improved 18.9, since starting Merrem. K+ 3.4 and replaced. Corrected Ca+ 8.7. EF 65% per Echo results. She is alert and oriented. Cardiology consulted as pt had a pericardial effusion as seen on CT- echo reviewed for further evaluation and case discussed. No new changes at this time. She denies Cp, SOB, abd. pain, N/V/D. 05/31/24 Pt sitting up in the chair. She states she is feeling better but still weak. She admits to not eating well and encouraged pt to try and eat something Q2 hours to keep glucose up. D10 stopped. Pharmacist- Ranulfo- Reviewed meds and explained Inderal can cause hypoglycemia so this med was stopped. Pt having some edema of BLLE, DUY berger ordered. She is to work again with PT and she has continued weakness. Plan is for d/c in 1-2 days if glucose is controlled. 06/01/24 Pt resting in chair. She asked provider not to give any more lasix today as she is tired of urinating on herself. Explained I have not been giving her any lasix. However, she would benefit from some today as she is edematous, AST, ALT elevated form fluid retention. Went back into room later and she is agreeable x1 dose. She has decided to go to rehab facility. She is psychologically stable. She will likely require 30 days or less. She wants to be home with her daughter. Offered transfer to higher level of care for continued low blood glucose and she opted to go to rehab and f/u OP with endocrinology. Discussed that she will need to eat every 2 hours to continue to keep her glucose up. She will also need her blood sugars checked more often. She reported she understood all of this. She wa s unable to walk steps yesterday with PT and she has steps into her home. She denies CP, SOB, abd. pain, N/V/D. 06/02/24 Pt resting in bed. She was already up in the chair this AM and wanted to lay b ack down. She again has + 3 pitting edema of BLLE, and her hands are puffy. She attributes her hands being swollen to IV sticks. Will give another dose of IV Lasix today. She is scheduled to go to rehab Tuesday. She continues to have recurrent episodes of hypoglycemia. Again encouraged her to eat Q2 hours as she is unable to have IV fluids d/t her edema. Propanolol stopped the other day and per pharmacy advise for hypoglycemia will change to Toprolol XL 25mg daily. Pt asking for her pain meds to be increased to home dosing. Since she now awake and alert this is reasonable. Continue IV antibiotics for UTI. She denies CP, SOB, abd. pain, N/V. - Review of Systems Constitutional: No Fever, No Chills Eyes: No Symptoms Ears, Nose, & Throat: No Symptoms Respiratory: No Cough, No Short Of Breath Cardiac: Edema, No Chest Pain, No Syncope Abdominal/Gastrointestinal: No Abdominal Pain, No Nausea, No Vomiting, No Diarrhea Genitourinary Symptoms: No Dysuria Musculoskeletal: No Back Pain, No Neck Pain Skin: No Rash Neurological: No Dizziness, No Focal Weakness, No Sensory Changes Psychological: No Symptoms Endocrine: No Symptoms Hematologic/Lymphatic: No Symptoms Immunological/Allergic: No Symptoms Objective Exam General Appearance: no apparent distress, alert, obese Neurologic Exam: alert, oriented x 3, cooperative, normal mood/affect, nml cerebellar function, sensation nml, No motor deficits Skin Exam: normal color, warm, dry Eye Exam: PERRL, EOMI, eyes nml inspection Ears, Nose, Throat Exam: normal ENT inspection, pharynx normal, moist mucous membranes Neck Exam: normal inspection, non-tender, supple, full range of motion Respiratory Exam: normal breath sounds, lungs clear, No respiratory distress Cardiovascular Exam: regular rate/rhythm, normal heart sounds, tachycardia, edema Gastrointestinal/Abdomen Exam: soft, No tenderness, No mass Extremity Exam: normal inspection, normal range of motion Back Exam: normal inspection, normal range of motion, No CVA tenderness, No vertebral tenderness Pelvic Exam: deferred Rectal Exam: deferred Objective Data Vital Signs: Vital Signs - 24 hr Temp Pulse Resp BP Pulse Ox 06/02/24 08:43 109 H 16 98 06/02/24 08:00 97.1 F 86 22 109/55 98 06/02/24 04:00 98.5 F 111 H 19 129/60 98 06/02/24 00:00 98.3 F 116 H 20 140/65 99 06/01/24 20:00 98.0 F 117 H 18 122/66 99 06/01/24 19:00 117 H 18 99 06/01/24 16:00 97.9 F 108 H 18 125/71 99 06/01/24 12:00 97.5 F 106 H 18 132/65 100 Pain Assessment - Last Documented Pain Intensity 8 Pain Scale Used 0-10 Pain Scale Intake and Output: Intake & Output 05/30/24 05/31/24 06/01/24 06/02/24 11:59 11:59 11:59 11:59 Intake Total 3270 2378 860 1550 Output Total 500 Balance 2770 2378 860 1550 Lab Results: Lab Results-Last 24 Hours 06/01/24 06/01/24 06/01/24 Range/Units 16:28 18:03 19:23 WBC (3.98-10.04) x10^3/uL RBC (3.93-5.22) x10^6/uL Hgb (11.2-15.7) g/dL Hct (34.1-44.9) % MCV (79.4-94.8) fL MCH (25.6-32.2) pg MCHC (32.2-35.5) g/dL RDW (11.7-14.4) % Plt Count (182-369) x10^3/uL MPV (9.4-12.3) fL Sodium (135-145) mmol/L Potassium (3.5-5.1) mmol/L Chloride (98-107) mmol/L Carbon Dioxide (22-30) mmol/L Anion Gap (5-15) MEQ/L BUN (7-17) mg/dL Creatinine (0.52-1.04) mg/dL Estimated GFR ML/MIN Glucose (74-106) mg/dL POC Glucometer 59 L 70 L 125 H (74 to 106) mg/dL Calcium (8.4-10.2) mg/dL Total Bilirubin (0.2-1.3) mg/dL AST (14-36) U/L ALT (0-35) U/L Alkaline Phosphatase (38-126) U/L Serum Total Protein (6.3-8.2) g/dL Albumin (3.5-5.0) g/dL 06/01/24 06/02/24 06/02/24 Range/Units 22:36 00:27 04:15 WBC (3.98-10.04) x10^3/uL RBC (3.93-5.22) x10^6/uL Hgb (11.2-15.7) g/dL Hct (34.1-44.9) % MCV (79.4-94.8) fL MCH (25.6-32.2) pg MCHC (32.2-35.5) g/dL RDW (11.7-14.4) % Plt Count (182-369) x10^3/uL MPV (9.4-12.3) fL Sodium (135-145) mmol/L Potassium (3.5-5.1) mmol/L Chloride (98-107) mmol/L Carbon Dioxide (22-30) mmol/L Anion Gap (5-15) MEQ/L BUN (7-17) mg/dL Creatinine (0.52-1.04) mg/dL Estimated GFR ML/MIN Glucose (74-106) mg/dL POC Glucometer 87 86 66 L (74 to 106) mg/dL Calcium (8.4-10.2) mg/dL Total Bilirubin (0.2-1.3) mg/dL AST (14-36) U/L ALT (0-35) U/L Alkaline Phosphatase (38-126) U/L Serum Total Protein (6.3-8.2) g/dL Albumin (3.5-5.0) g/dL 06/02/24 06/02/24 06/02/24 Range/Units 04:47 05:30 05:30 WBC 14.2 H (3.98-10.04) x10^3/uL RBC 2.61 L (3.93-5.22) x10^6/uL Hgb 8.0 L (11.2-15.7) g/dL Hct 23.5 L (34.1-44.9) % MCV 90.0 (79.4-94.8) fL MCH 30.7 (25.6-32.2) pg MCHC 34.0 (32.2-35.5) g/dL RDW 14.0 (11.7-14.4) % Plt Count 179 L (182-369) x10^3/uL MPV 11.4 (9.4-12.3) fL Sodium 135 (135-145) mmol/L Potassium 4.1 (3.5-5.1) mmol/L Chloride 106 (98-107) mmol/L Carbon Dioxide 23 (22-30) mmol/L Anion Gap 9.7 (5-15) MEQ/L BUN 12 (7-17) mg/dL Creatinine 0.90 (0.52-1.04) mg/dL Estimated GFR 79.4 ML/MIN Glucose 104 (74-106) mg/dL POC Glucometer 88 (74 to 106) mg/dL Calcium 7.5 L (8.4-10.2) mg/dL Total Bilirubin 0.60 (0.2-1.3) mg/dL AST 81 H (14-36) U/L ALT 89 H (0-35) U/L Alkaline Phosphatase 313 H (38-126) U/L Serum Total Protein 4.7 L (6.3-8.2) g/dL Albumin 1.8 L (3.5-5.0) g/dL 06/02/24 Range/Units 07:13 WBC (3.98-10.04) x10^3/uL RBC (3.93-5.22) x10^6/uL Hgb (11.2-15.7) g/dL Hct (34.1-44.9) % MCV (79.4-94.8) fL MCH (25.6-32.2) pg MCHC (32.2-35.5) g/dL RDW (11.7-14.4) % Plt Count (182-369) x10^3/uL MPV (9.4-12.3) fL Sodium (135-145) mmol/L Potassium (3.5-5.1) mmol/L Chloride (98-107) mmol/L Carbon Dioxide (22-30) mmol/L Anion Gap (5-15) MEQ/L BUN (7-17) mg/dL Creatinine (0.52-1.04) mg/dL Estimated GFR ML/MIN Glucose (74-106) mg/dL POC Glucometer 68 L (74 to 106) mg/dL Calcium (8.4-10.2) mg/dL Total Bilirubin (0.2-1.3) mg/dL AST (14-36) U/L ALT (0-35) U/L Alkaline Phosphatase (38-126) U/L Serum Total Protein (6.3-8.2) g/dL Albumin (3.5-5.0) g/dL Multi-Disciplinary Progress Notes: Multi-Disciplinary Progress Notes 06/01/24 14:14 Case Management Note by Adry Miller PAPERWORK NOW REQUIRING A LEVEL II ONSITE ASSESSMENT- THIS WILL HAVE TO BE COMPLETE PRIOR TO DC TO [place] Initialized on 06/01/24 14:14 - END OF NOTE 06/01/24 14:08 Case Management Note by Adry Miller S/W PATIENT ABOUT PLANS AT DC- PATIENT NOTIFIED DYER HELPER AND PT ARE CONCERNED ABOUT HER RETURNING HOME. WE DISCUSSED REHAB STAY. THIS UPHOLSTERY TECHNICIAN ANSWERED PATIENT'S QUESTIONS ABOUT A REHAB STAY. SHE HAS DECIDED SHE WOULD LIKE TO TRY A REHAB STAY AND WOULD LIKE TO GO TO THE REHAB IN [place] SO HER DAUGHTER CAN WALK TO THE FACILITY AND SEE HER. PATIENT'S POA, CORI, UPDATED AND AGREEABLE WITH PLAN. REFERRAL FAXED TO [facility] PAPERWORK STARTED AND PENDING AT THIS TIME Initialized on 06/01/24 14:08 - END OF NOTE Assessment/Plan (1) Sepsis Current Visit: Yes Status: Acute (2) UTI (urinary tract infection) Current Visit: Yes Status: Acute Code(s): N39.0 - URINARY TRACT INFECTION, SITE NOT SPECIFIED (3) GABY (acute kidney injury) Current Visit: Yes Status: Acute Code(s): N17.9 - ACUTE KIDNEY FAILURE, UNSPECIFIED (4) AMS (altered mental status) Current Visit: Yes Status: Acute Code(s): R41.82 - ALTERED MENTAL STATUS, UNSPECIFIED (5) Chronic pain syndrome Current Visit: Yes Status: Acute Code(s): G89.4 - CHRONIC PAIN SYNDROME (6) HLD (hyperlipidemia) Current Visit: Yes Status: Acute Code(s): E78.5 - HYPERLIPIDEMIA, UNSPECIFIED (7) HTN (hypertension) Current Visit: Yes Status: Acute Code(s): I10 - ESSENTIAL (PRIMARY) HYPERTENSION (8) Hypoglycemia Current Visit: Yes Status: Acute Code(s): E16.2 - HYPOGLYCEMIA, UNSPECIFIED (9) Hypokalemia Current Visit: Yes Status: Acute Code(s): E87.6 - HYPOKALEMIA (10) Hypomagnesemia Current Visit: Yes Status: Acute Code(s): E83.42 - HYPOMAGNESEMIA (11) Increased anion gap metabolic acidosis Current Visit: Yes Status: Acute Code(s): E87.29 - OTHER ACIDOSIS (12) Morbid obesity Current Visit: Yes Status: Acute Code(s): E66.01 - MORBID (SEVERE) OBESITY DUE TO EXCESS CALORIES (13) DEUCE (obstructive sleep apnea) Current Visit: Yes Status: Acute Code(s): G47.33 - OBSTRUCTIVE SLEEP APNEA (ADULT) (PEDIATRIC) (14) Transaminitis Current Visit: Yes Status: Acute Code(s): R74.01 - ELEVATION OF LEVELS OF LIVER TRANSAMINASE LEVELS (15) Hallucinations, unspecified Current Visit: No Status: Acute Code(s): R44.3 - HALLUCINATIONS, UNSPECIFIED (16) Diarrhea Current Visit: Yes Status: Acute Code(s): R19.7 - DIARRHEA, UNSPECIFIED (17) Pericardial effusion Current Visit: Yes Status: Acute Code(s): I31.39 - OTHER PERICARDIAL EFFUSION (NONINFLAMMATORY) (18) Edema Current Visit: Yes Status: Acute Assessment & Plan: (1)Sepsis 2:2 UTI: UTI (urinary tract infection) Current Visit: Yes Status: Acute Assessment & Plan: -UC + for e-coli and Klebsiella -continue ceftriaxone per sensitivity - WBC 26.7- trend - BC x2 ordered 05/29 - WBC 45.5 - Antibiotic changed to Merrem - Blood cultures x2 this am as she refused labs yesterday. - Cath UA with UC pending - Ugarte removed 05/30 - WBC 18.9 - Continue Merrem IV - no urinary retention 05/31 - WBC 16.6- improved - IV antibiotics 06/01 - WBC 14.2 improved - Cont. Merrem Code(s): N39.0 - URINARY TRACT INFECTION, SITE NOT SPECIFIED (2) AMS (altered mental status) Current Visit: Yes Status: Acute Assessment & Plan: -Mentation has improved to baseline -Head CT with no acute findings Code(s): R41.82 - ALTERED MENTAL STATUS, UNSPECIFIED (3) GABY (acute kidney injury) Current Visit: Yes Status: Acute Assessment & Plan: -At baseline -Avoid nephrotoxic meds -monitor renal/lytes daily Code(s): N17.9 - ACUTE KIDNEY FAILURE, UNSPECIFIED (4) HTN (hypertension) Current Visit: Yes Status: Acute Assessment & Plan: -stable Code(s): I10 - ESSENTIAL (PRIMARY) HYPERTENSION (5) Transaminitis Current Visit: Yes Status: Acute Assessment & Plan: -CT abdomen showing hepatomegaly and diffuse steatosis -LFTs downtrending, TBili now wnl - continue to monitor Code(s): R74.01 - ELEVATION OF LEVELS OF LIVER TRANSAMINASE LEVELS (6) Increased anion gap metabolic acidosis Current Visit: Yes Status: Acute Assessment & Plan: -resolved Code(s): E87.29 - OTHER ACIDOSIS (7) HLD (hyperlipidemia) Current Visit: Yes Status: Acute Assessment & Plan: -continue statin Code(s): E78.5 - HYPERLIPIDEMIA, UNSPECIFIED (8) DEUCE (obstructive sleep apnea) Current Visit: Yes Status: Acute Assessment & Plan: -Cpap at [facility] Code(s): G47.33 - OBSTRUCTIVE SLEEP APNEA (ADULT) (PEDIATRIC) (9) Chronic pain syndrome Current Visit: Yes Status: Acute Assessment & Plan: - Narcotic pain meds BID restarted 05/29 06/02 - increased pain meds to TID home dosing Code(s): G89.4 - CHRONIC PAIN SYNDROME (10) Morbid obesity Current Visit: Yes Status: Acute Assessment & Plan: -advised heart healthy diet and exercise Code(s): E66.01 - MORBID (SEVERE) OBESITY DUE TO EXCESS CALORIES (11) Hypoglycemia Current Visit: Yes Status: Acute Assessment & Plan: -Unknown etiology - ? secondary to meds -A1c 4.03 -Continue D10 until able to tolerate diet - will need referral to endocrinology OP 05/29 - D10 decreased to 50ml/hr 05/30 - Continued hypoglycemia- cont. IVF 05/31 - Stop Inderal - Stop D10 - accucheck Q4 - Encouraged pt to eat Q2 hours to keep glucose up. 06/01 - continued intermittent hyoglycemia - pt refused tx to higher level of care - she is willing to f/u OP with endocrinology. 06/02 - continued intermittent hyoglycemia - accucheck Q4 or more often if glucose low - Encouraged pt to eat Q2 hours to keep glucose up. Code(s): E16.2 - HYPOGLYCEMIA, UNSPECIFIED (12) Hallucinations, unspecified Current Visit: No Status: Acute Assessment & Plan: -Abilify while IP 05/30 - denies current hallucinations Code(s): R44.3 - HALLUCINATIONS, UNSPECIFIED (13) Hypokalemia Current Visit: Yes Status: Acute Assessment & Plan: -tele 05/30 - K+ 3.4- replaced- trend 05/31 - resolved Code(s): E87.6 - HYPOKALEMIA (14) Hypomagnesemia Current Visit: Yes Status: Acute Assessment & Plan: -resolved Code(s): E83.42 - HYPOMAGNESEMIA (15) Diarrhea Current Visit: Yes Status: Acute Assessment & Plan: - stool culture pending - c-dif pending - Abd CT IMPRESSION: 1. Hepatomegaly and diffuse steatosis. 2. Nonobstructing small right renal calculus 3. Clinical correlation is suggested. 05/29 - C-diff negative 05/30 - Pt reports chronic diarrhea - probiotics Code(s): R19.7 - DIARRHEA, UNSPECIFIED (17) Pericardial effusion Current Visit: Yes Status: Acute Assessment & Plan: - echo- EF 65% - decrease IVF - cardiology consult- reviewed note and agree with plan of care 05/31 - stop IVF - DUY hose for edema - Elevate legs Code(s): I31.39 - OTHER PERICARDIAL EFFUSION (NONINFLAMMATORY) (18) Edema Current Visit: Yes Status: Acute Assessment & Plan: - Lasix IV x1- she refused any more than that - re-eval edema tomorrow - AST/ALT elevated - likely cause of WBC elevation 06/02 - Lasix IV x1- eval daily for need - AST/ ALT improved with lasix yesterday Code(s): R60.9 - EDEMA, UNSPECIFIED Code(s): R60.9 - EDEMA, UNSPECIFIED (19) Tachycardia Current Visit: Yes Status: Acute Assessment & Plan: - Propanolol stopped a few days ago per recommendation of pharmacist Ranulfo for related hypoglycemia sxs - start Metoprolol 25 mg daily VTE: Heparin PPI: Protonix D/c plan: Tuesday? - when accepted by rehab Code(s): R00.0 - TACHYCARDIA, UNSPECIFIED
[2024-06-02] MEDS: Lasix 40 MG/4 ML IV SCH (13:56)
[2024-06-02] MEDS: OXYCODONE-ACETAMINOPHEN 10-325 PO PRN (21:03)
--- NOTE | 2024-06-03 08:56 | PCM.NOTE ---
Date and Time: 06/03/24 0851 Subjective Assessment: 05/28/24 Ms. Horowitz is a 49 year-old female with DEUCE on CPAP, HTN, hypothyroidism, morbid obesity, chronic pain, HLD, and chart diagnoses of - DM2, CAD, CHF, COPD admitted 05/26/24 with urosepsis after experiencing altered mental status and hypoglycemia requiring ED visit via EMS. EMS was called to help with the lift, but when they arrived at her home, they found her to be very altered from a mentation standpoint. Upon arrival to [place], her laboratory data was remarkable for a UTI, an elevated Cr, increased LFTs, HCO3 18, WBC 20, and chronic anemia. CT head negative. Patient with transaminitis. CT abdomen demonstrates hepatomegaly and diffuse steatosis.Nonobstructing small right renal calculus. IN ED she was given D50 and a D5 infusion, but her blood sugar could not be maintained above 70, therefore she is now on a D10 drip. Blood glucose levels are stable with D10 infusion. Unsure of what is causing these episodes of hypoglycemia. A1c level is low at 4.03. Patient states she has had issues in the past. Would like her to follow up with endocrinology as OP and does have a glucometer at home to check blood glucose levels. She may need strips/lancets. IP treatment with ceftriaxone/IVF hydration- cultures with gram negative ID - sensitivity pending. Clinically she is looking much better today. Weakness has improved. She endorses that she has been having some hallucinations of levitating above the bed. Patient is normally on lurasidone but pharmacy does not carry this and no one at home can bring it in. Will sub with abilify which patient states she has tolerated in the past. Today pt is awake and alert. UC + for Klebsiella and e-coli. Continued ceftriaxone per sensitivity. Stool culture pending. WBC elevated today even after repeat lab ordered. Blood cultures ordered for AM as she is refusing any further IV sticks. She has not had a temp or any further concerning sxs. She denies any further concerns at this time. 05/29/24 Pt sitting up in the chair today. She is awake and alert. She is c/o some chronic lower back pain and would like her pain meds restarted at BID dosing. Labs were late to be done as she was a difficult stick per lab. WBC elevated at 45.5. LA elevated at 2.5. + for sepsis. 1 liter fluid bolus gave and will recheck. Ugarte d/cd's and may be the cause of infection. She denies any pain other than chronic back pain and her vitals are stable. CXR non-concerning. CT abd shows New pericardial effusion/thickening better evaluated with echocardiogram. Urinary bladder intraluminal air either iatrogenic versus gas-forming infection. Again chronic findings including small hiatal hernia, fatty hepatomegaly, and nonobstructing right renal micro-calculus. Echo ordered for further evaluation. Pt denies CP, SOB, abd. pain, N/V/D. 05/30/24 Pt sitting up in the chair. She reports she is feeling better today. WBC has improved 18.9, since starting Merrem. K+ 3.4 and replaced. Corrected Ca+ 8.7. EF 65% per Echo results. She is alert and oriented. Cardiology consulted as pt had a pericardial effusion as seen on CT- echo reviewed for further evaluation and case discussed. No new changes at this time. She denies Cp, SOB, abd. pain, N/V/D. 05/31/24 Pt sitting up in the chair. She states she is feeling better but still weak. She admits to not eating well and encouraged pt to try and eat something Q2 hours to keep glucose up. D10 stopped. Pharmacist- Ranulfo- Reviewed meds and explained Inderal can cause hypoglycemia so this med was stopped. Pt having some edema of BLLE, DUY berger ordered. She is to work again with PT and she has continued weakness. Plan is for d/c in 1-2 days if glucose is controlled. 06/01/24 Pt resting in chair. She asked provider not to give any more lasix today as she is tired of urinating on herself. Explained I have not been giving her any lasix. However, she would benefit from some today as she is edematous, AST, ALT elevated form fluid retention. Went back into room later and she is agreeable x1 dose. She has decided to go to rehab facility. She is psychologically stable. She will likely require 30 days or less. She wants to be home with her daughter. Offered transfer to higher level of care for continued low blood glucose and she opted to go to rehab and f/u OP with endocrinology. Discussed that she will need to eat every 2 hours to continue to keep her glucose up. She will also need her blood sugars checked more often. She reported she understood all of this. She wa s unable to walk steps yesterday with PT and she has steps into her home. She denies CP, SOB, abd. pain, N/V/D. 06/02/24 Pt resting in bed. She was already up in the chair this AM and wanted to lay b ack down. She again has + 3 pitting edema of BLLE, and her hands are puffy. She attributes her hands being swollen to IV sticks. Will give another dose of IV Lasix today. She is scheduled to go to rehab Tuesday. She continues to have recurrent episodes of hypoglycemia. Again encouraged her to eat Q2 hours as she is unable to have IV fluids d/t her edema. Propanolol stopped the other day and per pharmacy advise for hypoglycemia will change to Toprolol XL 25mg daily. Pt asking for her pain meds to be increased to home dosing. Since she now awake and alert this is reasonable. Continue IV antibiotics for UTI. She denies CP, SOB, abd. pain, N/V. 06/03/24 Pt resting in Chair. She had another hypoglycemic episode last night and her glucose dropped to 46 at 1958. Will change accu- checks to Q2 hours. Advised again to try and eat a carb every 2 hours. She often refuses and only drinks sugary things. Pt continues to have BLLE edema but improved to 2+ pitting. She has her legs elevated today. She refuses DUY hose or SCD's. Labs pending this AM as lab was unable to obtain. She is awaiting d/c to rehab tomorrow. She denies CP, SOB, abd. pain, N/V/D. - Review of Systems Constitutional: No Fever, No Chills Eyes: No Symptoms Ears, Nose, & Throat: No Symptoms Respiratory: No Cough, No Short Of Breath Cardiac: Edema (BLLE), No Chest Pain, No Syncope Abdominal/Gastrointestinal: No Abdominal Pain, No Nausea, No Vomiting, No Diarrh ea Genitourinary Symptoms: No Dysuria Musculoskeletal: No Back Pain, No Neck Pain Skin: No Rash Neurological: No Dizziness, No Focal Weakness, No Sensory Changes Psychological: No Symptoms, Emotional Lability Endocrine: No Symptoms Hematologic/Lymphatic: No Symptoms Immunological/Allergic: No Symptoms Objective Exam General Appearance: no apparent distress, alert, obese Neurologic Exam: alert, oriented x 3, cooperative, normal mood/affect, nml cerebellar function, sensation nml, No motor deficits Skin Exam: normal color, warm, dry Eye Exam: PERRL, EOMI, eyes nml inspection Ears, Nose, Throat Exam: normal ENT inspection, pharynx normal, moist mucous mem branes Neck Exam: normal inspection, non-tender, supple, full range of motion Respiratory Exam: normal breath sounds, lungs clear, No respiratory distress Cardiovascular Exam: regular rate/rhythm, normal heart sounds, tachycardia, edema (+2 BLLE pitting) Gastrointestinal/Abdomen Exam: soft, No tenderness, No mass Extremity Exam: normal inspection, normal range of motion Back Exam: normal inspection, normal range of motion, No CVA tenderness, No v ertebral tenderness Pelvic Exam: deferred Rectal Exam: deferred Objective Data Vital Signs: Vital Signs - 24 hr Temp Pulse Resp BP Pulse Ox 06/03/24 08:00 96.9 F 118 H 14 129/63 99 06/03/24 03:46 97.5 F 113 H 18 130/73 100 06/03/24 00:00 98.1 F 115 H 16 107/64 96 06/02/24 19:29 97.6 F 102 H 18 138/68 100 06/02/24 18:57 108 H 18 97 06/02/24 16:00 98.3 F 110 H 20 125/69 100 06/02/24 12:00 97.8 F 106 H 18 125/64 100 Pain Assessment - Last Documented Pain Intensity 5 Pain Scale Used 0-10 Pain Scale Intake and Output: Intake & Output 05/31/24 06/01/24 06/02/24 06/03/24 11:59 11:59 11:59 11:59 Intake Total 2378 860 1550 1207 Balance 2378 860 1550 1207 Lab Results: Lab Results-Last 24 Hours 06/02/24 06/02/24 06/02/24 Range/Units 12:17 15:43 19:58 POC Glucometer 67 L 78 46 L* (74 to 106) mg/dL 06/02/24 06/03/24 06/03/24 Range/Units 23:32 03:32 07:45 POC Glucometer 73 L 79 76 (74 to 106) mg/dL Assessment/Plan (1) Sepsis Current Visit: Yes Status: Acute (2) UTI (urinary tract infection) Current Visit: Yes Status: Acute Code(s): N39.0 - URINARY TRACT INFECTION, SITE NOT SPECIFIED (3) GABY (acute kidney injury) Current Visit: Yes Status: Acute Code(s): N17.9 - ACUTE KIDNEY FAILURE, UNSPECIFIED (4) AMS (altered mental status) Current Visit: Yes Status: Acute Code(s): R41.82 - ALTERED MENTAL STATUS, UNSPECIFIED (5) Chronic pain syndrome Current Visit: Yes Status: Acute Code(s): G89.4 - CHRONIC PAIN SYNDROME (6) HLD (hyperlipidemia) Current Visit: Yes Status: Acute Code(s): E78.5 - HYPERLIPIDEMIA, UNSPECIFIED (7) HTN (hypertension) Current Visit: Yes Status: Acute Code(s): I10 - ESSENTIAL (PRIMARY) HYPERTENSION (8) Hypoglycemia Current Visit: Yes Status: Acute Code(s): E16.2 - HYPOGLYCEMIA, UNSPECIFIED (9) Hypokalemia Current Visit: Yes Status: Acute Code(s): E87.6 - HYPOKALEMIA (10) Hypomagnesemia Current Visit: Yes Status: Acute Code(s): E83.42 - HYPOMAGNESEMIA (11) Increased anion gap metabolic acidosis Current Visit: Yes Status: Acute Code(s): E87.29 - OTHER ACIDOSIS (12) Morbid obesity Current Visit: Yes Status: Acute Code(s): E66.01 - MORBID (SEVERE) OBESITY DUE TO EXCESS CALORIES (13) DEUCE (obstructive sleep apnea) Current Visit: Yes Status: Acute Code(s): G47.33 - OBSTRUCTIVE SLEEP APNEA (ADULT) (PEDIATRIC) (14) Transaminitis Current Visit: Yes Status: Acute Code(s): R74.01 - ELEVATION OF LEVELS OF LIVER TRANSAMINASE LEVELS (15) Hallucinations, unspecified Current Visit: No Status: Acute Code(s): R44.3 - HALLUCINATIONS, UNSPECIFIED (16) Diarrhea Current Visit: Yes Status: Acute Code(s): R19.7 - DIARRHEA, UNSPECIFIED (17) Pericardial effusion Current Visit: Yes Status: Acute Code(s): I31.39 - OTHER PERICARDIAL EFFUSION (NONINFLAMMATORY) (18) Edema Current Visit: Yes Status: Acute Code(s): R60.9 - EDEMA, UNSPECIFIED (19) Tachycardia Current Visit: Yes Status: Acute Assessment & Plan: (1)Sepsis 2:2 UTI: UTI (urinary tract infection) Current Visit: Yes Status: Acute Assessment & Plan: -UC + for e-coli and Klebsiella -continue ceftriaxone per sensitivity - WBC 26.7- trend - BC x2 ordered 05/29 - WBC 45.5 - Antibiotic changed to Merrem - Blood cultures x2 this am as she refused labs yesterday. - Cath UA with UC pending - Ugarte removed 05/30 - WBC 18.9 - Continue Merrem IV - no urinary retention 05/31 - WBC 16.6- improved - IV antibiotics 06/01 - WBC 14.2 improved - Cont. Merrem 06/03 - labs pending Code(s): N39.0 - URINARY TRACT INFECTION, SITE NOT SPECIFIED (2) AMS (altered mental status) Current Visit: Yes Status: Acute Assessment & Plan: -Mentation has improved to baseline -Head CT with no acute findings Code(s): R41.82 - ALTERED MENTAL STATUS, UNSPECIFIED (3) GABY (acute kidney injury) Current Visit: Yes Status: Acute Assessment & Plan: -At baseline -Avoid nephrotoxic meds -monitor renal/lytes daily Code(s): N17.9 - ACUTE KIDNEY FAILURE, UNSPECIFIED (4) HTN (hypertension) Current Visit: Yes Status: Acute Assessment & Plan: -stable Code(s): I10 - ESSENTIAL (PRIMARY) HYPERTENSION (5) Transaminitis Current Visit: Yes Status: Acute Assessment & Plan: -CT abdomen showing hepatomegaly and diffuse steatosis -LFTs downtrending, TBili now wnl - continue to monitor Code(s): R74.01 - ELEVATION OF LEVELS OF LIVER TRANSAMINASE LEVELS (6) Increased anion gap metabolic acidosis Current Visit: Yes Status: Acute Assessment & Plan: -resolved Code(s): E87.29 - OTHER ACIDOSIS (7) HLD (hyperlipidemia) Current Visit: Yes Status: Acute Assessment & Plan: -continue statin Code(s): E78.5 - HYPERLIPIDEMIA, UNSPECIFIED (8) DEUCE (obstructive sleep apnea) Current Visit: Yes Status: Acute Assessment & Plan: -[facility] Code(s): G47.33 - OBSTRUCTIVE SLEEP APNEA (ADULT) (PEDIATRIC) (9) Chronic pain syndrome Current Visit: Yes Status: Acute Assessment & Plan: - Narcotic pain meds BID restarted 05/29 06/02 - increased pain meds to TID home dosing Code(s): G89.4 - CHRONIC PAIN SYNDROME (10) Morbid obesity Current Visit: Yes Status: Acute Assessment & Plan: -advised heart healthy diet and exercise Code(s): E66.01 - MORBID (SEVERE) OBESITY DUE TO EXCESS CALORIES (11) Hypoglycemia Current Visit: Yes Status: Acute Assessment & Plan: -Unknown etiology - ? secondary to meds -A1c 4.03 -Continue D10 until able to tolerate diet - will need referral to endocrinology OP 05/29 - D10 decreased to 50ml/hr 05/30 - Continued hypoglycemia- cont. IVF 05/31 - Stop Inderal - Stop D10 - accucheck Q4 - Encouraged pt to eat Q2 hours to keep glucose up. 06/01 - continued intermittent hyoglycemia - pt refused tx to higher level of care - she is willing to f/u OP with endocrinology. 06/02 - continued intermittent hyoglycemia - accucheck Q4 or more often if glucose low - Encouraged pt to eat Q2 hours to keep glucose up. 06/03 - accuchecks changed to Q2 hr as glucose dropped to 46 last night @ 19:58 - Will need referral to endocrinology OP -Continued to encouraged pt to eat Q2 hours to keep glucose up. - Soft diet changed to house to encourage eating Code(s): E16.2 - HYPOGLYCEMIA, UNSPECIFIED (12) Hallucinations, unspecified Current Visit: No Status: Acute Assessment & Plan: -Abilify while IP 05/30 - denies current hallucinations Code(s): R44.3 - HALLUCINATIONS, UNSPECIFIED (13) Hypokalemia Current Visit: Yes Status: Acute Assessment & Plan: -tele 05/30 - K+ 3.4- replaced- trend 05/31 - resolved Code(s): E87.6 - HYPOKALEMIA (14) Hypomagnesemia Current Visit: Yes Status: Acute Assessment & Plan: -resolved Code(s): E83.42 - HYPOMAGNESEMIA (15) Diarrhea Current Visit: Yes Status: Acute Assessment & Plan: - stool culture pending - c-dif pending - Abd CT IMPRESSION: 1. Hepatomegaly and diffuse steatosis. 2. Nonobstructing small right renal calculus 3. Clinical correlation is suggested. 05/29 - C-diff negative 05/30 - Pt reports chronic diarrhea - probiotics Code(s): R19.7 - DIARRHEA, UNSPECIFIED (17) Pericardial effusion Current Visit: Yes Status: Acute Assessment & Plan: - echo- EF 65% - decrease IVF - cardiology consult- reviewed note and agree with plan of care 05/31 - stop IVF - DUY hose for edema - Elevate legs Code(s): I31.39 - OTHER PERICARDIAL EFFUSION (NONINFLAMMATORY) (18) Edema Current Visit: Yes Status: Acute Assessment & Plan: - Lasix IV x1- she refused any more than that - re-eval edema tomorrow - AST/ALT elevated - likely cause of WBC elevation 06/02 - Lasix IV x1- eval daily for need - AST/ ALT improved with lasix yesterday 06/03 - edema improved - pt tearful with lasix yesterday d/t increased urination - Will hold on lasix today as edema improved - Albumin low- will start protein with each meal and consult nutrition Code(s): R60.9 - EDEMA, UNSPECIFIED Code(s): R60.9 - EDEMA, UNSPECIFIED (19) Tachycardia Current Visit: Yes Status: Acute Assessment & Plan: - Propanolol stopped a few days ago per recommendation of pharmacist Ranulfo for related hypoglycemia sxs - start Metoprolol 25 mg daily VTE: Heparin PPI: Protonix D/c plan: Tuesday? - when accepted by rehab Code(s): R00.0 - TACHYCARDIA, UNSPECIFIED Code(s): R00.0 - TACHYCARDIA, UNSPECIFIED
[2024-06-03] MEDS: Toprol-Xl 25MG Tablets PO SCH (10:11)
[2024-06-03 10:14] LABS: Hematocrit 22.4 % (34.1-44.9); Hemoglobin 7.5 g/dL (11.2-15.7); Mean Cell Volume 91.4 fL (79.4-94.8); Mean Corpuscular Hemoglobin 30.6 pg (25.6-32.2); Mean Corpuscular Hgb Concent. 33.5 g/dL (32.2-35.5); Mean Platelet Volume 10.5 fL (9.4-12.3); Platelet Count 266 x10^3/uL (182-369); Red Blood Count 2.45 x10^6/uL (3.93-5.22); Red Cell Distribution Width 13.6 % (11.7-14.4); White Blood Count 12.9 x10^3/uL (3.98-10.04)
[2024-06-03 10:28] LABS: ANION GAP 6.9 MEQ/L (5-15); BILIRUBIN,TOTAL 0.6 mg/dL (0.2-1.3); Calcium 7.3 mg/dL (8.4-10.2); Creatinine 1 1.03 mg/dL (0.52-1.04); EST GLOMERULAR FILTRATION RATE 67.5 ML/MIN; Potassium 3.7 mmol/L (3.5-5.1)
[2024-06-03] MEDS: OXYCODONE-ACETAMINOPHEN 10-325 PO PRN (15:09)
[2024-06-04 04:46] LABS: Hematocrit 23.4 % (34.1-44.9); Hemoglobin 7.7 g/dL (11.2-15.7); Mean Cell Volume 92.5 fL (79.4-94.8); Mean Corpuscular Hemoglobin 30.4 pg (25.6-32.2); Mean Corpuscular Hgb Concent. 32.9 g/dL (32.2-35.5); Mean Platelet Volume 10.5 fL (9.4-12.3); Platelet Count 345 x10^3/uL (182-369); Red Blood Count 2.53 x10^6/uL (3.93-5.22); Red Cell Distribution Width 13.8 % (11.7-14.4); White Blood Count 12.5 x10^3/uL (3.98-10.04)
--- NOTE | 2024-06-04 05:09 | PCM.NOTE ---
Date and Time: 06/04/24 0504 Subjective Assessment: Ms. Horowitz is a 49 year-old female with DEUCE on CPAP, HTN, hypothyroidism, morbid obesity s/p gastric bypass, chronic pain, HLD, and chart diagnoses of - DM2, CAD, CHF, COPD admitted 05/26/24 with urosepsis after experiencing altered mental status and hypoglycemia requiring ED visit via EMS. EMS was called to help with the lift, but when they arrived at her home, they found her to be very altered from a mentation standpoint. Upon arrival to [facility], her laboratory data was remarkable for a UTI, an elevated Cr, increased LFTs, HCO3 18, WBC 20, and chronic anemia. CT head negative. Patient with transaminitis. CT abdomen demonstrates hepatomegaly and diffuse steatosis.Nonobstructing small right renal calculus. IN ED she was given D50 and a D5 infusion, but her blood sugar could not be maintained above 70, therefore she is now on a D10 drip. Blood glucose levels are stable with D10 infusion. Unsure of what is causing these episodes of hypoglycemia. A1c level is low at 4.03. Patient states she has had issues in the past. Would like her to follow up with endocrinology as OP and does have a gluco meter at home to check blood glucose levels. She may need strips/lancets. Urine culture with Ecoli and Klebsiella. Antimicrobial history Merrem 05/29- current: Ceftriaxone 05/26/24-05/29/24. Propanolol stopped per pharmacy advisement for hypoglycemia and changed to Toprolol XL 25mg daily.Patient is normally on lurasidone but pharmacy does not carry this and no one at home can bring it in. Will sub with abilify which patient states she has tolerated in the past. Patient is to discharge to rehab. She is psychologically/medically stable. She will likely require 30 days or less. She wants to be home with her daughter. Patient was offered transfer to higher level of care for continued low blood glucose and she opted to go to rehab and f/u OP with endocrinology. 06/04/24: Met with patient bedside. Feeling good today. No longer having dysuria, weakness, or AMS. She continues to have hypoglycemia - mostly at night. Discussed having a snack before bed with complex carb/protein. Suggested peanut butter crackers if available. UTI has been adequately treated. Repeat Ucult negative. Will discontinue abx. HR in the 120's this morning. Will increase metoprolol. Continues to have BLE pitting edema 2+ - refuses lasix. Rehab pending insurance approval. Denies fever,cough, sob, cp, abdominal pain, SALAS, dizziness, N/V/D. - Review of Systems Constitutional: No Symptoms Eyes: No Symptoms Ears, Nose, & Throat: No Symptoms Respiratory: No Symptoms Cardiac: Edema (BLE 2+ pitting) Abdominal/Gastrointestinal: No Symptoms Genitourinary Symptoms: No Symptoms Musculoskeletal: No Symptoms Skin: No Symptoms Neurological: No Symptoms Psychological: No Symptoms Endocrine: No Symptoms Hematologic/Lymphatic: No Symptoms Immunological/Allergic: No Symptoms Objective Exam General Appearance: no apparent distress Neurologic Exam: alert, oriented x 3, cooperative Skin Exam: normal color Eye Exam: PERRL Ears, Nose, Throat Exam: normal ENT inspection Neck Exam: normal inspection Respiratory Exam: normal breath sounds, lungs clear Cardiovascular Exam: normal heart sounds, tachycardia Gastrointestinal/Abdomen Exam: soft, normal bowel sounds Extremity Exam: swelling (BLE 2+ pitting) Back Exam: normal inspection Pelvic Exam: deferred Rectal Exam: deferred Objective Data Vital Signs: Vital Signs - 24 hr Temp Pulse Resp BP Pulse Ox 06/04/24 04:00 96.9 F 120 H 19 139/69 100 06/03/24 23:34 97.3 F 115 H 17 125/74 97 06/03/24 20:00 96.1 F 120 H 18 134/88 100 06/03/24 18:44 113 H 18 98 06/03/24 16:00 96.4 F 106 H 13 126/74 100 06/03/24 12:00 96.6 F 116 H 13 116/63 97 06/03/24 09:08 116 H 18 99 06/03/24 08:00 96.9 F 118 H 14 129/63 99 Pain Assessment - Last Documented Pain Intensity 0 Pain Scale Used 0-10 Pain Scale Intake and Output: Intake & Output 06/01/24 06/02/24 06/03/24 06/04/24 11:59 11:59 11:59 11:59 Intake Total 860 1550 1657 320 Balance 860 1550 1657 320 Lab Results: Lab Results-Last 24 Hours 06/03/24 06/03/24 06/03/24 Range/Units 07:45 10:00 10:00 WBC 12.9 H (3.98-10.04) x10^3/uL RBC 2.45 L (3.93-5.22) x10^6/uL Hgb 7.5 L (11.2-15.7) g/dL Hct 22.4 L (34.1-44.9) % MCV 91.4 (79.4-94.8) fL MCH 30.6 (25.6-32.2) pg MCHC 33.5 (32.2-35.5) g/dL RDW 13.6 (11.7-14.4) % Plt Count 266 D (182-369) x10^3/uL MPV 10.5 (9.4-12.3) fL Sodium 136 (135-145) mmol/L Potassium 3.7 (3.5-5.1) mmol/L Chloride 106 (98-107) mmol/L Carbon Dioxide 27 (22-30) mmol/L Anion Gap 6.9 (5-15) MEQ/L BUN 11 (7-17) mg/dL Creatinine 1.03 (0.52-1.04) mg/dL Estimated GFR 67.5 ML/MIN Glucose 75 (74-106) mg/dL POC Glucometer 76 (74 to 106) mg/dL Calcium 7.3 L (8.4-10.2) mg/dL Total Bilirubin 0.60 (0.2-1.3) mg/dL AST 70 H (14-36) U/L ALT 74 H (0-35) U/L Alkaline Phosphatase 300 H (38-126) U/L Serum Total Protein 5.0 L (6.3-8.2) g/dL Albumin 2.0 L (3.5-5.0) g/dL 06/03/24 06/03/24 06/03/24 Range/Units 10:06 12:32 14:24 WBC (3.98-10.04) x10^3/uL RBC (3.93-5.22) x10^6/uL Hgb (11.2-15.7) g/dL Hct (34.1-44.9) % MCV (79.4-94.8) fL MCH (25.6-32.2) pg MCHC (32.2-35.5) g/dL RDW (11.7-14.4) % Plt Count (182-369) x10^3/uL MPV (9.4-12.3) fL Sodium (135-145) mmol/L Potassium (3.5-5.1) mmol/L Chloride (98-107) mmol/L Carbon Dioxide (22-30) mmol/L Anion Gap (5-15) MEQ/L BUN (7-17) mg/dL Creatinine (0.52-1.04) mg/dL Estimated GFR ML/MIN Glucose (74-106) mg/dL POC Glucometer 72 L 99 128 H (74 to 106) mg/dL Calcium (8.4-10.2) mg/dL Total Bilirubin (0.2-1.3) mg/dL AST (14-36) U/L ALT (0-35) U/L Alkaline Phosphatase (38-126) U/L Serum Total Protein (6.3-8.2) g/dL Albumin (3.5-5.0) g/dL 06/03/24 06/03/24 06/03/24 Range/Units 16:18 17:01 19:34 WBC (3.98-10.04) x10^3/uL RBC (3.93-5.22) x10^6/uL Hgb (11.2-15.7) g/dL Hct (34.1-44.9) % MCV (79.4-94.8) fL MCH (25.6-32.2) pg MCHC (32.2-35.5) g/dL RDW (11.7-14.4) % Plt Count (182-369) x10^3/uL MPV (9.4-12.3) fL Sodium (135-145) mmol/L Potassium (3.5-5.1) mmol/L Chloride (98-107) mmol/L Carbon Dioxide (22-30) mmol/L Anion Gap (5-15) MEQ/L BUN (7-17) mg/dL Creatinine (0.52-1.04) mg/dL Estimated GFR ML/MIN Glucose (74-106) mg/dL POC Glucometer 64 L 90 77 (74 to 106) mg/dL Calcium (8.4-10.2) mg/dL Total Bilirubin (0.2-1.3) mg/dL AST (14-36) U/L ALT (0-35) U/L Alkaline Phosphatase (38-126) U/L Serum Total Protein (6.3-8.2) g/dL Albumin (3.5-5.0) g/dL 06/03/24 06/03/24 06/04/24 Range/Units 21:03 23:13 01:05 WBC (3.98-10.04) x10^3/uL RBC (3.93-5.22) x10^6/uL Hgb (11.2-15.7) g/dL Hct (34.1-44.9) % MCV (79.4-94.8) fL MCH (25.6-32.2) pg MCHC (32.2-35.5) g/dL RDW (11.7-14.4) % Plt Count (182-369) x10^3/uL MPV (9.4-12.3) fL Sodium (135-145) mmol/L Potassium (3.5-5.1) mmol/L Chloride (98-107) mmol/L Carbon Dioxide (22-30) mmol/L Anion Gap (5-15) MEQ/L BUN (7-17) mg/dL Creatinine (0.52-1.04) mg/dL Estimated GFR ML/MIN Glucose (74-106) mg/dL POC Glucometer 114 H 78 62 L (74 to 106) mg/dL Calcium (8.4-10.2) mg/dL Total Bilirubin (0.2-1.3) mg/dL AST (14-36) U/L ALT (0-35) U/L Alkaline Phosphatase (38-126) U/L Serum Total Protein (6.3-8.2) g/dL Albumin (3.5-5.0) g/dL 06/04/24 06/04/24 Range/Units 03:31 04:08 WBC 12.5 H (3.98-10.04) x10^3/uL RBC 2.53 L (3.93-5.22) x10^6/uL Hgb 7.7 L (11.2-15.7) g/dL Hct 23.4 L (34.1-44.9) % MCV 92.5 (79.4-94.8) fL MCH 30.4 (25.6-32.2) pg MCHC 32.9 (32.2-35.5) g/dL RDW 13.8 (11.7-14.4) % Plt Count 345 (182-369) x10^3/uL MPV 10.5 (9.4-12.3) fL Sodium (135-145) mmol/L Potassium (3.5-5.1) mmol/L Chloride (98-107) mmol/L Carbon Dioxide (22-30) mmol/L Anion Gap (5-15) MEQ/L BUN (7-17) mg/dL Creatinine (0.52-1.04) mg/dL Estimated GFR ML/MIN Glucose (74-106) mg/dL POC Glucometer 58 L (74 to 106) mg/dL Calcium (8.4-10.2) mg/dL Total Bilirubin (0.2-1.3) mg/dL AST (14-36) U/L ALT (0-35) U/L Alkaline Phosphatase (38-126) U/L Serum Total Protein (6.3-8.2) g/dL Albumin (3.5-5.0) g/dL Assessment/Plan (1) Sepsis secondary to UTI Current Visit: Yes Status: Acute Assessment & Plan: -Ucult with Ecoli and Klebsiella - adequate treatment - discontinue Merrem repeat Ucult negative -Antimicrobial history: Merrem 05/29-06/04/24 : Ceftriaxone 05/26/24- 05/29/24 -WBC trend 12.5<12.9<14.2<19.3 Code(s): A41.9 - SEPSIS, UNSPECIFIED ORGANISM; N39.0 - URINARY TRACT INFECTION, SITE NOT SPECIFIED (2) AMS (altered mental status) Current Visit: Yes Status: Acute Assessment & Plan: -Head CT with no acute findings -Mentation at baseline Code(s): R41.82 - ALTERED MENTAL STATUS, UNSPECIFIED (3) GABY (acute kidney injury) Current Visit: Yes Status: Acute Assessment & Plan: -Avoid nephrotoxic medications -monitor renal/lytes daily -Baseline around 0.8-0.9 - now at baseline Code(s): N17.9 - ACUTE KIDNEY FAILURE, UNSPECIFIED (4) HTN (hypertension) Current Visit: Yes Status: Acute Assessment & Plan: -Stable - monitor BP closely Code(s): I10 - ESSENTIAL (PRIMARY) HYPERTENSION (5) Transaminitis Current Visit: Yes Status: Acute Assessment & Plan: -Chronic -CT abdomen showing hepatomegaly and diffuse steatosis -LFTs downtrending, TBili now wnl - continue to monitor Code(s): R74.01 - ELEVATION OF LEVELS OF LIVER TRANSAMINASE LEVELS (6) Increased anion gap metabolic acidosis Current Visit: Yes Status: Acute Assessment & Plan: -Resolved Code(s): E87.29 - OTHER ACIDOSIS (7) HLD (hyperlipidemia) Current Visit: Yes Status: Acute Assessment & Plan: -continue statin Code(s): E78.5 - HYPERLIPIDEMIA, UNSPECIFIED (8) DEUCE (obstructive sleep apnea) Current Visit: Yes Status: Acute Assessment & Plan: Cpap at [facility] Code(s): G47.33 - OBSTRUCTIVE SLEEP APNEA (ADULT) (PEDIATRIC) (9) Chronic pain syndrome Current Visit: Yes Status: Acute Assessment & Plan: - Narcotic pain meds BID restarted 05/29 - increased pain meds to TID home dosing 06/02 Code(s): G89.4 - CHRONIC PAIN SYNDROME (10) Morbid obesity Current Visit: Yes Status: Acute Assessment & Plan: -advised heart healthy diet/with frequent meals every 2-3 hours for hypoglycemia and exercise Code(s): E66.01 - MORBID (SEVERE) OBESITY DUE TO EXCESS CALORIES (11) Hypoglycemia Current Visit: Yes Status: Acute Assessment & Plan: --Unknown etiology - ? secondary to meds - pharmacy consulted for med review - suggested stopping propanolol (changed to metoprolol) -Advised frequent meals/frequent blood glucose monitoring -Educated patient on s/sx of hypoglycemia and how to treat -Referred to endocrinology -A1c 4.03 Code(s): E16.2 - HYPOGLYCEMIA, UNSPECIFIED (12) Hallucinations, unspecified Current Visit: No Status: Acute Assessment & Plan: -H/o psychological issues/ sees [facility] therapist OP -Multiple ED visits with similar symptoms -on lurasidone at home - pharmacy does not carry, will sub with abilify while IP Code(s): R44.3 - HALLUCINATIONS, UNSPECIFIED (13) Hypokalemia Current Visit: Yes Status: Acute Assessment & Plan: -tele - resolved Code(s): E87.6 - HYPOKALEMIA (14) Hypomagnesemia Current Visit: Yes Status: Acute Assessment & Plan: -resolved Code(s): E83.42 - HYPOMAGNESEMIA (15) Diarrhea Current Visit: Yes Status: Acute Assessment & Plan: ?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 Hepatomegaly and diffuse steatosis. 2. Nonobstructing small right renal calculus 3. Clinical correlation is suggested. - probiotics Code(s): R19.7 - DIARRHEA, UNSPECIFIED (16) Edema Current Visit: Yes Status: Acute Assessment & Plan: -Received lasix with improvement of edema - lasix held as of 06/03/24 due to pt refusal -continue to monitor -BLE with 2+ pitting -no change Code(s): R60.9 - EDEMA, UNSPECIFIED (17) Pericardial effusion Current Visit: Yes Status: Acute Assessment & Plan: - echo- EF 65% Transthoracic Echocardiogram 05/29/2024: 1. Normal biventricular wall thickness, chamber size, and systolic function. 2. Estimated left ventricular ejection fraction is 65%. 3. Normal diastolic function profile. 4. There is no significant valvular stenosis or regurgitation by Doppler flow analysis. 5. Normal PA systolic pressure (24 mmHg). 6. Normal right atrial pressure (3 mmHg). 7. Small anterior pericardial effusion around the anterior wall of the right ventricle. No echocardiographic evidence of tamponade. - cardiology consult- reviewed note and agree with plan of care Code(s): I31.39 - OTHER PERICARDIAL EFFUSION (NONINFLAMMATORY) (18) Tachycardia Current Visit: Yes Status: Acute Assessment & Plan: - Propanolol discontinued under advisement of pharmacy due to hypoglycemia -Metoprolol increased to 50mg daily due to HR in the 120s VTE: Heparin PPI: Protonix Code(s): R00.0 - TACHYCARDIA, UNSPECIFIED
[2024-06-04 05:23] LABS: ALBUMIN 2.1 g/dL (3.5-5.0); ANION GAP 6.2 MEQ/L (5-15); BILIRUBIN,TOTAL 0.7 mg/dL (0.2-1.3); Calcium 7.3 mg/dL (8.4-10.2); Creatinine 1 0.91 mg/dL (0.52-1.04); EST GLOMERULAR FILTRATION RATE 78.3 ML/MIN; Potassium 3.5 mmol/L (3.5-5.1); Total Protein 5.3 g/dL (6.3-8.2)
[2024-06-04] MEDS ORDERED: Toprol-Xl 25MG Tablets PO SCH (10:49)
--- NOTE | 2024-06-05 05:09 | PCM.NOTE ---
Date and Time: 06/05/24 0508 Subjective Assessment: Ms. Horowitz is a 49 year-old female with DEUCE on CPAP, HTN, hypothyroidism, morbid obesity s/p gastric bypass, chronic pain, HLD, and chart diagnoses of - DM2, CAD, CHF, COPD admitted 05/26/24 with urosepsis after experiencing altered mental status and hypoglycemia requiring ED visit via EMS. EMS was called to help with the lift, but when they arrived at her home, they found her to be very altered from a mentation standpoint. Upon arrival to [facility], her laboratory data was remarkable for a UTI, an elevated Cr, increased LFTs, HCO3 18, WBC 20, and chronic anemia. CT head negative. Patient with transaminitis. CT abdomen demonstrates hepatomegaly and diffuse steatosis.Nonobstructing small right renal calculus. IN ED she was given D50 and a D5 infusion, but her blood sugar could not be maintained above 70, therefore she is now on a D10 drip. Blood glucose levels are stable with D10 infusion. Unsure of what is causing these episodes of hypoglycemia. A1c level is low at 4.03. Patient states she has had issues in the past. Would like her to follow up with endocrinology as OP and does have a gluco meter at home to check blood glucose levels. She may need strips/lancets. Urine culture with Ecoli and Klebsiella. Antimicrobial history Merrem 05/29- current: Ceftriaxone 05/26/24-05/29/24. Propanolol stopped per pharmacy advisement for hypoglycemia and changed to Toprolol XL 25mg daily.Patient is normally on lurasidone but pharmacy does not carry this and no one at home can bring it in. Will sub with abilify which patient states she has tolerated in the past. Patient is to discharge to rehab. She is psychologically/medically stable. She will likely require 30 days or less. She wants to be home with her daughter. Patient was offered transfer to higher level of care for continued low blood glucose and she opted to go to rehab and f/u OP with endocrinology. 06/04/24: Met with patient bedside. Feeling good today. No longer having dysuria, weakness, or AMS. She continues to have hypoglycemia - mostly at night. Discussed having a snack before bed with complex carb/protein. Suggested peanut butter crackers if available. UTI has been adequately treated. Repeat Ucult negative. Will discontinue abx. HR in the 120's this morning. Will increase metoprolol. Continues to have BLE pitting edema 2+ - refuses lasix. Rehab pending insurance approval. Denies fever,cough, sob, cp, abdominal pain, SALAS, dizziness, N/V/D. 06/05/24: Met with patient bedside. No overnight events. No complaints this morning. Reports that she has been trying to drink Boost and eat every two hours but she has a chronically poor appetite. Plan for evaluation this evening and discharge to rehab when approved. Denies fever,cough, sob, cp, abdominal pain, SALAS, dizziness, N/V/D. - Review of Systems Constitutional: No Symptoms Eyes: No Symptoms Ears, Nose, & Throat: No Symptoms Respiratory: No Symptoms Cardiac: No Symptoms Abdominal/Gastrointestinal: No Symptoms Genitourinary Symptoms: No Symptoms Musculoskeletal: No Symptoms Skin: No Symptoms Neurological: No Symptoms Psychological: No Symptoms Endocrine: No Symptoms Hematologic/Lymphatic: No Symptoms Immunological/Allergic: No Symptoms Objective Exam General Appearance: no apparent distress Neurologic Exam: alert, oriented x 3, cooperative Skin Exam: normal color Eye Exam: PERRL Ears, Nose, Throat Exam: moist mucous membranes Neck Exam: normal inspection Respiratory Exam: normal breath sounds, lungs clear Cardiovascular Exam: normal heart sounds, tachycardia Gastrointestinal/Abdomen Exam: soft, normal bowel sounds Extremity Exam: swelling (BLE +2 pitting) Back Exam: normal inspection Pelvic Exam: deferred Rectal Exam: deferred Objective Data Vital Signs: Vital Signs - 24 hr Temp Pulse Resp BP Pulse Ox 06/05/24 04:00 98 F 113 H 16 128/60 100 06/05/24 00:00 97.0 F 111 H 16 118/58 100 06/04/24 20:00 97.8 F 107 H 13 111/58 100 06/04/24 18:24 105 H 18 97 06/04/24 16:00 97.6 F 98 H 16 106/51 95 06/04/24 12:00 97.9 F 111 H 18 98/54 97 06/04/24 08:00 98.2 F 120 H 17 129/60 96 06/04/24 06:41 117 H 18 97 Pain Assessment - Last Documented Pain Intensity 0 Pain Scale Used 0-10 Pain Scale Intake and Output: Intake & Output 06/02/24 06/03/24 06/04/24 06/05/24 11:59 11:59 11:59 11:59 Intake Total 1559 [id number] 676 3320 Balance 1550 9424 060 3923 Lab Results: Lab Results-Last 24 Hours 06/04/24 06/04/24 06/04/24 Range/Units 04:08 07:00 10:38 Sodium 137 (135-145) mmol/L Potassium 3.5 (3.5-5.1) mmol/L Chloride 107 (98-107) mmol/L Carbon Dioxide 27 (22-30) mmol/L Anion Gap 6.2 (5-15) MEQ/L BUN 11 (7-17) mg/dL Creatinine 0.91 (0.52-1.04) mg/dL Estimated GFR 78.3 ML/MIN Glucose 96 (74-106) mg/dL POC Glucometer 71 L 98 (74 to 106) mg/dL Calcium 7.3 L (8.4-10.2) mg/dL Total Bilirubin 0.70 (0.2-1.3) mg/dL AST 60 H (14-36) U/L ALT 70 H (0-35) U/L Alkaline Phosphatase 312 H (38-126) U/L Serum Total Protein 5.3 L (6.3-8.2) g/dL Albumin 2.1 L (3.5-5.0) g/dL 06/04/24 06/04/24 06/04/24 Range/Units 13:06 15:12 20:05 Sodium (135-145) mmol/L Potassium (3.5-5.1) mmol/L Chloride (98-107) mmol/L Carbon Dioxide (22-30) mmol/L Anion Gap (5-15) MEQ/L BUN (7-17) mg/dL Creatinine (0.52-1.04) mg/dL Estimated GFR ML/MIN Glucose (74-106) mg/dL POC Glucometer 71 L 110 H 82 (74 to 106) mg/dL Calcium (8.4-10.2) mg/dL Total Bilirubin (0.2-1.3) mg/dL AST (14-36) U/L ALT (0-35) U/L Alkaline Phosphatase (38-126) U/L Serum Total Protein (6.3-8.2) g/dL Albumin (3.5-5.0) g/dL 06/04/24 06/04/24 06/05/24 Range/Units 21:50 23:36 01:59 Sodium (135-145) mmol/L Potassium (3.5-5.1) mmol/L Chloride (98-107) mmol/L Carbon Dioxide (22-30) mmol/L Anion Gap (5-15) MEQ/L BUN (7-17) mg/dL Creatinine (0.52-1.04) mg/dL Estimated GFR ML/MIN Glucose (74-106) mg/dL POC Glucometer 80 72 L 76 (74 to 106) mg/dL Calcium (8.4-10.2) mg/dL Total Bilirubin (0.2-1.3) mg/dL AST (14-36) U/L ALT (0-35) U/L Alkaline Phosphatase (38-126) U/L Serum Total Protein (6.3-8.2) g/dL Albumin (3.5-5.0) g/dL 06/05/24 Range/Units 04:08 Sodium (135-145) mmol/L Potassium (3.5-5.1) mmol/L Chloride (98-107) mmol/L Carbon Dioxide (22-30) mmol/L Anion Gap (5-15) MEQ/L BUN (7-17) mg/dL Creatinine (0.52-1.04) mg/dL Estimated GFR ML/MIN Glucose (74-106) mg/dL POC Glucometer 66 L (74 to 106) mg/dL Calcium (8.4-10.2) mg/dL Total Bilirubin (0.2-1.3) mg/dL AST (14-36) U/L ALT (0-35) U/L Alkaline Phosphatase (38-126) U/L Serum Total Protein (6.3-8.2) g/dL Albumin (3.5-5.0) g/dL Multi-Disciplinary Progress Notes: Multi-Disciplinary Progress Notes 06/04/24 13:15 Case Management Note by Adry Miller S/W PATIENT- SHE CONTINUES TO PLAN TO TRANSITION TO [facility] FOR REHAB. [facility] CALLED THIS AM AND STATED THEY ACCEPTED PATIENT- THEY HAD NOT STARTED PRECERT YET BUT STATED THEY WOULD Initialized on 06/04/24 13:15 - END OF NOTE 06/04/24 13:10 Case Management Note by Adry Miller S/W GAS SINGER FROM [facility]- THEY WILL BE HERE TOMORROW AT 2044 TO DO LEVEL II ASSESSMENT, THEY ARE REQUESTING ADDITIONAL INFORMATION (CURRENT MAR AND DC PLAN) BE FAXED TO THEM AT [phone]. INFORMATION FAXED AT THIS TIME Initialized on 06/04/24 13:10 - END OF NOTE Assessment/Plan (1) Sepsis secondary to UTI Current Visit: Yes Status: Acute Assessment & Plan: -Ucult with Ecoli and Klebsiella - adequate treatment - discontinue Merrem repeat Ucult negative -Antimicrobial history: Merrem 05/29-06/04/24 : Ceftriaxone 05/26/24- 05/29/24 -WBC trend 12.5<12.9<14.2<19.3 06/05: -No longer meeting criteria WBC now WNL Code(s): A41.9 - SEPSIS, UNSPECIFIED ORGANISM; N39.0 - URINARY TRACT INFECTION, SITE NOT SPECIFIED (2) AMS (altered mental status) Current Visit: Yes Status: Acute Assessment & Plan: -Head CT with no acute findings -Mentation at baseline Code(s): R41.82 - ALTERED MENTAL STATUS, UNSPECIFIED (3) GABY (acute kidney injury) Current Visit: Yes Status: Acute Assessment & Plan: -Avoid nephrotoxic medications -monitor renal/lytes daily -Baseline around 0.8-0.9 - now at baseline Code(s): N17.9 - ACUTE KIDNEY FAILURE, UNSPECIFIED (4) HTN (hypertension) Current Visit: Yes Status: Acute Assessment & Plan: -Stable - monitor BP closely Code(s): I10 - ESSENTIAL (PRIMARY) HYPERTENSION (5) Transaminitis Current Visit: Yes Status: Acute Assessment & Plan: -Chronic -CT abdomen showing hepatomegaly and diffuse steatosis -LFTs downtrending, TBili now wnl - continue to monitor Code(s): R74.01 - ELEVATION OF LEVELS OF LIVER TRANSAMINASE LEVELS (6) Increased anion gap metabolic acidosis Current Visit: Yes Status: Acute Assessment & Plan: -Resolved Code(s): E87.29 - OTHER ACIDOSIS (7) HLD (hyperlipidemia) Current Visit: Yes Status: Acute Assessment & Plan: -continue statin Code(s): E78.5 - HYPERLIPIDEMIA, UNSPECIFIED (8) DEUCE (obstructive sleep apnea) Current Visit: Yes Status: Acute Assessment & Plan: Cpap at [facility] Code(s): G47.33 - OBSTRUCTIVE SLEEP APNEA (ADULT) (PEDIATRIC) (9) Chronic pain syndrome Current Visit: Yes Status: Acute Assessment & Plan: - Narcotic pain meds BID restarted 05/29 - increased pain meds to TID home dosing 06/02 Code(s): G89.4 - CHRONIC PAIN SYNDROME (10) Morbid obesity Current Visit: Yes Status: Acute Assessment & Plan: -advised heart healthy diet/with frequent meals every 2-3 hours for hypoglycemia and exercise Code(s): E66.01 - MORBID (SEVERE) OBESITY DUE TO EXCESS CALORIES (11) Hypoglycemia Current Visit: Yes Status: Acute Assessment & Plan: --Unknown etiology - ? secondary to meds - pharmacy consulted for med review - suggested stopping propanolol (changed to metoprolol) -Advised frequent meals/frequent blood glucose monitoring -Educated patient on s/sx of hypoglycemia and how to treat -Referred to endocrinology -A1c 4.03 Code(s): E16.2 - HYPOGLYCEMIA, UNSPECIFIED (12) Hallucinations, unspecified Current Visit: No Status: Acute Assessment & Plan: -H/o psychological issues/ sees [facility] therapist OP -Multiple ED visits with similar symptoms -on lurasidone at home - pharmacy does not carry, will sub with abilify while IP Code(s): R44.3 - HALLUCINATIONS, UNSPECIFIED (13) Hypokalemia Current Visit: Yes Status: Acute Assessment & Plan: -tele - resolved 06/05: -K+ at 3.1, will replenish per protocol - add 20meq daily Code(s): E87.6 - HYPOKALEMIA (14) Hypomagnesemia Current Visit: Yes Status: Acute Assessment & Plan: -resolved 06/05: -Mg level pending - will replenish as appropriate Code(s): E83.42 - HYPOMAGNESEMIA (15) Diarrhea Current Visit: Yes Status: Acute Assessment & Plan: ?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 Hepatomegaly and diffuse steatosis. 2. Nonobstructing small right renal calculus 3. Clinical correlation is suggested. - probiotics Code(s): R19.7 - DIARRHEA, UNSPECIFIED (16) Edema Current Visit: Yes Status: Acute Assessment & Plan: -Received lasix with improvement of edema - lasix held as of 06/03/24 due to pt refusal -continue to monitor -BLE with 2+ pitting -no change Code(s): R60.9 - EDEMA, UNSPECIFIED (17) Pericardial effusion Current Visit: Yes Status: Acute Assessment & Plan: - echo- EF 65% Transthoracic Echocardiogram 05/29/2024: 1. Normal biventricular wall thickness, chamber size, and systolic function. 2. Estimated left ventricular ejection fraction is 65%. 3. Normal diastolic function profile. 4. There is no significant valvular stenosis or regurgitation by Doppler flow analysis. 5. Normal PA systolic pressure (24 mmHg). 6. Normal right atrial pressure (3 mmHg). 7. Small anterior pericardial effusion around the anterior wall of the right ventricle. No echocardiographic evidence of tamponade. - cardiology consult- reviewed note and agree with plan of care Code(s): I31.39 - OTHER PERICARDIAL EFFUSION (NONINFLAMMATORY) (18) Tachycardia Current Visit: Yes Status: Acute Assessment & Plan: - Propanolol discontinued under advisement of pharmacy due to hypoglycemia - Metoprolol increased to 50mg daily due to HR in the 120s 06/05: -HR improved. Continue tele with close monitoring VTE: Heparin PPI: Protonix Code(s): A41.9 - SEPSIS, UNSPECIFIED ORGANISM; N39.0 - URINARY TRACT INFECTION, SITE NOT SPECIFIED (2) AMS (altered mental status) Current Visit: Yes Status: Acute Code(s): R41.82 - ALTERED MENTAL STATUS, UNSPECIFIED (3) GABY (acute kidney injury) Current Visit: Yes Status: Acute Code(s): N17.9 - ACUTE KIDNEY FAILURE, UNSPECIFIED (4) HTN (hypertension) Current Visit: Yes Status: Acute Code(s): I10 - ESSENTIAL (PRIMARY) HYPERTENSION (5) Transaminitis Current Visit: Yes Status: Acute Code(s): R74.01 - ELEVATION OF LEVELS OF LIVER TRANSAMINASE LEVELS (6) Increased anion gap metabolic acidosis Current Visit: Yes Status: Acute Code(s): E87.29 - OTHER ACIDOSIS (7) HLD (hyperlipidemia) Current Visit: Yes Status: Acute Code(s): E78.5 - HYPERLIPIDEMIA, UNSPECIFIED (8) DEUCE (obstructive sleep apnea) Current Visit: Yes Status: Acute Code(s): G47.33 - OBSTRUCTIVE SLEEP APNEA (ADULT) (PEDIATRIC) (9) Chronic pain syndrome Current Visit: Yes Status: Acute Code(s): G89.4 - CHRONIC PAIN SYNDROME (10) Morbid obesity Current Visit: Yes Status: Acute Code(s): E66.01 - MORBID (SEVERE) OBESITY DUE TO EXCESS CALORIES (11) Hypoglycemia Current Visit: Yes Status: Acute Code(s): E16.2 - HYPOGLYCEMIA, UNSPECIFIED (12) Hallucinations, unspecified Current Visit: No Status: Acute Code(s): R44.3 - HALLUCINATIONS, UNSPECIFIED (13) Hypokalemia Current Visit: Yes Status: Acute Code(s): E87.6 - HYPOKALEMIA (14) Hypomagnesemia Current Visit: Yes Status: Acute Code(s): E83.42 - HYPOMAGNESEMIA (15) Diarrhea Current Visit: Yes Status: Acute Code(s): R19.7 - DIARRHEA, UNSPECIFIED (16) Edema Current Visit: Yes Status: Acute Code(s): R60.9 - EDEMA, UNSPECIFIED (17) Pericardial effusion Current Visit: Yes Status: Acute Code(s): I31.39 - OTHER PERICARDIAL EFFUSION (NONINFLAMMATORY) (18) Tachycardia Current Visit: Yes Status: Acute Code(s): R00.0 - TACHYCARDIA, UNSPECIFIED
[2024-06-05 08:59] LABS: Absolute Neutrophil Ct (ANC) 4.97 x10^3/uL (1.56-6.13); BASOPHIL % 0.5 % (0.1-1.2); Basophil (Absolute #) 0.05 x10^3/uL (0.01-0.08); Hematocrit 22.6 % (34.1-44.9); Hemoglobin 7.4 g/dL (11.2-15.7); IMMATURE GRAN # 0.35 x10^3u/L (0.001-0.031); IMMATURE GRAN % 3.5 % (0.001-0.429); Lymphocyte (Absolute #) 3.43 x10^3/uL (1.18-3.74); Lymphocytes % 34.7 % (19.3-51.7); Mean Cell Volume 94.2 fL (79.4-94.8); Mean Corpuscular Hemoglobin 30.8 pg (25.6-32.2); Mean Corpuscular Hgb Concent. 32.7 g/dL (32.2-35.5); Mean Platelet Volume 10.8 fL (9.4-12.3); Monocyte (Absolute #) 0.79 x10^3/uL (0.24-0.86); Neutrophil % 50.3 % (34.0-71.1); Platelet Count 252 x10^3/uL (182-369); Red Cell Distribution Width 13.8 % (11.7-14.4); White Blood Count 9.9 x10^3/uL (3.98-10.04)
[2024-06-05] MEDS: Toprol Xl 50 MG PO SCH (10:38)
[2024-06-05 11:20] LABS: ALBUMIN 2.1 g/dL (3.5-5.0); ANION GAP 7.9 MEQ/L (5-15); BILIRUBIN,TOTAL 0.4 mg/dL (0.2-1.3); Calcium 7.4 mg/dL (8.4-10.2); Creatinine 1 0.83 mg/dL (0.52-1.04); EST GLOMERULAR FILTRATION RATE 87.5 ML/MIN; Potassium 3.1 mmol/L (3.5-5.1); Total Protein 5.2 g/dL (6.3-8.2)
[2024-06-05] MEDS: Klor Con PO SCH ×2 (14:51→15:46)
--- NOTE | 2024-06-06 05:05 | PCM.NOTE ---
Date and Time: 06/06/24 0504 Subjective Assessment: Ms. Horowitz is a 49 year-old female with DEUCE on CPAP, HTN, hypothyroidism, morbid obesity s/p gastric bypass, chronic pain, HLD, and chart diagnoses of - DM2, CAD, CHF, COPD admitted 05/26/24 with urosepsis after experiencing altered mental status and hypoglycemia requiring ED visit via EMS. EMS was called to help with the lift, but when they arrived at her home, they found her to be very altered from a mentation standpoint. Upon arrival to [facility], her laboratory data was remarkable for a UTI, an elevated Cr, increased LFTs, HCO3 18, WBC 20, and chronic anemia. CT head negative. Patient with transaminitis. CT abdomen demonstrates hepatomegaly and diffuse steatosis.Nonobstructing small right renal calculus. IN ED she was given D50 and a D5 infusion, but her blood sugar could not be maintained above 70, therefore she is now on a D10 drip. Blood glucose levels are stable with D10 infusion. Unsure of what is causing these episodes of hypoglycemia. A1c level is low at 4.03. Patient states she has had issues in the past. Would like her to follow up with endocrinology as OP and does have a gluco meter at home to check blood glucose levels. She may need strips/lancets. Urine culture with Ecoli and Klebsiella. Antimicrobial history Merrem 05/29- current: Ceftriaxone 05/26/24-05/29/24. Propanolol stopped per pharmacy advisement for hypoglycemia and changed to Toprolol XL 25mg daily.Patient is normally on lurasidone but pharmacy does not carry this and no one at home can bring it in. Will sub with abilify which patient states she has tolerated in the past. Patient is to discharge to rehab. She is psychologically/medically stable. She will likely require 30 days or less. She wants to be home with her daughter. Patient was offered transfer to higher level of care for continued low blood glucose and she opted to go to rehab and f/u OP with endocrinology. 06/04/24: Met with patient bedside. Feeling good today. No longer having dysuria, weakness, or AMS. She continues to have hypoglycemia - mostly at night. Discussed having a snack before bed with complex carb/protein. Suggested peanut butter crackers if available. UTI has been adequately treated. Repeat Ucult negative. Will discontinue abx. HR in the 120's this morning. Will increase metoprolol. Continues to have BLE pitting edema 2+ - refuses lasix. Rehab pending insurance approval. Denies fever,cough, sob, cp, abdominal pain, SALAS, dizziness, N/V/D. 06/05: Patient reporting increased fatigue this morning. Hgb at 6.8. She will be receiving 1 unit LPRBC. Patient states she is scheduled for EGD/colonoscopy in Jul. Since her gastric bypass in 2021 she has had chronic anemia requiring iron transfusions. Will check iron labs today as well as occult stools. Denies blood in stool or acute bleeding. Patient is consuming more frequent meals with complex carbohydrates and ensure with each meal. Psych consult performed last evening. Rehab pending insurance approval. - Review of Systems Constitutional: Fatigue Eyes: No Symptoms Ears, Nose, & Throat: No Symptoms Respiratory: No Symptoms Cardiac: No Symptoms Abdominal/Gastrointestinal: No Symptoms Genitourinary Symptoms: No Symptoms Musculoskeletal: No Symptoms Skin: No Symptoms Neurological: No Symptoms Psychological: No Symptoms Endocrine: No Symptoms Hematologic/Lymphatic: Anemia Immunological/Allergic: No Symptoms Objective Exam General Appearance: no apparent distress Neurologic Exam: alert, oriented x 3, cooperative Skin Exam: pale Eye Exam: PERRL Ears, Nose, Throat Exam: normal ENT inspection, moist mucous membranes Neck Exam: normal inspection Respiratory Exam: normal breath sounds, lungs clear Cardiovascular Exam: normal heart sounds, tachycardia Gastrointestinal/Abdomen Exam: soft, normal bowel sounds Extremity Exam: normal inspection Back Exam: normal inspection Pelvic Exam: deferred Rectal Exam: deferred Objective Data Vital Signs: Vital Signs - 24 hr Temp Pulse Resp BP Pulse Ox 06/06/24 03:56 97.4 F 110 H 18 103/51 96 06/05/24 23:57 97.8 F 104 H 19 122/58 100 06/05/24 19:50 97.4 F 104 H 18 132/69 99 06/05/24 19:00 100 H 16 98 06/05/24 16:00 96.9 F 96 H 18 115/59 96 06/05/24 11:43 96.9 F 99 H 18 113/50 100 06/05/24 07:34 96.8 F 112 H 18 134/69 99 06/05/24 07:16 112 H 16 98 Pain Assessment - Last Documented Pain Intensity 9 Pain Scale Used [facility] Intake and Output: Intake & Output 06/03/24 06/04/24 06/05/24 06/06/24 11:59 11:59 11:59 11:59 Intake Total 2242 273 0648 777 Balance 4235 736 3440 777 Lab Results: Lab Results-Last 24 Hours 06/05/24 06/05/24 06/05/24 Range/Units 06:16 08:17 08:58 WBC 9.9 (3.98-10.04) x10^3/uL RBC 2.40 L (3.93-5.22) x10^6/uL Hgb 7.4 L (11.2-15.7) g/dL Hct 22.6 L (34.1-44.9) % MCV 94.2 (79.4-94.8) fL MCH 30.8 (25.6-32.2) pg MCHC 32.7 (32.2-35.5) g/dL RDW 13.8 (11.7-14.4) % Plt Count 252 (182-369) x10^3/uL MPV 10.8 (9.4-12.3) fL Gran % 50.3 (34.0-71.1) % Immature Gran % (Auto) 3.5 H (0.001-0.429) % Nucleat RBC Rel Count 0.0 (0.00-0.2) % Eos # (Auto) 0.30 (0.04-0.36) x10^3/uL Immature Gran # (Auto) 0.35 H (0.001-0.031) x10^3u/L Absolute Lymphs (auto) 3.43 (1.18-3.74) x10^3/uL Absolute Monos (auto) 0.79 (0.24-0.86) x10^3/uL Absolute Nucleated RBC 0.00 (0.00-0.012) x10^3u/L Lymphocytes % 34.7 (19.3-51.7) % Monocytes % 8.0 (4.7-12.5) % Eosinophils % 3.0 (0.7-5.8) % Basophils % 0.5 (0.1-1.2) % Absolute Granulocytes 4.97 (1.56-6.13) x10^3/uL Basophils # 0.05 (0.01-0.08) x10^3/uL Sodium (135-145) mmol/L Potassium (3.5-5.1) mmol/L Chloride (98-107) mmol/L Carbon Dioxide (22-30) mmol/L Anion Gap (5-15) MEQ/L BUN (7-17) mg/dL Creatinine (0.52-1.04) mg/dL Estimated GFR ML/MIN Glucose (74-106) mg/dL POC Glucometer 74 70 L (74 to 106) mg/dL Calcium (8.4-10.2) mg/dL Magnesium (1.6-2.3) mg/dL Total Bilirubin (0.2-1.3) mg/dL AST (14-36) U/L ALT (0-35) U/L Alkaline Phosphatase (38-126) U/L Serum Total Protein (6.3-8.2) g/dL Albumin (3.5-5.0) g/dL 06/05/24 06/05/24 06/05/24 Range/Units 10:17 11:05 11:05 WBC (3.98-10.04) x10^3/uL RBC (3.93-5.22) x10^6/uL Hgb (11.2-15.7) g/dL Hct (34.1-44.9) % MCV (79.4-94.8) fL MCH (25.6-32.2) pg MCHC (32.2-35.5) g/dL RDW (11.7-14.4) % Plt Count (182-369) x10^3/uL MPV (9.4-12.3) fL Gran % (34.0-71.1) % Immature Gran % (Auto) (0.001-0.429) % Nucleat RBC Rel Count (0.00-0.2) % Eos # (Auto) (0.04-0.36) x10^3/uL Immature Gran # (Auto) (0.001-0.031) x10^3u/L Absolute Lymphs (auto) (1.18-3.74) x10^3/uL Absolute Monos (auto) (0.24-0.86) x10^3/uL Absolute Nucleated RBC (0.00-0.012) x10^3u/L Lymphocytes % (19.3-51.7) % Monocytes % (4.7-12.5) % Eosinophils % (0.7-5.8) % Basophils % (0.1-1.2) % Absolute Granulocytes (1.56-6.13) x10^3/uL Basophils # (0.01-0.08) x10^3/uL Sodium 139 (135-145) mmol/L Potassium 3.1 L (3.5-5.1) mmol/L Chloride 107 (98-107) mmol/L Carbon Dioxide 27 (22-30) mmol/L Anion Gap 7.9 (5-15) MEQ/L BUN 9 (7-17) mg/dL Creatinine 0.83 (0.52-1.04) mg/dL Estimated GFR 87.5 ML/MIN Glucose 109 H (74-106) mg/dL POC Glucometer 129 H (74 to 106) mg/dL Calcium 7.4 L (8.4-10.2) mg/dL Magnesium 1.7 (1.6-2.3) mg/dL Total Bilirubin 0.40 (0.2-1.3) mg/dL AST 54 H (14-36) U/L ALT 60 H (0-35) U/L Alkaline Phosphatase 278 H (38-126) U/L Serum Total Protein 5.2 L (6.3-8.2) g/dL Albumin 2.1 L (3.5-5.0) g/dL 06/05/24 06/05/24 06/05/24 Range/Units 11:42 14:05 15:09 WBC (3.98-10.04) x10^3/uL RBC (3.93-5.22) x10^6/uL Hgb (11.2-15.7) g/dL Hct (34.1-44.9) % MCV (79.4-94.8) fL MCH (25.6-32.2) pg MCHC (32.2-35.5) g/dL RDW (11.7-14.4) % Plt Count (182-369) x10^3/uL MPV (9.4-12.3) fL Gran % (34.0-71.1) % Immature Gran % (Auto) (0.001-0.429) % Nucleat RBC Rel Count (0.00-0.2) % Eos # (Auto) (0.04-0.36) x10^3/uL Immature Gran # (Auto) (0.001-0.031) x10^3u/L Absolute Lymphs (auto) (1.18-3.74) x10^3/uL Absolute Monos (auto) (0.24-0.86) x10^3/uL Absolute Nucleated RBC (0.00-0.012) x10^3u/L Lymphocytes % (19.3-51.7) % Monocytes % (4.7-12.5) % Eosinophils % (0.7-5.8) % Basophils % (0.1-1.2) % Absolute Granulocytes (1.56-6.13) x10^3/uL Basophils # (0.01-0.08) x10^3/uL Sodium (135-145) mmol/L Potassium 3.3 L (3.5-5.1) mmol/L Chloride (98-107) mmol/L Carbon Dioxide (22-30) mmol/L Anion Gap (5-15) MEQ/L BUN (7-17) mg/dL Creatinine (0.52-1.04) mg/dL Estimated GFR ML/MIN Glucose (74-106) mg/dL POC Glucometer 79 104 (74 to 106) mg/dL Calcium (8.4-10.2) mg/dL Magnesium (1.6-2.3) mg/dL Total Bilirubin (0.2-1.3) mg/dL AST (14-36) U/L ALT (0-35) U/L Alkaline Phosphatase (38-126) U/L Serum Total Protein (6.3-8.2) g/dL Albumin (3.5-5.0) g/dL 06/05/24 06/05/24 06/05/24 Range/Units 17:00 18:11 19:03 WBC (3.98-10.04) x10^3/uL RBC (3.93-5.22) x10^6/uL Hgb (11.2-15.7) g/dL Hct (34.1-44.9) % MCV (79.4-94.8) fL MCH (25.6-32.2) pg MCHC (32.2-35.5) g/dL RDW (11.7-14.4) % Plt Count (182-369) x10^3/uL MPV (9.4-12.3) fL Gran % (34.0-71.1) % Immature Gran % (Auto) (0.001-0.429) % Nucleat RBC Rel Count (0.00-0.2) % Eos # (Auto) (0.04-0.36) x10^3/uL Immature Gran # (Auto) (0.001-0.031) x10^3u/L Absolute Lymphs (auto) (1.18-3.74) x10^3/uL Absolute Monos (auto) (0.24-0.86) x10^3/uL Absolute Nucleated RBC (0.00-0.012) x10^3u/L Lymphocytes % (19.3-51.7) % Monocytes % (4.7-12.5) % Eosinophils % (0.7-5.8) % Basophils % (0.1-1.2) % Absolute Granulocytes (1.56-6.13) x10^3/uL Basophils # (0.01-0.08) x10^3/uL Sodium (135-145) mmol/L Potassium 3.9 (3.5-5.1) mmol/L Chloride (98-107) mmol/L Carbon Dioxide (22-30) mmol/L Anion Gap (5-15) MEQ/L BUN (7-17) mg/dL Creatinine (0.52-1.04) mg/dL Estimated GFR ML/MIN Glucose (74-106) mg/dL POC Glucometer 72 L 85 (74 to 106) mg/dL Calcium (8.4-10.2) mg/dL Magnesium (1.6-2.3) mg/dL Total Bilirubin (0.2-1.3) mg/dL AST (14-36) U/L ALT (0-35) U/L Alkaline Phosphatase (38-126) U/L Serum Total Protein (6.3-8.2) g/dL Albumin (3.5-5.0) g/dL 06/05/24 06/05/24 06/06/24 Range/Units 21:05 23:03 00:51 WBC (3.98-10.04) x10^3/uL RBC (3.93-5.22) x10^6/uL Hgb (11.2-15.7) g/dL Hct (34.1-44.9) % MCV (79.4-94.8) fL MCH (25.6-32.2) pg MCHC (32.2-35.5) g/dL RDW (11.7-14.4) % Plt Count (182-369) x10^3/uL MPV (9.4-12.3) fL Gran % (34.0-71.1) % Immature Gran % (Auto) (0.001-0.429) % Nucleat RBC Rel Count (0.00-0.2) % Eos # (Auto) (0.04-0.36) x10^3/uL Immature Gran # (Auto) (0.001-0.031) x10^3u/L Absolute Lymphs (auto) (1.18-3.74) x10^3/uL Absolute Monos (auto) (0.24-0.86) x10^3/uL Absolute Nucleated RBC (0.00-0.012) x10^3u/L Lymphocytes % (19.3-51.7) % Monocytes % (4.7-12.5) % Eosinophils % (0.7-5.8) % Basophils % (0.1-1.2) % Absolute Granulocytes (1.56-6.13) x10^3/uL Basophils # (0.01-0.08) x10^3/uL Sodium (135-145) mmol/L Potassium (3.5-5.1) mmol/L Chloride (98-107) mmol/L Carbon Dioxide (22-30) mmol/L Anion Gap (5-15) MEQ/L BUN (7-17) mg/dL Creatinine (0.52-1.04) mg/dL Estimated GFR ML/MIN Glucose (74-106) mg/dL POC Glucometer 72 L 78 82 (74 to 106) mg/dL Calcium (8.4-10.2) mg/dL Magnesium (1.6-2.3) mg/dL Total Bilirubin (0.2-1.3) mg/dL AST (14-36) U/L ALT (0-35) U/L Alkaline Phosphatase (38-126) U/L Serum Total Protein (6.3-8.2) g/dL Albumin (3.5-5.0) g/dL 06/06/24 06/06/24 Range/Units 03:01 04:45 WBC (3.98-10.04) x10^3/uL RBC (3.93-5.22) x10^6/uL Hgb (11.2-15.7) g/dL Hct (34.1-44.9) % MCV (79.4-94.8) fL MCH (25.6-32.2) pg MCHC (32.2-35.5) g/dL RDW (11.7-14.4) % Plt Count (182-369) x10^3/uL MPV (9.4-12.3) fL Gran % (34.0-71.1) % Immature Gran % (Auto) (0.001-0.429) % Nucleat RBC Rel Count (0.00-0.2) % Eos # (Auto) (0.04-0.36) x10^3/uL Immature Gran # (Auto) (0.001-0.031) x10^3u/L Absolute Lymphs (auto) (1.18-3.74) x10^3/uL Absolute Monos (auto) (0.24-0.86) x10^3/uL Absolute Nucleated RBC (0.00-0.012) x10^3u/L Lymphocytes % (19.3-51.7) % Monocytes % (4.7-12.5) % Eosinophils % (0.7-5.8) % Basophils % (0.1-1.2) % Absolute Granulocytes (1.56-6.13) x10^3/uL Basophils # (0.01-0.08) x10^3/uL Sodium (135-145) mmol/L Potassium (3.5-5.1) mmol/L Chloride (98-107) mmol/L Carbon Dioxide (22-30) mmol/L Anion Gap (5-15) MEQ/L BUN (7-17) mg/dL Creatinine (0.52-1.04) mg/dL Estimated GFR ML/MIN Glucose (74-106) mg/dL POC Glucometer 74 74 (74 to 106) mg/dL Calcium (8.4-10.2) mg/dL Magnesium (1.6-2.3) mg/dL Total Bilirubin (0.2-1.3) mg/dL AST (14-36) U/L ALT (0-35) U/L Alkaline Phosphatase (38-126) U/L Serum Total Protein (6.3-8.2) g/dL Albumin (3.5-5.0) g/dL Multi-Disciplinary Progress Notes: Multi-Disciplinary Progress Notes 06/05/24 14:35 Case Management Note by Adry Miller S/W PATIENT- SHE CONTINUES TO PLAN TO GO TO [facility] IN [place] FOR REHAB. LEVEL II [employer] REC[employer]ER WILL BE HERE THIS EVENING FOR ASSESSMENT. PRIMARY RN AWARE, PATIENT AWARE WELL. CALLED [facility] TO CHECK ON STATUS OF AUTH- LM Initialized on 06/05/24 14:35 - END OF NOTE Assessment/Plan (1) Sepsis secondary to UTI Current Visit: Yes Status: Acute Assessment & Plan: -Ucult with Ecoli and Klebsiella - adequate treatment - discontinue Merrem repeat Ucult negative -Antimicrobial history: Merrem 05/29-06/04/24 : Ceftriaxone 05/26/24- 05/29/24 -WBC trend 12.5<12.9<14.2<19.3 06/05: -No longer meeting criteria WBC now WNL Code(s): A41.9 - SEPSIS, UNSPECIFIED ORGANISM; N39.0 - URINARY TRACT INFECTION, SITE NOT SPECIFIED ### Anemia -Hgb at 6.8 this morning requiring 1 unit LPRBC -iron labs-with sat at 47% patient has h/o iron infusion-unable to tolerate PO iron -Gastric Bypass in 2021 -occult stools -Has scheduled EGD/Colonoscopy scheduled for July - denies dark stool or acute bleeding ###Hypoalbuminemia -Nutritional consult - ensure added with meals (2) AMS (altered mental status) Current Visit: Yes Status: Acute Assessment & Plan: -Head CT with no acute findings -Mentation at baseline Code(s): R41.82 - ALTERED MENTAL STATUS, UNSPECIFIED (3) GABY (acute kidney injury) Current Visit: Yes Status: Acute Assessment & Plan: -Avoid nephrotoxic medications -monitor renal/lytes daily -Baseline around 0.8-0.9 - now at baseline Code(s): N17.9 - ACUTE KIDNEY FAILURE, UNSPECIFIED (4) HTN (hypertension) Current Visit: Yes Status: Acute Assessment & Plan: -Stable - monitor BP closely Code(s): I10 - ESSENTIAL (PRIMARY) HYPERTENSION (5) Transaminitis Current Visit: Yes Status: Acute Assessment & Plan: -Chronic -CT abdomen showing hepatomegaly and diffuse steatosis -LFTs downtrending, TBili now wnl - continue to monitor Code(s): R74.01 - ELEVATION OF LEVELS OF LIVER TRANSAMINASE LEVELS (6) Increased anion gap metabolic acidosis Current Visit: Yes Status: Acute Assessment & Plan: -Resolved Code(s): E87.29 - OTHER ACIDOSIS (7) HLD (hyperlipidemia) Current Visit: Yes Status: Acute Assessment & Plan: -continue statin Code(s): E78.5 - HYPERLIPIDEMIA, UNSPECIFIED (8) DEUCE (obstructive sleep apnea) Current Visit: Yes Status: Acute Assessment & Plan: Cpap at [facility] Code(s): G47.33 - OBSTRUCTIVE SLEEP APNEA (ADULT) (PEDIATRIC) (9) Chronic pain syndrome Current Visit: Yes Status: Acute Assessment & Plan: - Narcotic pain meds BID restarted 05/29 - increased pain meds to TID home dosing 06/02 Code(s): G89.4 - CHRONIC PAIN SYNDROME (10) Morbid obesity Current Visit: Yes Status: Acute Assessment & Plan: -advised heart healthy diet/with frequent meals every 2-3 hours for hypoglycemia and exercise Code(s): E66.01 - MORBID (SEVERE) OBESITY DUE TO EXCESS CALORIES (11) Hypoglycemia Current Visit: Yes Status: Acute Assessment & Plan: --Unknown etiology - ? secondary to meds - pharmacy consulted for med review - suggested stopping propanolol (changed to metoprolol) -Advised frequent meals/frequent blood glucose monitoring -Educated patient on s/sx of hypoglycemia and how to treat -Referred to endocrinology -A1c 4.03 06/06: -tolerating more frequent meals with ensure- follow up with endocrinology scheduled Code(s): E16.2 - HYPOGLYCEMIA, UNSPECIFIED (12) Hallucinations, unspecified Current Visit: No Status: Acute Assessment & Plan: -H/o psychological issues/ sees [facility] therapist OP -Multiple ED visits with similar symptoms -on lurasidone at home - pharmacy does not carry, will sub with abilify while IP Code(s): R44.3 - HALLUCINATIONS, UNSPECIFIED (13) Hypokalemia Current Visit: Yes Status: Acute Assessment & Plan: -tele - resolved 06/05: -K+ at 3.1, will replenish per protocol - add 20meq daily 06/06: resolved Code(s): E87.6 - HYPOKALEMIA (14) Hypomagnesemia Current Visit: Yes Status: Acute Assessment & Plan: -resolved 06/05: -Mg level pending - will replenish as appropriate 06/06: -Resolved Code(s): E83.42 - HYPOMAGNESEMIA (15) Diarrhea Current Visit: Yes Status: Acute Assessment & Plan: ?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 Hepatomegaly and diffuse steatosis. 2. Nonobstructing small right renal calculus 3. Clinical correlation is suggested. - probiotics Code(s): R19.7 - DIARRHEA, UNSPECIFIED (16) Edema Current Visit: Yes Status: Acute Assessment & Plan: -Received lasix with improvement of edema - lasix held as of 06/03/24 due to pt refusal -continue to monitor -BLE with 2+ pitting -no change 06/06: -Improving - 1+ pitting- advised elevation of BLE Code(s): R60.9 - EDEMA, UNSPECIFIED (17) Pericardial effusion Current Visit: Yes Status: Acute Assessment & Plan: - echo- EF 65% Transthoracic Echocardiogram 05/29/2024: 1. Normal biventricular wall thickness, chamber size, and systolic function. 2. Estimated left ventricular ejection fraction is 65%. 3. Normal diastolic function profile. 4. There is no significant valvular stenosis or regurgitation by Doppler flow analysis. 5. Normal PA systolic pressure (24 mmHg). 6. Normal right atrial pressure (3 mmHg). 7. Small anterior pericardial effusion around the anterior wall of the right ventricle. No echocardiographic evidence of tamponade. - cardiology consult- reviewed note and agree with plan of care Code(s): I31.39 - OTHER PERICARDIAL EFFUSION (NONINFLAMMATORY) (18) Tachycardia Current Visit: Yes Status: Acute Assessment & Plan: - Propanolol discontinued under advisement of pharmacy due to hypoglycemia - Metoprolol increased to 50mg daily due to HR in the 120s 06/05: -HR improved. Continue tele with close monitoring VTE: Heparin PPI: Protonix Code(s): A41.9 - SEPSIS, UNSPECIFIED ORGANISM; N39.0 - URINARY TRACT INFECTION, SITE NOT SPECIFIED Code(s): A41.9 - SEPSIS, UNSPECIFIED ORGANISM; N39.0 - URINARY TRACT INFECTION, SITE NOT SPECIFIED (2) AMS (altered mental status) Current Visit: Yes Status: Acute Code(s): R41.82 - ALTERED MENTAL STATUS, UNSPECIFIED (3) GABY (acute kidney injury) Current Visit: Yes Status: Acute Code(s): N17.9 - ACUTE KIDNEY FAILURE, UNSPECIFIED (4) HTN (hypertension) Current Visit: Yes Status: Acute Code(s): I10 - ESSENTIAL (PRIMARY) HYPERTENSION (5) Transaminitis Current Visit: Yes Status: Acute Code(s): R74.01 - ELEVATION OF LEVELS OF LIVER TRANSAMINASE LEVELS (6) Increased anion gap metabolic acidosis Current Visit: Yes Status: Acute Code(s): E87.29 - OTHER ACIDOSIS (7) HLD (hyperlipidemia) Current Visit: Yes Status: Acute Code(s): E78.5 - HYPERLIPIDEMIA, UNSPECIFIED (8) DEUCE (obstructive sleep apnea) Current Visit: Yes Status: Acute Code(s): G47.33 - OBSTRUCTIVE SLEEP APNEA (ADULT) (PEDIATRIC) (9) Chronic pain syndrome Current Visit: Yes Status: Acute Code(s): G89.4 - CHRONIC PAIN SYNDROME (10) Morbid obesity Current Visit: Yes Status: Acute Code(s): E66.01 - MORBID (SEVERE) OBESITY DUE TO EXCESS CALORIES (11) Hypoglycemia Current Visit: Yes Status: Acute Code(s): E16.2 - HYPOGLYCEMIA, UNSPECIFIED (12) Hallucinations, unspecified Current Visit: No Status: Acute Code(s): R44.3 - HALLUCINATIONS, UNSPECIFIED (13) Hypokalemia Current Visit: Yes Status: Acute Code(s): E87.6 - HYPOKALEMIA (14) Hypomagnesemia Current Visit: Yes Status: Acute Code(s): E83.42 - HYPOMAGNESEMIA (15) Diarrhea Current Visit: Yes Status: Acute Code(s): R19.7 - DIARRHEA, UNSPECIFIED (16) Edema Current Visit: Yes Status: Acute Code(s): R60.9 - EDEMA, UNSPECIFIED (17) Pericardial effusion Current Visit: Yes Status: Acute Code(s): I31.39 - OTHER PERICARDIAL EFFUSION (NONINFLAMMATORY) (18) Tachycardia Current Visit: Yes Status: Acute Code(s): R00.0 - TACHYCARDIA, UNSPECIFIED (19) Anemia Current Visit: Yes Status: Acute Code(s): D64.9 - ANEMIA, UNSPECIFIED (20) Hypoalbuminemia due to protein-calorie malnutrition Current Visit: Yes Status: Acute Code(s): E88.09 - OTH DISORDERS OF PLASMA- PROTEIN METABOLISM, NEC; E46 - UNSPECIFIED PROTEIN-CALORIE MALNUTRITION
[2024-06-06 05:26] LABS: Absolute Neutrophil Ct (ANC) 5.19 x10^3/uL (1.56-6.13); BASOPHIL % 0.6 % (0.1-1.2); Basophil (Absolute #) 0.06 x10^3/uL (0.01-0.08); Eosinophil % 2.5 % (0.7-5.8); Eosinophil (Absolute #) 0.24 x10^3/uL (0.04-0.36); Hematocrit 21.2 % (34.1-44.9); IMMATURE GRAN # 0.26 x10^3u/L (0.001-0.031); IMMATURE GRAN % 2.7 % (0.001-0.429); Lymphocyte (Absolute #) 3.28 x10^3/uL (1.18-3.74); Lymphocytes % 33.8 % (19.3-51.7); Mean Cell Volume 95.1 fL (79.4-94.8); Mean Corpuscular Hemoglobin 30.5 pg (25.6-32.2); Mean Corpuscular Hgb Concent. 32.1 g/dL (32.2-35.5); Mean Platelet Volume 9.8 fL (9.4-12.3); Monocyte (Absolute #) 0.66 x10^3/uL (0.24-0.86); Monocytes % 6.8 % (4.7-12.5); Neutrophil % 53.6 % (34.0-71.1); Platelet Count 496 x10^3/uL (182-369); Red Blood Count 2.23 x10^6/uL (3.93-5.22); Red Cell Distribution Width 13.9 % (11.7-14.4); White Blood Count 9.7 x10^3/uL (3.98-10.04)
[2024-06-06 05:31] LABS: Hemoglobin 6.8 g/dL (11.2-15.7)
[2024-06-06 05:53] LABS: ALBUMIN 2.1 g/dL (3.5-5.0); ANION GAP 8.4 MEQ/L (5-15); BILIRUBIN,TOTAL 0.5 mg/dL (0.2-1.3); Calcium 7.6 mg/dL (8.4-10.2); Creatinine 1 0.79 mg/dL (0.52-1.04); EST GLOMERULAR FILTRATION RATE 92.8 ML/MIN; Potassium 4.2 mmol/L (3.5-5.1); Total Protein 5.3 g/dL (6.3-8.2)
[2024-06-06 07:24] LABS: ABO TYPING A; Antibody Screen NEGATIVE (NEGATIVE); RH TYPING NEGATIVE
[2024-06-06 07:26] LABS: CROSS MATCH (PRBC) COMPATIBLE (COMPATIBLE)
[2024-06-06] MEDS: Sodium Chloride 0.9% 1000 ML 1,000 ML IV SCH (07:40)
[2024-06-06 09:03] LABS: Iron 57 ug/dL (37-170); Iron Saturation 45 % (20-39); TIBC 127 ug/dL (265-462)
[2024-06-06 10:00] LABS: Ferritin 340 ng/mL (6.24-137); Folate (Folic Acid) > 16.6 ng/mL (2.76 - >20); Vitamin B12 > 961 pg/mL (239-931)
[2024-06-06 10:26] LABS: IFOB TEST RESULTS NEGATIVE (NEGATIVE)
[2024-06-06 11:56] LABS: Hematocrit 26.3 % (34.1-44.9); Hemoglobin 8.5 g/dL (11.2-15.7)
[2024-06-06] MEDS: Lopressor 50 MG PO SCH (21:14)
[2024-06-07 04:45] LABS: Absolute Neutrophil Ct (ANC) 8.58 x10^3/uL (1.56-6.13); BASOPHIL % 0.8 % (0.1-1.2); Eosinophil % 2.6 % (0.7-5.8); Eosinophil (Absolute #) 0.34 x10^3/uL (0.04-0.36); Hematocrit 23.6 % (34.1-44.9); Hemoglobin 7.4 g/dL (11.2-15.7); IMMATURE GRAN % 1.5 % (0.001-0.429); Lymphocyte (Absolute #) 3.26 x10^3/uL (1.18-3.74); Lymphocytes % 24.5 % (19.3-51.7); Mean Cell Volume 97.1 fL (79.4-94.8); Mean Corpuscular Hemoglobin 30.5 pg (25.6-32.2); Mean Corpuscular Hgb Concent. 31.4 g/dL (32.2-35.5); Mean Platelet Volume 9.6 fL (9.4-12.3); Monocyte (Absolute #) 0.85 x10^3/uL (0.24-0.86); Monocytes % 6.4 % (4.7-12.5); Neutrophil % 64.2 % (34.0-71.1); Platelet Count 461 x10^3/uL (182-369); Red Blood Count 2.43 x10^6/uL (3.93-5.22); Red Cell Distribution Width 14.2 % (11.7-14.4); White Blood Count 13.3 x10^3/uL (3.98-10.04)
--- NOTE | 2024-06-07 04:46 | PCM.NOTE ---
Date and Time: 06/07/24 0444 Subjective Assessment: Ms. Horowitz is a 49 year-old female with DEUCE on CPAP, HTN, hypothyroidism, morbid obesity s/p gastric bypass, chronic pain, HLD, and chart diagnoses of - DM2, CAD, CHF, COPD admitted 05/26/24 with urosepsis after experiencing altered mental status and hypoglycemia requiring ED visit via EMS. EMS was called to help with the lift, but when they arrived at her home, they found her to be very altered from a mentation standpoint. Upon arrival to [facility], her laboratory data was remarkable for a UTI, an elevated Cr, increased LFTs, HCO3 18, WBC 20, and chronic anemia. CT head negative. Patient with transaminitis. CT abdomen demonstrates hepatomegaly and diffuse steatosis.Nonobstructing small right renal calculus. IN ED she was given D50 and a D5 infusion, but her blood sugar could not be maintained above 70, therefore she is now on a D10 drip. Blood glucose levels are stable with D10 infusion. Unsure of what is causing these episodes of hypoglycemia. A1c level is low at 4.03. Patient states she has had issues in the past. Would like her to follow up with endocrinology as OP and does have a gluco meter at home to check blood glucose levels. She may need strips/lancets. Urine culture with Ecoli and Klebsiella. Antimicrobial history Merrem 05/29- : Ceftriaxone 05/26/24-05/29/24. Propanolol stopped per pharmacy advisement for hypoglycemia and changed to Toprolol XL 25mg daily.Patient is normally on lurasidone but pharmacy does not carry this and no one at home can bring it in. Will sub with abilify which patient states she has tolerated in the past. Patient is to discharge to rehab. She is psychologically/medically stable. She will likely require 30 days or less. She wants to be home with her daughter. Patient was offered transfer to higher level of care for continued low blood glucose and she opted to go to rehab and f/u OP with endocrinology. 06/04/24: Met with patient bedside. Feeling good today. No longer having dysuria, weakness, or AMS. She continues to have hypoglycemia - mostly at night. Discussed having a snack before bed with complex carb/protein. Suggested peanut butter crackers if available. UTI has been adequately treated. Repeat Ucult negative. Will discontinue abx. HR in the 120's this morning. Will increase metoprolol. Continues to have BLE pitting edema 2+ - refuses lasix. Rehab pending insurance approval. Denies fever,cough, sob, cp, abdominal pain, SALAS, dizziness, N/V/D. 06/05: Patient reporting increased fatigue this morning. Hgb at 6.8. She will be recei ving 1 unit LPRBC. Patient states she is scheduled for EGD/colonoscopy in Jul. Since her gastric bypass in 2021 she has had chronic anemia requiring iron transfusions. Will check iron labs today as well as occult stools. Denies blood in stool or acute bleeding. Patient is consuming more frequent meals with complex carbohydrates and ensure with each meal. Psych consult performed last evening. Rehab pending insurance approval. 06/06: Met with patient bedside. States she is feeling much better today. Appetite and energy are improved s/p blood transfusion performed yesterday. WBC is slightly elevated today - this may be reactive of the transfusion from yesterday. CXR negative for acute findings. UA with small leuks. No fever, dysuria, hematuria, or other complaints. Blood glucose levels improved this morning. Rehab pending insurance approval. - Review of Systems Constitutional: No Symptoms Eyes: No Symptoms Ears, Nose, & Throat: No Symptoms Respiratory: No Symptoms Cardiac: Edema (BLE trace edema) Abdominal/Gastrointestinal: No Symptoms Genitourinary Symptoms: No Symptoms Musculoskeletal: No Symptoms Skin: No Symptoms Neurological: No Symptoms Psychological: No Symptoms Endocrine: No Symptoms Hematologic/Lymphatic: No Symptoms Immunological/Allergic: No Symptoms Objective Exam General Appearance: no apparent distress Neurologic Exam: alert, oriented x 3, cooperative Skin Exam: pale Eye Exam: PERRL Ears, Nose, Throat Exam: normal ENT inspection Neck Exam: normal inspection Respiratory Exam: normal breath sounds, lungs clear Cardiovascular Exam: regular rate/rhythm, normal heart sounds Gastrointestinal/Abdomen Exam: soft, normal bowel sounds Extremity Exam: swelling (BLE edema -trace) Back Exam: normal inspection, normal range of motion Pelvic Exam: deferred Rectal Exam: deferred Objective Data Vital Signs: Vital Signs - 24 hr Temp Pulse Resp BP Pulse Ox 06/07/24 03:00 97.7 F 91 H 16 125/66 100 06/06/24 23:00 97.6 F 87 16 122/58 97 08/21/24 19:46 98.0 F 106 H 17 113/56 95 06/06/24 18:30 106 H 18 96 06/06/24 15:39 97.9 F 108 H 16 97/50 96 06/06/24 13:21 113 H 107/51 06/06/24 10:50 98.0 F 114 H 109/53 06/06/24 08:35 97.9 F 128 H 133/63 06/06/24 08:05 98.0 F 129 H 120/58 06/06/24 07:40 98.0 F 121 H 116/56 06/06/24 07:15 97.2 F 120 H 18 132/63 94 L 06/06/24 06:32 101 H 18 96 Pain Assessment - Last Documented Pain Intensity 4 Pain Scale Used 0-10 Pain Scale Intake and Output: Intake & Output 06/04/24 06/05/24 06/06/24 06/07/24 11:59 11:59 11:59 11:59 Intake Total 765 1200 1441 1320 Balance 765 1200 1441 1320 Lab Results: Lab Results-Last 24 Hours 06/06/24 06/06/24 06/06/24 Range/Units 04:45 05:00 05:00 WBC (3.98-10.04) x10^3/uL RBC (3.93-5.22) x10^6/uL Hgb (11.2-15.7) g/dL Hct (34.1-44.9) % MCV (79.4-94.8) fL MCH (25.6-32.2) pg MCHC (32.2-35.5) g/dL RDW (11.7-14.4) % Plt Count (182-369) x10^3/uL MPV (9.4-12.3) fL Gran % (34.0-71.1) % Immature Gran % (Auto) (0.001-0.429) % Nucleat RBC Rel Count (0.00-0.2) % Eos # (Auto) (0.04-0.36) x10^3/uL Immature Gran # (Auto) (0.001-0.031) x10^3u/L Absolute Lymphs (auto) (1.18-3.74) x10^3/uL Absolute Monos (auto) (0.24-0.86) x10^3/uL Absolute Nucleated RBC (0.00-0.012) x10^3u/L Lymphocytes % (19.3-51.7) % Monocytes % (4.7-12.5) % Eosinophils % (0.7-5.8) % Basophils % (0.1-1.2) % Absolute Granulocytes (1.56-6.13) x10^3/uL Basophils # (0.01-0.08) x10^3/uL Sodium (135-145) mmol/L Potassium (3.5-5.1) mmol/L Chloride (98-107) mmol/L Carbon Dioxide (22-30) mmol/L Anion Gap (5-15) MEQ/L BUN (7-17) mg/dL Creatinine (0.52-1.04) mg/dL Estimated GFR ML/MIN Glucose (74-106) mg/dL POC Glucometer 74 (74 to 106) mg/dL Calcium (8.4-10.2) mg/dL Magnesium (1.6-2.3) mg/dL Iron 57 (37-170) ug/dL TIBC 127 L (265-462) ug/dL Iron Saturation 45 H (20-39) % Ferritin 340 H (6.24-137) ng/mL Total Bilirubin (0.2-1.3) mg/dL AST (14-36) U/L ALT (0-35) U/L Alkaline Phosphatase (38-126) U/L Serum Total Protein (6.3-8.2) g/dL Albumin (3.5-5.0) g/dL Vitamin B12 > 961 H (239-931) pg/mL Folic Acid > 16.6 (2.76 - >20) ng/mL TSH 3rd Generation (0.470-4.680) mIU/L Stl Occult Blood (IFOB) (NEGATIVE) ABO Group Rh Factor Antibody Screen (NEGATIVE) Crossmatch (COMPATIBLE) 06/06/24 06/06/24 06/06/24 Range/Units 05:00 05:16 05:16 WBC 9.7 (3.98-10.04) x10^3/uL RBC 2.23 L (3.93-5.22) x10^6/uL Hgb 6.8 L* (11.2-15.7) g/dL Hct 21.2 L (34.1-44.9) % MCV 95.1 H (79.4-94.8) fL MCH 30.5 (25.6-32.2) pg MCHC 32.1 L (32.2-35.5) g/dL RDW 13.9 (11.7-14.4) % Plt Count 496 H D (182-369) x10^3/uL MPV 9.8 (9.4-12.3) fL Gran % 53.6 (34.0-71.1) % Immature Gran % (Auto) 2.7 H (0.001-0.429) % Nucleat RBC Rel Count 0.0 (0.00-0.2) % Eos # (Auto) 0.24 (0.04-0.36) x10^3/uL Immature Gran # (Auto) 0.26 H (0.001-0.031) x10^3u/L Absolute Lymphs (auto) 3.28 (1.18-3.74) x10^3/uL Absolute Monos (auto) 0.66 (0.24-0.86) x10^3/uL Absolute Nucleated RBC 0.00 (0.00-0.012) x10^3u/L Lymphocytes % 33.8 (19.3-51.7) % Monocytes % 6.8 (4.7-12.5) % Eosinophils % 2.5 (0.7-5.8) % Basophils % 0.6 (0.1-1.2) % Absolute Granulocytes 5.19 (1.56-6.13) x10^3/uL Basophils # 0.06 (0.01-0.08) x10^3/uL Sodium 138 (135-145) mmol/L Potassium 4.2 (3.5-5.1) mmol/L Chloride 110 H (98-107) mmol/L Carbon Dioxide 24 (22-30) mmol/L Anion Gap 8.4 (5-15) MEQ/L BUN 8 (7-17) mg/dL Creatinine 0.79 (0.52-1.04) mg/dL Estimated GFR 92.8 ML/MIN Glucose 77 (74-106) mg/dL POC Glucometer (74 to 106) mg/dL Calcium 7.6 L (8.4-10.2) mg/dL Magnesium (1.6-2.3) mg/dL Iron (37-170) ug/dL TIBC (265-462) ug/dL Iron Saturation (20-39) % Ferritin (6.24-137) ng/mL Total Bilirubin 0.50 (0.2-1.3) mg/dL AST 47 H (14-36) U/L ALT 50 H (0-35) U/L Alkaline Phosphatase 265 H (38-126) U/L Serum Total Protein 5.3 L (6.3-8.2) g/dL Albumin 2.1 L (3.5-5.0) g/dL Vitamin B12 (239-931) pg/mL Folic Acid (2.76 - >20) ng/mL TSH 3rd Generation 3.889 (0.470-4.680) mIU/L Stl Occult Blood (IFOB) (NEGATIVE) ABO Group Rh Factor Antibody Screen (NEGATIVE) Crossmatch (COMPATIBLE) 06/06/24 06/06/24 06/06/24 Range/Units 05:16 06:24 07:02 WBC (3.98-10.04) x10^3/uL RBC (3.93-5.22) x10^6/uL Hgb (11.2-15.7) g/dL Hct (34.1-44.9) % MCV (79.4-94.8) fL MCH (25.6-32.2) pg MCHC (32.2-35.5) g/dL RDW (11.7-14.4) % Plt Count (182-369) x10^3/uL MPV (9.4-12.3) fL Gran % (34.0-71.1) % Immature Gran % (Auto) (0.001-0.429) % Nucleat RBC Rel Count (0.00-0.2) % Eos # (Auto) (0.04-0.36) x10^3/uL Immature Gran # (Auto) (0.001-0.031) x10^3u/L Absolute Lymphs (auto) (1.18-3.74) x10^3/uL Absolute Monos (auto) (0.24-0.86) x10^3/uL Absolute Nucleated RBC (0.00-0.012) x10^3u/L Lymphocytes % (19.3-51.7) % Monocytes % (4.7-12.5) % Eosinophils % (0.7-5.8) % Basophils % (0.1-1.2) % Absolute Granulocytes (1.56-6.13) x10^3/uL Basophils # (0.01-0.08) x10^3/uL Sodium (135-145) mmol/L Potassium (3.5-5.1) mmol/L Chloride (98-107) mmol/L Carbon Dioxide (22-30) mmol/L Anion Gap (5-15) MEQ/L BUN (7-17) mg/dL Creatinine (0.52-1.04) mg/dL Estimated GFR ML/MIN Glucose (74-106) mg/dL POC Glucometer 55 L (74 to 106) mg/dL Calcium (8.4-10.2) mg/dL Magnesium 1.7 (1.6-2.3) mg/dL Iron (37-170) ug/dL TIBC (265-462) ug/dL Iron Saturation (20-39) % Ferritin (6.24-137) ng/mL Total Bilirubin (0.2-1.3) mg/dL AST (14-36) U/L ALT (0-35) U/L Alkaline Phosphatase (38-126) U/L Serum Total Protein (6.3-8.2) g/dL Albumin (3.5-5.0) g/dL Vitamin B12 (239-931) pg/mL Folic Acid (2.76 - >20) ng/mL TSH 3rd Generation (0.470-4.680) mIU/L Stl Occult Blood (IFOB) (NEGATIVE) ABO Group A Rh Factor NEGATIVE Antibody Screen NEGATIVE (NEGATIVE) Crossmatch COMPATIBLE (COMPATIBLE) 06/06/24 06/06/24 06/06/24 Range/Units 07:31 08:46 10:00 WBC (3.98-10.04) x10^3/uL RBC (3.93-5.22) x10^6/uL Hgb (11.2-15.7) g/dL Hct (34.1-44.9) % MCV (79.4-94.8) fL MCH (25.6-32.2) pg MCHC (32.2-35.5) g/dL RDW (11.7-14.4) % Plt Count (182-369) x10^3/uL MPV (9.4-12.3) fL Gran % (34.0-71.1) % Immature Gran % (Auto) (0.001-0.429) % Nucleat RBC Rel Count (0.00-0.2) % Eos # (Auto) (0.04-0.36) x10^3/uL Immature Gran # (Auto) (0.001-0.031) x10^3u/L Absolute Lymphs (auto) (1.18-3.74) x10^3/uL Absolute Monos (auto) (0.24-0.86) x10^3/uL Absolute Nucleated RBC (0.00-0.012) x10^3u/L Lymphocytes % (19.3-51.7) % Monocytes % (4.7-12.5) % Eosinophils % (0.7-5.8) % Basophils % (0.1-1.2) % Absolute Granulocytes (1.56-6.13) x10^3/uL Basophils # (0.01-0.08) x10^3/uL Sodium (135-145) mmol/L Potassium (3.5-5.1) mmol/L Chloride (98-107) mmol/L Carbon Dioxide (22-30) mmol/L Anion Gap (5-15) MEQ/L BUN (7-17) mg/dL Creatinine (0.52-1.04) mg/dL Estimated GFR ML/MIN Glucose (74-106) mg/dL POC Glucometer 82 81 (74 to 106) mg/dL Calcium (8.4-10.2) mg/dL Magnesium (1.6-2.3) mg/dL Iron (37-170) ug/dL TIBC (265-462) ug/dL Iron Saturation (20-39) % Ferritin (6.24-137) ng/mL Total Bilirubin (0.2-1.3) mg/dL AST (14-36) U/L ALT (0-35) U/L Alkaline Phosphatase (38-126) U/L Serum Total Protein (6.3-8.2) g/dL Albumin (3.5-5.0) g/dL Vitamin B12 (239-931) pg/mL Folic Acid (2.76 - >20) ng/mL TSH 3rd Generation (0.470-4.680) mIU/L Stl Occult Blood (IFOB) NEGATIVE (NEGATIVE) ABO Group Rh Factor Antibody Screen (NEGATIVE) Crossmatch (COMPATIBLE) 06/06/24 06/06/24 06/06/24 Range/Units 11:31 11:50 13:15 WBC (3.98-10.04) x10^3/uL RBC (3.93-5.22) x10^6/uL Hgb 8.5 L D (11.2-15.7) g/dL Hct 26.3 L (34.1-44.9) % MCV (79.4-94.8) fL MCH (25.6-32.2) pg MCHC (32.2-35.5) g/dL RDW (11.7-14.4) % Plt Count (182-369) x10^3/uL MPV (9.4-12.3) fL Gran % (34.0-71.1) % Immature Gran % (Auto) (0.001-0.429) % Nucleat RBC Rel Count (0.00-0.2) % Eos # (Auto) (0.04-0.36) x10^3/uL Immature Gran # (Auto) (0.001-0.031) x10^3u/L Absolute Lymphs (auto) (1.18-3.74) x10^3/uL Absolute Monos (auto) (0.24-0.86) x10^3/uL Absolute Nucleated RBC (0.00-0.012) x10^3u/L Lymphocytes % (19.3-51.7) % Monocytes % (4.7-12.5) % Eosinophils % (0.7-5.8) % Basophils % (0.1-1.2) % Absolute Granulocytes (1.56-6.13) x10^3/uL Basophils # (0.01-0.08) x10^3/uL Sodium (135-145) mmol/L Potassium (3.5-5.1) mmol/L Chloride (98-107) mmol/L Carbon Dioxide (22-30) mmol/L Anion Gap (5-15) MEQ/L BUN (7-17) mg/dL Creatinine (0.52-1.04) mg/dL Estimated GFR ML/MIN Glucose (74-106) mg/dL POC Glucometer 111 H 111 H (74 to 106) mg/dL Calcium (8.4-10.2) mg/dL Magnesium (1.6-2.3) mg/dL Iron (37-170) ug/dL TIBC (265-462) ug/dL Iron Saturation (20-39) % Ferritin (6.24-137) ng/mL Total Bilirubin (0.2-1.3) mg/dL AST (14-36) U/L ALT (0-35) U/L Alkaline Phosphatase (38-126) U/L Serum Total Protein (6.3-8.2) g/dL Albumin (3.5-5.0) g/dL Vitamin B12 (239-931) pg/mL Folic Acid (2.76 - >20) ng/mL TSH 3rd Generation (0.470-4.680) mIU/L Stl Occult Blood (IFOB) (NEGATIVE) ABO Group Rh Factor Antibody Screen (NEGATIVE) Crossmatch (COMPATIBLE) 06/06/24 06/06/24 06/06/24 Range/Units 15:33 16:53 17:22 WBC (3.98-10.04) x10^3/uL RBC (3.93-5.22) x10^6/uL Hgb (11.2-15.7) g/dL Hct (34.1-44.9) % MCV (79.4-94.8) fL MCH (25.6-32.2) pg MCHC (32.2-35.5) g/dL RDW (11.7-14.4) % Plt Count (182-369) x10^3/uL MPV (9.4-12.3) fL Gran % (34.0-71.1) % Immature Gran % (Auto) (0.001-0.429) % Nucleat RBC Rel Count (0.00-0.2) % Eos # (Auto) (0.04-0.36) x10^3/uL Immature Gran # (Auto) (0.001-0.031) x10^3u/L Absolute Lymphs (auto) (1.18-3.74) x10^3/uL Absolute Monos (auto) (0.24-0.86) x10^3/uL Absolute Nucleated RBC (0.00-0.012) x10^3u/L Lymphocytes % (19.3-51.7) % Monocytes % (4.7-12.5) % Eosinophils % (0.7-5.8) % Basophils % (0.1-1.2) % Absolute Granulocytes (1.56-6.13) x10^3/uL Basophils # (0.01-0.08) x10^3/uL Sodium (135-145) mmol/L Potassium (3.5-5.1) mmol/L Chloride (98-107) mmol/L Carbon Dioxide (22-30) mmol/L Anion Gap (5-15) MEQ/L BUN (7-17) mg/dL Creatinine (0.52-1.04) mg/dL Estimated GFR ML/MIN Glucose (74-106) mg/dL POC Glucometer 119 H 70 L 96 (74 to 106) mg/dL Calcium (8.4-10.2) mg/dL Magnesium (1.6-2.3) mg/dL Iron (37-170) ug/dL TIBC (265-462) ug/dL Iron Saturation (20-39) % Ferritin (6.24-137) ng/mL Total Bilirubin (0.2-1.3) mg/dL AST (14-36) U/L ALT (0-35) U/L Alkaline Phosphatase (38-126) U/L Serum Total Protein (6.3-8.2) g/dL Albumin (3.5-5.0) g/dL Vitamin B12 (239-931) pg/mL Folic Acid (2.76 - >20) ng/mL TSH 3rd Generation (0.470-4.680) mIU/L Stl Occult Blood (IFOB) (NEGATIVE) ABO Group Rh Factor Antibody Screen (NEGATIVE) Crossmatch (COMPATIBLE) 06/06/24 06/06/24 06/06/24 Range/Units 18:54 20:49 22:54 WBC (3.98-10.04) x10^3/uL RBC (3.93-5.22) x10^6/uL Hgb (11.2-15.7) g/dL Hct (34.1-44.9) % MCV (79.4-94.8) fL MCH (25.6-32.2) pg MCHC (32.2-35.5) g/dL RDW (11.7-14.4) % Plt Count (182-369) x10^3/uL MPV (9.4-12.3) fL Gran % (34.0-71.1) % Immature Gran % (Auto) (0.001-0.429) % Nucleat RBC Rel Count (0.00-0.2) % Eos # (Auto) (0.04-0.36) x10^3/uL Immature Gran # (Auto) (0.001-0.031) x10^3u/L Absolute Lymphs (auto) (1.18-3.74) x10^3/uL Absolute Monos (auto) (0.24-0.86) x10^3/uL Absolute Nucleated RBC (0.00-0.012) x10^3u/L Lymphocytes % (19.3-51.7) % Monocytes % (4.7-12.5) % Eosinophils % (0.7-5.8) % Basophils % (0.1-1.2) % Absolute Granulocytes (1.56-6.13) x10^3/uL Basophils # (0.01-0.08) x10^3/uL Sodium (135-145) mmol/L Potassium (3.5-5.1) mmol/L Chloride (98-107) mmol/L Carbon Dioxide (22-30) mmol/L Anion Gap (5-15) MEQ/L BUN (7-17) mg/dL Creatinine (0.52-1.04) mg/dL Estimated GFR ML/MIN Glucose (74-106) mg/dL POC Glucometer 120 H 73 L 77 (74 to 106) mg/dL Calcium (8.4-10.2) mg/dL Magnesium (1.6-2.3) mg/dL Iron (37-170) ug/dL TIBC (265-462) ug/dL Iron Saturation (20-39) % Ferritin (6.24-137) ng/mL Total Bilirubin (0.2-1.3) mg/dL AST (14-36) U/L ALT (0-35) U/L Alkaline Phosphatase (38-126) U/L Serum Total Protein (6.3-8.2) g/dL Albumin (3.5-5.0) g/dL Vitamin B12 (239-931) pg/mL Folic Acid (2.76 - >20) ng/mL TSH 3rd Generation (0.470-4.680) mIU/L Stl Occult Blood (IFOB) (NEGATIVE) ABO Group Rh Factor Antibody Screen (NEGATIVE) Crossmatch (COMPATIBLE) 06/07/24 06/07/24 Range/Units 01:04 03:04 WBC (3.98-10.04) x10^3/uL RBC (3.93-5.22) x10^6/uL Hgb (11.2-15.7) g/dL Hct (34.1-44.9) % MCV (79.4-94.8) fL MCH (25.6-32.2) pg MCHC (32.2-35.5) g/dL RDW (11.7-14.4) % Plt Count (182-369) x10^3/uL MPV (9.4-12.3) fL Gran % (34.0-71.1) % Immature Gran % (Auto) (0.001-0.429) % Nucleat RBC Rel Count (0.00-0.2) % Eos # (Auto) (0.04-0.36) x10^3/uL Immature Gran # (Auto) (0.001-0.031) x10^3u/L Absolute Lymphs (auto) (1.18-3.74) x10^3/uL Absolute Monos (auto) (0.24-0.86) x10^3/uL Absolute Nucleated RBC (0.00-0.012) x10^3u/L Lymphocytes % (19.3-51.7) % Monocytes % (4.7-12.5) % Eosinophils % (0.7-5.8) % Basophils % (0.1-1.2) % Absolute Granulocytes (1.56-6.13) x10^3/uL Basophils # (0.01-0.08) x10^3/uL Sodium (135-145) mmol/L Potassium (3.5-5.1) mmol/L Chloride (98-107) mmol/L Carbon Dioxide (22-30) mmol/L Anion Gap (5-15) MEQ/L BUN (7-17) mg/dL Creatinine (0.52-1.04) mg/dL Estimated GFR ML/MIN Glucose (74-106) mg/dL POC Glucometer 83 70 L (74 to 106) mg/dL Calcium (8.4-10.2) mg/dL Magnesium (1.6-2.3) mg/dL Iron (37-170) ug/dL TIBC (265-462) ug/dL Iron Saturation (20-39) % Ferritin (6.24-137) ng/mL Total Bilirubin (0.2-1.3) mg/dL AST (14-36) U/L ALT (0-35) U/L Alkaline Phosphatase (38-126) U/L Serum Total Protein (6.3-8.2) g/dL Albumin (3.5-5.0) g/dL Vitamin B12 (239-931) pg/mL Folic Acid (2.76 - >20) ng/mL TSH 3rd Generation (0.470-4.680) mIU/L Stl Occult Blood (IFOB) (NEGATIVE) ABO Group Rh Factor Antibody Screen (NEGATIVE) Crossmatch (COMPATIBLE) Multi-Disciplinary Progress Notes: Multi-Disciplinary Progress Notes 06/06/24 17:49 Physical Therapy Note by Vidal(L#[id number])Neva P.T. HELD THIS DATE D/T LOW HGB AND PT. NEEDING BLOOD TRANSFUSION. WILL ATTEMPT TOMORROW. Initialized on 06/06/24 17:49 - END OF NOTE 06/06/24 14:37 Case Management Note by Miller,Adry S/W PATIENT- SHE CONTINUES TO PLAN TO GO TO [facility] ONCE PASRR IS COMPLETE LEVEL II REVIEWER CAME LAST EVENING- WAITING ON REPORT [facility] CALLED AND STATED THEY HAVE RECEIVED AUTH THRU 06/15 AND WILL BE READY FOR PATIENT WHEN LEVEL II COMPLETE Initialized on 06/06/24 14:37 - END OF NOTE 06/06/24 13:29 Nutrition Note by Lore Sneior F/u Note: house regular diet and ensure clear con't with 25-75% po intake. Labs 06/06= glu 111, hgb 8.5, hct 26.3. Educated pt on increasing protein intake and limiting simple sugars. Pt refused diabetic info - left her written materials. NOMI ArtCD Initialized on 06/06/24 13:29 - END OF NOTE Assessment/Plan (1) Sepsis secondary to UTI Current Visit: Yes Status: Acute Assessment & Plan: -Ucult with Ecoli and Klebsiella - adequate treatment - discontinue Merrem repeat Ucult negative -Antimicrobial history: Merrem 05/29-06/04/24 : Ceftriaxone 05/26/24- 05/29/24 -WBC trend 12.5<12.9<14.2<19.3 06/05: -No longer meeting criteria WBC now WNL Code(s): A41.9 - SEPSIS, UNSPECIFIED ORGANISM; N39.0 - URINARY TRACT INFECTION, SITE NOT SPECIFIED ### Anemia -Hgb at 6.8 this morning requiring 1 unit LPRBC -iron labs-with sat at 47% patient has h/o iron infusion-unable to tolerate PO iron -Gastric Bypass in 2021 -occult stools -Has scheduled EGD/Colonoscopy scheduled for July - denies dark stool or acute bleeding 06/07: -occult stools negative -Hgb at 7.4 this morning - on repeat 8.1 -iron panel with no deficiency -continue to monitor H&H this afternoon ###Hypoalbuminemia -Nutritional consult - ensure added with meals (2) AMS (altered mental status) Current Visit: Yes Status: Acute Assessment & Plan: -Head CT with no acute findings -Mentation at baseline Code(s): R41.82 - ALTERED MENTAL STATUS, UNSPECIFIED (3) GABY (acute kidney injury) Current Visit: Yes Status: Acute Assessment & Plan: -Avoid nephrotoxic medications -monitor renal/lytes daily -Baseline around 0.8-0.9 - now at baseline 06/07: -resolved Code(s): N17.9 - ACUTE KIDNEY FAILURE, UNSPECIFIED (4) HTN (hypertension) Current Visit: Yes Status: Acute Assessment & Plan: -Stable - monitor BP closely Code(s): I10 - ESSENTIAL (PRIMARY) HYPERTENSION (5) Transaminitis Current Visit: Yes Status: Acute Assessment & Plan: -Chronic -CT abdomen showing hepatomegaly and diffuse steatosis -LFTs downtrending, TBili now wnl - continue to monitor Code(s): R74.01 - ELEVATION OF LEVELS OF LIVER TRANSAMINASE LEVELS (6) Increased anion gap metabolic acidosis Current Visit: Yes Status: Acute Assessment & Plan: -Resolved Code(s): E87.29 - OTHER ACIDOSIS (7) HLD (hyperlipidemia) Current Visit: Yes Status: Acute Assessment & Plan: -continue statin Code(s): E78.5 - HYPERLIPIDEMIA, UNSPECIFIED (8) DEUCE (obstructive sleep apnea) Current Visit: Yes Status: Acute Assessment & Plan: Cpap at [facility] Code(s): G47.33 - OBSTRUCTIVE SLEEP APNEA (ADULT) (PEDIATRIC) (9) Chronic pain syndrome Current Visit: Yes Status: Acute Assessment & Plan: - Narcotic pain meds BID restarted 05/29 - increased pain meds to TID home dosing 06/02 Code(s): G89.4 - CHRONIC PAIN SYNDROME (10) Morbid obesity Current Visit: Yes Status: Acute Assessment & Plan: -advised heart healthy diet/with frequent meals every 2-3 hours for hypoglycemia and exercise Code(s): E66.01 - MORBID (SEVERE) OBESITY DUE TO EXCESS CALORIES (11) Hypoglycemia Current Visit: Yes Status: Acute Assessment & Plan: --Unknown etiology - ? secondary to meds - pharmacy consulted for med review - suggested stopping propanolol (changed to metoprolol) -Advised frequent meals/frequent blood glucose monitoring -Educated patient on s/sx of hypoglycemia and how to treat -Referred to endocrinology -A1c 4.03 06/06: -tolerating more frequent meals with ensure- follow up with endocrinology scheduled Code(s): E16.2 - HYPOGLYCEMIA, UNSPECIFIED (12) Hallucinations, unspecified Current Visit: No Status: Acute Assessment & Plan: -H/o psychological issues/ sees [facility] therapist OP -Multiple ED visits with similar symptoms -on lurasidone at home - pharmacy does not carry, will sub with abilify while IP Code(s): R44.3 - HALLUCINATIONS, UNSPECIFIED (13) Hypokalemia Current Visit: Yes Status: Acute Assessment & Plan: -tele - resolved 06/05: -K+ at 3.1, will replenish per protocol - add 20meq daily 06/06: resolved Code(s): E87.6 - HYPOKALEMIA (14) Hypomagnesemia Current Visit: Yes Status: Acute Assessment & Plan: -resolved 06/05: -Mg level pending - will replenish as appropriate 06/06: -Resolved Code(s): E83.42 - HYPOMAGNESEMIA (15) Diarrhea Current Visit: Yes Status: Acute Assessment & Plan: ?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 Hepatomegaly and diffuse steatosis. 2. Nonobstructing small right renal calculus 3. Clinical correlation is suggested. - probiotics Code(s): R19.7 - DIARRHEA, UNSPECIFIED (16) Edema Current Visit: Yes Status: Acute Assessment & Plan: -Received lasix with improvement of edema - lasix held as of 06/03/24 due to pt refusal -continue to monitor -BLE with 2+ pitting -no change 06/06: -Improving - 1+ pitting- advised elevation of BLE Code(s): R60.9 - EDEMA, UNSPECIFIED (17) Pericardial effusion Current Visit: Yes Status: Acute Assessment & Plan: - echo- EF 65% Transthoracic Echocardiogram 05/29/2024: 1. Normal biventricular wall thickness, chamber size, and systolic function. 2. Estimated left ventricular ejection fraction is 65%. 3. Normal diastolic function profile. 4. There is no significant valvular stenosis or regurgitation by Doppler flow analysis. 5. Normal PA systolic pressure (24 mmHg). 6. Normal right atrial pressure (3 mmHg). 7. Small anterior pericardial effusion around the anterior wall of the right ventricle. No echocardiographic evidence of tamponade. - cardiology consult- reviewed note and agree with plan of care Code(s): I31.39 - OTHER PERICARDIAL EFFUSION (NONINFLAMMATORY) (18) Tachycardia Current Visit: Yes Status: Acute Assessment & Plan: - Propanolol discontinued under advisement of pharmacy due to hypoglycemia - Metoprolol increased to 50mg daily due to HR in the 120s 06/05: -HR improved. Continue tele with close monitoring 06/06: -metoprolol changed to tartrate 50mg BID 06/07: -HR improved Code(s): A41.9 - SEPSIS, UNSPECIFIED ORGANISM; N39.0 - URINARY TRACT INFECTION, SITE NOT SPECIFIED (2) AMS (altered mental status) Current Visit: Yes Status: Acute Code(s): R41.82 - ALTERED MENTAL STATUS, UNSPECIFIED (3) GABY (acute kidney injury) Current Visit: Yes Status: Acute Code(s): N17.9 - ACUTE KIDNEY FAILURE, UNSPECIFIED (4) HTN (hypertension) Current Visit: Yes Status: Acute Code(s): I10 - ESSENTIAL (PRIMARY) HYPERTENSION (5) Transaminitis Current Visit: Yes Status: Acute Code(s): R74.01 - ELEVATION OF LEVELS OF LIVER TRANSAMINASE LEVELS (6) Increased anion gap metabolic acidosis Current Visit: Yes Status: Acute Code(s): E87.29 - OTHER ACIDOSIS (7) HLD (hyperlipidemia) Current Visit: Yes Status: Acute Code(s): E78.5 - HYPERLIPIDEMIA, UNSPECIFIED (8) DEUCE (obstructive sleep apnea) Current Visit: Yes Status: Acute Code(s): G47.33 - OBSTRUCTIVE SLEEP APNEA (ADULT) (PEDIATRIC) (9) Chronic pain syndrome Current Visit: Yes Status: Acute Code(s): G89.4 - CHRONIC PAIN SYNDROME (10) Morbid obesity Current Visit: Yes Status: Acute Code(s): E66.01 - MORBID (SEVERE) OBESITY DUE TO EXCESS CALORIES (11) Hypoglycemia Current Visit: Yes Status: Acute Code(s): E16.2 - HYPOGLYCEMIA, UNSPECIFIED (12) Hallucinations, unspecified Current Visit: No Status: Acute Code(s): R44.3 - HALLUCINATIONS, UNSPECIFIED (13) Hypokalemia Current Visit: Yes Status: Acute Code(s): E87.6 - HYPOKALEMIA (14) Hypomagnesemia Current Visit: Yes Status: Acute Code(s): E83.42 - HYPOMAGNESEMIA (15) Diarrhea Current Visit: Yes Status: Acute Code(s): R19.7 - DIARRHEA, UNSPECIFIED (16) Edema Current Visit: Yes Status: Acute Code(s): R60.9 - EDEMA, UNSPECIFIED (17) Pericardial effusion Current Visit: Yes Status: Acute Code(s): I31.39 - OTHER PERICARDIAL EFFUSION (NONINFLAMMATORY) (18) Tachycardia Current Visit: Yes Status: Acute Code(s): R00.0 - TACHYCARDIA, UNSPECIFIED (19) Anemia Current Visit: Yes Status: Acute Code(s): D64.9 - ANEMIA, UNSPECIFIED (20) Hypoalbuminemia due to protein-calorie malnutrition Current Visit: Yes Status: Acute Code(s): E88.09 - OTH DISORDERS OF PLASMA- PROTEIN METABOLISM, NEC; E46 - UNSPECIFIED PROTEIN-CALORIE MALNUTRITION
[2024-06-07 05:11] LABS: ALBUMIN 2.1 g/dL (3.5-5.0); ANION GAP 7.6 MEQ/L (5-15); BILIRUBIN,TOTAL 0.4 mg/dL (0.2-1.3); Calcium 7.6 mg/dL (8.4-10.2); Creatinine 1 0.69 mg/dL (0.52-1.04); EST GLOMERULAR FILTRATION RATE 107.7 ML/MIN; Potassium 3.7 mmol/L (3.5-5.1); Total Protein 5.2 g/dL (6.3-8.2)
--- NOTE | 2024-06-07 08:52 | XRAY ---
Indication: Leukocytosis. Comparison: May 29, 2024 Portable chest again demonstrates normal heart and lungs with incidental right Port-A-Cath. No new/acute abnormalities.
[2024-06-07] MEDS: Lasix 40 MG PO SCH (09:09)
[2024-06-07 09:28] LABS: Appearance Clear (Clear); Bacteria None Seen /HPF (None Seen); Bilirubin Negative (Negative); Blood Negative (Negative); Epithelial Cells Rare /HPF (None Seen); Glucose, Urine Negative (Negative); Hyaline Casts NONE SEEN /LPF (0-2); Ketones Negative (Negative); Leukocyte Esterase Small (Negative); Nitrite Negative (Negative); Ph 5.5 (4.6-8.0); Protein,Urine Dip Negative (Negative); RBC 0-2 /HPF (0-5); Urobilinogen 0.2 mg/dL (0.2)
[2024-06-07 09:30] LABS: ADD URINE CULTURE? YES (NO)
[2024-06-07] MEDS: NYSTOP POWDER 15 GM TP SCH (10:38)
[2024-06-07 11:19] LABS: Hematocrit 26.2 % (34.1-44.9); Hemoglobin 8.1 g/dL (11.2-15.7); Mean Corpuscular Hgb Concent. 30.9 g/dL (32.2-35.5); Mean Platelet Volume 9.6 fL (9.4-12.3); Platelet Count 499 x10^3/uL (182-369); Red Cell Distribution Width 14.3 % (11.7-14.4); White Blood Count 11.3 x10^3/uL (3.98-10.04)
[2024-06-07 18:32] LABS: Hematocrit 26.8 % (34.1-44.9); Hemoglobin 8.3 g/dL (11.2-15.7)
[2024-06-08 03:07] VITALS: PULSE 95; RESP 18
--- NOTE | 2024-06-08 05:01 | PCM.NOTE ---
Date and Time: 06/08/24 0501 Subjective Assessment: Ms. Horowitz is a 49 year-old female with DEUCE on CPAP, HTN, hypothyroidism, morbid obesity s/p gastric bypass, chronic pain, HLD, and chart diagnoses of - DM2, CAD, CHF, COPD admitted 05/26/24 with urosepsis after experiencing altered mental status and hypoglycemia requiring ED visit via EMS. EMS was called to help with the lift, but when they arrived at her home, they found her to be very altered from a mentation standpoint. Upon arrival to [place], her laboratory data was remarkable for a UTI, an elevated Cr, increased LFTs, HCO3 18, WBC 20, and chronic anemia. CT head negative. Patient with transaminitis. CT abdomen demonstrates hepatomegaly and diffuse steatosis.Nonobstructing small right renal calculus. IN ED she was given D50 and a D5 infusion, but her blood sugar could not be maintained above 70, therefore she is now on a D10 drip. Blood glucose levels are stable with D10 infusion. Unsure of what is causing these episodes of hypoglycemia. A1c level is low at 4.03. Patient states she has had issues in the past. Would like her to follow up with endocrinology as OP and does have a gluco meter at home to check blood glucose levels. She may need strips/lancets. Urine culture with Ecoli and Klebsiella. Antimicrobial history Merrem 05/29- : Ceftriaxone 05/26/24-05/29/24. Propanolol stopped per pharmacy advisement for hypoglycemia and changed to Toprolol XL 25mg daily.Patient is normally on lurasidone but pharmacy does not carry this and no one at home can bring it in. Will sub with abilify which patient states she has tolerated in the past. Patient is to discharge to rehab. She is psychologically/medically stable. She will likely require 30 days or less. She wants to be home with her daughter. Patient was offered transfer to higher level of care for continued low blood glucose and she opted to go to rehab and f/u OP with endocrinology. 06/04/24: Met with patient bedside. Feeling good today. No longer having dysuria, weakness, or AMS. She continues to have hypoglycemia - mostly at night. Discussed having a snack before bed with complex carb/protein. Suggested peanut butter crackers if available. UTI has been adequately treated. Repeat Ucult negative. Will discontinue abx. HR in the 120's this morning. Will increase metoprolol. Continues to have BLE pitting edema 2+ - refuses lasix. Rehab pending insurance approval. Denies fever,cough, sob, cp, abdominal pain, SALAS, dizziness, N/V/D. 06/05: Patient reporting increased fatigue this morning. Hgb at 6.8. She will be recei ving 1 unit LPRBC. Patient states she is scheduled for EGD/colonoscopy in Jul. Since her gastric bypass in 2021 she has had chronic anemia requiring iron transfusions. Will check iron labs today as well as occult stools. Denies blood in stool or acute bleeding. Patient is consuming more frequent meals with complex carbohydrates and ensure with each meal. Psych consult performed last evening. Rehab pending insurance approval. 06/06: Met with patient bedside. States she is feeling much better today. Appetite and energy are improved s/p blood transfusion performed yesterday. WBC is slightly elevated today - this may be reactive of the transfusion from yesterday. CXR negative for acute findings. UA with small leuks. No fever, dysuria, hematuria, or other complaints. Blood glucose levels improved this morning. Rehab pending insurance approval. Objective Data Vital Signs: Vital Signs - 24 hr Temp Pulse Resp BP Pulse Ox 06/08/24 03:00 98.3 F 95 H 18 103/59 97 06/07/24 23:00 97.8 F 98 H 16 101/51 98 06/07/24 19:00 96.9 F 91 H 16 116/59 100 06/07/24 18:30 106 H 18 98 06/07/24 15:00 97.1 F 91 H 20 118/58 92 L 06/07/24 11:00 97.4 F 82 18 113/58 98 06/07/24 07:00 98.6 F 103 H 20 113/58 98 06/07/24 06:43 95 H 16 96 Pain Assessment - Last Documented Pain Intensity 7 Pain Scale Used 0-10 Pain Scale Intake and Output: Intake & Output 06/05/24 06/06/24 06/07/24 06/08/24 11:59 11:59 11:59 11:59 Intake Total 1200 1441 1800 1480 Balance 1200 1441 1800 1480 Lab Results: Lab Results-Last 24 Hours 06/07/24 06/07/24 06/07/24 Range/Units 04:26 04:26 05:10 WBC 13.3 H (3.98-10.04) x10^3/uL RBC 2.43 L (3.93-5.22) x10^6/uL Hgb 7.4 L (11.2-15.7) g/dL Hct 23.6 L (34.1-44.9) % MCV 97.1 H (79.4-94.8) fL MCH 30.5 (25.6-32.2) pg MCHC 31.4 L (32.2-35.5) g/dL RDW 14.2 (11.7-14.4) % Plt Count 461 H (182-369) x10^3/uL MPV 9.6 (9.4-12.3) fL Gran % 64.2 (34.0-71.1) % Immature Gran % (Auto) 1.5 H (0.001-0.429) % Nucleat RBC Rel Count 0.0 (0.00-0.2) % Eos # (Auto) 0.34 (0.04-0.36) x10^3/uL Immature Gran # (Auto) 0.20 H (0.001-0.031) x10^3u/L Absolute Lymphs (auto) 3.26 (1.18-3.74) x10^3/uL Absolute Monos (auto) 0.85 (0.24-0.86) x10^3/uL Absolute Nucleated RBC 0.00 (0.00-0.012) x10^3u/L Lymphocytes % 24.5 (19.3-51.7) % Monocytes % 6.4 (4.7-12.5) % Eosinophils % 2.6 (0.7-5.8) % Basophils % 0.8 (0.1-1.2) % Absolute Granulocytes 8.58 H (1.56-6.13) x10^3/uL Basophils # 0.10 H (0.01-0.08) x10^3/uL Sodium 138 (135-145) mmol/L Potassium 3.7 (3.5-5.1) mmol/L Chloride 109 H (98-107) mmol/L Carbon Dioxide 25 (22-30) mmol/L Anion Gap 7.6 (5-15) MEQ/L BUN 8 (7-17) mg/dL Creatinine 0.69 (0.52-1.04) mg/dL Estimated GFR 107.7 ML/MIN Glucose 76 (74-106) mg/dL POC Glucometer 72 L (74 to 106) mg/dL Calcium 7.6 L (8.4-10.2) mg/dL Total Bilirubin 0.40 (0.2-1.3) mg/dL AST 39 H (14-36) U/L ALT 42 H (0-35) U/L Alkaline Phosphatase 216 H (38-126) U/L Serum Total Protein 5.2 L (6.3-8.2) g/dL Albumin 2.1 L (3.5-5.0) g/dL Procalcitonin (0.030-0.080) ng/mL Urine Color (Yellow) Urine Appearance (Clear) Urine pH (4.6-8.0) Ur Specific [place] (1.005-1.030) Urine Protein (Negative) Urine Glucose (UA) (Negative) mg/dL Urine Ketones (Negative) Urine Blood (Negative) Urine Nitrite (Negative) Urine Bilirubin (Negative) Urine Urobilinogen (0.2) mg/dL Ur Leukocyte Esterase (Negative) U Hyaline Cast (Auto) (0-2) /LPF Urine Microscopic RBC (0-5) /HPF Urine Microscopic WBC (0-5) /HPF Ur Epithelial Cells (None Seen) /HPF Urine Bacteria (None Seen) /HPF Urine Culture Reflexed (NO) 06/07/24 06/07/24 06/07/24 Range/Units 05:15 07:06 08:24 WBC (3.98-10.04) x10^3/uL RBC (3.93-5.22) x10^6/uL Hgb (11.2-15.7) g/dL Hct (34.1-44.9) % MCV (79.4-94.8) fL MCH (25.6-32.2) pg MCHC (32.2-35.5) g/dL RDW (11.7-14.4) % Plt Count (182-369) x10^3/uL MPV (9.4-12.3) fL Gran % (34.0-71.1) % Immature Gran % (Auto) (0.001-0.429) % Nucleat RBC Rel Count (0.00-0.2) % Eos # (Auto) (0.04-0.36) x10^3/uL Immature Gran # (Auto) (0.001-0.031) x10^3u/L Absolute Lymphs (auto) (1.18-3.74) x10^3/uL Absolute Monos (auto) (0.24-0.86) x10^3/uL Absolute Nucleated RBC (0.00-0.012) x10^3u/L Lymphocytes % (19.3-51.7) % Monocytes % (4.7-12.5) % Eosinophils % (0.7-5.8) % Basophils % (0.1-1.2) % Absolute Granulocytes (1.56-6.13) x10^3/uL Basophils # (0.01-0.08) x10^3/uL Sodium (135-145) mmol/L Potassium (3.5-5.1) mmol/L Chloride (98-107) mmol/L Carbon Dioxide (22-30) mmol/L Anion Gap (5-15) MEQ/L BUN (7-17) mg/dL Creatinine (0.52-1.04) mg/dL Estimated GFR ML/MIN Glucose (74-106) mg/dL POC Glucometer 75 90 (74 to 106) mg/dL Calcium (8.4-10.2) mg/dL Total Bilirubin (0.2-1.3) mg/dL AST (14-36) U/L ALT (0-35) U/L Alkaline Phosphatase (38-126) U/L Serum Total Protein (6.3-8.2) g/dL Albumin (3.5-5.0) g/dL Procalcitonin 0.248 H (0.030-0.080) ng/mL Urine Color (Yellow) Urine Appearance (Clear) Urine pH (4.6-8.0) Ur Specific [place] (1.005-1.030) Urine Protein (Negative) Urine Glucose (UA) (Negative) mg/dL Urine Ketones (Negative) Urine Blood (Negative) Urine Nitrite (Negative) Urine Bilirubin (Negative) Urine Urobilinogen (0.2) mg/dL Ur Leukocyte Esterase (Negative) U Hyaline Cast (Auto) (0-2) /LPF Urine Microscopic RBC (0-5) /HPF Urine Microscopic WBC (0-5) /HPF Ur Epithelial Cells (None Seen) /HPF Urine Bacteria (None Seen) /HPF Urine Culture Reflexed (NO) 06/07/24 06/07/24 06/07/24 Range/Units 09:19 10:50 11:26 WBC 11.3 H (3.98-10.04) x10^3/uL RBC 2.70 L (3.93-5.22) x10^6/uL Hgb 8.1 L (11.2-15.7) g/dL Hct 26.2 L (34.1-44.9) % MCV 97.0 H (79.4-94.8) fL MCH 30.0 (25.6-32.2) pg MCHC 30.9 L (32.2-35.5) g/dL RDW 14.3 (11.7-14.4) % Plt Count 499 H (182-369) x10^3/uL MPV 9.6 (9.4-12.3) fL Gran % (34.0-71.1) % Immature Gran % (Auto) (0.001-0.429) % Nucleat RBC Rel Count (0.00-0.2) % Eos # (Auto) (0.04-0.36) x10^3/uL Immature Gran # (Auto) (0.001-0.031) x10^3u/L Absolute Lymphs (auto) (1.18-3.74) x10^3/uL Absolute Monos (auto) (0.24-0.86) x10^3/uL Absolute Nucleated RBC (0.00-0.012) x10^3u/L Lymphocytes % (19.3-51.7) % Monocytes % (4.7-12.5) % Eosinophils % (0.7-5.8) % Basophils % (0.1-1.2) % Absolute Granulocytes (1.56-6.13) x10^3/uL Basophils # (0.01-0.08) x10^3/uL Sodium (135-145) mmol/L Potassium (3.5-5.1) mmol/L Chloride (98-107) mmol/L Carbon Dioxide (22-30) mmol/L Anion Gap (5-15) MEQ/L BUN (7-17) mg/dL Creatinine (0.52-1.04) mg/dL Estimated GFR ML/MIN Glucose (74-106) mg/dL POC Glucometer 69 L (74 to 106) mg/dL Calcium (8.4-10.2) mg/dL Total Bilirubin (0.2-1.3) mg/dL AST (14-36) U/L ALT (0-35) U/L Alkaline Phosphatase (38-126) U/L Serum Total Protein (6.3-8.2) g/dL Albumin (3.5-5.0) g/dL Procalcitonin (0.030-0.080) ng/mL Urine Color Yellow (Yellow) Urine Appearance Clear (Clear) Urine pH 5.5 (4.6-8.0) Ur Specific [place] 1.010 (1.005-1.030) Urine Protein Negative (Negative) Urine Glucose (UA) Negative (Negative) mg/dL Urine Ketones Negative (Negative) Urine Blood Negative (Negative) Urine Nitrite Negative (Negative) Urine Bilirubin Negative (Negative) Urine Urobilinogen 0.2 (0.2) mg/dL Ur Leukocyte Esterase Small A (Negative) U Hyaline Cast (Auto) NONE SEEN (0-2) /LPF Urine Microscopic RBC 0-2 (0-5) /HPF Urine Microscopic WBC 11-20 A (0-5) /HPF Ur Epithelial Cells Rare (None Seen) /HPF Urine Bacteria None Seen (None Seen) /HPF Urine Culture Reflexed YES (NO) 06/07/24 06/07/24 06/07/24 Range/Units 12:04 13:00 14:43 WBC (3.98-10.04) x10^3/uL RBC (3.93-5.22) x10^6/uL Hgb (11.2-15.7) g/dL Hct (34.1-44.9) % MCV (79.4-94.8) fL MCH (25.6-32.2) pg MCHC (32.2-35.5) g/dL RDW (11.7-14.4) % Plt Count (182-369) x10^3/uL MPV (9.4-12.3) fL Gran % (34.0-71.1) % Immature Gran % (Auto) (0.001-0.429) % Nucleat RBC Rel Count (0.00-0.2) % Eos # (Auto) (0.04-0.36) x10^3/uL Immature Gran # (Auto) (0.001-0.031) x10^3u/L Absolute Lymphs (auto) (1.18-3.74) x10^3/uL Absolute Monos (auto) (0.24-0.86) x10^3/uL Absolute Nucleated RBC (0.00-0.012) x10^3u/L Lymphocytes % (19.3-51.7) % Monocytes % (4.7-12.5) % Eosinophils % (0.7-5.8) % Basophils % (0.1-1.2) % Absolute Granulocytes (1.56-6.13) x10^3/uL Basophils # (0.01-0.08) x10^3/uL Sodium (135-145) mmol/L Potassium (3.5-5.1) mmol/L Chloride (98-107) mmol/L Carbon Dioxide (22-30) mmol/L Anion Gap (5-15) MEQ/L BUN (7-17) mg/dL Creatinine (0.52-1.04) mg/dL Estimated GFR ML/MIN Glucose (74-106) mg/dL POC Glucometer 100 125 H 79 (74 to 106) mg/dL Calcium (8.4-10.2) mg/dL Total Bilirubin (0.2-1.3) mg/dL AST (14-36) U/L ALT (0-35) U/L Alkaline Phosphatase (38-126) U/L Serum Total Protein (6.3-8.2) g/dL Albumin (3.5-5.0) g/dL Procalcitonin (0.030-0.080) ng/mL Urine Color (Yellow) Urine Appearance (Clear) Urine pH (4.6-8.0) Ur Specific [place] (1.005-1.030) Urine Protein (Negative) Urine Glucose (UA) (Negative) mg/dL Urine Ketones (Negative) Urine Blood (Negative) Urine Nitrite (Negative) Urine Bilirubin (Negative) Urine Urobilinogen (0.2) mg/dL Ur Leukocyte Esterase (Negative) U Hyaline Cast (Auto) (0-2) /LPF Urine Microscopic RBC (0-5) /HPF Urine Microscopic WBC (0-5) /HPF Ur Epithelial Cells (None Seen) /HPF Urine Bacteria (None Seen) /HPF Urine Culture Reflexed (NO) 06/07/24 06/07/24 06/07/24 Range/Units 17:06 18:25 18:41 WBC (3.98-10.04) x10^3/uL RBC (3.93-5.22) x10^6/uL Hgb 8.3 L (11.2-15.7) g/dL Hct 26.8 L (34.1-44.9) % MCV (79.4-94.8) fL MCH (25.6-32.2) pg MCHC (32.2-35.5) g/dL RDW (11.7-14.4) % Plt Count (182-369) x10^3/uL MPV (9.4-12.3) fL Gran % (34.0-71.1) % Immature Gran % (Auto) (0.001-0.429) % Nucleat RBC Rel Count (0.00-0.2) % Eos # (Auto) (0.04-0.36) x10^3/uL Immature Gran # (Auto) (0.001-0.031) x10^3u/L Absolute Lymphs (auto) (1.18-3.74) x10^3/uL Absolute Monos (auto) (0.24-0.86) x10^3/uL Absolute Nucleated RBC (0.00-0.012) x10^3u/L Lymphocytes % (19.3-51.7) % Monocytes % (4.7-12.5) % Eosinophils % (0.7-5.8) % Basophils % (0.1-1.2) % Absolute Granulocytes (1.56-6.13) x10^3/uL Basophils # (0.01-0.08) x10^3/uL Sodium (135-145) mmol/L Potassium (3.5-5.1) mmol/L Chloride (98-107) mmol/L Carbon Dioxide (22-30) mmol/L Anion Gap (5-15) MEQ/L BUN (7-17) mg/dL Creatinine (0.52-1.04) mg/dL Estimated GFR ML/MIN Glucose (74-106) mg/dL POC Glucometer 91 89 (74 to 106) mg/dL Calcium (8.4-10.2) mg/dL Total Bilirubin (0.2-1.3) mg/dL AST (14-36) U/L ALT (0-35) U/L Alkaline Phosphatase (38-126) U/L Serum Total Protein (6.3-8.2) g/dL Albumin (3.5-5.0) g/dL Procalcitonin (0.030-0.080) ng/mL Urine Color (Yellow) Urine Appearance (Clear) Urine pH (4.6-8.0) Ur Specific [place] (1.005-1.030) Urine Protein (Negative) Urine Glucose (UA) (Negative) mg/dL Urine Ketones (Negative) Urine Blood (Negative) Urine Nitrite (Negative) Urine Bilirubin (Negative) Urine Urobilinogen (0.2) mg/dL Ur Leukocyte Esterase (Negative) U Hyaline Cast (Auto) (0-2) /LPF Urine Microscopic RBC (0-5) /HPF Urine Microscopic WBC (0-5) /HPF Ur Epithelial Cells (None Seen) /HPF Urine Bacteria (None Seen) /HPF Urine Culture Reflexed (NO) 06/07/24 06/07/24 06/08/24 Range/Units 20:41 23:05 01:07 WBC (3.98-10.04) x10^3/uL RBC (3.93-5.22) x10^6/uL Hgb (11.2-15.7) g/dL Hct (34.1-44.9) % MCV (79.4-94.8) fL MCH (25.6-32.2) pg MCHC (32.2-35.5) g/dL RDW (11.7-14.4) % Plt Count (182-369) x10^3/uL MPV (9.4-12.3) fL Gran % (34.0-71.1) % Immature Gran % (Auto) (0.001-0.429) % Nucleat RBC Rel Count (0.00-0.2) % Eos # (Auto) (0.04-0.36) x10^3/uL Immature Gran # (Auto) (0.001-0.031) x10^3u/L Absolute Lymphs (auto) (1.18-3.74) x10^3/uL Absolute Monos (auto) (0.24-0.86) x10^3/uL Absolute Nucleated RBC (0.00-0.012) x10^3u/L Lymphocytes % (19.3-51.7) % Monocytes % (4.7-12.5) % Eosinophils % (0.7-5.8) % Basophils % (0.1-1.2) % Absolute Granulocytes (1.56-6.13) x10^3/uL Basophils # (0.01-0.08) x10^3/uL Sodium (135-145) mmol/L Potassium (3.5-5.1) mmol/L Chloride (98-107) mmol/L Carbon Dioxide (22-30) mmol/L Anion Gap (5-15) MEQ/L BUN (7-17) mg/dL Creatinine (0.52-1.04) mg/dL Estimated GFR ML/MIN Glucose (74-106) mg/dL POC Glucometer 56 L 76 75 (74 to 106) mg/dL Calcium (8.4-10.2) mg/dL Total Bilirubin (0.2-1.3) mg/dL AST (14-36) U/L ALT (0-35) U/L Alkaline Phosphatase (38-126) U/L Serum Total Protein (6.3-8.2) g/dL Albumin (3.5-5.0) g/dL Procalcitonin (0.030-0.080) ng/mL Urine Color (Yellow) Urine Appearance (Clear) Urine pH (4.6-8.0) Ur Specific [place] (1.005-1.030) Urine Protein (Negative) Urine Glucose (UA) (Negative) mg/dL Urine Ketones (Negative) Urine Blood (Negative) Urine Nitrite (Negative) Urine Bilirubin (Negative) Urine Urobilinogen (0.2) mg/dL Ur Leukocyte Esterase (Negative) U Hyaline Cast (Auto) (0-2) /LPF Urine Microscopic RBC (0-5) /HPF Urine Microscopic WBC (0-5) /HPF Ur Epithelial Cells (None Seen) /HPF Urine Bacteria (None Seen) /HPF Urine Culture Reflexed (NO) 06/08/24 Range/Units 02:57 WBC (3.98-10.04) x10^3/uL RBC (3.93-5.22) x10^6/uL Hgb (11.2-15.7) g/dL Hct (34.1-44.9) % MCV (79.4-94.8) fL MCH (25.6-32.2) pg MCHC (32.2-35.5) g/dL RDW (11.7-14.4) % Plt Count (182-369) x10^3/uL MPV (9.4-12.3) fL Gran % (34.0-71.1) % Immature Gran % (Auto) (0.001-0.429) % Nucleat RBC Rel Count (0.00-0.2) % Eos # (Auto) (0.04-0.36) x10^3/uL Immature Gran # (Auto) (0.001-0.031) x10^3u/L Absolute Lymphs (auto) (1.18-3.74) x10^3/uL Absolute Monos (auto) (0.24-0.86) x10^3/uL Absolute Nucleated RBC (0.00-0.012) x10^3u/L Lymphocytes % (19.3-51.7) % Monocytes % (4.7-12.5) % Eosinophils % (0.7-5.8) % Basophils % (0.1-1.2) % Absolute Granulocytes (1.56-6.13) x10^3/uL Basophils # (0.01-0.08) x10^3/uL Sodium (135-145) mmol/L Potassium (3.5-5.1) mmol/L Chloride (98-107) mmol/L Carbon Dioxide (22-30) mmol/L Anion Gap (5-15) MEQ/L BUN (7-17) mg/dL Creatinine (0.52-1.04) mg/dL Estimated GFR ML/MIN Glucose (74-106) mg/dL POC Glucometer 80 (74 to 106) mg/dL Calcium (8.4-10.2) mg/dL Total Bilirubin (0.2-1.3) mg/dL AST (14-36) U/L ALT (0-35) U/L Alkaline Phosphatase (38-126) U/L Serum Total Protein (6.3-8.2) g/dL Albumin (3.5-5.0) g/dL Procalcitonin (0.030-0.080) ng/mL Urine Color (Yellow) Urine Appearance (Clear) Urine pH (4.6-8.0) Ur Specific [place] (1.005-1.030) Urine Protein (Negative) Urine Glucose (UA) (Negative) mg/dL Urine Ketones (Negative) Urine Blood (Negative) Urine Nitrite (Negative) Urine Bilirubin (Negative) Urine Urobilinogen (0.2) mg/dL Ur Leukocyte Esterase (Negative) U Hyaline Cast (Auto) (0-2) /LPF Urine Microscopic RBC (0-5) /HPF Urine Microscopic WBC (0-5) /HPF Ur Epithelial Cells (None Seen) /HPF Urine Bacteria (None Seen) /HPF Urine Culture Reflexed (NO) Radiology Exams: Radiology Procedures Category Date Time Status CHEST 1 VIEW (PORTABLE) Routine Exams 06/07/24 06:26 Completed Multi-Disciplinary Progress Notes: Multi-Disciplinary Progress Notes 06/07/24 20:51 Physical Therapy Note by Vidal(Wallace#[id number]),Neva PT. WAS SEEN BY P.T. THIS A.M. REPORTS DECREASED LE PN TODAY AND STATES SHE IS STILL FATIGUED BUT DOES FEEL SLIGHTLY BETTER AFTER BLOOD TRANSFUSION 06/06. BLOOD SUGARS CONT. TO BE LOW - 69 AT BEGINNING OF P.T. PT. AGREEABLE TO P.T. PER FORMED SEATED LE EX'S OF LAQS, MARCHES, ANKLE PUMPS, QUAD SETS, AND HEEL SLIDES X 10 REPS. NOTED IMPROVED LE MOBILITY AND STRENGTH TODAY. PT. PERFORMED SIT TO STAND W/ CGA -SBA. ABLE TO STAND WITHOUT UE SUPPORT OR ~1-2' TO DON GOWN. AMBULATED 100' W/ FWW AND CGA-SBA. MUCH IMPROVED GAIT STABILITY AND ENDURANCE TODAY. NOTED DYSPNEA AFTER WALK BUT O2 SATS 95% ON RA. PT. AWAITING APPROVAL FOR SNF ADMISSION FOR REHAB STAY. WILL CONT. P.T. 5X/SWK UNTIL D/C TO ADDRESS WEAKNESS AND FUNCTIONAL DEFICITS. Initialized on 06/07/24 20:51 - END OF NOTE 06/07/24 12:09 Case Management Note by Adry Miller ORDERED DEXCOM THRU [facility] TO HELP MONITOR SUGARS D/T HYPOGLYCEMIA SENT REFERRAL TO [facility] TO ASSIST WITH [facility] AT HOME REFERRAL ALSO GIVEN TO ACO DEPARTMENT Initialized on 06/07/24 12:09 - END OF NOTE 06/07/24 11:34 Case Management Note by Adry Miller S/W PATIENT- SHE CONTINUES TO PLAN TO TRANSITION TO [facility] FOR SHORT TERM REHAB STAY. [facility] MIN AT [facility] WAS UPDATED AND VERIFIED UNDERSTANDING Initialized on 06/07/24 11:34 - END OF NOTE Assessment/Plan (1) Sepsis secondary to UTI Current Visit: Yes Status: Acute Assessment & Plan: -Ucult with Ecoli and Klebsiella - adequate treatment - discontinue Merrem repeat Ucult negative -Antimicrobial history: Merrem 05/29-06/04/24 : Ceftriaxone 05/26/24- 05/29/24 -WBC trend 12.5<12.9<14.2<19.3 06/05: -No longer meeting criteria WBC now WNL Code(s): A41.9 - SEPSIS, UNSPECIFIED ORGANISM; N39.0 - URINARY TRACT INFECTION, SITE NOT SPECIFIED ### Anemia -Hgb at 6.8 this morning requiring 1 unit LPRBC -iron labs-with sat at 47% patient has h/o iron infusion-unable to tolerate PO iron -Gastric Bypass in 2021 -occult stools -Has scheduled EGD/Colonoscopy scheduled for July - denies dark stool or acute bleeding 06/07: -occult stools negative -Hgb at 7.4 this morning - on repeat 8.1 -iron panel with no deficiency -continue to monitor H&H this afternoon ###Hypoalbuminemia -Nutritional consult - ensure added with meals (2) AMS (altered mental status) Current Visit: Yes Status: Acute Assessment & Plan: -Head CT with no acute findings -Mentation at baseline Code(s): R41.82 - ALTERED MENTAL STATUS, UNSPECIFIED (3) GABY (acute kidney injury) Current Visit: Yes Status: Acute Assessment & Plan: -Avoid nephrotoxic medications -monitor renal/lytes daily -Baseline around 0.8-0.9 - now at baseline 06/07: -resolved Code(s): N17.9 - ACUTE KIDNEY FAILURE, UNSPECIFIED (4) HTN (hypertension) Current Visit: Yes Status: Acute Assessment & Plan: -Stable - monitor BP closely Code(s): I10 - ESSENTIAL (PRIMARY) HYPERTENSION (5) Transaminitis Current Visit: Yes Status: Acute Assessment & Plan: -Chronic -CT abdomen showing hepatomegaly and diffuse steatosis -LFTs downtrending, TBili now wnl - continue to monitor Code(s): R74.01 - ELEVATION OF LEVELS OF LIVER TRANSAMINASE LEVELS (6) Increased anion gap metabolic acidosis Current Visit: Yes Status: Acute Assessment & Plan: -Resolved Code(s): E87.29 - OTHER ACIDOSIS (7) HLD (hyperlipidemia) Current Visit: Yes Status: Acute Assessment & Plan: -continue statin Code(s): E78.5 - HYPERLIPIDEMIA, UNSPECIFIED (8) DEUCE (obstructive sleep apnea) Current Visit: Yes Status: Acute Assessment & Plan: Cpap at [facility] Code(s): G47.33 - OBSTRUCTIVE SLEEP APNEA (ADULT) (PEDIATRIC) (9) Chronic pain syndrome Current Visit: Yes Status: Acute Assessment & Plan: - Narcotic pain meds BID restarted 05/29 - increased pain meds to TID home dosing 06/02 Code(s): G89.4 - CHRONIC PAIN SYNDROME (10) Morbid obesity Current Visit: Yes Status: Acute Assessment & Plan: -advised heart healthy diet/with frequent meals every 2-3 hours for hypoglycemia and exercise Code(s): E66.01 - MORBID (SEVERE) OBESITY DUE TO EXCESS CALORIES (11) Hypoglycemia Current Visit: Yes Status: Acute Assessment & Plan: --Unknown etiology - ? secondary to meds - pharmacy consulted for med review - suggested stopping propanolol (changed to metoprolol) -Advised frequent meals/frequent blood glucose monitoring -Educated patient on s/sx of hypoglycemia and how to treat -Referred to endocrinology -A1c 4.03 06/06: -tolerating more frequent meals with ensure- follow up with endocrinology scheduled Code(s): E16.2 - HYPOGLYCEMIA, UNSPECIFIED (12) Hallucinations, unspecified Current Visit: No Status: Acute Assessment & Plan: -H/o psychological issues/ sees [facility] therapist OP -Multiple ED visits with similar symptoms -on lurasidone at home - pharmacy does not carry, will sub with abilify while IP Code(s): R44.3 - HALLUCINATIONS, UNSPECIFIED (13) Hypokalemia Current Visit: Yes Status: Acute Assessment & Plan: -tele - resolved 06/05: -K+ at 3.1, will replenish per protocol - add 20meq daily 06/06: resolved Code(s): E87.6 - HYPOKALEMIA (14) Hypomagnesemia Current Visit: Yes Status: Acute Assessment & Plan: -resolved 06/05: -Mg level pending - will replenish as appropriate 06/06: -Resolved Code(s): E83.42 - HYPOMAGNESEMIA (15) Diarrhea Current Visit: Yes Status: Acute Assessment & Plan: ?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 Hepatomegaly and diffuse steatosis. 2. Nonobstructing small right renal calculus 3. Clinical correlation is suggested. - probiotics Code(s): R19.7 - DIARRHEA, UNSPECIFIED (16) Edema Current Visit: Yes Status: Acute Assessment & Plan: -Received lasix with improvement of edema - lasix held as of 06/03/24 due to pt refusal -continue to monitor -BLE with 2+ pitting -no change 06/06: -Improving - 1+ pitting- advised elevation of BLE Code(s): R60.9 - EDEMA, UNSPECIFIED (17) Pericardial effusion Current Visit: Yes Status: Acute Assessment & Plan: - echo- EF 65% Transthoracic Echocardiogram 05/29/2024: 1. Normal biventricular wall thickness, chamber size, and systolic function. 2. Estimated left ventricular ejection fraction is 65%. 3. Normal diastolic function profile. 4. There is no significant valvular stenosis or regurgitation by Doppler flow analysis. 5. Normal PA systolic pressure (24 mmHg). 6. Normal right atrial pressure (3 mmHg). 7. Small anterior pericardial effusion around the anterior wall of the right ventricle. No echocardiographic evidence of tamponade. - cardiology consult- reviewed note and agree with plan of care Code(s): I31.39 - OTHER PERICARDIAL EFFUSION (NONINFLAMMATORY) (18) Tachycardia Current Visit: Yes Status: Acute Assessment & Plan: - Propanolol discontinued under advisement of pharmacy due to hypoglycemia - Metoprolol increased to 50mg daily due to HR in the 120s 06/05: -HR improved. Continue tele with close monitoring 06/06: -metoprolol changed to tartrate 50mg BID 06/07: -HR improved Code(s): A41.9 - SEPSIS, UNSPECIFIED ORGANISM; N39.0 - URINARY TRACT INFECTION, SITE NOT SPECIFIED (2) AMS (altered mental status) Current Visit: Yes Status: Acute Code(s): R41.82 - ALTERED MENTAL STATUS, UNSPECIFIED (3) GABY (acute kidney injury) Current Visit: Yes Status: Acute Code(s): N17.9 - ACUTE KIDNEY FAILURE, UNSPECIFIED (4) HTN (hypertension) Current Visit: Yes Status: Acute Code(s): I10 - ESSENTIAL (PRIMARY) HYPERTENSION (5) Transaminitis Current Visit: Yes Status: Acute Code(s): R74.01 - ELEVATION OF LEVELS OF LIVER TRANSAMINASE LEVELS (6) Increased anion gap metabolic acidosis Current Visit: Yes Status: Acute Code(s): E87.29 - OTHER ACIDOSIS (7) HLD (hyperlipidemia) Current Visit: Yes Status: Acute Code(s): E78.5 - HYPERLIPIDEMIA, UNSPECIFIED (8) DEUCE (obstructive sleep apnea) Current Visit: Yes Status: Acute Code(s): G47.33 - OBSTRUCTIVE SLEEP APNEA (ADULT) (PEDIATRIC) (9) Chronic pain syndrome Current Visit: Yes Status: Acute Code(s): G89.4 - CHRONIC PAIN SYNDROME (10) Morbid obesity Current Visit: Yes Status: Acute Code(s): E66.01 - MORBID (SEVERE) OBESITY DUE TO EXCESS CALORIES (11) Hypoglycemia Current Visit: Yes Status: Acute Code(s): E16.2 - HYPOGLYCEMIA, UNSPECIFIED (12) Hallucinations, unspecified Current Visit: No Status: Acute Code(s): R44.3 - HALLUCINATIONS, UNSPECIFIED (13) Hypokalemia Current Visit: Yes Status: Acute Code(s): E87.6 - HYPOKALEMIA (14) Hypomagnesemia Current Visit: Yes Status: Acute Code(s): E83.42 - HYPOMAGNESEMIA (15) Diarrhea Current Visit: Yes Status: Acute Code(s): R19.7 - DIARRHEA, UNSPECIFIED (16) Edema Current Visit: Yes Status: Acute Code(s): R60.9 - EDEMA, UNSPECIFIED (17) Pericardial effusion Current Visit: Yes Status: Acute Code(s): I31.39 - OTHER PERICARDIAL EFFUSION (NONINFLAMMATORY) (18) Tachycardia Current Visit: Yes Status: Acute Code(s): R00.0 - TACHYCARDIA, UNSPECIFIED (19) Anemia Current Visit: Yes Status: Acute Code(s): D64.9 - ANEMIA, UNSPECIFIED (20) Hypoalbuminemia due to protein-calorie malnutrition Current Visit: Yes Status: Acute Code(s): E88.09 - OTH DISORDERS OF PLASMA- PROTEIN METABOLISM, NEC; E46 - UNSPECIFIED PROTEIN-CALORIE MALNUTRITION
[2024-06-08 05:08] LABS: Absolute Neutrophil Ct (ANC) 7.46 x10^3/uL (1.56-6.13); BASOPHIL % 0.8 % (0.1-1.2); Basophil (Absolute #) 0.09 x10^3/uL (0.01-0.08); Eosinophil % 1.8 % (0.7-5.8); Eosinophil (Absolute #) 0.21 x10^3/uL (0.04-0.36); Hematocrit 22.9 % (34.1-44.9); Hemoglobin 7.2 g/dL (11.2-15.7); IMMATURE GRAN # 0.15 x10^3u/L (0.001-0.031); IMMATURE GRAN % 1.3 % (0.001-0.429); Lymphocyte (Absolute #) 2.74 x10^3/uL (1.18-3.74); Lymphocytes % 23.9 % (19.3-51.7); Mean Cell Volume 96.2 fL (79.4-94.8); Mean Corpuscular Hemoglobin 30.3 pg (25.6-32.2); Mean Corpuscular Hgb Concent. 31.4 g/dL (32.2-35.5); Mean Platelet Volume 9.8 fL (9.4-12.3); Monocyte (Absolute #) 0.83 x10^3/uL (0.24-0.86); Monocytes % 7.2 % (4.7-12.5); Platelet Count 486 x10^3/uL (182-369); Red Blood Count 2.38 x10^6/uL (3.93-5.22); Red Cell Distribution Width 14.4 % (11.7-14.4); White Blood Count 11.5 x10^3/uL (3.98-10.04)
[2024-06-08 05:34] LABS: ALBUMIN 2.2 g/dL (3.5-5.0); ANION GAP 8.1 MEQ/L (5-15); BILIRUBIN,TOTAL 0.4 mg/dL (0.2-1.3); Calcium 7.3 mg/dL (8.4-10.2); Creatinine 1 0.76 mg/dL (0.52-1.04); EST GLOMERULAR FILTRATION RATE 97.2 ML/MIN; Total Protein 5.3 g/dL (6.3-8.2)
[2024-06-08 05:36] LABS: Potassium 3.1 mmol/L (3.5-5.1)
[2024-06-08 07:33] VITALS: O2SAT 95
[2024-06-08 09:06] VITALS: BP 122/60; TEMP 99.2
[2024-06-08 10:15] LABS: Hematocrit 27.9 % (34.1-44.9); Hemoglobin 8.8 g/dL (11.2-15.7)
[2024-06-08] MEDS: Klor Con PO ONE (11:07)
--- NOTE | 2024-06-08 11:26 | PCM.DS ---
Discharge Summary Date of Admission: 05/26/24 01:07 Date of Discharge: 06/08/24 Admitting Physician: BRANDI CEE MD Consults: Consults on Case 05/27/24 08:11 Psychiatric Consult STAT 05/29/24 14:49 Consult Cardiology ROUTINE 06/03/24 10:15 Nutritional Consult ROUTINE 06/06/24 17:02 Notify Physician ROUTINE Primary Care Provider: RICKY OBRIEN Allergies Allergies Iodinated Contrast Media [IV Dye, Iodine Containing Contrast ] Allergy (Mild, Verified 05/26/24 01:39) "asthma attck" Sulfa (Sulfonamide Antibiotics) [Sulfa(Sulfonamide Antibiotics)] Allergy (Mild, Verified 05/26/24 01:39) "asthma attck" benztropine Allergy (Verified 05/26/24 01:39) triamcinolone Allergy (Verified 05/26/24 01:39) Hospital Summary - Hospital Course Hospital Course: Ms. Horowitz is a 49 year-old female with DEUCE on CPAP, HTN, hypothyroidism, morbid obesity s/p gastric bypass, chronic pain, HLD, and chart diagnoses of - DM2, CAD, CHF, COPD admitted 05/26/24 with urosepsis after experiencing altered mental status and hypoglycemia requiring ED visit via EMS. EMS was called to help with the lift, but when they arrived at her home, they found her to be very altered from a mentation standpoint. Upon arrival to [facility], her laboratory data was remarkable for a UTI, an elevated Cr, increased LFTs, HCO3 18, WBC 20, and chronic anemia. CT head negative. Patient with transaminitis. CT abdomen d emonstrates hepatomegaly and diffuse steatosis.Nonobstructing small right renal calculus. IN ED she was given D50 and a D5 infusion, but her blood sugar could not be maintained above 70, therefore she is now on a D10 drip. Blood glucose levels are stable with D10 infusion. Unsure of what is causing these episodes of hypoglycemia. A1c level is low at 4.03. Patient states she has had issues in the past. Would like her to follow up with endocrinology as OP and does have a glucometer at home to check blood glucose levels. Urine culture with Ecoli and Klebsiella. Antimicrobial history Merrem 05/29- : Ceftriaxone 05/26/24-05/29/24. Propanolol stopped per pharmacy advisement for hypoglycemia and changed to Toprolol XL 25mg daily.Patient is normally on lurasidone but pharmacy does not carry this and no one at home can bring it in. Will sub with abilify which patient states she has tolerated in the past. Patient is to discharge to rehab. She is psychologically/medically stable. She will likely require 30 days or less. She wants to be home with her daughter. Patient was offered transfer to higher level of care for continued low blood glucose and she opted to go to rehab and f/u OP with endocrinology. Discharge Note New Diagnosis: UTI/hypoglycemia Latest Assessment & Plan (1) Sepsis secondary to UTI Current Visit: Yes Status: Acute Assessment & Plan: -Ucult with Ecoli and Klebsiella - adequate treatment - discontinue Merrem repeat Ucult negative -Antimicrobial history: Merrem 05/29-06/04/24 : Ceftriaxone 05/26/24- 05/29/24 -WBC trend 12.5<12.9<14.2<19.3 06/05: -No longer meeting criteria WBC now WNL Code(s): A41.9 - SEPSIS, UNSPECIFIED ORGANISM; N39.0 - URINARY TRACT INFECTION, SITE NOT SPECIFIED ### Anemia -Hgb at 6.8 this morning requiring 1 unit LPRBC -iron labs-with sat at 47% patient has h/o iron infusion-unable to tolerate PO iron -Gastric Bypass in 2021 -occult stools -Has scheduled EGD/Colonoscopy scheduled for July - denies dark stool or acute bleeding 06/07: -occult stools negative -Hgb at 7.4 this morning - on repeat 8.1 -iron panel with no deficiency -continue to monitor H&H this afternoon ###Hypoalbuminemia -Nutritional consult - ensure added with meals (2) AMS (altered mental status) Current Visit: Yes Status: Acute Assessment & Plan: -Head CT with no acute findings -Mentation at baseline Code(s): R41.82 - ALTERED MENTAL STATUS, UNSPECIFIED (3) GABY (acute kidney injury) Current Visit: Yes Status: Acute Assessment & Plan: -Avoid nephrotoxic medications -monitor renal/lytes daily -Baseline around 0.8-0.9 - now at baseline 06/07: -resolved Code(s): N17.9 - ACUTE KIDNEY FAILURE, UNSPECIFIED (4) HTN (hypertension) Current Visit: Yes Status: Acute Assessment & Plan: -Stable - monitor BP closely Code(s): I10 - ESSENTIAL (PRIMARY) HYPERTENSION (5) Transaminitis Current Visit: Yes Status: Acute Assessment & Plan: -Chronic -CT abdomen showing hepatomegaly and diffuse steatosis -LFTs downtrending, TBili now wnl - continue to monitor Code(s): R74.01 - ELEVATION OF LEVELS OF LIVER TRANSAMINASE LEVELS (6) Increased anion gap metabolic acidosis Current Visit: Yes Status: Acute Assessment & Plan: -Resolved Code(s): E87.29 - OTHER ACIDOSIS (7) HLD (hyperlipidemia) Current Visit: Yes Status: Acute Assessment & Plan: -continue statin Code(s): E78.5 - HYPERLIPIDEMIA, UNSPECIFIED (8) DEUCE (obstructive sleep apnea) Current Visit: Yes Status: Acute Assessment & Plan: Cpap at [facility] Code(s): G47.33 - OBSTRUCTIVE SLEEP APNEA (ADULT) (PEDIATRIC) (9) Chronic pain syndrome Current Visit: Yes Status: Acute Assessment & Plan: - Narcotic pain meds BID restarted 05/29 - increased pain meds to TID home dosing 06/02 Code(s): G89.4 - CHRONIC PAIN SYNDROME (10) Morbid obesity Current Visit: Yes Status: Acute Assessment & Plan: -advised heart healthy diet/with frequent meals every 2-3 hours for hypoglycemia and exercise Code(s): E66.01 - MORBID (SEVERE) OBESITY DUE TO EXCESS CALORIES (11) Hypoglycemia Current Visit: Yes Status: Acute Assessment & Plan: --Unknown etiology - ? secondary to meds - pharmacy consulted for med review - suggested stopping propanolol (changed to metoprolol) -Advised frequent meals/frequent blood glucose monitoring -Educated patient on s/sx of hypoglycemia and how to treat -Referred to endocrinology -A1c 4.03 06/06: -tolerating more frequent meals with ensure- follow up with endocrinology scheduled Code(s): E16.2 - HYPOGLYCEMIA, UNSPECIFIED (12) Hallucinations, unspecified Current Visit: No Status: Acute Assessment & Plan: -H/o psychological issues/ sees [facility] therapist OP -Multiple ED visits with similar symptoms -on lurasidone at home - pharmacy does not carry, will sub with abilify while IP Code(s): R44.3 - HALLUCINATIONS, UNSPECIFIED (13) Hypokalemia Current Visit: Yes Status: Acute Assessment & Plan: -tele - resolved 06/05: -K+ at 3.1, will replenish per protocol - add 20meq daily 06/06: resolved Code(s): E87.6 - HYPOKALEMIA (14) Hypomagnesemia Current Visit: Yes Status: Acute Assessment & Plan: -resolved 06/05: -Mg level pending - will replenish as appropriate 06/06: -Resolved Code(s): E83.42 - HYPOMAGNESEMIA (15) Diarrhea Current Visit: Yes Status: Acute Assessment & Plan: ?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 Hepatomegaly and diffuse steatosis. 2. Nonobstructing small right renal calculus 3. Clinical correlation is suggested. - probiotics Code(s): R19.7 - DIARRHEA, UNSPECIFIED (16) Edema Current Visit: Yes Status: Acute Assessment & Plan: -Received lasix with improvement of edema - lasix held as of 06/03/24 due to pt refusal -continue to monitor -BLE with 2+ pitting -no change 06/06: -Improving - 1+ pitting- advised elevation of BLE Code(s): R60.9 - EDEMA, UNSPECIFIED (17) Pericardial effusion Current Visit: Yes Status: Acute Assessment & Plan: - echo- EF 65% Transthoracic Echocardiogram 05/29/2024: 1. Normal biventricular wall thickness, chamber size, and systolic function. 2. Estimated left ventricular ejection fraction is 65%. 3. Normal diastolic function profile. 4. There is no significant valvular stenosis or regurgitation by Doppler flow analysis. 5. Normal PA systolic pressure (24 mmHg). 6. Normal right atrial pressure (3 mmHg). 7. Small anterior pericardial effusion around the anterior wall of the right ventricle. No echocardiographic evidence of tamponade. - cardiology consult- reviewed note and agree with plan of care Code(s): I31.39 - OTHER PERICARDIAL EFFUSION (NONINFLAMMATORY) (18) Tachycardia Current Visit: Yes Status: Acute Assessment & Plan: - Propanolol discontinued under advisement of pharmacy due to hypoglycemia - Metoprolol increased to 50mg daily due to HR in the 120s 06/05: -HR improved. Continue tele with close monitoring 8/21: -metoprolol changed to tartrate 50mg BID 06/07: -HR improved I spent 35 minutes [id number] with the patient on the day of discharge performing discharge exam, discussing hospital stay and discharge instructions with patient and caregivers, preparation of discharge records, prescriptions & referral forms and addressing any questions/concerns the patient had as documented above. - Vitals & Intake/Output Vital Signs: Vital Signs Temperature 99.2 F 06/08/24 07:00 Pulse Rate 95 H 06/08/24 07:31 Respiratory Rate 18 06/08/24 07:31 Blood Pressure 122/60 06/08/24 07:00 O2 Sat by Pulse Oximetry 95 06/08/24 07:31 Intake & Output: Intake & Output 06/05/24 06/06/24 06/07/24 06/08/24 11:59 11:59 11:59 11:59 Intake Total 1200 1441 1800 1600 Balance 1200 1441 1800 1600 - Lab Result Diagrams: 06/08/24 10:10 06/08/24 04:30 Lab Results-Last 24 Hrs: Lab Results-Last 24 Hours 06/07/24 06/07/24 06/07/24 Range/Units 10:50 11:26 12:04 WBC 11.3 H (3.98-10.04) x10^3/uL RBC 2.70 L (3.93-5.22) x10^6/uL Hgb 8.1 L (11.2-15.7) g/dL Hct 26.2 L (34.1-44.9) % MCV 97.0 H (79.4-94.8) fL MCH 30.0 (25.6-32.2) pg MCHC 30.9 L (32.2-35.5) g/dL RDW 14.3 (11.7-14.4) % Plt Count 499 H (182-369) x10^3/uL MPV 9.6 (9.4-12.3) fL Gran % (34.0-71.1) % Immature Gran % (Auto) (0.001-0.429) % Nucleat RBC Rel Count (0.00-0.2) % Eos # (Auto) (0.04-0.36) x10^3/uL Immature Gran # (Auto) (0.001-0.031) x10^3u/L Absolute Lymphs (auto) (1.18-3.74) x10^3/uL Absolute Monos (auto) (0.24-0.86) x10^3/uL Absolute Nucleated RBC (0.00-0.012) x10^3u/L Lymphocytes % (19.3-51.7) % Monocytes % (4.7-12.5) % Eosinophils % (0.7-5.8) % Basophils % (0.1-1.2) % Absolute Granulocytes (1.56-6.13) x10^3/uL Basophils # (0.01-0.08) x10^3/uL Sodium (135-145) mmol/L Potassium (3.5-5.1) mmol/L Chloride (98-107) mmol/L Carbon Dioxide (22-30) mmol/L Anion Gap (5-15) MEQ/L BUN (7-17) mg/dL Creatinine (0.52-1.04) mg/dL Estimated GFR ML/MIN Glucose (74-106) mg/dL POC Glucometer 69 L 100 (74 to 106) mg/dL Calcium (8.4-10.2) mg/dL Total Bilirubin (0.2-1.3) mg/dL AST (14-36) U/L ALT (0-35) U/L Alkaline Phosphatase (38-126) U/L Serum Total Protein (6.3-8.2) g/dL Albumin (3.5-5.0) g/dL 06/07/24 06/07/24 06/07/24 Range/Units 13:00 14:43 17:06 WBC (3.98-10.04) x10^3/uL RBC (3.93-5.22) x10^6/uL Hgb (11.2-15.7) g/dL Hct (34.1-44.9) % MCV (79.4-94.8) fL MCH (25.6-32.2) pg MCHC (32.2-35.5) g/dL RDW (11.7-14.4) % Plt Count (182-369) x10^3/uL MPV (9.4-12.3) fL Gran % (34.0-71.1) % Immature Gran % (Auto) (0.001-0.429) % Nucleat RBC Rel Count (0.00-0.2) % Eos # (Auto) (0.04-0.36) x10^3/uL Immature Gran # (Auto) (0.001-0.031) x10^3u/L Absolute Lymphs (auto) (1.18-3.74) x10^3/uL Absolute Monos (auto) (0.24-0.86) x10^3/uL Absolute Nucleated RBC (0.00-0.012) x10^3u/L Lymphocytes % (19.3-51.7) % Monocytes % (4.7-12.5) % Eosinophils % (0.7-5.8) % Basophils % (0.1-1.2) % Absolute Granulocytes (1.56-6.13) x10^3/uL Basophils # (0.01-0.08) x10^3/uL Sodium (135-145) mmol/L Potassium (3.5-5.1) mmol/L Chloride (98-107) mmol/L Carbon Dioxide (22-30) mmol/L Anion Gap (5-15) MEQ/L BUN (7-17) mg/dL Creatinine (0.52-1.04) mg/dL Estimated GFR ML/MIN Glucose (74-106) mg/dL POC Glucometer 125 H 79 91 (74 to 106) mg/dL Calcium (8.4-10.2) mg/dL Total Bilirubin (0.2-1.3) mg/dL AST (14-36) U/L ALT (0-35) U/L Alkaline Phosphatase (38-126) U/L Serum Total Protein (6.3-8.2) g/dL Albumin (3.5-5.0) g/dL 06/07/24 06/07/24 06/07/24 Range/Units 18:25 18:41 20:41 WBC (3.98-10.04) x10^3/uL RBC (3.93-5.22) x10^6/uL Hgb 8.3 L (11.2-15.7) g/dL Hct 26.8 L (34.1-44.9) % MCV (79.4-94.8) fL MCH (25.6-32.2) pg MCHC (32.2-35.5) g/dL RDW (11.7-14.4) % Plt Count (182-369) x10^3/uL MPV (9.4-12.3) fL Gran % (34.0-71.1) % Immature Gran % (Auto) (0.001-0.429) % Nucleat RBC Rel Count (0.00-0.2) % Eos # (Auto) (0.04-0.36) x10^3/uL Immature Gran # (Auto) (0.001-0.031) x10^3u/L Absolute Lymphs (auto) (1.18-3.74) x10^3/uL Absolute Monos (auto) (0.24-0.86) x10^3/uL Absolute Nucleated RBC (0.00-0.012) x10^3u/L Lymphocytes % (19.3-51.7) % Monocytes % (4.7-12.5) % Eosinophils % (0.7-5.8) % Basophils % (0.1-1.2) % Absolute Granulocytes (1.56-6.13) x10^3/uL Basophils # (0.01-0.08) x10^3/uL Sodium (135-145) mmol/L Potassium (3.5-5.1) mmol/L Chloride (98-107) mmol/L Carbon Dioxide (22-30) mmol/L Anion Gap (5-15) MEQ/L BUN (7-17) mg/dL Creatinine (0.52-1.04) mg/dL Estimated GFR ML/MIN Glucose (74-106) mg/dL POC Glucometer 89 56 L (74 to 106) mg/dL Calcium (8.4-10.2) mg/dL Total Bilirubin (0.2-1.3) mg/dL AST (14-36) U/L ALT (0-35) U/L Alkaline Phosphatase (38-126) U/L Serum Total Protein (6.3-8.2) g/dL Albumin (3.5-5.0) g/dL 06/07/24 06/08/24 06/08/24 Range/Units 23:05 01:07 02:57 WBC (3.98-10.04) x10^3/uL RBC (3.93-5.22) x10^6/uL Hgb (11.2-15.7) g/dL Hct (34.1-44.9) % MCV (79.4-94.8) fL MCH (25.6-32.2) pg MCHC (32.2-35.5) g/dL RDW (11.7-14.4) % Plt Count (182-369) x10^3/uL MPV (9.4-12.3) fL Gran % (34.0-71.1) % Immature Gran % (Auto) (0.001-0.429) % Nucleat RBC Rel Count (0.00-0.2) % Eos # (Auto) (0.04-0.36) x10^3/uL Immature Gran # (Auto) (0.001-0.031) x10^3u/L Absolute Lymphs (auto) (1.18-3.74) x10^3/uL Absolute Monos (auto) (0.24-0.86) x10^3/uL Absolute Nucleated RBC (0.00-0.012) x10^3u/L Lymphocytes % (19.3-51.7) % Monocytes % (4.7-12.5) % Eosinophils % (0.7-5.8) % Basophils % (0.1-1.2) % Absolute Granulocytes (1.56-6.13) x10^3/uL Basophils # (0.01-0.08) x10^3/uL Sodium (135-145) mmol/L Potassium (3.5-5.1) mmol/L Chloride (98-107) mmol/L Carbon Dioxide (22-30) mmol/L Anion Gap (5-15) MEQ/L BUN (7-17) mg/dL Creatinine (0.52-1.04) mg/dL Estimated GFR ML/MIN Glucose (74-106) mg/dL POC Glucometer 76 75 80 (74 to 106) mg/dL Calcium (8.4-10.2) mg/dL Total Bilirubin (0.2-1.3) mg/dL AST (14-36) U/L ALT (0-35) U/L Alkaline Phosphatase (38-126) U/L Serum Total Protein (6.3-8.2) g/dL Albumin (3.5-5.0) g/dL 06/08/24 06/08/24 06/08/24 Range/Units 04:30 04:30 05:34 WBC 11.5 H (3.98-10.04) x10^3/uL RBC 2.38 L (3.93-5.22) x10^6/uL Hgb 7.2 L (11.2-15.7) g/dL Hct 22.9 L (34.1-44.9) % MCV 96.2 H (79.4-94.8) fL MCH 30.3 (25.6-32.2) pg MCHC 31.4 L (32.2-35.5) g/dL RDW 14.4 (11.7-14.4) % Plt Count 486 H (182-369) x10^3/uL MPV 9.8 (9.4-12.3) fL Gran % 65.0 (34.0-71.1) % Immature Gran % (Auto) 1.3 H (0.001-0.429) % Nucleat RBC Rel Count 0.0 (0.00-0.2) % Eos # (Auto) 0.21 (0.04-0.36) x10^3/uL Immature Gran # (Auto) 0.15 H (0.001-0.031) x10^3u/L Absolute Lymphs (auto) 2.74 (1.18-3.74) x10^3/uL Absolute Monos (auto) 0.83 (0.24-0.86) x10^3/uL Absolute Nucleated RBC 0.00 (0.00-0.012) x10^3u/L Lymphocytes % 23.9 (19.3-51.7) % Monocytes % 7.2 (4.7-12.5) % Eosinophils % 1.8 (0.7-5.8) % Basophils % 0.8 (0.1-1.2) % Absolute Granulocytes 7.46 H (1.56-6.13) x10^3/uL Basophils # 0.09 H (0.01-0.08) x10^3/uL Sodium 138 (135-145) mmol/L Potassium 3.1 L (3.5-5.1) mmol/L Chloride 108 H (98-107) mmol/L Carbon Dioxide 24 (22-30) mmol/L Anion Gap 8.1 (5-15) MEQ/L BUN 9 (7-17) mg/dL Creatinine 0.76 (0.52-1.04) mg/dL Estimated GFR 97.2 ML/MIN Glucose 96 (74-106) mg/dL POC Glucometer 73 L (74 to 106) mg/dL Calcium 7.3 L (8.4-10.2) mg/dL Total Bilirubin 0.40 (0.2-1.3) mg/dL AST 35 (14-36) U/L ALT 39 H (0-35) U/L Alkaline Phosphatase 196 H (38-126) U/L Serum Total Protein 5.3 L (6.3-8.2) g/dL Albumin 2.2 L (3.5-5.0) g/dL 06/08/24 06/08/24 06/08/24 Range/Units 07:19 09:21 10:10 WBC (3.98-10.04) x10^3/uL RBC (3.93-5.22) x10^6/uL Hgb 8.8 L D (11.2-15.7) g/dL Hct 27.9 L (34.1-44.9) % MCV (79.4-94.8) fL MCH (25.6-32.2) pg MCHC (32.2-35.5) g/dL RDW (11.7-14.4) % Plt Count (182-369) x10^3/uL MPV (9.4-12.3) fL Gran % (34.0-71.1) % Immature Gran % (Auto) (0.001-0.429) % Nucleat RBC Rel Count (0.00-0.2) % Eos # (Auto) (0.04-0.36) x10^3/uL Immature Gran # (Auto) (0.001-0.031) x10^3u/L Absolute Lymphs (auto) (1.18-3.74) x10^3/uL Absolute Monos (auto) (0.24-0.86) x10^3/uL Absolute Nucleated RBC (0.00-0.012) x10^3u/L Lymphocytes % (19.3-51.7) % Monocytes % (4.7-12.5) % Eosinophils % (0.7-5.8) % Basophils % (0.1-1.2) % Absolute Granulocytes (1.56-6.13) x10^3/uL Basophils # (0.01-0.08) x10^3/uL Sodium (135-145) mmol/L Potassium (3.5-5.1) mmol/L Chloride (98-107) mmol/L Carbon Dioxide (22-30) mmol/L Anion Gap (5-15) MEQ/L BUN (7-17) mg/dL Creatinine (0.52-1.04) mg/dL Estimated GFR ML/MIN Glucose (74-106) mg/dL POC Glucometer 69 L 121 H (74 to 106) mg/dL Calcium (8.4-10.2) mg/dL Total Bilirubin (0.2-1.3) mg/dL AST (14-36) U/L ALT (0-35) U/L Alkaline Phosphatase (38-126) U/L Serum Total Protein (6.3-8.2) g/dL Albumin (3.5-5.0) g/dL 06/08/24 Range/Units 10:24 WBC (3.98-10.04) x10^3/uL RBC (3.93-5.22) x10^6/uL Hgb (11.2-15.7) g/dL Hct (34.1-44.9) % MCV (79.4-94.8) fL MCH (25.6-32.2) pg MCHC (32.2-35.5) g/dL RDW (11.7-14.4) % Plt Count (182-369) x10^3/uL MPV (9.4-12.3) fL Gran % (34.0-71.1) % Immature Gran % (Auto) (0.001-0.429) % Nucleat RBC Rel Count (0.00-0.2) % Eos # (Auto) (0.04-0.36) x10^3/uL Immature Gran # (Auto) (0.001-0.031) x10^3u/L Absolute Lymphs (auto) (1.18-3.74) x10^3/uL Absolute Monos (auto) (0.24-0.86) x10^3/uL Absolute Nucleated RBC (0.00-0.012) x10^3u/L Lymphocytes % (19.3-51.7) % Monocytes % (4.7-12.5) % Eosinophils % (0.7-5.8) % Basophils % (0.1-1.2) % Absolute Granulocytes (1.56-6.13) x10^3/uL Basophils # (0.01-0.08) x10^3/uL Sodium (135-145) mmol/L Potassium (3.5-5.1) mmol/L Chloride (98-107) mmol/L Carbon Dioxide (22-30) mmol/L Anion Gap (5-15) MEQ/L BUN (7-17) mg/dL Creatinine (0.52-1.04) mg/dL Estimated GFR ML/MIN Glucose (74-106) mg/dL POC Glucometer 89 (74 to 106) mg/dL Calcium (8.4-10.2) mg/dL Total Bilirubin (0.2-1.3) mg/dL AST (14-36) U/L ALT (0-35) U/L Alkaline Phosphatase (38-126) U/L Serum Total Protein (6.3-8.2) g/dL Albumin (3.5-5.0) g/dL Micro Results-Entire Visit: Microbiology 05/27/24 15:35 Salmonella/Shigella Screen - Final Stool Stool Culture Result 1 - Final Campylobacter Culture - Final Campylobacter Result 1 - Final Escherichia coli Shiga Toxins EIA - Final Ova and Parasite Concentrate Exam - Final Ova and Parasite Result 1 - Final Giardia lamblia (PCR) - Final Cryptosporidium Antigen - Final 05/29/24 09:22 Blood Culture - Final Blood 05/29/24 09:12 Blood Culture - Final Blood 05/29/24 10:01 Urine Culture - Final Catherized NO GROWTH 05/26/24 17:27 Urine Culture - Final Catherized NO GROWTH 05/25/24 23:06 Urine Culture - Final Catherized Escherichia Coli Klebsiella Pneumoniae Accuchecks Date 06/08/24 Date 06/08/24 Date 06/07/24 Date 06/07/24 Date 06/07/24 Date 06/07/24 Time 17:00 Time 15:00 Time 13:00 - Radiology Exams Ordered Rad Exams-Entire Visit: Radiology Procedures Category Date Time Status CHEST 1 VIEW (PORTABLE) Routine Exams 06/07/24 06:26 Completed - Procedures and Test Procedures and Tests throughout Hospitalization: Therapy Orders & Screens 05/26/24 02:02 RT Screen per Nursing Assess ONCE Comment: Protocol Order Physician Instructions: Greater than 3 points order RT Admission Screen Reason For Exam: Triggered on Admission Diagnosis: Hypoglycemia Diagnosis: Hypoglycemia Pneumonia: No Home O2: No Asthma: Yes CHF: Yes Home CPAP/BIPAP: Yes Home Nebs/MDI: Yes Total Points: 17 05/26/24 02:39 BiPap/CPAP ROUTINE Comment: Diagnosis: Hypoglycemia Respiratory Therapy Assessment DAILY Comment: Diagnosis: Hypoglycemia 05/27/24 10:52 Respiratory Therapy Assessment DAILY Comment: Diagnosis: Hypoglycemia 05/28/24 11:28 PT Eval & Treat (MD Order) ONCE Reason for Eval:: weakness Diagnosis: Hypoglycemia Discharge Exam General Appearance: no apparent distress Neurologic Exam: alert, oriented x 3, cooperative Eye Exam: PERRL Ears, Nose, Throat Exam: normal ENT inspection Neck Exam: normal inspection Respiratory Exam: normal breath sounds, lungs clear Cardiovascular Exam: regular rate/rhythm, normal heart sounds Gastrointestinal/Abdomen Exam: soft, normal bowel sounds Pelvic Exam: deferred Rectal Exam: deferred Back Exam: normal inspection Extremity Exam: swelling (BLE edema 1+) Skin Exam: normal color Final Diagnosis/Problem List - Final Discharge Diagnosis/Problem (1) Sepsis secondary to UTI Current Visit: Yes Status: Resolved Code(s): A41.9 - SEPSIS, UNSPECIFIED ORGANISM; N39.0 - URINARY TRACT INFECTION, SITE NOT SPECIFIED (2) AMS (altered mental status) Current Visit: Yes Status: Resolved Code(s): R41.82 - ALTERED MENTAL STATUS, UNSPECIFIED (3) GABY (acute kidney injury) Current Visit: Yes Status: Resolved Code(s): N17.9 - ACUTE KIDNEY FAILURE, UNSPECIFIED (4) HTN (hypertension) Current Visit: Yes Status: Chronic Code(s): I10 - ESSENTIAL (PRIMARY) HYPERTENSION (5) Transaminitis Current Visit: Yes Status: Chronic Code(s): R74.01 - ELEVATION OF LEVELS OF LIVER TRANSAMINASE LEVELS (6) Increased anion gap metabolic acidosis Current Visit: Yes Status: Resolved Code(s): E87.29 - OTHER ACIDOSIS (7) HLD (hyperlipidemia) Current Visit: Yes Status: Chronic Code(s): E78.5 - HYPERLIPIDEMIA, UNS PECIFIED (8) DEUCE (obstructive sleep apnea) Current Visit: Yes Status: Chronic Code(s): G47.33 - OBSTRUCTIVE SLEEP APNEA (ADULT) (PEDIATRIC) (9) Chronic pain syndrome Current Visit: Yes Status: Chronic Code(s): G89.4 - CHRONIC PAIN SYNDROME (10) Morbid obesity Current Visit: Yes Status: Chronic Code(s): E66.01 - MORBID (SEVERE) OBESITY DUE TO EXCESS CALORIES (11) Hypoglycemia Current Visit: Yes Status: Chronic Code(s): E16.2 - HYPOGLYCEMIA, UNSPECIFIED (12) Hallucinations, unspecified Current Visit: No Status: Resolved Code(s): R44.3 - HALLUCINATIONS, UNSPECIFIED (13) Hypokalemia Current Visit: Yes Status: Resolved Code(s): E87.6 - HYPOKALEMIA (14) Hypomagnesemia Current Visit: Yes Status: Resolved Code(s): E83.42 - HYPOMAGNESEMIA (15) Diarrhea Current Visit: Yes Status: Chronic Code(s): R19.7 - DIARRHEA, UNSPECIFIED (16) Edema Current Visit: Yes Status: Chronic Code(s): R60.9 - EDEMA, UNSPECIFIED (17) Pericardial effusion Current Visit: Yes Status: Chronic Code(s): I31.39 - OTHER PERICARDIAL EFFUSION (NONINFLAMMATORY) (18) Tachycardia Current Visit: Yes Status: Resolved Code(s): R00.0 - TACHYCARDIA, UNSPECIFIED (19) Anemia Current Visit: Yes Status: Chronic Code(s): D64.9 - ANEMIA, UNSPECIFIED (20) Hypoalbuminemia due to protein-calorie malnutrition Current Visit: Yes Status: Chronic Code(s): E88.09 - OTH DISORDERS OF PLASMA-PROTEIN METABOLISM, NEC; E46 - UNSPECIFIED PROTEIN-CALORIE MALNUTRITION - Discharge Disposition: Home, Self-Care Condition: Stable Prescriptions: New Blood-Glucose Meter,Continuous [Dexcom G7 [employer]] 1 each UD #1 unit Blood-Glucose Sensor [Dexcom G7 Sensor] 1 each UD 30 Days #3 misc Dextrose 50%-Water Syringe [D50W 50 ml Abboject] 25 ml IV PRN PRN PRN Reason: Hypoglycemia Fluticasone Propionate [Flonase NASAL] 16 gm NS DAILY Glucagon 1 mg [GlucaGen 1 MG] 1 mg IM PRN PRN PRN Reason: Hypoglycemia Dextrose 15 gm Oral Gel [Glutose 15 GM ORAL GEL] 15 gm PO PRN PRN PRN Reason: Hypoglycemia Heparin Flush 500 units/5 ml [Heparin Lock Flush 500 Units/5ml Syringe] 500 units PORT FLUSH PRN PRN PRN Reason: Iv Port Flush Furosemide 40 mg [Lasix 40 MG] 40 mg PO DAILY tablet Metoprolol Tartrate 50 mg [Lopressor 50 MG] 50 mg PO BID tablet Nystatin Powder 15 gm [Nystop Powder 15 gm] 1 gm TP BID Continue Levothyroxine Sodium 50 Mcg [Synthroid 50 Mcg] 50 mcg PO DAILY Albuterol Sulfate [Proair Hfa] 2 puff IH DAILY PRN PRN Reason: Shortness Of Breath Budesonide/Formoterol Fumarate [Symbicort 160-4.5 Mcg Inhaler] 2 puff IH BID Nitroglycerin 0.4 mg Tablet [Nitrostat 0.4 MG Tablet] 0.4 mg UD PRN PRN Reason: Chest Pain Loratadine [Claritin] 10 mg PO DAILY Atorvastatin Calcium [Lipitor 20MG Tablet] 20 mg PO DAILY Ipratropium/Albuterol Sulfate [Iprat-Albut 0.5-3(2.5) mg/3 ml] 3 ml IH Q4HPRN PRN PRN Reason: sob [place]-3 Fatty Acids/Fish Oil [Fish Oil 1,000 mg Capsule] 1,000 mcg PO BID Mirabegron [Myrbetriq] 1 ea PO DAILY Oxycodone HCl/Acetaminophen [Percocet 10-325 mg Tablet] 1 tab PO TID PRN PRN PRN Reason: Pain Allopurinol 100 mg [Zyloprim 100 mg] 100 mg PO DAILY lamoTRIgine [Subvenite (Blue)] 100 mg PO DAILY Ubrogepant [Ubrelvy] 50 mg PO BID PRN PRN Reason: Headache Hydroxyzine HCl 25 mg [Atarax 25 mg] 25 mg PO HS Baclofen 10 mg [Lioresal 10 mg] 10 mg PO UD Amitriptyline HCl 25 mg [Amitriptyline 25 mg Tablet] 25 mg PO HS Pregabalin 225 mg PO BID Potassium Chloride 8 meq PO DAILY Lactobacillus Acidophilus [Probiotic] 1 cap PO DAILY Hydrocortisone 2.5% 30 gm [Anusol-Hc 2.5% Cream 30 gm] 1 applic TOP BID Erenumab-Aooe [Aimovig Autoinjector] 140 mg SQ UD Naloxone HCl [Narcan] 4 mg IH DAILY PRN PRN PRN Reason: Overdose Adalimumab [Humira] 40 mg SQ WEEKLY [id number]-8-Syepubufsn Inhibitor [Prolastin C] 1 each IV WEEKLY Thiamine Mononitrate (Vit B1) [Vitamin B-1] 100 mg PO WEEKLY Cholecalciferol (Vitamin D3) [Vitamin D3] 2,000 mcg PO DAILY Multivitamin 1 tab PO BID hydrOXYzine HCL [Hydroxyzine HCl] 50 mg PO HS Lurasidone HCl 80 mg PO DAILY Pantoprazole 20 mg [Protonix 20MG Tablet] 20 mg PO DAILY Levetiracetam [Keppra] 500 mg PO BID Ondansetron [Ondansetron Odt ] 4 mg SL Q6HPRN PRN PRN Reason: Nausea Discontinued Furosemide 40 mg [Lasix 40 MG] 40 mg PO DAILY Non-Formulary Drug [Non-Formulary Bulk Item] 1,000 mcg SQ UD Propranolol HCl 20 mg PO BID Additional Instructions: HALF-WAY ORDERS: ADMIT TO SENIOR CARE CARE REGULAR DIET WITH ENSURE CHECK ACCU CHECKS Q2H OFFER SNACKS OR MEAL Q2H CPAP AT HS PER HOME ROUTINE PT/OT EVAL AND TREAT CHECK CBC 06/09/24 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
[2024-06-09] MEDS ORDERED: Klor Con PO SCH (10:00)
== END 2024-06-08 12:45 | DRG 872 ==
LOC: ED 20:58 → MED SURG 05-26 01:07
PROVIDERS: ADMIT Internal Medicine Critical Care Medicine; ATTEND Internal Medicine Critical Care Medicine
DX: A41.9 Sepsis, unspecified organism (principal); N39.0 Urinary tract infection, site not specified; N17.9 Acute kidney failure, unspecified; E87.29 Other acidosis; R44.3 Hallucinations, unspecified; I31.39 Other pericardial effusion (noninflammatory); E46 Unspecified protein-calorie malnutrition; B96.20 Unspecified Escherichia coli [E. coli] as the cause of diseases classified elsewhere; G47.33 Obstructive sleep apnea (adult) (pediatric); E03.9 Hypothyroidism, unspecified; E66.01 Morbid (severe) obesity due to excess calories; Z98.84 Bariatric surgery status; E78.5 Hyperlipidemia, unspecified; E11.9 Type 2 diabetes mellitus without complications; I25.10 Atherosclerotic heart disease of native coronary artery without angina pectoris; I11.0 Hypertensive heart disease with heart failure; I50.9 Heart failure, unspecified; J44.9 Chronic obstructive pulmonary disease, unspecified; D64.9 Anemia, unspecified; R41.82 Altered mental status, unspecified; R74.01 Elevation of levels of liver transaminase levels; G89.4 Chronic pain syndrome; E16.2 Hypoglycemia, unspecified; E87.6 Hypokalemia; E83.42 Hypomagnesemia; R19.7 Diarrhea, unspecified; R60.0 Localized edema; R00.0 Tachycardia, unspecified; Z79.899 Other long term (current) drug therapy; E88.09 Other disorders of plasma-protein metabolism, not elsewhere classified; B96.1 Klebsiella pneumoniae [K. pneumoniae] as the cause of diseases classified elsewhere
CPT/HCPCS: 36000; 36415; 36430; 36600; 70450; 71045; 71046; 74150; 74176; 80053; 80307; 81001; 82077; 82274; 82375; 82607; 82728; 82746; 82803; 82947; 83036; 83540; 83550; 83605; 83735; 83880; 84132; 84145; 84439; 84443; 85014; 85018; 85025; 85027; 86850; 86900; 86901; 86922; 87040; 87045; 87046; 87077; 87086; 87177; 87186; 87209; 87328; 87329; 87427; 87493; 93005; 93041; 93306; 94003; 94640; 94660; 94760; 96365; 96366; 96375; 99285; 99291; J0696; J1642; J1644; J1940; J2310; J2405; J3480; P9016; Q3014; 97110-GP; A9270-GY; G0328; J3475

== ENCOUNTER 2024-12-26 07:58 | Day surgery (SDC) | payer OTHER ==
[2012-06-03 16:31] VITALS: BP 101/52
[2024-12-26] MEDS ORDERED: Depo-Medrol 40 MG/ML IM ONE (07:59)
[2024-12-26] MEDS ORDERED: BUPIVACAINE 0.5% VIAL IJ ONE (07:59)
[2024-12-26] MEDS ORDERED: Lactated Ringers 500 ML IV ONE (08:15)
[2024-12-26] MEDS ORDERED: D50W 50 ml Abboject IV ONE (08:30)
[2024-12-26] MEDS ORDERED: propofoL IV ONE (09:23)
--- NOTE | 2024-12-26 11:31 | XRAY ---
Indication: Left SI joint and left hip injection. Intraoperative fluoroscopy provided for 43 second. 3 digital spot image obtained prone submitted for interpretation demonstrates posterior needle tip project over expected left SI joint. Second needle tip lateral to left femur neck. Small amount of contrast injected for both needle tip placement. Correlate with intraoperative findings/report.
--- NOTE | 2024-12-26 14:43 | XRAY ---
43 seconds of fluoroscopy was used in surgery for a left sacroiliac joint and intra-articular hip injection.
== END 2024-12-26 10:25 | disposition home or self-care (01) ==
LOC: SDC-PAIN 07:58
PROVIDERS: ATTEND Psychiatry & Neurology Pain Medicine
DX: M16.12 Unilateral primary osteoarthritis, left hip (principal); M46.1 Sacroiliitis, not elsewhere classified; E11.9 Type 2 diabetes mellitus without complications
CPT/HCPCS: 20610; 27096; 73501; 77002; 82947; J2704; Q9966

== ENCOUNTER 2025-06-29 09:08 | Observation (INO) | payer OTHER ==
--- NOTE | 2025-06-29 09:13 | ERPHSYRPT ---
- History of Present Illness Time Seen by Provider: 06/29/25 09:13 Source: patient, EMS, old records Exam Limitations: no limitations Physician History: This is a morbidly obese 50-year-old white female patient who arrives by ambulance and is a patient of Dr. Busby with the complaint of weakness and frequent falls. Patient has multiple medical issues. Patient admits to falling yesterday and being seen [facility] where she was discharged to home from that facility. Apparently, at home today, she fell again. Her daughter reported to the patient that she fell and hit her head. Patient's only complaint is low back pain. She does not recall falling at all. She has no chest pain. She is not short of breath. Patient has no extremity pain and has no abdominal pain. Patient has chronic lower leg lymphedema and swelling. Patient has a history of gastroesophageal reflux disease, hypertension, hypothyroidism, seizure disorder, hyperlipidemia, asthma, COPD, CHF, degenerative disease, fibromyalgia, anxiety, bipolar disorder and diabetes. Occurred: just prior to arrival Reason for Fall: unknown Injuries/Pain Location: head (Possibly), back, lower Loss of Consciousness: unsure Quality: aching Severity of Pain-Max: mild Severity of Pain-Current: mild Modifying Factors: Improves With: movement Associated Symptoms (Fall): back pain (Lower), other (Generalized weakness and low back pain) Allergies/Adverse Reactions: Iodinated Contrast Media [IV Dye, Iodine Containing Contrast ] Allergy (Mild, Verified 06/29/25 09:13) "asthma attck" Sulfa (Sulfonamide Antibiotics) [Sulfa(Sulfonamide Antibiotics)] Allergy (Mild, Verified 06/29/25 09:13) "asthma attck" benztropine Allergy (Verified 06/29/25 09:13) triamcinolone Allergy (Verified 06/29/25 09:13) Home Medications: Budesonide/Formoterol Fumarate [Symbicort 160-4.5 Mcg Inhaler] 2 puff IH BID 12/19/14 [History] Levothyroxine Sodium 50 Mcg [Synthroid 50 Mcg] 50 mcg PO DAILY 12/19/14 [History] Nitroglycerin 0.4 mg Tablet [Nitrostat 0.4 MG Tablet] 0.4 mg SL Q5MIN PRN MR X 3 PRN 09/02/16 [History] Atorvastatin Calcium [Lipitor 20MG Tablet] 20 mg PO DAILY 07/22/17 [History] Ipratropium/Albuterol Sulfate [Iprat-Albut 0.5-3(2.5) mg/3 ml] 3 ml IH Q4HPRN PRN 07/22/17 [History] Loratadine [Claritin] 10 mg PO DAILY 07/22/17 [History] [place]-3 Fatty Acids/Fish Oil [Fish Oil 1,000 mg Capsule] 1,000 mcg PO BID 10/06/20 [History] Allopurinol 100 mg [Zyloprim 100 mg] 100 mg PO DAILY 11/19/23 [History] Amitriptyline HCl 25 mg [Amitriptyline 25 mg Tablet] 25 mg PO HS 11/19/23 [History] Mirabegron [Myrbetriq] 1 ea PO DAILY 11/19/23 [History] Ubrogepant [Ubrelvy] 100 mg PO BID PRN 11/19/23 [History] lamoTRIgine [Subvenite (Blue)] 100 mg PO DAILY 11/19/23 [History] Lactobacillus Acidophilus [Probiotic] 1 cap PO DAILY 12/05/23 [History] Potassium Chloride 8 meq PO DAILY 12/05/23 [History] Pregabalin 225 mg PO BID 12/05/23 [History] Oevmh-7-Wwafujuhww Inhibitor [Prolastin C] 1 each IV WEEKLY 12/11/23 [History] Cholecalciferol (Vitamin D3) [Vitamin D3] 2,000 mcg PO DAILY 12/11/23 [History] Hydrocortisone 2.5% 30 gm [Anusol-Hc 2.5% Cream 30 gm] 1 applic TOP BID 12/11/23 [History] Multivitamin 1 tab PO BID 12/11/23 [History] Naloxone HCl [Narcan] 4 mg IH DAILY PRN PRN 12/11/23 [History] Thiamine Mononitrate (Vit B1) [Vitamin B-1] 100 mg PO WEEKLY 12/11/23 [History] Lurasidone HCl 80 mg PO DAILY 05/25/24 [History] Ondansetron [Ondansetron Odt ] 4 mg SL Q6HPRN PRN 05/25/24 [History] Pantoprazole 20 mg [Protonix 20MG Tablet] 20 mg PO DAILY 05/25/24 [History] Albuterol 8 gm Mdi Hfa [Ventolin Hfa MDI] 2 puff IH DAILY PRN PRN 06/19/25 [History] Ascorbic Acid 500 mg [Vitamin C 500 MG] 500 mg PO DAILY 06/19/25 [History] Clindamycin Phosphate 1 applic TP DAILY 06/19/25 [History] Cyanocobalamin 1000 Mcg/ml [Cyanocobalamin B-12 1000 MCG/ML] 1,000 mcg IJ WEEKLY 06/19/25 [History] Diclofenac/Menthol/Camphor [Diclogen 1.5%-4%-10% Kit] 1 each TP QID 06/19/25 [History] Dulaglutide [Trulicity] 1.5 mg SQ WEEKLY 06/19/25 [History] Lidocaine/Prilocaine [Lidocaine-Prilocaine Cream] 1 applic TP BID 06/19/25 [History] Magnesium 400 mg PO DAILY 06/19/25 [History] Metoprolol Tartrate 50 mg [Lopressor 50 MG] 25 mg PO BID 06/19/25 [History] Secukinumab [Cosentyx Syringe] 300 mg SQ Q30D 06/19/25 [History] Zinc Gluconate [Zinc] 50 mg PO DAILY 06/19/25 [History] Hx Tetanus, Diphtheria Vaccination/Date Given: Yes Hx Influenza Vaccination/Date Given: Yes Hx Pneumococcal Vaccination/Date Given: No Travel Risk - International Travel Have you traveled outside of the country in past 3 weeks: No - Emerging Infectious Disease Are you exhibiting symptoms associated with any current EIDs: No - Review of Systems Constitutional: Weakness Eyes: No Symptoms Ears, Nose, & Throat: No Symptoms Respiratory: No Symptoms Cardiac: No Symptoms Abdominal/Gastrointestinal: No Symptoms Genitourinary Symptoms: No Symptoms Musculoskeletal: No Symptoms Skin: No Symptoms Neurological: No Symptoms Psychological: No Symptoms Endocrine: No Symptoms Hematologic/Lymphatic: No Symptoms Immunological/Allergic: No Symptoms All Other Systems: Reviewed and Negative - Past Medical History Pertinent Past Medical History: Yes Neurological History: Migraines, Seizures, Other ENT History: No Pertinent History Cardiac History: High Cholesterol, Hypertension, Other Respiratory History: Asthma, COPD Endocrine Medical History: Diabetes Type II, Hypothyroidism, Other Musculoskeletal History: Degenerative Disk Disease, Fibromyalgia, Other GI Medical History: GERD History: No Pertinent History Psycho-Social History: Anxiety, Bipolar, Depression Female Reproductive Disorders: No Pertinent History Other Medical History: Alpha 1 Antitrypsin deficiency, Hidradentitis Suppurative, Lumbar Radiculopathy, OCD - Past Surgical History Past Surgical History: Yes Neuro Surgical History: No Pertinent History Cardiac: Cardiac Catheterization Respiratory: No Pertinent History Gastrointestinal: Cholecystectomy Genitourinary: No Pertinent History Musculoskeletal: No Pertinent History Female Surgical History: Hysterectomy, Tubal Ligation Other Surgical History: PORT PLACEMENT- states "prolastin infusion weekly", gastric bypass, carpl tunnel release Significant Family History: no pertinent family hx - Female History Hx Last Menstrual Period: ABLASION - Social History Smoking Status: Never smoker Exposure to second hand smoke: No Drug Use: none - Social Determinants of Health Will the patient participate in the screening: Yes Do you worry about a steady place to live?: No In the past 12 months,have you had to go without utilities?: No Transportation Issues: No Has anyone in your support network made you feel unsafe?: No Have you or anyone in your house had to go w/o enough food: No - Nursing Vital Signs Nursing Vital Signs: Initial Vital Signs Temperature 96.8 F 06/29/25 09:09 Pulse Rate 124 H 06/29/25 09:09 Respiratory Rate 99 H 06/29/25 09:09 Blood Pressure 115/95 06/29/25 09:09 O2 Sat by Pulse Oximetry 96 06/29/25 09:09 Pain Scale Pain Intensity 4 - [place] Coma Score Best Eye Response (Pedro): (4) open spontaneously Best Verbal Response ([place]): (5) oriented Best Motor Response ([place]): (6) obeys commands Pedro Total: 15 - Physical Exam General Appearance: no apparent distress, alert, anxiety, obese Head Injury: no evidence of injury Eye Exam: PERRL/EOMI, post op pupil defect (L) ENT Exam: airway nml, nml ext.inspection, No evidence of ENT injury Neck Exam: supple, trachea midline, full range of motion, normal alignment, normal inspection Respiratory/Chest Exam: normal breath sounds, No chest tenderness, No respiratory distress, No ecchymosis, No crepitus Cardiovascular Exam: normal heart sounds Gastrointestinal Exam: soft, normal bowel sounds, No tenderness Rectal Exam: not done Back Exam: normal inspection, normal range of motion, other (Bilateral paraspinous muscle tenderness lumbar level), No CVA tenderness, No vertebral tenderness Extremity Exam: normal range of motion, other (Chronic lymphedema) Neurologic Exam: alert, oriented x 3, cooperative, orthotics prosthetics assistant II-XII nml as tested Skin Exam: normal color, warm, dry SpO2 Interpretation: normal O2 Delivery: Room Air - Course Nursing assessment & vital signs reviewed: Yes EKG Interpreted by Me: RATE (125), Sinus Tach, NORMAL AXIS, NORMAL INTERVALS, NORMAL QRS, Non-specific ST Changes, Other (QTc is 458. No acute ischemic changes on today's twelve-lead EKG.) Ordered Tests: Active Orders 24 hr Category Date Time Status EKG-ER Only STAT Care 06/29/25 09:48 Active IV Insertion STAT Care 06/29/25 09:48 Active HEAD WITHOUT CONTRAST [CT] Stat Exams 06/29/25 09:49 Completed LUMBAR SPINE W/O [CT] Stat Exams 06/29/25 09:50 Completed CBC W DIFF Stat Lab 06/29/25 09:53 Completed CMP Stat Lab 06/29/25 09:53 Completed CULTURE,URINE Stat Lab 06/29/25 11:56 Received Lactic Acid Stat Lab 06/29/25 12:42 Completed MAGNESIUM Stat Lab 06/29/25 09:53 Completed TROPONIN Q4H Lab 06/29/25 09:59 Received TROPONIN Q4H Lab 06/29/25 17:15 Ordered TROPONIN Q4H Lab 06/29/25 21:15 Ordered UA W/RFX UR CULTURE Stat Lab 06/29/25 11:56 Completed Medication Summary Generic Name Dose Route Start Last Admin Trade Name Freq PRN Reason Stop Dose Admin Sodium Chloride 1,000 mls @ 100 mls/hr 06/29/25 10:00 06/29/25 10:03 Sodium Chloride 0.9% 1000 Ml IV 07/29/25 09:59 100 mls/hr .Q10H JALEN Administration Lab/Rad Data: Laboratory Result Diagrams 06/29/25 09:53 06/29/25 09:53 Laboratory Results 06/29/25 06/29/25 06/29/25 Range/Units 12:42 11:56 09:53 WBC (3.98-10.04) x10^3/uL RBC (3.93-5.22) x10^6/uL Hgb (11.2-15.7) g/dL Hct (34.1-44.9) % MCV (79.4-94.8) fL MCH (25.6-32.2) pg MCHC (32.2-35.5) g/dL RDW (11.7-14.4) % Plt Count (182-369) x10^3/uL MPV (9.4-12.3) fL Gran % (34.0-71.1) % Immature Gran % (Auto) (0.001-0.429) % Nucleat RBC Rel Count (0.00-0.2) % Eos # (Auto) (0.04-0.36) x10^3/uL Immature Gran # (Auto) (0.001-0.031) x10^3u/L Absolute Lymphs (auto) (1.18-3.74) x10^3/uL Absolute Monos (auto) (0.24-0.86) x10^3/uL Absolute Nucleated RBC (0.00-0.012) x10^3u/L Lymphocytes % (19.3-51.7) % Monocytes % (4.7-12.5) % Eosinophils % (0.7-5.8) % Basophils % (0.1-1.2) % Absolute Granulocytes (1.56-6.13) x10^3/uL Basophils # (0.01-0.08) x10^3/uL Sodium 138 (135-145) mmol/L Potassium 4.0 (3.5-5.1) mmol/L Chloride 106 (98-107) mmol/L Carbon Dioxide 24 (22-30) mmol/L Anion Gap 11.9 (5-15) MEQ/L BUN 10 (7-17) mg/dL Creatinine 0.83 (0.52-1.04) mg/dL Estimated GFR 86.9 ML/MIN Glucose 86 (74-106) mg/dL Lactic Acid 1.1 (0.4-2.0) Calcium 7.4 L (8.4-10.2) mg/dL Magnesium 1.7 (1.6-2.3) mg/dL Total Bilirubin 1.20 (0.2-1.3) mg/dL AST 58 H (14-36) U/L ALT 44 H (0-35) U/L Alkaline Phosphatase 252 H (38-126) U/L Serum Total Protein 5.7 L (6.3-8.2) g/dL Albumin 2.1 L (3.5-5.0) g/dL Urine Color Dark Yellow A (Yellow) Urine Appearance Clear (Clear) Urine pH 6.5 (4.6-8.0) Ur Specific [place] 1.015 (1.005-1.030) Urine Protein Negative (Negative) Urine Glucose (UA) Negative (Negative) mg/dL Urine Ketones 40 A (Negative) Urine Blood Negative (Negative) Urine Nitrite Negative (Negative) Urine Bilirubin Negative (Negative) Urine Urobilinogen 0.2 (0.2) mg/dL Ur Leukocyte Esterase Negative (Negative) U Hyaline Cast (Auto) NONE SEEN (0-2) /LPF Urine Microscopic RBC 0-2 (0-5) /HPF Urine Microscopic WBC 0-2 (0-5) /HPF Ur Epithelial Cells None Seen (None Seen) /HPF Urine Bacteria None Seen (None Seen) /HPF Urine Culture Reflexed ORDERED SEPARATELY (NO) 06/29/25 Range/Units 09:53 WBC 9.0 (3.98-10.04) x10^3/uL RBC 3.46 L (3.93-5.22) x10^6/uL Hgb 10.6 L (11.2-15.7) g/dL Hct 33.9 L (34.1-44.9) % MCV 98.0 H (79.4-94.8) fL MCH 30.6 (25.6-32.2) pg MCHC 31.3 L (32.2-35.5) g/dL RDW 14.4 (11.7-14.4) % Plt Count 213 (182-369) x10^3/uL MPV 11.3 (9.4-12.3) fL Gran % 73.7 H (34.0-71.1) % Immature Gran % (Auto) 1.1 H (0.001-0.429) % Nucleat RBC Rel Count 0.0 (0.00-0.2) % Eos # (Auto) 0.05 (0.04-0.36) x10^3/uL Immature Gran # (Auto) 0.10 H (0.001-0.031) x10^3u/L Absolute Lymphs (auto) 1.57 (1.18-3.74) x10^3/uL Absolute Monos (auto) 0.61 (0.24-0.86) x10^3/uL Absolute Nucleated RBC 0.00 (0.00-0.012) x10^3u/L Lymphocytes % 17.4 L (19.3-51.7) % Monocytes % 6.8 (4.7-12.5) % Eosinophils % 0.6 L (0.7-5.8) % Basophils % 0.4 (0.1-1.2) % Absolute Granulocytes 6.64 H (1.56-6.13) x10^3/uL Basophils # 0.04 (0.01-0.08) x10^3/uL Sodium (135-145) mmol/L Potassium (3.5-5.1) mmol/L Chloride (98-107) mmol/L Carbon Dioxide (22-30) mmol/L Anion Gap (5-15) MEQ/L BUN (7-17) mg/dL Creatinine (0.52-1.04) mg/dL Estimated GFR ML/MIN Glucose (74-106) mg/dL Lactic Acid (0.4-2.0) Calcium (8.4-10.2) mg/dL Magnesium (1.6-2.3) mg/dL Total Bilirubin (0.2-1.3) mg/dL AST (14-36) U/L ALT (0-35) U/L Alkaline Phosphatase (38-126) U/L Serum Total Protein (6.3-8.2) g/dL Albumin (3.5-5.0) g/dL Urine Color (Yellow) Urine Appearance (Clear) Urine pH (4.6-8.0) Ur Specific [place] (1.005-1.030) Urine Protein (Negative) Urine Glucose (UA) (Negative) mg/dL Urine Ketones (Negative) Urine Blood (Negative) Urine Nitrite (Negative) Urine Bilirubin (Negative) Urine Urobilinogen (0.2) mg/dL Ur Leukocyte Esterase (Negative) U Hyaline Cast (Auto) (0-2) /LPF Urine Microscopic RBC (0-5) /HPF Urine Microscopic WBC (0-5) /HPF Ur Epithelial Cells (None Seen) /HPF Urine Bacteria (None Seen) /HPF Urine Culture Reflexed (NO) - Progress Progress: improved, pain not gone completely, re-examined Progress Note: 06/29/25 09:47 My medical decision making and the assignment of moderate to high complexity of this patient's medical issue today is based on review of the patient's past medical history, review the patient's medication list, reviewed patient drug allergy list, history present illness and physical findings on examination. The workup in this patient includes placement of intravenous line, CBC, CMP, infusion of low rate IV fluids, urinalysis, magnesium level, twelve-lead EKG, CT scan of the lumbar spine and CT scan of the head, both without contrast. Differential diagnosis includes was not limited to frequent falls, generalized weakness, low back pain, head injury 06/29/25 13:03 I interpreted the patient's laboratory data results. Based on laboratory data results, other than ketones in the urine, I see no acute, emergent medical issues. I am awaiting the troponin level. The following CT scans were performed without contrast and were interpreted by the radiologist: CT scan of the head without contrast is reported to show normal CT scan of the head without contrast. CT scan of the lumbar spine is reported as no acute fractures. There are disc bulges present. There is no evidence of retropulsion. There is mild wedging of T12 vertebral less than 20% height loss. It is of indeterminate age. 06/29/25 13:19 I spoke with telehospitalist, Dr. Negro, and provided him with review of the patient history, presenting complaint, physical findings on examination and the workup results. We have placed this patient in observation and continue IV hydration, repeat labs and obtain discharge planning/social service consultation. Counseled pt/family regarding: lab results, diagnosis, rad results Medical Desision Making - Independent Historian Additional History obtained from: C.O.D. Biller/EMT - Discussion of managment Care discussed with:: hospitalist Reviewed:: Test results, Need for additional workup - Diagnostic Testing Diagnostic test were ordered, analyzed, and reviewed by me: Yes Radiological Interpretation: Reviewed by me, Teleradiologist Report - Risk of complications The pt has a high risk of morbidity or mortality based on: Decision regarding hospitilization or escalation of hosp level of care - Departure Departure Disposition: Observation Clinical Impression: Frequent falls, Generalized weakness, Dehydration, Discharge planning issues, Tachycardia Condition: Fair Critical Care Time: No Referrals: RICKY BUSBY [Primary Care Provider, [facility]] - Follow up/PCP as directed
[2025-06-29 10:00] LABS: BASOPHIL % 0.4 % (0.1-1.2); Basophil (Absolute #) 0.04 x10^3/uL (0.01-0.08); Eosinophil (Absolute #) 0.05 x10^3/uL (0.04-0.36); Hematocrit 33.9 % (34.1-44.9); Hemoglobin 10.6 g/dL (11.2-15.7); IMMATURE GRAN # 0.10 x10^3u/L (0.001-0.031); IMMATURE GRAN % 1.1 % (0.001-0.429); Lymphocyte (Absolute #) 1.57 x10^3/uL (1.18-3.74); Mean Corpuscular Hemoglobin 30.6 pg (25.6-32.2); Mean Corpuscular Hgb Concent. 31.3 g/dL (32.2-35.5); Monocyte (Absolute #) 0.61 x10^3/uL (0.24-0.86); NUCLEATED RBC # 0.00 x10^3u/L (0.00-0.012); NUCLEATED RBC % 0.0 % (0.00-0.2); Platelet Count 213 x10^3/uL (182-369); Red Blood Count 3.46 x10^6/uL (3.93-5.22); White Blood Count 9.0 x10^3/uL (3.98-10.04)
[2025-06-29 10:13] LABS: Calcium 7.4 mg/dL (8.4-10.2); Carbon Dioxide 24.0 mmol/L (22-30); Creatinine 1 0.83 mg/dL (0.52-1.04); EST GLOMERULAR FILTRATION RATE 86.9 ML/MIN; Glucose 86.0 mg/dL (74-106); Potassium 4.0 mmol/L (3.5-5.1); SGOT/AST 58.0 U/L (14-36); SGPT/ALT 44.0 U/L (0-35); Total Protein 5.7 g/dL (6.3-8.2)
--- NOTE | 2025-06-29 11:26 | XRAY ---
CLINICAL HISTORY: Fall injury COMPARISON: Compared to the previous CT study dated 05/25/2024. TECHNIQUE: Axial non-contrast CT scan of the brain was performed from the skull base to the high parietal region. One of the following dose reduction techniques were utilized for this exam: Automated exposure control, adjustment of the mA and/or kV according to patient size, and use of iterative reconstruction. FINDINGS: Brain Parenchyma: Normal attenuation of the cerebral hemispheres, cerebellum, and brainstem. No evidence of acute infarct, hemorrhage, or mass effect. No abnormal areas of hypo- or hyperattenuation. Ventricular System: Ventricles are normal in size and configuration. No evidence of hydrocephalus or ventricular enlargement. Subarachnoid Spaces: Normal sulci and cisterns. No evidence of subarachnoid hemorrhage or extra-axial fluid collections. Cerebellum and Brainstem: No masses, lesions, or areas of abnormal density. Orbits: Normal appearance of the globes, optic nerves, and extraocular muscles. No evidence of orbital masses or abnormal density. Sinuses: Clear paranasal sinuses. No evidence of sinusitis or mucosal thickening. Mastoid Air Cells: Clear mastoid air cells. No evidence of mastoiditis. Skull: Normal skull morphology. No fracture line Smooth frontal calvarial bone thickening. most likely hyperostosis frontalis interna. IMPRESSION: 1. Normal CT of the head without contrast. 2. No gross interval changes. Electronically Signed by: Mahamed Joaquin MD. (06/29/2025 11:24:11 EDT)
--- NOTE | 2025-06-29 11:42 | XRAY ---
CLINICAL HISTORY: Fall injury COMPARISON: None. TECHNIQUE: CT non-contrast scan of lumbar spine done. Axial images obtained with reformatted coronal and sagittal images and submitted for interpretation. One of the following dose reduction techniques were utilized for this exam: Automated exposure control, adjustment of the mA and/or kV according to patient size, use of iterative reconstruction. DLP: 1560.75 mGy-cm, CTDI: 59.46 mGy. FINDINGS: No definite acute fracture line. Reduction of the lumbar lordosis. lumbar scoliosis to the right. Few small Schmrols nodes are seen opposing mainly at the D12 upper end plate. Spondyolodegenerative changes of the lumbar spine are evident by: small marginal osteophytic lipping opposing lumbar end plates, and narrowed all lumbar disc spaces in varying degrees. D12/L1 and L5/S1 intra-discal air (Vaccum phenomena). Vertebrae: Normal alignment of the lumbar vertebrae. Mildly wedged T12 vertebral body, with reduced anterior height of less than 20%, no obvious fracture lines, and no retropulsion. No acute fractures, lytic or sclerotic lesions. L3/4, L4/5, and L5/S1 diffuse disc bulges are seen abutting the anterior aspect of the theca. Spinal Canal and Neural Foramina: The spinal canal is of normal caliber with no evidence of spinal stenosis. Neural foramina are patent bilaterally at all levels. Facet Joints: Bilateral L3/4, L4/5, and L5/S1 mild facetal arthropathy. Soft Tissues: Normal appearance of the paraspinal soft tissues. No abnormal masses, fluid collections, or signs of inflammation. IMPRESSION: 1. Mildly wedged T12 vertebral body, with reduced anterior height of less than 20%, no obvious fracture lines, and no retropulsion. Indeterminate age, could be post-traumatic, clinical corrletaion and further MRI evaluation is advised to rule out acute oedematous changes. 2. Reduction of the lumbar lordosis. 3. lumbar scoliosis to the right. 4. Spondyolodegenerative changes of the lumbar spine. 5. L3/4, L4/5, and L5/S1 diffuse disc bulges. 6. Bilateral mild sacroillitis. Electronically Signed by: Mahamed Joaquin MD. (06/29/2025 11:40:56 EDT)
[2025-06-29 12:33] LABS: Glucose, Urine Negative (Negative); Protein,Urine Dip Negative (Negative); RBC 0-2 /HPF (0-5); WBC 0-2 /HPF (0-5)
[2025-06-29] MEDS ORDERED: HUMULIN R SQ PRN (14:33)
--- NOTE | 2025-06-29 14:57 | PCM.HP ---
History of Present Illness - Chief Complaint Chief Complaint: Generalized weakness Date: 06/29/25 History of Present Illness: is a A 50-year-old female with a past medical history of gastroesophageal reflux disease, hypertension, hypothyroidism, seizure disorder, hyperlipidemia, asthma, COPD, CHF, degenerative joint disease, fibromyalgia, anxiety, bipolar disorder, morbid obesity, and diabetes presented to the emergency department with complaints of weakness and frequent falls. She reports falling yesterday and being evaluated at a [facility], where she was discharged home. Today, she fell again, and her daughter reported that she struck her head, though the patient does not recall the fall. Her only current complaint is low back pain. She denies chest pain, shortness of breath, extremity pain, or abdominal pain. She has chronic lower leg lymphedema and swelling. She is a poor historian regarding her meds but states she has been taking them all and had some recent med changes. She is unable to tell me the med changes. She reports she did not take her home meds today. CT of the lumbar spine revealed a mildly wedged T12 vertebral body with less than 20% reduction in anterior height, no obvious fracture lines, and no retropulsion. The age of this finding is indeterminate and may be post- traumatic; MRI is recommended to rule out acute edematous changes. Additional findings included reduction of lumbar lordosis, lumbar scoliosis to the right, spondylodegenerative changes of the lumbar spine, diffuse disc bulges at L3/4, L4/5, and L5/S1, and mild bilateral sacroiliitis. CT of the head was negative for acute abnormalities. Laboratory results were overall unremarkable, with a corrected calcium of 8.5. The patient will be admitted overnight for observation. If she is able to safely ambulate in the morning, discharge is anticipated. - Review of Systems Constitutional: Weakness, No Fever, No Chills Eyes: No Symptoms Ears, Nose, & Throat: No Symptoms Respiratory: No Cough, No Short Of Breath Cardiac: No Chest Pain, No Edema, No Syncope Abdominal/Gastrointestinal: No Abdominal Pain, No Nausea, No Vomiting, No Diarrhea Genitourinary Symptoms: No Dysuria Musculoskeletal: Back Pain, No Neck Pain Skin: No Rash Neurological: No Dizziness, No Focal Weakness, No Sensory Changes Psychological: No Symptoms Endocrine: No Symptoms Hematologic/Lymphatic: No Symptoms Immunological/Allergic: No Symptoms Medications & Allergies Home Medications: Home Medication List Budesonide/Formoterol Fumarate [Symbicort 160-4.5 Mcg Inhaler] 2 puff IH BID 12/19/14 [History Confirmed 06/29/25] Levothyroxine Sodium 50 Mcg [Synthroid 50 Mcg] 50 mcg PO DAILY 12/19/14 [History Confirmed 06/29/25] Nitroglycerin 0.4 mg Tablet [Nitrostat 0.4 MG Tablet] 0.4 mg SL Q5MIN PRN MR X 3 PRN 09/02/16 [History Confirmed 06/29/25] Atorvastatin Calcium [Lipitor 20MG Tablet] 20 mg PO DAILY 07/22/17 [History Confirmed 06/29/25] Ipratropium/Albuterol Sulfate [Iprat-Albut 0.5-3(2.5) mg/3 ml] 3 ml IH Q4HPRN PRN 07/22/17 [History Confirmed 06/29/25] Loratadine [Claritin] 10 mg PO DAILY 07/22/17 [History Confirmed 06/29/25] [place]-3 Fatty Acids/Fish Oil [Fish Oil 1,000 mg Capsule] 1,000 mcg PO BID 10/06/20 [History Confirmed 06/29/25] Allopurinol 100 mg [Zyloprim 100 mg] 100 mg PO DAILY 11/19/23 [History Confirmed 06/29/25] Amitriptyline HCl 25 mg [Amitriptyline 25 mg Tablet] 25 mg PO HS 11/19/23 [History Confirmed 06/29/25] Mirabegron [Myrbetriq] 1 ea PO DAILY 11/19/23 [History Confirmed 06/29/25] Ubrogepant [Ubrelvy] 100 mg PO BID PRN 11/19/23 [History Confirmed 06/29/25] lamoTRIgine [Subvenite (Blue)] 100 mg PO DAILY 11/19/23 [History Confirmed 06/29/25] Lactobacillus Acidophilus [Probiotic] 1 cap PO DAILY 12/05/23 [History Confirmed 06/29/25] Potassium Chloride 8 meq PO DAILY 12/05/23 [History Confirmed 06/29/25] Pregabalin 225 mg PO BID 12/05/23 [History Confirmed 06/29/25] Ylynx-2-Hjmvhgwbup Inhibitor [Prolastin C] 1 each IV WEEKLY 12/11/23 [History Confirmed 06/29/25] Cholecalciferol (Vitamin D3) [Vitamin D3] 2,000 mcg PO DAILY 12/11/23 [History Confirmed 06/29/25] Hydrocortisone 2.5% 30 gm [Anusol-Hc 2.5% Cream 30 gm] 1 applic TOP BID 12/11/23 [History Confirmed 06/29/25] Multivitamin 1 tab PO BID 12/11/23 [History Confirmed 06/29/25] Naloxone HCl [Narcan] 4 mg IH DAILY PRN PRN 12/11/23 [History Confirmed 06/29/25] Thiamine Mononitrate (Vit B1) [Vitamin B-1] 100 mg PO WEEKLY 12/11/23 [History C onfirmed 06/29/25] Lurasidone HCl 80 mg PO DAILY 05/25/24 [History Confirmed 06/29/25] Ondansetron [Ondansetron Odt ] 4 mg SL Q6HPRN PRN 05/25/24 [History Confirmed 06/29/25] Pantoprazole 20 mg [Protonix 20MG Tablet] 20 mg PO DAILY 05/25/24 [History Confirmed 06/29/25] Blood-Glucose Meter,Continuous [Dexcom G7 Watch Guard Gate] 1 each UD #1 unit 06/07/24 [Rx Confirmed 06/29/25] Blood-Glucose Sensor [Dexcom G7 Sensor] 1 each UD 30 Days #3 misc 06/07/24 [Rx Confirmed 06/29/25] Furosemide 40 mg [Lasix 40 MG] 40 mg PO DAILY tablet 06/08/24 [Rx Confirmed 06/29/25] Glucagon 1 mg [GlucaGen 1 MG] 1 mg IM PRN PRN 06/08/24 [Rx Confirmed 06/29/25] Oxycodone / APAP 10/325 mg [Oxycodone-Acetaminophen 10-325] 1 each PO Q8HPRN PRN 3 Days #9 tablet MDD 3 06/08/24 [Rx Confirmed 06/29/25] Albuterol 8 gm Mdi Hfa [Ventolin Hfa MDI] 2 puff IH DAILY PRN PRN 06/19/25 [History Confirmed 06/29/25] Ascorbic Acid 500 mg [Vitamin C 500 MG] 500 mg PO DAILY 06/19/25 [History Confirmed 06/29/25] Clindamycin Phosphate 1 applic TP DAILY 06/19/25 [History Confirmed 06/29/25] Cyanocobalamin 1000 Mcg/ml [Cyanocobalamin B-12 1000 MCG/ML] 1,000 mcg IJ WEEKLY 06/19/25 [History Confirmed 06/29/25] Diclofenac/Menthol/Camphor [Diclogen 1.5%-4%-10% Kit] 1 each TP QID 06/19/25 [History Confirmed 06/29/25] Dulaglutide [Trulicity] 1.5 mg SQ WEEKLY 06/19/25 [History Confirmed 06/29/25] Lidocaine/Prilocaine [Lidocaine-Prilocaine Cream] 1 applic TP BID 06/19/25 [History Confirmed 06/29/25] Magnesium 400 mg PO DAILY 06/19/25 [History Confirmed 06/29/25] Metoprolol Tartrate 50 mg [Lopressor 50 MG] 25 mg PO BID 06/19/25 [History Confirmed 06/29/25] Secukinumab [Cosentyx Syringe] 300 mg SQ Q30D 06/19/25 [History Confirmed 06/29/25] Zinc Gluconate [Zinc] 50 mg PO DAILY 06/19/25 [History Confirmed 06/29/25] Allergies/Adverse Reactions: Allergies Allergy/AdvReac Type Severity Reaction Status Date / Time Iodinated Contrast Media Allergy Mild Verified 06/29/25 09:13 [IV Dye, Iodine Containing Contrast ] Sulfa (Sulfonamide Allergy Mild Verified 06/29/25 09:13 Antibiotics) [Sulfa(Sulfonamide Antibiotics)] benztropine Allergy Verified 06/29/25 09:13 triamcinolone Allergy Verified 06/29/25 09:13 - Past Medical History Past Medical History: Yes Neurological History: Migraines, Seizures, Other ENT History: No Pertinent History Cardiac History: High Cholesterol, Hypertension, Other Respiratory History: Asthma, COPD Endocrine Medical History: Diabetes Type II, Hypothyroidism, Other Musculoskelatal History: Degenerative Disk Disease, Fibromyalgia, Other GI Medical History: GERD History: No Pertinent History Pyscho-Social History: Anxiety, Bipolar, Depression Reproductive Disorders: No Pertinent History Comment: Alpha 1 Antitrypsin deficiency, Hidradentitis Suppurative, Lumbar Radiculopathy, OCD - Female History Are you now?: No - Past Surgical History Past Surgical History: Yes Neuro Surgical History: No Pertinent History Cardiac History: Cardiac Catheterization Respiratory Surgery: No Pertinent History GI Surgical History: Cholecystectomy Genitourinary Surgical Hx: No Pertinent History Musculskeletal Surgical Hx: No Pertinent History Female Surgical History: Hysterectomy, Tubal Ligation Other Surgical History: PORT PLACEMENT- states "prolastin infusion weekly", gastric bypass, carpl tunnel release Significant Family History: no pertinent family hx - Social History Smoking Status: Never smoker Exposure to second hand smoke: No Alcohol: None Drug Use: none - Social Determinants of Health Will the patient participate in the screening: Yes Do you worry about a steady place to live?: No Do you have any problems with any of the following?: No known problems In the past 12 months,have you had to go without utilities?: No Have you or anyone in your house had to go without enough: No Transportation Issues: No Has anyone in your support network made you feel unsafe?: No Does the patient want assistance with any of the above?: No - Physical Exam Vital Signs: Vital Signs - 24 hr Temp Pulse Resp BP BP Pulse Ox 06/29/25 14:39 97.7 F 121 H 16 121/82 97 06/29/25 14:33 97.7 F 121 H 16 121/82 97 06/29/25 14:01 125 H 15 104/72 81 L 06/29/25 13:31 127 H 16 129/83 82 L 06/29/25 13:00 124 H 18 99/80 78 L 06/29/25 12:30 129 H 31 H 105/85 88 L 06/29/25 12:00 129 H 19 107/70 97 06/29/25 11:30 130 H 19 107/80 83 L 06/29/25 11:05 128 H 22 120/77 94 L 06/29/25 09:30 130 H 21 119/88 77 L 06/29/25 09:09 96.8 F 124 H 99 H 115/95 96 General Appearance: no apparent distress, alert, obese Neurologic Exam: alert, oriented x 3, cooperative, normal mood/affect, nml cerebellar function, nml station & gait, sensation nml, motor weakness, No motor deficits Eye Exam: PERRL/EOMI, eyes nml inspection Ears, Nose, Throat Exam: normal ENT inspection, TMs normal, pharynx normal, moist mucous membranes Neck Exam: normal inspection, non-tender, supple, full range of motion Respiratory Exam: normal breath sounds, lungs clear, No respiratory distress Cardiovascular Exam: regular rate/rhythm, normal heart sounds, normal peripheral pulses, tachycardia Gastrointestinal/Abdomen Exam: soft, normal bowel sounds, No tenderness, No mass Back Exam: normal inspection, normal range of motion, decreased range of motion (lumbar back), No CVA tenderness, No vertebral tenderness Extremity Exam: normal inspection, normal range of motion, pelvis stable Skin Exam: normal color, warm, dry, other (bruising and burn left arm- pt reports from cooking and burned on kaba), No rash Lymphatic Exam: No adenopathy Results - Labs Lab/Micro Results: Lab Results-Last 24 Hours 06/29/25 06/29/25 06/29/25 Range/Units 09:53 09:53 09:59 WBC 9.0 (3.98-10.04) x10^3/uL RBC 3.46 L (3.93-5.22) x10^6/uL Hgb 10.6 L (11.2-15.7) g/dL Hct 33.9 L (34.1-44.9) % MCV 98.0 H (79.4-94.8) fL MCH 30.6 (25.6-32.2) pg MCHC 31.3 L (32.2-35.5) g/dL RDW 14.4 (11.7-14.4) % Plt Count 213 (182-369) x10^3/uL MPV 11.3 (9.4-12.3) fL Gran % 73.7 H (34.0-71.1) % Immature Gran % (Auto) 1.1 H (0.001-0.429) % Nucleat RBC Rel Count 0.0 (0.00-0.2) % Eos # (Auto) 0.05 (0.04-0.36) x10^3/uL Immature Gran # (Auto) 0.10 H (0.001-0.031) x10^3u/L Absolute Lymphs (auto) 1.57 (1.18-3.74) x10^3/uL Absolute Monos (auto) 0.61 (0.24-0.86) x10^3/uL Absolute Nucleated RBC 0.00 (0.00-0.012) x10^3u/L Lymphocytes % 17.4 L (19.3-51.7) % Monocytes % 6.8 (4.7-12.5) % Eosinophils % 0.6 L (0.7-5.8) % Basophils % 0.4 (0.1-1.2) % Absolute Granulocytes 6.64 H (1.56-6.13) x10^3/uL Basophils # 0.04 (0.01-0.08) x10^3/uL Sodium 138 (135-145) mmol/L Potassium 4.0 (3.5-5.1) mmol/L Chloride 106 (98-107) mmol/L Carbon Dioxide 24 (22-30) mmol/L Anion Gap 11.9 (5-15) MEQ/L BUN 10 (7-17) mg/dL Creatinine 0.83 (0.52-1.04) mg/dL Estimated GFR 86.9 ML/MIN Glucose 86 (74-106) mg/dL Lactic Acid (0.4-2.0) Calcium 7.4 L (8.4-10.2) mg/dL Magnesium 1.7 (1.6-2.3) mg/dL Total Bilirubin 1.20 (0.2-1.3) mg/dL AST 58 H (14-36) U/L ALT 44 H (0-35) U/L Alkaline Phosphatase 252 H (38-126) U/L Troponin I < 0.012 (0.000-0.033) ng/mL Serum Total Protein 5.7 L (6.3-8.2) g/dL Albumin 2.1 L (3.5-5.0) g/dL Urine Color (Yellow) Urine Appearance (Clear) Urine pH (4.6-8.0) Ur Specific [place] (1.005-1.030) Urine Protein (Negative) Urine Glucose (UA) (Negative) mg/dL Urine Ketones (Negative) Urine Blood (Negative) Urine Nitrite (Negative) Urine Bilirubin (Negative) Urine Urobilinogen (0.2) mg/dL Ur Leukocyte Esterase (Negative) U Hyaline Cast (Auto) (0-2) /LPF Urine Microscopic RBC (0-5) /HPF Urine Microscopic WBC (0-5) /HPF Ur Epithelial Cells (None Seen) /HPF Urine Bacteria (None Seen) /HPF Urine Culture Reflexed (NO) 06/29/25 06/29/25 Range/Units 11:56 12:42 WBC (3.98-10.04) x10^3/uL RBC (3.93-5.22) x10^6/uL Hgb (11.2-15.7) g/dL Hct (34.1-44.9) % MCV (79.4-94.8) fL MCH (25.6-32.2) pg MCHC (32.2-35.5) g/dL RDW (11.7-14.4) % Plt Count (182-369) x10^3/uL MPV (9.4-12.3) fL Gran % (34.0-71.1) % Immature Gran % (Auto) (0.001-0.429) % Nucleat RBC Rel Count (0.00-0.2) % Eos # (Auto) (0.04-0.36) x10^3/uL Immature Gran # (Auto) (0.001-0.031) x10^3u/L Absolute Lymphs (auto) (1.18-3.74) x10^3/uL Absolute Monos (auto) (0.24-0.86) x10^3/uL Absolute Nucleated RBC (0.00-0.012) x10^3u/L Lymphocytes % (19.3-51.7) % Monocytes % (4.7-12.5) % Eosinophils % (0.7-5.8) % Basophils % (0.1-1.2) % Absolute Granulocytes (1.56-6.13) x10^3/uL Basophils # (0.01-0.08) x10^3/uL Sodium (135-145) mmol/L Potassium (3.5-5.1) mmol/L Chloride (98-107) mmol/L Carbon Dioxide (22-30) mmol/L Anion Gap (5-15) MEQ/L BUN (7-17) mg/dL Creatinine (0.52-1.04) mg/dL Estimated GFR ML/MIN Glucose (74-106) mg/dL Lactic Acid 1.1 (0.4-2.0) Calcium (8.4-10.2) mg/dL Magnesium (1.6-2.3) mg/dL Total Bilirubin (0.2-1.3) mg/dL AST (14-36) U/L ALT (0-35) U/L Alkaline Phosphatase (38-126) U/L Troponin I (0.000-0.033) ng/mL Serum Total Protein (6.3-8.2) g/dL Albumin (3.5-5.0) g/dL Urine Color Dark Yellow A (Yellow) Urine Appearance Clear (Clear) Urine pH 6.5 (4.6-8.0) Ur Specific [place] 1.015 (1.005-1.030) Urine Protein Negative (Negative) Urine Glucose (UA) Negative (Negative) mg/dL Urine Ketones 40 A (Negative) Urine Blood Negative (Negative) Urine Nitrite Negative (Negative) Urine Bilirubin Negative (Negative) Urine Urobilinogen 0.2 (0.2) mg/dL Ur Leukocyte Esterase Negative (Negative) U Hyaline Cast (Auto) NONE SEEN (0-2) /LPF Urine Microscopic RBC 0-2 (0-5) /HPF Urine Microscopic WBC 0-2 (0-5) /HPF Ur Epithelial Cells None Seen (None Seen) /HPF Urine Bacteria None Seen (None Seen) /HPF Urine Culture Reflexed ORDERED SEPARATELY (NO) - Radiology Impressions Radiology Exams & Impressions: Radiology Procedures Category Date Time Status HEAD WITHOUT CONTRAST [CT] Stat Exams 06/29/25 09:49 Completed LUMBAR SPINE W/O [CT] Stat Exams 06/29/25 09:50 Completed - Other Procedures and Tests Respiratory Therapy 06/29/25 14:33 EKG REPEAT IN AM 06/29/25 14:56 RT Screen per Nursing Assess ONCE Assessment/Plan (1) Tachycardia Current Visit: Yes Status: Acute Assessment & Plan: - HR 120's. - Tele - EKG - Restart metoprolol, pt states she was recently taken off this as her BP was dropping, however since then her HR has been fast. - Consider Echo if still here Tuesday Code(s): R00.0 - TACHYCARDIA, UNSPECIFIED (2) Fall Current Visit: No Status: Acute Assessment & Plan: - Multiple falls recently - CBC, CMP reviewed - CT head and lumbar back reviewed - CK - D/T weakness- does not recall fall today Code(s): W19.XXXA - UNSPECIFIED FALL, INITIAL ENCOUNTER (3) Transaminitis Current Visit: No Status: Acute Assessment & Plan: - IVF gave in ER - AST 58, ALT 44- trend Code(s): R74.01 - ELEVATION OF LEVELS OF LIVER TRANSAMINASE LEVELS (4) Chronic back pain Current Visit: Yes Status: Chronic Assessment & Plan: - F/U OP with Pain management Dr. Waters in [place]- likely will need earlier appointment. - CT lumbar back reviewed Code(s): M54.9 - DORSALGIA, UNSPECIFIED; G89.29 - OTHER CHRONIC PAIN (5) Hypothyroidism Current Visit: Yes Status: Chronic Assessment & Plan: - TSH pending - Continue synthroid Code(s): E03.9 - HYPOTHYROIDISM, UNSPECIFIED (6) HLD (hyperlipidemia) Current Visit: No Status: Chronic Assessment & Plan: - Continue statin Code(s): E78.5 - HYPERLIPIDEMIA, UNSPECIFIED (7) Morbid obesity Current Visit: No Status: Chronic Assessment & Plan: - Advised diet and exercise Code(s): E66.01 - MORBID (SEVERE) OBESITY DUE TO EXCESS CALORIES (8) Seizures Current Visit: Yes Status: Chronic Assessment & Plan: - Continue home meds - No recent seizures per pt Code(s): R56.9 - UNSPECIFIED CONVULSIONS (9) Bipolar 1 disorder Current Visit: Yes Status: Acute Assessment & Plan: - resume home meds Code(s): F31.9 - BIPOLAR DISORDER, UNSPECIFIED (10) HTN (hypertension) Current Visit: No Status: Chronic Assessment & Plan: - BP stable VTE: SCD Next of KIN: Daughter D/C plan: 1-2 days Code status: Full Plan of care time: > 40 minutes Code(s): I10 - ESSENTIAL (PRIMARY) HYPERTENSION Telemedicine Encounter - Telemedicine Encounter Telemedicine Encounter: "The entirety of this encounter was performed via Telemedicine" This visit was performed using real-time audio and video connection between my location and thepatients locationwith the assistance of a surrogateat the patients location. Written or verbal consent was obtained from the patient/guardian to perform this visit [email or web address]. Any patient questions regarding the telemedicine interaction were answered.
[2025-06-29] MEDS ORDERED: HUMALOG SQ PRN (16:13)
[2025-06-29] MEDS ORDERED: OXYCODONE-ACETAMINOPHEN 10-325 PO PRN (16:52)
[2025-06-29 17:32] LABS: Amphetamine,Urine NEGATIVE (NEGATIVE); Barbiturate,Urine NEGATIVE (NEGATIVE); Benzodiazepine,Urine NEGATIVE (NEGATIVE); Cocaine,Urine NEGATIVE (NEGATIVE); Methadone,Urine NEGATIVE (NEGATIVE); Opiate,Urine POSITIVE (NEGATIVE); PCP,Urine NEGATIVE (NEGATIVE); THC,Urine NEGATIVE (NEGATIVE)
[2025-06-29] MEDS: Tessalon Perles 100 MG PO PRN (17:37)
[2025-06-29] MEDS: Keppra 250 MG PO SCH (17:37)
[2025-06-29] MEDS: Toprol-Xl 25MG Tablets PO SCH (17:37)
[2025-06-29] MEDS: lamICTAL 100MG TABLET PO SCH (17:38)
[2025-06-29] MEDS: SECUKINUMAB 150 MG/ML SQ SCH (17:39)
[2025-06-29] MEDS: DICLOFENAC TP SCH (17:40)
[2025-06-29] MEDS: MENTHOL TP SCH (17:40)
[2025-06-29] MEDS: CAMPHOR TP SCH (17:40)
[2025-06-29 18:31] LABS: INFLUENZA A NEGATIVE (NEGATIVE); INFLUENZA B NEGATIVE (NEGATIVE); RESPIRATORY SYNCTIAL VIRUS NEGATIVE (NEGATIVE); SARS-CoV-2 Xpert Express NEGATIVE (NEGATIVE)
[2025-06-29] MEDS: Xopenex 1.25 MG/0.5 ML UD NEBULE IH SCH (19:37)
[2025-06-29] MEDS ORDERED: Sodium Chloride 3 ML UD NEBULES IH ONE (19:37)
[2025-06-29] MEDS: Advair Hfa 115/21 Common canister IH SCH (19:39)
[2025-06-29] MEDS: NON-FORMULARY ITEM (Budesonide/Formoterol Fumarate [Symbicort 160-4.5 Mcg Inhaler] 10.2 GM IH SCH (19:41)
[2025-06-29] MEDS ORDERED: FISH OIL 1,000 MG CAPSULE PO ONE (21:08)
[2025-06-29] MEDS ORDERED: THERAGRAN MULTIVITAMIN ONE (21:08)
[2025-06-29] MEDS ORDERED: ZOCOR 20MG ONE (21:12)
[2025-06-29] MEDS: NON-FORMULARY ITEM (Multivitamin [Multivitamin] 1 EACH Tablet) PO SCH (21:20)
[2025-06-29] MEDS: NON-FORMULARY ITEM (Omega-3 Fatty Acids/Fish Oil [Fish Oil 1,000 Mg Capsule] 1 EACH Capsul PO SCH (21:20)
[2025-06-29] MEDS: NON-FORMULARY ITEM (Atorvastatin Calcium 20 MG Tab) PO SCH (21:21)
[2025-06-29] MEDS: TYLENOL 325 MG PO PRN (21:29)
[2025-06-30 05:55] LABS: BASOPHIL % 0.4 % (0.1-1.2); Basophil (Absolute #) 0.03 x10^3/uL (0.01-0.08); Eosinophil (Absolute #) 0.07 x10^3/uL (0.04-0.36); Hematocrit 31.4 % (34.1-44.9); Hemoglobin 9.6 g/dL (11.2-15.7); IMMATURE GRAN # 0.06 x10^3u/L (0.001-0.031); IMMATURE GRAN % 0.7 % (0.001-0.429); Lymphocyte (Absolute #) 1.91 x10^3/uL (1.18-3.74); Mean Corpuscular Hemoglobin 30.9 pg (25.6-32.2); Mean Corpuscular Hgb Concent. 30.6 g/dL (32.2-35.5); Monocyte (Absolute #) 0.76 x10^3/uL (0.24-0.86); NUCLEATED RBC # 0.00 x10^3u/L (0.00-0.012); NUCLEATED RBC % 0.0 % (0.00-0.2); Platelet Count 197 x10^3/uL (182-369); Red Blood Count 3.11 x10^6/uL (3.93-5.22); White Blood Count 8.4 x10^3/uL (3.98-10.04)
[2025-06-30 06:20] LABS: Calcium 7.4 mg/dL (8.4-10.2); Carbon Dioxide 25.0 mmol/L (22-30); Creatinine 1 0.93 mg/dL (0.52-1.04); EST GLOMERULAR FILTRATION RATE 75.8 ML/MIN; Glucose 84.0 mg/dL (74-106); NT PRO BNPII 73.6 pg/mL (<300); Potassium 3.9 mmol/L (3.5-5.1); SGOT/AST 47.0 U/L (14-36); SGPT/ALT 39.0 U/L (0-35); Total Protein 5.2 g/dL (6.3-8.2)
[2025-06-30] MEDS ORDERED: PULMICORT 0.5 MG/2 ML RESPULES IH ONE (07:02)
[2025-06-30] MEDS ORDERED: MEDICATION INTERVENTION MC SCH ×3 (07:45)
[2025-06-30 08:13] LABS: A-aADO2 42; ABG HEMOGLOBIN 10.2; ABG POTASSIUM 4.3 (3.5-5.1); ARTERIAL BLD GAS O2 SATURATION 96.4 % (95-100); ARTERIAL BLOOD GAS BASE EXCESS 2.0 (-2.0-2.0); ARTERIAL BLOOD GAS FIO2 21 %; ARTERIAL BLOOD GAS PCO2 29 mmHg (35-45); ARTERIAL BLOOD GAS PO2 71 mmHg (75-100); ARTERIAL BLOOD GAS TEMPERATURE 37.0 C; HCO3- 24.2 (22-28); HGB O2 SAT 95.0 g/dF (94-100); Methhemoglobin 0.4 % (1.4-1.5); paO2 pAO1 0.63
[2025-06-30 08:14] LABS: ABG SITE RIGHT RADIAL; ALLEN TEST OK? YES
[2025-06-30] MEDS: Lasix 40 MG PO SCH (09:12)
[2025-06-30] MEDS: Toprol-Xl 25MG Tablets PO SCH (09:12)
[2025-06-30] MEDS: FISH OIL 1,000 MG CAPSULE PO SCH (09:12)
[2025-06-30] MEDS: Acidophilus TABLET PO SCH (09:13)
[2025-06-30] MEDS: SYNTHROID 50 MCG PO SCH (09:13)
[2025-06-30] MEDS: THERAGRAN MULTIVITAMIN PO SCH (09:13)
[2025-06-30] MEDS: Vitamin C 500 MG PO SCH (09:13)
[2025-06-30] MEDS: Klor Con PO SCH (09:13)
[2025-06-30] MEDS: MYRBETRIQ PO SCH (09:13)
[2025-06-30] MEDS: Protonix 20MG Tablet PO SCH (09:14)
--- NOTE | 2025-06-30 09:17 | PCM.NOTE ---
Date and Time: 06/30/25 0911 Subjective Assessment: 06/29/25 is a A 50-year-old female with a past medical history of gastroesophageal reflux disease, hypertension, hypothyroidism, seizure disorder, hyperlipidemia, asthma, COPD, CHF, degenerative joint disease, fibromyalgia, anxiety, bipolar disorder, morbid obesity, and diabetes [facility] with complaints of weakness and frequent falls. She reports falling yesterday and being evaluated at a [facility], where she was discharged home. Today, she fell again, and her daughter reported that she struck her head, though the patient does not recall the fall. Her only current complaint is low back pain. She denies chest pain, shortness of breath, extremity pain, or abdominal pain. She has chronic lower leg lymphedema and swelling. She is a poor historian regarding her meds but states she has been taking them all and had some recent med changes. She is unable to tell me the med changes. She reports she did not take her home meds today. CT of the lumbar spine revealed a mildly wedged T12 vertebral body with less than 20% reduction in anterior height, no obvious fracture lines, and no retropulsion. The age of this finding is indeterminate and may be post- traumatic; MRI is recommended to rule out acute edematous changes. Additional findings included reduction of lumbar lordosis, lumbar scoliosis to the right, spondylodegenerative changes of the lumbar spine, diffuse disc bulges at L3/4, L4/5, and L5/S1, and mild bilateral sacroiliitis. CT of the head was negative for acute abnormalities. Laboratory results were overall unremarkable, with a corrected calcium of 8.5. 06/30/25 The patient is resting in bed and noted to have edema in both arms and legs. BNP is not concerning, and she will continue on daily Lasix. A Ugarte catheter was placed in the ED yesterday; the order is to discontinue it and place a PureWick device instead. She is lethargic, unable to feed herself, and demonstrates slow responses to questions as well as delayed movements on neurological exam. An ABG revealed primary respiratory alkalosis with secondary metabolic alkalosis. Chest X-ray results are pending, and D-dimer was negative. The patient did use her CPAP overnight. MRI is planned for the morning, as it cannot be performed over the weekend. Liver enzymes (AST/ALT) remain elevated but are improved from admission. A hepatitis panel has been ordered. Alkaline phosphatase is elevated at 220. Corrected calcium is 8.7, and albumin is low at 1.9; she has been advised to increase protein intake, and Ensure High Protein supplements were added to meals. Encouraged pt to sit up in a chair today and move around. Staff had to use Shoaib lift to get pt up. Pt reports she does not think she has had a BM in 2 weeks. KUB ordered. - Review of Systems Constitutional: Lethargy, No Fever, No Chills Eyes: No Symptoms Ears, Nose, & Throat: No Symptoms Respiratory: No Cough, No Short Of Breath Cardiac: No Chest Pain, No Edema, No Syncope Abdominal/Gastrointestinal: Constipation, No Abdominal Pain, No Nausea, No Vomiting, No Diarrhea Genitourinary Symptoms: No Dysuria Musculoskeletal: No Back Pain, No Neck Pain Skin: No Rash Neurological: No Dizziness, No Focal Weakness, No Sensory Changes Psychological: No Symptoms Endocrine: No Symptoms Hematologic/Lymphatic: No Symptoms Immunological/Allergic: No Symptoms Objective Exam General Appearance: no apparent distress, alert, obese Neurologic Exam: alert, oriented x 3, cooperative, 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, normal mood/affect, nml cerebellar function, sensation nml, motor weakness, other (slow to respond to questions and commands), No motor deficits Skin Exam: normal color, warm, dry Eye Exam: PERRL, EOMI, eyes nml inspection Ears, Nose, Throat Exam: normal ENT inspection, pharynx normal, moist mucous membranes Neck Exam: normal inspection, non-tender, supple, full range of motion Respiratory Exam: normal breath sounds, lungs clear, No respiratory distress Cardiovascular Exam: regular rate/rhythm, normal heart sounds, tachycardia, edema (BL arms and legs) Gastrointestinal/Abdomen Exam: soft, distention, No tenderness, No mass Extremity Exam: normal inspection, normal range of motion Back Exam: normal inspection, normal range of motion, No CVA tenderness, No vertebral tenderness Pelvic Exam: deferred Rectal Exam: deferred Objective Data Vital Signs: Vital Signs - 24 hr Temp Pulse Resp BP BP Pulse Ox 06/30/25 07:33 98.0 F 120 H 16 108/55 96 06/30/25 03:52 97.8 F 113 H 16 105/62 94 L 06/30/25 00:49 120 H 20 95 06/29/25 23:36 98.0 F 119 H 18 101/53 94 L 06/29/25 19:47 98.3 F 121 H 18 113/58 94 L 06/29/25 19:43 120 H 21 99 06/29/25 16:30 94 L 06/29/25 14:39 97.7 F 121 H 16 121/82 97 06/29/25 14:33 97.7 F 121 H 16 121/82 97 06/29/25 14:01 125 H 15 104/72 81 L 06/29/25 13:31 127 H 16 129/83 82 L 06/29/25 13:00 124 H 18 99/80 78 L 06/29/25 12:30 129 H 31 H 105/85 88 L 06/29/25 12:00 129 H 19 107/70 97 06/29/25 11:30 130 H 19 107/80 83 L 06/29/25 11:05 128 H 22 120/77 94 L 06/29/25 09:30 130 H 21 119/88 77 L Pain Assessment - Last Documented Pain Intensity 0 Pain Scale Used 0-10 Pain Scale Intake and Output: Intake & Output 06/27/25 06/28/25 06/29/25 06/30/25 11:59 11:59 11:59 11:59 Intake Total 1200 Output Total 760 Balance 440 Weight 113.5 kg Lab Results: Lab Results-Last 24 Hours 06/29/25 06/29/25 06/29/25 Range/Units 09:50 09:53 09:53 WBC 9.0 (3.98-10.04) x10^3/uL RBC 3.46 L (3.93-5.22) x10^6/uL Hgb 10.6 L (11.2-15.7) g/dL Hct 33.9 L (34.1-44.9) % MCV 98.0 H (79.4-94.8) fL MCH 30.6 (25.6-32.2) pg MCHC 31.3 L (32.2-35.5) g/dL RDW 14.4 (11.7-14.4) % Plt Count 213 (182-369) x10^3/uL MPV 11.3 (9.4-12.3) fL Gran % 73.7 H (34.0-71.1) % Immature Gran % (Auto) 1.1 H (0.001-0.429) % Nucleat RBC Rel Count 0.0 (0.00-0.2) % Eos # (Auto) 0.05 (0.04-0.36) x10^3/uL Immature Gran # (Auto) 0.10 H (0.001-0.031) x10^3u/L Absolute Lymphs (auto) 1.57 (1.18-3.74) x10^3/uL Absolute Monos (auto) 0.61 (0.24-0.86) x10^3/uL Absolute Nucleated RBC 0.00 (0.00-0.012) x10^3u/L Lymphocytes % 17.4 L (19.3-51.7) % Monocytes % 6.8 (4.7-12.5) % Eosinophils % 0.6 L (0.7-5.8) % Basophils % 0.4 (0.1-1.2) % Absolute Granulocytes 6.64 H (1.56-6.13) x10^3/uL Basophils # 0.04 (0.01-0.08) x10^3/uL D-Dimer (0.0-0.50) mg/L Puncture Site pCO2 (35-45) mmHg pO2 (75-100) mmHg Base Excess (-2.0-2.0) O2 Saturation (94-100) g/dF ABG pH (7.35-7.45) ABG HCO3 (22-28) ABG O2 Sat (Measured) (95-100) % Rajinder Test A-a Gradient a/A Ratio Hemoglobin Carboxyhemoglobin (0.0-6.9) % THgb Methemoglobin (1.4-1.5) % Temperature C POC O2 Flow Rate % Sodium 138 (135-145) mmol/L Potassium 4.0 (3.5-5.1) mmol/L Chloride 106 (98-107) mmol/L Carbon Dioxide 24 (22-30) mmol/L Anion Gap 11.9 (5-15) MEQ/L BUN 10 (7-17) mg/dL Creatinine 0.83 (0.52-1.04) mg/dL Estimated GFR 86.9 ML/MIN Glucose 86 (74-106) mg/dL Lactic Acid (0.4-2.0) Calcium 7.4 L (8.4-10.2) mg/dL Magnesium 1.7 (1.6-2.3) mg/dL Total Bilirubin 1.20 (0.2-1.3) mg/dL AST 58 H (14-36) U/L ALT 44 H (0-35) U/L Alkaline Phosphatase 252 H (38-126) U/L Creatine Kinase (30-135) U/L Troponin I (0.000-0.033) ng/mL NT-Pro-B Natriuret Pep (<300) pg/mL Serum Total Protein 5.7 L (6.3-8.2) g/dL Albumin 2.1 L (3.5-5.0) g/dL TSH 3rd Generation (0.470-4.680) mIU/L Urine Color (Yellow) Urine Appearance (Clear) Urine pH (4.6-8.0) Ur Specific [place] (1.005-1.030) Urine Protein (Negative) Urine Glucose (UA) (Negative) mg/dL Urine Ketones (Negative) Urine Blood (Negative) Urine Nitrite (Negative) Urine Bilirubin (Negative) Urine Urobilinogen (0.2) mg/dL Ur Leukocyte Esterase (Negative) U Hyaline Cast (Auto) (0-2) /LPF Urine Microscopic RBC (0-5) /HPF Urine Microscopic WBC (0-5) /HPF Ur Epithelial Cells (None Seen) /HPF Urine Bacteria (None Seen) /HPF Urine Culture Reflexed (NO) Urine Opiates Level POSITIVE A (NEGATIVE) Ur Methadone NEGATIVE (NEGATIVE) Urine Barbiturates NEGATIVE (NEGATIVE) Ur Phencyclidine (PCP) NEGATIVE (NEGATIVE) Urine Amphetamine NEGATIVE (NEGATIVE) U Benzodiazepine Level NEGATIVE (NEGATIVE) Urine Cocaine NEGATIVE (NEGATIVE) Urine Marijuana (THC) NEGATIVE (NEGATIVE) Influenza Type A Ag (NEGATIVE) Influenza Type B Ag (NEGATIVE) RSV (PCR) (NEGATIVE) SARS-CoV-2 (PCR) (NEGATIVE) 06/29/25 06/29/25 06/29/25 Range/Units 09:59 09:59 09:59 WBC (3.98-10.04) x10^3/uL RBC (3.93-5.22) x10^6/uL Hgb (11.2-15.7) g/dL Hct (34.1-44.9) % MCV (79.4-94.8) fL MCH (25.6-32.2) pg MCHC (32.2-35.5) g/dL RDW (11.7-14.4) % Plt Count (182-369) x10^3/uL MPV (9.4-12.3) fL Gran % (34.0-71.1) % Immature Gran % (Auto) (0.001-0.429) % Nucleat RBC Rel Count (0.00-0.2) % Eos # (Auto) (0.04-0.36) x10^3/uL Immature Gran # (Auto) (0.001-0.031) x10^3u/L Absolute Lymphs (auto) (1.18-3.74) x10^3/uL Absolute Monos (auto) (0.24-0.86) x10^3/uL Absolute Nucleated RBC (0.00-0.012) x10^3u/L Lymphocytes % (19.3-51.7) % Monocytes % (4.7-12.5) % Eosinophils % (0.7-5.8) % Basophils % (0.1-1.2) % Absolute Granulocytes (1.56-6.13) x10^3/uL Basophils # (0.01-0.08) x10^3/uL D-Dimer (0.0-0.50) mg/L Puncture Site pCO2 (35-45) mmHg pO2 (75-100) mmHg Base Excess (-2.0-2.0) O2 Saturation (94-100) g/dF ABG pH (7.35-7.45) ABG HCO3 (22-28) ABG O2 Sat (Measured) (95-100) % Rajinder Test A-a Gradient a/A Ratio Hemoglobin Carboxyhemoglobin (0.0-6.9) % THgb Methemoglobin (1.4-1.5) % Temperature C POC O2 Flow Rate % Sodium (135-145) mmol/L Potassium (3.5-5.1) mmol/L Chloride (98-107) mmol/L Carbon Dioxide (22-30) mmol/L Anion Gap (5-15) MEQ/L BUN (7-17) mg/dL Creatinine (0.52-1.04) mg/dL Estimated GFR ML/MIN Glucose (74-106) mg/dL Lactic Acid (0.4-2.0) Calcium (8.4-10.2) mg/dL Magnesium (1.6-2.3) mg/dL Total Bilirubin (0.2-1.3) mg/dL AST (14-36) U/L ALT (0-35) U/L Alkaline Phosphatase (38-126) U/L Creatine Kinase 45 (30-135) U/L Troponin I < 0.012 (0.000-0.033) ng/mL NT-Pro-B Natriuret Pep (<300) pg/mL Serum Total Protein (6.3-8.2) g/dL Albumin (3.5-5.0) g/dL TSH 3rd Generation 1.982 (0.470-4.680) mIU/L Urine Color (Yellow) Urine Appearance (Clear) Urine pH (4.6-8.0) Ur Specific [place] (1.005-1.030) Urine Protein (Negative) Urine Glucose (UA) (Negative) mg/dL Urine Ketones (Negative) Urine Blood (Negative) Urine Nitrite (Negative) Urine Bilirubin (Negative) Urine Urobilinogen (0.2) mg/dL Ur Leukocyte Esterase (Negative) U Hyaline Cast (Auto) (0-2) /LPF Urine Microscopic RBC (0-5) /HPF Urine Microscopic WBC (0-5) /HPF Ur Epithelial Cells (None Seen) /HPF Urine Bacteria (None Seen) /HPF Urine Culture Reflexed (NO) Urine Opiates Level (NEGATIVE) Ur Methadone (NEGATIVE) Urine Barbiturates (NEGATIVE) Ur Phencyclidine (PCP) (NEGATIVE) Urine Amphetamine (NEGATIVE) U Benzodiazepine Level (NEGATIVE) Urine Cocaine (NEGATIVE) Urine Marijuana (THC) (NEGATIVE) Influenza Type A Ag (NEGATIVE) Influenza Type B Ag (NEGATIVE) RSV (PCR) (NEGATIVE) SARS-CoV-2 (PCR) (NEGATIVE) 06/29/25 06/29/25 06/29/25 Range/Units 11:56 12:42 16:11 WBC (3.98-10.04) x10^3/uL RBC (3.93-5.22) x10^6/uL Hgb (11.2-15.7) g/dL Hct (34.1-44.9) % MCV (79.4-94.8) fL MCH (25.6-32.2) pg MCHC (32.2-35.5) g/dL RDW (11.7-14.4) % Plt Count (182-369) x10^3/uL MPV (9.4-12.3) fL Gran % (34.0-71.1) % Immature Gran % (Auto) (0.001-0.429) % Nucleat RBC Rel Count (0.00-0.2) % Eos # (Auto) (0.04-0.36) x10^3/uL Immature Gran # (Auto) (0.001-0.031) x10^3u/L Absolute Lymphs (auto) (1.18-3.74) x10^3/uL Absolute Monos (auto) (0.24-0.86) x10^3/uL Absolute Nucleated RBC (0.00-0.012) x10^3u/L Lymphocytes % (19.3-51.7) % Monocytes % (4.7-12.5) % Eosinophils % (0.7-5.8) % Basophils % (0.1-1.2) % Absolute Granulocytes (1.56-6.13) x10^3/uL Basophils # (0.01-0.08) x10^3/uL D-Dimer 0.34 (0.0-0.50) mg/L Puncture Site pCO2 (35-45) mmHg pO2 (75-100) mmHg Base Excess (-2.0-2.0) O2 Saturation (94-100) g/dF ABG pH (7.35-7.45) ABG HCO3 (22-28) ABG O2 Sat (Measured) (95-100) % Rajinder Test A-a Gradient a/A Ratio Hemoglobin Carboxyhemoglobin (0.0-6.9) % THgb Methemoglobin (1.4-1.5) % Temperature C POC O2 Flow Rate % Sodium (135-145) mmol/L Potassium (3.5-5.1) mmol/L Chloride (98-107) mmol/L Carbon Dioxide (22-30) mmol/L Anion Gap (5-15) MEQ/L BUN (7-17) mg/dL Creatinine (0.52-1.04) mg/dL Estimated GFR ML/MIN Glucose (74-106) mg/dL Lactic Acid 1.1 (0.4-2.0) Calcium (8.4-10.2) mg/dL Magnesium (1.6-2.3) mg/dL Total Bilirubin (0.2-1.3) mg/dL AST (14-36) U/L ALT (0-35) U/L Alkaline Phosphatase (38-126) U/L Creatine Kinase (30-135) U/L Troponin I (0.000-0.033) ng/mL NT-Pro-B Natriuret Pep (<300) pg/mL Serum Total Protein (6.3-8.2) g/dL Albumin (3.5-5.0) g/dL TSH 3rd Generation (0.470-4.680) mIU/L Urine Color Dark Yellow A (Yellow) Urine Appearance Clear (Clear) Urine pH 6.5 (4.6-8.0) Ur Specific [place] 1.015 (1.005-1.030) Urine Protein Negative (Negative) Urine Glucose (UA) Negative (Negative) mg/dL Urine Ketones 40 A (Negative) Urine Blood Negative (Negative) Urine Nitrite Negative (Negative) Urine Bilirubin Negative (Negative) Urine Urobilinogen 0.2 (0.2) mg/dL Ur Leukocyte Esterase Negative (Negative) U Hyaline Cast (Auto) NONE SEEN (0-2) /LPF Urine Microscopic RBC 0-2 (0-5) /HPF Urine Microscopic WBC 0-2 (0-5) /HPF Ur Epithelial Cells None Seen (None Seen) /HPF Urine Bacteria None Seen (None Seen) /HPF Urine Culture Reflexed ORDERED SEPARATELY (NO) Urine Opiates Level (NEGATIVE) Ur Methadone (NEGATIVE) Urine Barbiturates (NEGATIVE) Ur Phencyclidine (PCP) (NEGATIVE) Urine Amphetamine (NEGATIVE) U Benzodiazepine Level (NEGATIVE) Urine Cocaine (NEGATIVE) Urine Marijuana (THC) (NEGATIVE) Influenza Type A Ag (NEGATIVE) Influenza Type B Ag (NEGATIVE) RSV (PCR) (NEGATIVE) SARS-CoV-2 (PCR) (NEGATIVE) 06/29/25 06/29/2525 Range/Units 17:51 17:51 21:18 WBC (3.98-10.04) x10^3/uL RBC (3.93-5.22) x10^6/uL Hgb (11.2-15.7) g/dL Hct (34.1-44.9) % MCV (79.4-94.8) fL MCH (25.6-32.2) pg MCHC (32.2-35.5) g/dL RDW (11.7-14.4) % Plt Count (182-369) x10^3/uL MPV (9.4-12.3) fL Gran % (34.0-71.1) % Immature Gran % (Auto) (0.001-0.429) % Nucleat RBC Rel Count (0.00-0.2) % Eos # (Auto) (0.04-0.36) x10^3/uL Immature Gran # (Auto) (0.001-0.031) x10^3u/L Absolute Lymphs (auto) (1.18-3.74) x10^3/uL Absolute Monos (auto) (0.24-0.86) x10^3/uL Absolute Nucleated RBC (0.00-0.012) x10^3u/L Lymphocytes % (19.3-51.7) % Monocytes % (4.7-12.5) % Eosinophils % (0.7-5.8) % Basophils % (0.1-1.2) % Absolute Granulocytes (1.56-6.13) x10^3/uL Basophils # (0.01-0.08) x10^3/uL D-Dimer (0.0-0.50) mg/L Puncture Site pCO2 (35-45) mmHg pO2 (75-100) mmHg Base Excess (-2.0-2.0) O2 Saturation (94-100) g/dF ABG pH (7.35-7.45) ABG HCO3 (22-28) ABG O2 Sat (Measured) (95-100) % Rajinder Test A-a Gradient a/A Ratio Hemoglobin Carboxyhemoglobin (0.0-6.9) % THgb Methemoglobin (1.4-1.5) % Temperature C POC O2 Flow Rate % Sodium (135-145) mmol/L Potassium (3.5-5.1) mmol/L Chloride (98-107) mmol/L Carbon Dioxide (22-30) mmol/L Anion Gap (5-15) MEQ/L BUN (7-17) mg/dL Creatinine (0.52-1.04) mg/dL Estimated GFR ML/MIN Glucose (74-106) mg/dL Lactic Acid (0.4-2.0) Calcium (8.4-10.2) mg/dL Magnesium (1.6-2.3) mg/dL Total Bilirubin (0.2-1.3) mg/dL AST (14-36) U/L ALT (0-35) U/L Alkaline Phosphatase (38-126) U/L Creatine Kinase (30-135) U/L Troponin I < 0.012 < 0.012 (0.000-0.033) ng/mL NT-Pro-B Natriuret Pep (<300) pg/mL Serum Total Protein (6.3-8.2) g/dL Albumin (3.5-5.0) g/dL TSH 3rd Generation (0.470-4.680) mIU/L Urine Color (Yellow) Urine Appearance (Clear) Urine pH (4.6-8.0) Ur Specific [place] (1.005-1.030) Urine Protein (Negative) Urine Glucose (UA) (Negative) mg/dL Urine Ketones (Negative) Urine Blood (Negative) Urine Nitrite (Negative) Urine Bilirubin (Negative) Urine Urobilinogen (0.2) mg/dL Ur Leukocyte Esterase (Negative) U Hyaline Cast (Auto) (0-2) /LPF Urine Microscopic RBC (0-5) /HPF Urine Microscopic WBC (0-5) /HPF Ur Epithelial Cells (None Seen) /HPF Urine Bacteria (None Seen) /HPF Urine Culture Reflexed (NO) Urine Opiates Level (NEGATIVE) Ur Methadone (NEGATIVE) Urine Barbiturates (NEGATIVE) Ur Phencyclidine (PCP) (NEGATIVE) Urine Amphetamine (NEGATIVE) U Benzodiazepine Level (NEGATIVE) Urine Cocaine (NEGATIVE) Urine Marijuana (THC) (NEGATIVE) Influenza Type A Ag NEGATIVE (NEGATIVE) Influenza Type B Ag NEGATIVE (NEGATIVE) RSV (PCR) NEGATIVE (NEGATIVE) SARS-CoV-2 (PCR) NEGATIVE (NEGATIVE) 06/30/25 06/30/25 06/30/25 Range/Units 05:39 05:39 07:53 WBC 8.4 (3.98-10.04) x10^3/uL RBC 3.11 L (3.93-5.22) x10^6/uL Hgb 9.6 L (11.2-15.7) g/dL Hct 31.4 L (34.1-44.9) % MCV 101.0 H (79.4-94.8) fL MCH 30.9 (25.6-32.2) pg MCHC 30.6 L (32.2-35.5) g/dL RDW 14.5 H (11.7-14.4) % Plt Count 197 (182-369) x10^3/uL MPV 11.6 (9.4-12.3) fL Gran % 66.1 (34.0-71.1) % Immature Gran % (Auto) 0.7 H (0.001-0.429) % Nucleat RBC Rel Count 0.0 (0.00-0.2) % Eos # (Auto) 0.07 (0.04-0.36) x10^3/uL Immature Gran # (Auto) 0.06 H (0.001-0.031) x10^3u/L Absolute Lymphs (auto) 1.91 (1.18-3.74) x10^3/uL Absolute Monos (auto) 0.76 (0.24-0.86) x10^3/uL Absolute Nucleated RBC 0.00 (0.00-0.012) x10^3u/L Lymphocytes % 22.9 (19.3-51.7) % Monocytes % 9.1 (4.7-12.5) % Eosinophils % 0.8 (0.7-5.8) % Basophils % 0.4 (0.1-1.2) % Absolute Granulocytes 5.52 (1.56-6.13) x10^3/uL Basophils # 0.03 (0.01-0.08) x10^3/uL D-Dimer (0.0-0.50) mg/L Puncture Site RIGHT RADIAL pCO2 29 L (35-45) mmHg pO2 71 L (75-100) mmHg Base Excess 2.0 (-2.0-2.0) O2 Saturation 95.0 (94-100) g/dF ABG pH 7.53 H (7.35-7.45) ABG HCO3 24.2 (22-28) ABG O2 Sat (Measured) 96.4 (95-100) % Rajinder Test YES A-a Gradient 42 a/A Ratio 0.63 Hemoglobin 10.2 Carboxyhemoglobin 1.0 (0.0-6.9) % THgb Methemoglobin 0.4 L (1.4-1.5) % Temperature 37.0 C POC O2 Flow Rate 21 % Sodium 138 (135-145) mmol/L Potassium 3.9 4.3 (3.5-5.1) mmol/L Chloride 106 (98-107) mmol/L Carbon Dioxide 25 (22-30) mmol/L Anion Gap 10.5 (5-15) MEQ/L BUN 11 (7-17) mg/dL Creatinine 0.93 (0.52-1.04) mg/dL Estimated GFR 75.8 ML/MIN Glucose 84 (74-106) mg/dL Lactic Acid (0.4-2.0) Calcium 7.4 L (8.4-10.2) mg/dL Magnesium (1.6-2.3) mg/dL Total Bilirubin 1.10 (0.2-1.3) mg/dL AST 47 H (14-36) U/L ALT 39 H (0-35) U/L Alkaline Phosphatase 220 H (38-126) U/L Creatine Kinase (30-135) U/L Troponin I (0.000-0.033) ng/mL NT-Pro-B Natriuret Pep 73.6 (<300) pg/mL Serum Total Protein 5.2 L (6.3-8.2) g/dL Albumin 1.9 L (3.5-5.0) g/dL TSH 3rd Generation (0.470-4.680) mIU/L Urine Color (Yellow) Urine Appearance (Clear) Urine pH (4.6-8.0) Ur Specific [place] (1.005-1.030) Urine Protein (Negative) Urine Glucose (UA) (Negative) mg/dL Urine Ketones (Negative) Urine Blood (Negative) Urine Nitrite (Negative) Urine Bilirubin (Negative) Urine Urobilinogen (0.2) mg/dL Ur Leukocyte Esterase (Negative) U Hyaline Cast (Auto) (0-2) /LPF Urine Microscopic RBC (0-5) /HPF Urine Microscopic WBC (0-5) /HPF Ur Epithelial Cells (None Seen) /HPF Urine Bacteria (None Seen) /HPF Urine Culture Reflexed (NO) Urine Opiates Level (NEGATIVE) Ur Methadone (NEGATIVE) Urine Barbiturates (NEGATIVE) Ur Phencyclidine (PCP) (NEGATIVE) Urine Amphetamine (NEGATIVE) U Benzodiazepine Level (NEGATIVE) Urine Cocaine (NEGATIVE) Urine Marijuana (THC) (NEGATIVE) Influenza Type A Ag (NEGATIVE) Influenza Type B Ag (NEGATIVE) RSV (PCR) (NEGATIVE) SARS-CoV-2 (PCR) (NEGATIVE) Radiology Exams: Radiology Procedures Category Date Time Status CHEST 1 VIEW (PORTABLE) Stat Exams 06/29/25 15:59 Taken HEAD WITHOUT CONTRAST [CT] Stat Exams 06/29/25 09:49 Completed LUMBAR SPINE W/O [CT] Stat Exams 06/29/25 09:50 Completed MRI BRAIN W/O CONTRAST [MRI] Routine Exams 06/30/25 09:10 Ordered Medications: Medications Generic Name Dose Route Start Last Admin Trade Name Freq PRN Reason Stop Dose Admin Acetaminophen 650 mg 06/29/25 14:33 06/29/25 21:29 Acetaminophen 325 Mg Tablet PO 07/29/25 14:32 650 mg Q4H PRN PRN Administration PAIN, FEVER, HEADACHE Ascorbic Acid 500 mg 06/30/25 10:00 Ascorbic Acid 500 Mg Tablet PO 07/30/25 09:59 DAILY JALEN Benzonatate 100 mg 06/29/25 17:01 06/29/25 17:37 Benzonatate 100 Mg Capsule PO 07/29/25 17:00 100 mg TID PRN PRN Administration COUGH Cyanocobalamin 1,000 mcg 07/20/25 10:00 Cyanocobalamin 1000 Mcg/Ml Vial IJ 08/19/25 09:59 UD JALEN Fish Oil 1,000 mg 06/30/25 10:00 [place]-3 Fatty Acids/Fish Oil 1000 Mg Capsule PO 07/30/25 09:59 BID JALEN Furosemide 40 mg 06/30/25 10:00 Furosemide 40 Mg Tablet PO 07/30/25 09:59 DAILY JALEN Hydrocortisone 0 gm 06/30/25 10:00 Hydrocortisone 2.5% 30gm Cream Tube TOP 07/30/25 09:59 DAILY JALEN Insulin Human Lispro 0 unit 06/29/25 16:13 Insulin Lispro 1 Unit SQ 07/29/25 16:12 UD PRN HYPERGLYCEMIA Lactobacillus Acidophilus 1 tab 06/30/25 10:00 Lactobacillus Acidophilus 1 Tab Tablet PO 07/30/25 09:59 DAILY JALEN Lamotrigine 100 mg 06/29/25 16:59 06/29/25 17:38 Lamotrigine 100 Mg Tab PO 07/29/25 16:58 100 mg DAILY JALEN Administration Levalbuterol HCl 1.25 mg 06/29/25 19:00 06/30/25 00:45 Levalbuterol Hcl 1.25 Mg/0.5 Ml Neb IH 07/29/25 18:59 1.25 mg Q6HRT JALEN Administration Levetiracetam 250 mg 06/29/25 16:59 06/29/25 17:37 Levetiracetam 250 Mg Tablet PO 07/29/25 16:58 250 mg DAILY JALEN Administration Levothyroxine Sodium 50 mcg 06/30/25 10:00 Levothyroxine Sodium 50 Mcg Tablet PO 07/30/25 09:59 DAILY JALEN Metoprolol Succinate 25 mg 06/30/25 07:37 Metoprolol Succinate 25 Mg Xl Tab PO 07/29/25 16:57 DAILY JALEN Mirabegron 25 mg 06/30/25 10:00 Mirabegron 25 Mg Tab.Er.24h PO 07/30/25 09:59 DAILY JALEN Miscellaneous Information 1 each 06/30/25 07:45 Medication Intervention 1 Each Each 07/30/25 07:44 .RN TO CHECK JALEN Miscellaneous Information 1 each 06/30/25 07:45 Medication Intervention 1 Each Each 07/30/25 07:44 .RN TO CHECK JALEN Miscellaneous Information 1 each 06/30/25 07:45 Medication Intervention 1 Each Each 07/30/25 07:44 .RN TO CHECK JALEN Multivitamins Therapeutic 1 tab 06/30/25 10:00 Multivitamins,Therapeutic 1 Tab Tab PO 07/30/25 09:59 BID JALEN Oxycodone/Acetaminophen 1 tab 06/29/25 16:52 Oxycodone / Apap 10/325 Mg 1 Tablet PO 07/04/25 16:51 Q8HPRN PRN PAIN Pantoprazole Sodium 20 mg 06/30/25 10:00 Pantoprazole 20 Mg Tab PO 07/30/25 09:59 DAILY JALEN Potassium Chloride 10 meq 06/30/25 10:00 Potassium Chloride Tab 10 Meq Tab PO 07/30/25 09:59 DAILY JALEN Fluticasone/Salmeterol 2 puff 06/29/25 19:00 06/29/25 19:39 Fluticasone/Salmeterol 115/21 60 Puff Aer.W.Adap IH 07/29/25 18:59 2 puff BIDRT JALEN Administration Simvastatin 20 mg 06/30/25 22:00 Simvastatin 20 Mg Tablet PO 07/30/25 21:59 HS JALEN Discontinued Medications Generic Name Dose Route Start Last Admin Trade Name Freq PRN Reason Stop Dose Admin Budesonide Confirm 06/30/25 07:02 Budesonide 0.5 Mg/2 Ml Ampul.Neb. Administered 06/30/25 07:03 Dose 0.5 mg IH .STK-MED ONE Fish Oil Confirm 06/29/25 21:08 [place] Fatty Acids/Fish Oil 1000 Mg Capsule Administered 06/29/25 21:09 Dose 1,000 mg PO .STK-MED ONE Sodium Chloride 1,000 mls @ 100 mls/hr 06/29/25 10:00 06/29/25 10:03 Sodium Chloride 0.9% 1000 Ml IV 07/29/25 09:59 100 mls/hr .Q10H JALEN Administration Sodium Chloride 1,000 mls @ 100 mls/hr 06/29/25 14:33 06/29/25 16:55 Sodium Chloride 0.9% 1000 Ml IV 07/29/25 14:32 Not Given .Q10H JALEN Insulin Human Regular 0 unit 06/29/25 14:33 Insulin Regular, Human 1 Unit SQ 07/29/25 14:32 UD PRN HYPERGLYCEMIA Metoprolol Succinate 12.5 mg 06/29/25 16:58 06/29/25 17:37 Metoprolol Succinate 25 Mg Xl Tab PO 07/29/25 16:57 12.5 mg DAILY JALEN Administration Multivitamins Therapeutic Confirm 06/29/25 21:08 Multivitamins,Therapeutic 1 Tab Tab Administered 06/29/25 21:09 Dose 1 tab .ROUTE .STK-MED ONE Non-Formulary Medication 300 mg 06/29/25 17:00 06/29/25 17:39 Secukinumab [Cosentyx Syringe] SQ 07/29/25 16:59 Not Given Q30D JALEN Non-Formulary Medication 1 each 06/29/25 17:00 06/29/25 21:36 Diclofenac/Menthol/Camphor [Diclogen 1.5%-4%-10% Kit] TP 07/29/25 16:59 Not Given QID JALEN Non-Formulary Medication 1,200 mcg 06/29/25 22:00 06/29/25 21:20 [place] Fatty Acids/Fish Oil [Fish Oil 1,000 Mg Capsule] PO 07/29/25 21:59 1,200 mcg BID JALEN Administration Non-Formulary Medication 20 mg 06/29/25 22:00 06/29/25 21:21 Atorvastatin Calcium PO 07/29/25 21:59 20 mg HS JALEN Administration Non-Formulary Medication 1 tab 06/29/25 22:00 06/29/25 21:20 Multivitamin [Multivitamin] PO 07/29/25 21:59 1 tab BID JALEN Administration Non-Formulary Medication 2 puff 06/29/25 22:00 06/29/25 19:41 Budesonide/Formoterol Fumarate [Symbicort 160-4.5 Mcg Inhaler] IH 07/29/25 21:59 Not Given BID JALEN Simvastatin Confirm 06/29/25 21:12 Simvastatin 20 Mg Tablet Administered 06/29/25 21:13 Dose 20 mg .ROUTE .STK-MED ONE Sodium Chloride Confirm 06/29/25 19:37 Sodium Cl For Inhalation 3 Ml Ud Nebule Administered 06/29/25 19:38 Dose 3 ml IH .STK-MED ONE Assessment/Plan (1) Tachycardia Current Visit: Yes Status: Acute Code(s): R00.0 - TACHYCARDIA, UNSPECIFIED (2) Fall Current Visit: No Status: Acute Code(s): W19.XXXA - UNSPECIFIED FALL, INITIAL ENCOUNTER (3) Transaminitis Current Visit: No Status: Acute Code(s): R74.01 - ELEVATION OF LEVELS OF LIVER TRANSAMINASE LEVELS (4) Chronic back pain Current Visit: Yes Status: Chronic Code(s): M54.9 - DORSALGIA, UNSPECIFIED; G89.29 - OTHER CHRONIC PAIN (5) Hypothyroidism Current Visit: Yes Status: Chronic Code(s): E03.9 - HYPOTHYROIDISM, UNSPECIFIED (6) HLD (hyperlipidemia) Current Visit: No Status: Chronic Code(s): E78.5 - HYPERLIPIDEMIA, UNSPECIFIED (7) Morbid obesity Current Visit: No Status: Chronic Code(s): E66.01 - MORBID (SEVERE) OBESITY DUE TO EXCESS CALORIES (8) Seizures Current Visit: Yes Status: Chronic Code(s): R56.9 - UNSPECIFIED CONVULSIONS (9) Bipolar 1 disorder Current Visit: Yes Status: Acute Code(s): F31.9 - BIPOLAR DISORDER, UNSPECIFIED (10) HTN (hypertension) Current Visit: No Status: Chronic Assessment & Plan: (1) Tachycardia Current Visit: Yes Status: Acute Assessment & Plan: - HR 120's. - Tele - EKG - Restart metoprolol, pt states she was recently taken off this as her BP was dropping, however since then her HR has been fast. - Consider Echo if still here Saturday 06/30 - HR again 120 this AM - Metoprolol increased to 25mg daily - Echo in AM - CXR pending - Flu/COVID/RSV negative Code(s): R00.0 - TACHYCARDIA, UNSPECIFIED (2) Fall Current Visit: No Status: Acute Assessment & Plan: - Multiple falls recently - CBC, CMP reviewed - CT head and lumbar back reviewed - CK- 45 - D/T weakness- does not recall fall today - PT eval- may need placement - CT head: 1. Normal CT of the head without contrast. 2. No gross interval changes. Code(s): W19.XXXA - UNSPECIFIED FALL, INITIAL ENCOUNTER (3) Transaminitis Current Visit: No Status: Acute Assessment & Plan: - IVF gave in ER- stopped on admission - AST 58, ALT 44- trend 06/30 - AST 47, ALT 39- improved - Hepatitis panel - Ammonia level Code(s): R74.01 - ELEVATION OF LEVELS OF LIVER TRANSAMINASE LEVELS (4) Chronic back pain Current Visit: Yes Status: Chronic Assessment & Plan: - Continue home narcotic pain med PRN - F/U OP with Pain management Dr. Waters in [place]- likely will need earlier appointment. - CT lumbar back reviewed: 1. Mildly wedged T12 vertebral body, with reduced anterior height of less than 20%, no obvious fracture lines, and no retropulsion. Indeterminate age, could be post-traumatic, clinical corrletaion and further MRI evaluation is advised to rule out acute oedematous changes. 2. Reduction of the lumbar lordosis. 3. lumbar scoliosis to the right. 4. Spondyolodegenerative changes of the lumbar spine. 5. L3/4, L4/5, and L5/S1 diffuse disc bulges. 6. Bilateral mild sacroillitis. 06/30 - Pt did not receive any pain meds overnight and today still lethargic Code(s): M54.9 - DORSALGIA, UNSPECIFIED; G89.29 - OTHER CHRONIC PAIN (5) Hypothyroidism Current Visit: Yes Status: Chronic Assessment & Plan: - TSH - 1.982- WNL - Continue synthroid Code(s): E03.9 - HYPOTHYROIDISM, UNSPECIFIED (6) HLD (hyperlipidemia) Current Visit: No Status: Chronic Assessment & Plan: - Hold statin d/t hepatic concern Code(s): E78.5 - HYPERLIPIDEMIA, UNSPECIFIED (7) Morbid obesity Current Visit: No Status: Chronic Assessment & Plan: - Advised diet and exercise Code(s): E66.01 - MORBID (SEVERE) OBESITY DUE TO EXCESS CALORIES (8) Seizures Current Visit: Yes Status: Chronic Assessment & Plan: - Continue home meds - No recent seizures per pt Code(s): R56.9 - UNSPECIFIED CONVULSIONS (9) Bipolar 1 disorder Current Visit: Yes Status: Acute Assessment & Plan: - resume home meds Code(s): F31.9 - BIPOLAR DISORDER, UNSPECIFIED (10) HTN (hypertension) Current Visit: No Status: Chronic Assessment & Plan: - BP stable Code(s): I10 - ESSENTIAL (PRIMARY) HYPERTENSION (11) Edema due to hypoalbuminemia Current Visit: Yes Status: Acute Assessment & Plan: - Ensure high protein with meals - Albumin X1 ordered IV - Encouraged high protein diet - Consider nutrition consult - Albumin 1.9 today - BLLE and BLUE edema - TEDS - Elevate arms and legs on pillows to decrease edema Code(s): E88.09 - OTH DISORDERS OF PLASMA-PROTEIN METABOLISM, NEC (12) Lethargy Current Visit: Yes Status: Acute Assessment & Plan: - CT head negative - Consider MRI if sxs do not improve - Ammonia level 119- elevated - ABG - reviewed - Assist x2 to get up in chair today - Staff to assist with feedings - + Hepatic encephalopathy- see plan Code(s): R53.83 - OTHER FATIGUE (13) Elevated serum alkaline phosphatase level Current Visit: Yes Status: Acute Assessment & Plan: - Alk phos 220- improving - PTH, Vit. D- pending - TSH - WNL - Consider estrogen level to be checked with PCP Code(s): R74.8 - ABNORMAL LEVELS OF OTHER SERUM ENZYMES (14) Sleep apnea Current Visit: Yes Status: Chronic Assessment & Plan: - CPAP at night Code(s): G47.30 - SLEEP APNEA, UNSPECIFIED (15) Type II diabetes mellitus Current Visit: Yes Status: Acute Qualifiers: Diabetes mellitus fci insulin use: with fci use Diabetes mellitus complication status: without complication Qualified Code(s): E11.9 - Type 2 diabetes mellitus without complications; Z79.4 - intermodal customer service (current) use of insulin Assessment & Plan: - May use dexcom - A1C pending - Humalog s/s mod dose (16) Serum ammonia increased Current Visit: Yes Status: Acute Assessment & Plan: - Lactulose TID - Ammonia level 119 - Recheck ammonia in AM Code(s): E72.20 - DISORDER OF UREA CYCLE METABOLISM, UNSPECIFIED (17) Hepatic encephalopathy Current Visit: Yes Status: Acute Assessment & Plan: - ammonia level elevated - see plan Code(s): K76.82 - HEPATIC ENCEPHALOPATHY (18) Anemia Current Visit: Yes Status: Acute Assessment & Plan: - Iron panel pending - Hx of vitamin B12 def with replacement Code(s): D64.9 - ANEMIA, UNSPECIFIED (19) Constipation Current Visit: Yes Status: Acute Assessment & Plan: - Pt thinks she had not had a BM in 2 weeks - KUB - Colace BID VTE: SCD PPI: Pantoprazole Next of KIN: Daughter D/C plan: 1-2 days- pending placement? Code status: Full Plan of care time: > 45 minutes Code(s): K59.00 - CONSTIPATION, UNSPECIFIED
[2025-06-30 09:41] LABS: Iron 65 ug/dL (37-170); TIBC 107 ug/dL (265-462)
[2025-06-30] MEDS ORDERED: AlbuRx 25% 50ML VIAL IV ONE (09:49)
[2025-06-30] MEDS ORDERED: NON-FORMULARY ITEM (Potassium Chloride [Potassium Chloride] 8 MEQ Tablet.Er) PO SCH (10:00)
[2025-06-30] MEDS ORDERED: CLINDAMYCIN PHOSPHATE TP SCH (10:00)
[2025-06-30] MEDS ORDERED: LACTOBACILLUS ACIDOPHILUS PO SCH (10:00)
[2025-06-30] MEDS: Docusate Sodium 100 MG PO SCH (10:24)
[2025-06-30] MEDS: ANUSOL-HC 2.5% CREAM 30 GM TOP SCH (10:24)
[2025-06-30] MEDS: AlbuRx 25% 50ML VIAL*** 50 ML IV ONE (10:25)
--- NOTE | 2025-06-30 10:45 | XRAY ---
CLINICAL HISTORY: Abd pain, constipation COMPARISON: CT abdomen and pelvis dated 05/29/2024 reviewed. TECHNIQUE: X-ray images of the abdomen were obtained in supine and upright positions. FINDINGS: Gas Pattern: Gaseous distention of the colon. No evidence of bowel obstruction. Soft Tissues: Soft tissues of the abdomen appear normal without evidence of masses or calcifications. Liver, spleen, and kidneys are of normal size and position. IMPRESSION: Gaseous distention of the colon. No evidence of bowel obstruction. Electronically Signed by: Mahamed Joaquin MD. (06/30/2025 10:43:22 EDT)
[2025-06-30] MEDS: LACTULOSE 20 GM/30ML UD CUP PO SCH (10:58)
[2025-06-30 11:17] LABS: Ferritin 429 ng/mL (6.24-137)
[2025-06-30] MEDS: ENOXAPARIN SODIUM SQ SCH (11:22)
[2025-06-30] MEDS ORDERED: HUMALOG SQ SCH (12:00)
[2025-06-30] MEDS ORDERED: Xopenex 1.25 MG/0.5 ML UD NEBULE IH PRN (13:30)
[2025-06-30] MEDS ORDERED: LACTULOSE 20 GM/30ML UD CUP PO SCH (15:00)
[2025-06-30 15:42] LABS: Hematocrit 31.2 % (34.1-44.9); Hemoglobin 9.8 g/dL (11.2-15.7); Mean Corpuscular Hemoglobin 31.0 pg (25.6-32.2); Mean Corpuscular Hgb Concent. 31.4 g/dL (32.2-35.5); Platelet Count 209 x10^3/uL (182-369); Red Blood Count 3.16 x10^6/uL (3.93-5.22); White Blood Count 11.1 x10^3/uL (3.98-10.04)
[2025-06-30 15:54] LABS: Calcium 7.4 mg/dL (8.4-10.2); Carbon Dioxide 22.0 mmol/L (22-30); Creatinine 1 1.01 mg/dL (0.52-1.04); EST GLOMERULAR FILTRATION RATE 68.7 ML/MIN; Glucose 100.0 mg/dL (74-106); Potassium 4.1 mmol/L (3.5-5.1); SGOT/AST 45.0 U/L (14-36); SGPT/ALT 41.0 U/L (0-35); Total Protein 5.6 g/dL (6.3-8.2)
[2025-06-30] MEDS ORDERED: Mylicon 80MG PO PRN (17:03)
[2025-06-30 18:38] LABS: A-aADO2 54; ABG HEMOGLOBIN 12.1; ABG POTASSIUM 4.4 (3.5-5.1); ABG SITE LRA; ALLEN TEST OK? YES; ARTERIAL BLD GAS O2 SATURATION 92.9 % (95-100); ARTERIAL BLOOD GAS BASE EXCESS -1.7 (-2.0-2.0); ARTERIAL BLOOD GAS FIO2 21 %; ARTERIAL BLOOD GAS PCO2 26 mmHg (35-45); ARTERIAL BLOOD GAS PO2 63 mmHg (75-100); ARTERIAL BLOOD GAS TEMPERATURE 37.0 C; HCO3- 20.3 (22-28); HGB O2 SAT 91.7 g/dF (94-100); Methhemoglobin 0.5 % (1.4-1.5); paO2 pAO1 0.54
--- NOTE | 2025-06-30 19:23 | XRAY ---
CLINICAL HISTORY: weakness- altered mental status hemant COMPARISON: 06/29/2025. TECHNIQUE: Axial non-contrast CT scan of the brain was performed from the skull base to the high parietal region. One of the following dose reduction techniques were utilized for this exam: Automated exposure control, adjustment of the mA and/or kV according to patient size, use of iterative reconstruction. FINDINGS: Brain Parenchyma: Normal attenuation of the cerebral hemispheres, cerebellum, and brainstem. No evidence of acute infarct, hemorrhage, or mass effect. No abnormal areas of hypo- or hyperattenuation. Ventricular System: Ventricles are normal in size and configuration. No evidence of hydrocephalus or ventricular enlargement. Subarachnoid Spaces: Normal sulci and cisterns. No evidence of subarachnoid hemorrhage or extra-axial fluid collections. Cerebellum and Brainstem: No masses, lesions, or areas of abnormal density. Orbits: Normal appearance of the globes, optic nerves, and extraocular muscles. No evidence of orbital masses or abnormal density. Sinuses: Clear paranasal sinuses. No evidence of sinusitis or mucosal thickening. Mastoid Air Cells: Clear mastoid air cells. No evidence of mastoiditis. Skull: Normal skull morphology. IMPRESSION: 1. No evidence of acute infarct, hemorrhage, or mass effect. 2. No significant change from prior CT. 3. Advised clinical correlation and if warranted, MRI with DWI may be done. Electronically Signed by: Mahamed Joaquin MD. (06/30/2025 19:20:47 EDT)
[2025-06-30] MEDS: Lactated Ringers 500 ML IV ONE (19:59)
[2025-06-30] MEDS ORDERED: ZOCOR 20MG PO SCH (22:00)
[2025-06-30] MEDS: Lactated Ringers 1,000 ML IV ONE (22:23)
[2025-06-30] MEDS ORDERED: PIPERACILLIN/TAZOBACTAM IV ONE (23:31)
[2025-07-01 00:08] VITALS: RESP 24; TEMP 102.1
[2025-07-01] MEDS: VANCOMYCIN 1.5 GRAM/300 ML BAG 1.5 GM/300 ML PIGGYBACK IV ONE (00:21)
[2025-07-01 04:31] LABS: Calcium 7.0 mg/dL (8.4-10.2); Carbon Dioxide 21.0 mmol/L (22-30); Creatinine 1 1.19 mg/dL (0.52-1.04); EST GLOMERULAR FILTRATION RATE 56.4 ML/MIN; Glucose 94.0 mg/dL (74-106); Potassium 3.7 mmol/L (3.5-5.1); SGOT/AST 43.0 U/L (14-36); SGPT/ALT 36.0 U/L (0-35); Total Protein 5.0 g/dL (6.3-8.2)
[2025-07-01 04:32] VITALS: BP 118/89; PULSE 122; O2SAT 90
[2025-07-01 04:41] LABS: Hematocrit 29.7 % (34.1-44.9); Hemoglobin 9.4 g/dL (11.2-15.7); Mean Corpuscular Hemoglobin 31.1 pg (25.6-32.2); Mean Corpuscular Hgb Concent. 31.6 g/dL (32.2-35.5); Platelet Count 192 x10^3/uL (182-369); Red Blood Count 3.02 x10^6/uL (3.93-5.22); White Blood Count 11.5 x10^3/uL (3.98-10.04)
--- NOTE | 2025-07-01 07:23 | PCM.DS ---
Discharge Summary Date of Admission: 06/29/25 14:25 Date of Discharge: 07/01/25 Admitting Physician: JOSEF KAUR MD Primary Care Provider: RICKY OBRIEN Allergies Allergies Iodinated Contrast Media [IV Dye, Iodine Containing Contrast ] Allergy (Mild, Verified 06/29/25 09:13) "asthma attck" Sulfa (Sulfonamide Antibiotics) [Sulfa(Sulfonamide Antibiotics)] Allergy (Mild, Verified 06/29/25 09:13) "asthma attck" benztropine Allergy (Verified 06/29/25 09:13) triamcinolone Allergy (Verified 06/29/25 09:13) Hospital Summary - Hospital Course Hospital Course: Ms. Horowitz is a 50-year-old female with past medical history of GERD, hypertension, hypothyroidism, seizure disorder, hyperlipidemia, asthma, COPD, CHF, degenerative joint disease, fibromyalgia, anxiety, bipolar disorder, morbid obesity, and type 2 diabetes mellitus. She presented on 06/29/25 with weakness and recurrent falls, including one with questionable head strike. CT head was negative for acute intracranial pathology. CT lumbar spine demonstrated a mildly wedged T12 vertebral body of indeterminate age, lumbar scoliosis, diffuse disc bulges at L3S1, and mild bilateral sacroiliitis. On admission, she was lethargic with delayed responses, edema of both upper and lower extremities, and dependent for all ADLs, requiring Shoaib lift for transfers. ABG revealed primary respiratory alkalosis with secondary metabolic alkalosis. Initial labs notable for hypoalbuminemia (1.9), calcium 8.7 (corrected), and ammonia 119, consistent with hepatic encephalopathy. She was started on lactulose TID, given IV albumin, and placed on Ensure high protein supplementation. CPAP was continued nightly. Despite supportive care, her condition has worsened. 06/30/25 she became acutely unresponsive to verbal and painful stimuli with fever 102F and persistent sinus tachycardia (HR 120s). Most recent labs show: WBC 11.5 (up from normal), creatinine 1.19 (baseline 0.85), calcium 7.0 (low), AST 43, ALT 36, alkaline phosphatase 207, ammonia 155 (increased from 119), albumin 1.9. These findings indicate worsening hepatic encephalopathy with hyperammonemia, possible evolving sepsis, acute kidney injury compared to baseline, and persistent hypoalbuminemia. Chest X-ray, echocardiogram, and hepatitis panel remain pending. Given her acute deterioration, she requires higher level of care for advanced management and will be transferred to [facility]. I spent 35 minutes preparation of discharge records, prescriptions & referral forms and addressing any questions/concerns the patient had as documented above. - Vitals & Intake/Output Vital Signs: Vital Signs Temperature 102.1 F 07/01/25 00:07 Pulse Rate 122 H 07/01/25 04:31 Respiratory Rate 24 07/01/25 00:07 Blood Pressure 118/89 07/01/25 04:31 O2 Sat by Pulse Oximetry 90 L 07/01/25 04:31 Intake & Output: Intake & Output 06/28/25 06/29/25 06/30/25 07/01/25 11:59 11:59 11:59 11:59 Intake Total 1680 0 Output Total 760 Balance 920 0 Weight 113.5 kg - Lab Result Diagrams: 07/01/25 04:15 07/01/25 04:15 Lab Results-Last 24 Hrs: Lab Results-Last 24 Hours 06/30/25 06/30/25 06/30/25 Range/Units 05:39 05:56 05:56 WBC (3.98-10.04) x10^3/uL RBC (3.93-5.22) x10^6/uL Hgb (11.2-15.7) g/dL Hct (34.1-44.9) % MCV (79.4-94.8) fL MCH (25.6-32.2) pg MCHC (32.2-35.5) g/dL RDW (11.7-14.4) % Plt Count (182-369) x10^3/uL MPV (9.4-12.3) fL Puncture Site pCO2 (35-45) mmHg pO2 (75-100) mmHg Base Excess (-2.0-2.0) O2 Saturation (94-100) g/dF ABG pH (7.35-7.45) ABG HCO3 (22-28) ABG O2 Sat (Measured) (95-100) % Rajinder Test A-a Gradient a/A Ratio Hemoglobin Carboxyhemoglobin (0.0-6.9) % THgb Methemoglobin (1.4-1.5) % Potassium (3.5-5.1) Temperature C POC O2 Flow Rate % Sodium (135-145) mmol/L Chloride (98-107) mmol/L Carbon Dioxide (22-30) mmol/L Anion Gap (5-15) MEQ/L BUN (7-17) mg/dL Creatinine (0.52-1.04) mg/dL Estimated GFR ML/MIN Glucose (74-106) mg/dL Hemoglobin A1c < 4.00 L (4.5-6.0) % Calcium (8.4-10.2) mg/dL Iron 65 (37-170) ug/dL TIBC 107 L (265-462) ug/dL Iron Saturation 61 H (20-39) % Ferritin 429 H (6.24-137) ng/mL Total Bilirubin (0.2-1.3) mg/dL AST (14-36) U/L ALT (0-35) U/L Alkaline Phosphatase (38-126) U/L Ammonia (9-30) umol/L Serum Total Protein (6.3-8.2) g/dL Albumin (3.5-5.0) g/dL Vitamin B12 > 1000 H (239-931) pg/mL 25-OH Vitamin D Total (30-100) ng/mL Folic Acid > 20.0 (2.76 - >20) ng/mL 06/30/25 06/30/25 06/30/25 Range/Units 05:56 07:53 09:18 WBC (3.98-10.04) x10^3/uL RBC (3.93-5.22) x10^6/uL Hgb (11.2-15.7) g/dL Hct (34.1-44.9) % MCV (79.4-94.8) fL MCH (25.6-32.2) pg MCHC (32.2-35.5) g/dL RDW (11.7-14.4) % Plt Count (182-369) x10^3/uL MPV (9.4-12.3) fL Puncture Site RIGHT RADIAL pCO2 29 L (35-45) mmHg pO2 71 L (75-100) mmHg Base Excess 2.0 (-2.0-2.0) O2 Saturation 95.0 (94-100) g/dF ABG pH 7.53 H (7.35-7.45) ABG HCO3 24.2 (22-28) ABG O2 Sat (Measured) 96.4 (95-100) % Rajinder Test YES A-a Gradient 42 a/A Ratio 0.63 Hemoglobin 10.2 Carboxyhemoglobin 1.0 (0.0-6.9) % THgb Methemoglobin 0.4 L (1.4-1.5) % Potassium 4.3 (3.5-5.1) Temperature 37.0 C POC O2 Flow Rate 21 % Sodium (135-145) mmol/L Chloride (98-107) mmol/L Carbon Dioxide (22-30) mmol/L Anion Gap (5-15) MEQ/L BUN (7-17) mg/dL Creatinine (0.52-1.04) mg/dL Estimated GFR ML/MIN Glucose (74-106) mg/dL Hemoglobin A1c (4.5-6.0) % Calcium (8.4-10.2) mg/dL Iron (37-170) ug/dL TIBC (265-462) ug/dL Iron Saturation (20-39) % Ferritin (6.24-137) ng/mL Total Bilirubin (0.2-1.3) mg/dL AST (14-36) U/L ALT (0-35) U/L Alkaline Phosphatase (38-126) U/L Ammonia 119 H (9-30) umol/L Serum Total Protein (6.3-8.2) g/dL Albumin (3.5-5.0) g/dL Vitamin B12 (239-931) pg/mL 25-OH Vitamin D Total 51.5 (30-100) ng/mL Folic Acid (2.76 - >20) ng/mL 06/30/25 06/30/25 06/30/25 Range/Units 15:41 15:41 18:25 WBC 11.1 H (3.98-10.04) x10^3/uL RBC 3.16 L (3.93-5.22) x10^6/uL Hgb 9.8 L (11.2-15.7) g/dL Hct 31.2 L (34.1-44.9) % MCV 98.7 H (79.4-94.8) fL MCH 31.0 (25.6-32.2) pg MCHC 31.4 L (32.2-35.5) g/dL RDW 14.3 (11.7-14.4) % Plt Count 209 (182-369) x10^3/uL MPV 11.4 (9.4-12.3) fL Puncture Site LRA pCO2 26 L (35-45) mmHg pO2 63 L (75-100) mmHg Base Excess -1.7 (-2.0-2.0) O2 Saturation 91.7 L (94-100) g/dF ABG pH 7.50 H (7.35-7.45) ABG HCO3 20.3 L (22-28) ABG O2 Sat (Measured) 92.9 L (95-100) % Rajinder Test YES A-a Gradient 54 a/A Ratio 0.54 Hemoglobin 12.1 Carboxyhemoglobin 0.9 (0.0-6.9) % THgb Methemoglobin 0.5 L (1.4-1.5) % Potassium 4.1 4.4 (3.5-5.1) Temperature 37.0 C POC O2 Flow Rate 21 % Sodium 140 (135-145) mmol/L Chloride 107 (98-107) mmol/L Carbon Dioxide 22 (22-30) mmol/L Anion Gap 14.2 (5-15) MEQ/L BUN 10 (7-17) mg/dL Creatinine 1.01 (0.52-1.04) mg/dL Estimated GFR 68.7 ML/MIN Glucose 100 (74-106) mg/dL Hemoglobin A1c (4.5-6.0) % Calcium 7.4 L (8.4-10.2) mg/dL Iron (37-170) ug/dL TIBC (265-462) ug/dL Iron Saturation (20-39) % Ferritin (6.24-137) ng/mL Total Bilirubin 1.30 (0.2-1.3) mg/dL AST 45 H (14-36) U/L ALT 41 H (0-35) U/L Alkaline Phosphatase 242 H (38-126) U/L Ammonia (9-30) umol/L Serum Total Protein 5.6 L (6.3-8.2) g/dL Albumin 2.2 L (3.5-5.0) g/dL Vitamin B12 (239-931) pg/mL 25-OH Vitamin D Total (30-100) ng/mL Folic Acid (2.76 - >20) ng/mL 07/01/25 07/01/25 07/01/25 Range/Units 04:15 04:15 04:15 WBC 11.5 H (3.98-10.04) x10^3/uL RBC 3.02 L (3.93-5.22) x10^6/uL Hgb 9.4 L (11.2-15.7) g/dL Hct 29.7 L (34.1-44.9) % MCV 98.3 H (79.4-94.8) fL MCH 31.1 (25.6-32.2) pg MCHC 31.6 L (32.2-35.5) g/dL RDW 14.6 H (11.7-14.4) % Plt Count 192 (182-369) x10^3/uL MPV 12.0 (9.4-12.3) fL Puncture Site pCO2 (35-45) mmHg pO2 (75-100) mmHg Base Excess (-2.0-2.0) O2 Saturation (94-100) g/dF ABG pH (7.35-7.45) ABG HCO3 (22-28) ABG O2 Sat (Measured) (95-100) % Rajinder Test A-a Gradient a/A Ratio Hemoglobin Carboxyhemoglobin (0.0-6.9) % THgb Methemoglobin (1.4-1.5) % Potassium 3.7 (3.5-5.1) Temperature C POC O2 Flow Rate % Sodium 139 (135-145) mmol/L Chloride 108 H (98-107) mmol/L Carbon Dioxide 21 L (22-30) mmol/L Anion Gap 13.4 (5-15) MEQ/L BUN 11 (7-17) mg/dL Creatinine 1.19 H (0.52-1.04) mg/dL Estimated GFR 56.4 ML/MIN Glucose 94 (74-106) mg/dL Hemoglobin A1c (4.5-6.0) % Calcium 7.0 L (8.4-10.2) mg/dL Iron (37-170) ug/dL TIBC (265-462) ug/dL Iron Saturation (20-39) % Ferritin (6.24-137) ng/mL Total Bilirubin 1.20 (0.2-1.3) mg/dL AST 43 H (14-36) U/L ALT 36 H (0-35) U/L Alkaline Phosphatase 207 H (38-126) U/L Ammonia 155 H (9-30) umol/L Serum Total Protein 5.0 L (6.3-8.2) g/dL Albumin 1.9 L (3.5-5.0) g/dL Vitamin B12 (239-931) pg/mL 25-OH Vitamin D Total (30-100) ng/mL Folic Acid (2.76 - >20) ng/mL Micro Results-Entire Visit: Microbiology 06/29/25 11:56 Urine Culture - Preliminary Catherized NO GROWTH TO DATE Accuchecks Date 06/30/25 Date 06/30/25 Date 06/30/25 Date 06/30/25 Time 21:00 Time 16:03 Time 11:30 Time 07:32 - Radiology Exams Ordered Rad Exams-Entire Visit: Radiology Procedures Category Date Time Status CHEST 1 VIEW (PORTABLE) Stat Exams 06/29/25 15:59 Taken HEAD WITHOUT CONTRAST [CT] Stat Exams 06/29/25 09:49 Completed HEAD WITHOUT CONTRAST [CT] Stat Exams 06/30/25 19:00 Completed KUB Routine Exams 06/30/25 10:03 Completed LUMBAR SPINE W/O [CT] Stat Exams 06/29/25 09:50 Completed - Procedures and Test Procedures and Tests throughout Hospitalization: Therapy Orders & Screens 06/29/25 14:33 EKG REPEAT IN AM Comment: 06/29/25 14:56 RT Screen per Nursing Assess ONCE Comment: Protocol Order Physician Instructions: Greater than 3 points order RT Admission Screen Reason For Exam: Triggered on Admission Diagnosis: Generalized weakness Diagnosis: Generalized weakness Pneumonia: No Home O2: No Asthma: Yes CHF: Yes Home CPAP/BIPAP: Yes Home Nebs/MDI: Yes Total Points: 17 06/29/25 17:35 BiPap/CPAP ROUTINE Comment: Diagnosis: Generalized weakness 06/29/25 17:39 Respiratory MDI BID Comment: Diagnosis: Generalized weakness 06/29/25 19:43 Respiratory Therapy Assessment DAILY Comment: Diagnosis: Generalized weakness 06/30/25 09:46 PT Eval & Treat (MD Order) ONCE Reason for Eval:: falls- possible placement need Diagnosis: Generalized weakness 06/30/25 10:02 RT Miscellaneous Order ROUTINE Comment: Physician Instructions: Reason For Exam: CPAP at noc Diagnosis: Generalized weakness Discharge Exam Wound Assessment: Skin/Wound Assessment Wound/Incision Assessment Start: 06/30/25 21:03 Text: Status: Active Freq: Q6H Protocol: Document 07/01/25 03:03 (Rec: 07/01/25 04:01 [id number]) Wound Photo Photo Taken No Final Diagnosis/Problem List - Final Discharge Diagnosis/Problem (1) Hepatic encephalopathy Current Visit: Yes Status: Acute Assessment & Plan: Ammonia increased to 155 (from 119) with associated lethargy ? now acute unresponsiveness. Managed with lactulose TID; monitoring daily ammonia. CT head negative; MRI brain considered if no improvement. Code(s): K76.82 - HEPATIC ENCEPHALOPATHY (2) Unresponsive episode Current Visit: Yes Status: Acute Assessment & Plan: New event: unresponsive to stimuli with T 102F. WBC now 11.5 concerning for infection; CXR and echocardiogram pending. Transfer for advanced monitoring and infectious work-up. Code(s): R40.4 - TRANSIENT ALTERATION OF AWARENESS (3) Transaminitis Current Visit: Yes Status: Acute Assessment & Plan: LFTs mildly abnormal: AST 43, ALT 36, ALP 207. Trending down from admission but not normalized. Viral hepatitis panel pending. Code(s): R74.01 - ELEVATION OF LEVELS OF LIVER TRANSAMINASE LEVELS (4) Fall Current Visit: Yes Status: Acute Assessment & Plan: CT lumbar spine: mild wedge deformity T12, no acute fracture lines, scoliosis, diffuse disc bulges. Mobility severely impaired; Shoaib lift required. Code(s): W19.XXXA - UNSPECIFIED FALL, INITIAL ENCOUNTER (5) Hypoalbuminemia Current Visit: Yes Status: Acute Assessment & Plan: Albumin 1.9, unchanged; diffuse edema present. IV albumin given 1; protein supplementation ongoing. Code(s): E88.09 - OTH DISORDERS OF PLASMA-PROTEIN METABOLISM, NEC (6) GABY (acute kidney injury) Current Visit: Yes Status: Acute Assessment & Plan: Creatinine increased to 1.19 from baseline 0.85. Monitor renal function closely; avoid nephrotoxins. Code(s): N17.9 - ACUTE KIDNEY FAILURE, UNSPECIFIED (7) Hypocalcemia Current Visit: Yes Status: Acute Assessment & Plan: Serum calcium 7.0, lower than prior corrected 8.7. Evaluate in context of hypoalbuminemia and ALP elevation; vitamin D and PTH pending. Code(s): E83.51 - HYPOCALCEMIA (8) Hypothyroid Current Visit: Yes Status: Acute Assessment & Plan: TSH 1.982; continued home Synthroid. Code(s): E03.9 - HYPOTHYROIDISM, UNSPECIFIED (9) Seizure disorder Current Visit: Yes Status: Acute Assessment & Plan: Continued on AEDs; no seizures during admission. Code(s): G40.909 - EPILEPSY, UNSP, NOT INTRACTABLE, WITHOUT STATUS EPILEPTICUS (10) DEUCE (obstructive sleep apnea) Current Visit: Yes Status: Acute Assessment & Plan: CPAP nightly. Code(s): G47.33 - OBSTRUCTIVE SLEEP APNEA (ADULT) (PEDIATRIC) (11) COPD (chronic obstructive pulmonary disease) Current Visit: Yes Status: Acute Assessment & Plan: Stable; inhalers per home regimen. (12) GERD (gastroesophageal reflux disease) Current Visit: Yes Status: Acute Assessment & Plan: Stable on therapy. Code(s): K21.9 - GASTRO-ESOPHAGEAL REFLUX DISEASE WITHOUT ESOPHAGITIS (13) Obesity, morbid, BMI 40.0-49.9 Current Visit: Yes Status: Acute Assessment & Plan: Contributing to falls and deconditioning. Code(s): E66.01 - MORBID (SEVERE) OBESITY DUE TO EXCESS CALORIES (14) Bipolar 1 disorder Current Visit: Yes Status: Acute Assessment & Plan: Resumed psychiatric regimen; monitoring mood/behavior. Code(s): F31.9 - BIPOLAR DISORDER, UNSPECIFIED (15) Constipation Current Visit: Yes Status: Acute Assessment & Plan: No bowel movement for 2 weeks. KUB: colonic gaseous distention, no obstruction. On Colace BID. Noted with several BMs during hospitalization - resolved Code(s): K59.00 - CONSTIPATION, UNSPECIFIED (16) Tachycardia Current Visit: Yes Status: Acute Assessment & Plan: Persistent HR 120s; EKG sinus tachycardia. Restarted on metoprolol 25 mg daily. Possible contributors: fever, hepatic dysfunction, deconditioning. Code(s): R00.0 - TACHYCARDIA, UNSPECIFIED (17) Type II diabetes mellitus Current Visit: Yes Status: Acute Assessment & Plan: Managed with Humalog SSI AC/HS; home Dexcom CGM reported. (18) HTN (hypertension) Current Visit: No Status: Acute Assessment & Plan: Stable; restarted on home antihypertensives. Code(s): I10 - ESSENTIAL (PRIMARY) HYPERTENSION (19) Anemia Current Visit: No Status: Chronic Assessment & Plan: Stable; ferritin 429, iron sat 61%, B12 >1000. Etiology under evaluation. Code(s): D64.9 - ANEMIA, UNSPECIFIED (20) HLD (hyperlipidemia) Current Visit: No Status: Chronic Assessment & Plan: Statin held due to elevated LFTs. Code(s): E78.5 - HYPERLIPIDEMIA, UNSPECIFIED - Discharge Discharge Date: 07/01/25 Disposition: DC TO [facility] Condition: Fair Prescriptions: New Fluticasone/Salmeterol 115/21 [Advair Hfa 115/21 Common canister*] 2 puff IH BIDRT inhaler Docusate Sodium 100 mg [Docusate Sodium 100 MG] 100 mg PO BID cap Lactulose [Lactulose 20 gm/30Ml Ud Cup] 20 gm PO TID Simethicone 80 mg [Mylicon 80MG] 80 mg PO QID PRN PRN tablet PRN Reason: Gas Acetaminophen 325 mg [Tylenol 325 mg] 650 mg PO Q4H PRN PRN tablet PRN Reason: Pain, Fever, Headache Continue Levothyroxine Sodium 50 Mcg [Synthroid 50 Mcg] 50 mcg PO DAILY Budesonide/Formoterol Fumarate [Symbicort 160-4.5 Mcg Inhaler] 2 puff IH BID Nitroglycerin 0.4 mg Tablet [Nitrostat 0.4 MG Tablet] 0.4 mg SL Q5MIN PRN MR X 3 PRN PRN Reason: Chest Pain Loratadine [Claritin] 10 mg PO DAILY Ipratropium/Albuterol Sulfate [Iprat-Albut 0.5-3(2.5) mg/3 ml] 3 ml IH Q4HPRN PRN PRN Reason: sob [place]-3 Fatty Acids/Fish Oil [Fish Oil 1,000 mg Capsule] 1,200 mcg PO BID Mirabegron [Myrbetriq] 25 mg PO DAILY Allopurinol 100 mg [Zyloprim 100 mg] 100 mg PO DAILY Ubrogepant [Ubrelvy] 100 mg PO BID PRN PRN Reason: Headache Amitriptyline HCl 25 mg [Amitriptyline 25 mg Tablet] 25 mg PO HS Potassium Chloride 8 meq PO DAILY Lactobacillus Acidophilus [Probiotic] 1 cap PO DAILY Hydrocortisone 2.5% 30 gm [Anusol-Hc 2.5% Cream 30 gm] 1 applic TOP DAILY Naloxone HCl [Narcan] 4 mg IH DAILY PRN PRN PRN Reason: Overdose [id number] Inhibitor [Prolastin C] 1 each IV WEEKLY Thiamine Mononitrate (Vit B1) [Vitamin B-1] 100 mg PO WEEKLY Cholecalciferol (Vitamin D3) [Vitamin D3] 2,000 mcg PO DAILY Multivitamin 1 tab PO BID Lurasidone HCl 60 mg PO DAILY Pantoprazole 20 mg [Protonix 20MG Tablet] 20 mg PO DAILY Ondansetron [Ondansetron Odt ] 4 mg SL Q6HPRN PRN PRN Reason: Nausea Blood-Glucose Meter,Continuous [DexStageBloc G7 Yard[place] Control Operator Forming] 1 each UD #1 unit Blood-Glucose Sensor [Dexcom G7 Sensor] 1 each UD 30 Days #3 misc Glucagon 1 mg [GlucaGen 1 MG] 1 mg IM PRN PRN PRN Reason: Hypoglycemia Albuterol 8 gm Mdi Hfa [Ventolin Hfa MDI] 2 puff IH DAILY PRN PRN PRN Reason: Shortness Of Breath Cyanocobalamin 1000 Mcg/ml [Cyanocobalamin B-12 1000 MCG/ML] 1,000 mcg UD Secukinumab [Cosentyx Syringe] 300 mg SQ Q30D Clindamycin Phosphate 1 applic TP DAILY Lidocaine/Prilocaine [Lidocaine-Prilocaine Cream] 1 applic TP BID PRN PRN Reason: Pain Ascorbic Acid 500 mg [Vitamin C 500 MG] 500 mg PO DAILY Zinc Gluconate [Zinc] 50 mg PO DAILY Magnesium 400 mg PO DAILY Diclofenac/Menthol/Camphor [Diclogen 1.5%-4%-10% Kit] 1 each TP QID Metoprolol Succinate 25 mg Xl* [Toprol-Xl 25MG Tablets] 12.5 mg PO DAILY Lamotrigine 100 mg [lamICTAL 100MG TABLET] 100 mg PO DAILY Levetiracetam 250 MG [Keppra 250 MG] 250 mg PO DAILY Atogepant [Qulipta] 60 mg PO HS Discontinued Atorvastatin Calcium [Lipitor 20MG Tablet] 20 mg PO HS Pregabalin 225 mg PO BID Furosemide 40 mg [Lasix 40 MG] 40 mg PO DAILY tablet Oxycodone / APAP 10/325 mg [Oxycodone-Acetaminophen 10-325] 1 each PO Q8HPRN PRN 3 Days #9 tablet MDD 3 PRN Reason: Pain Dulaglutide [Trulicity] 1.5 mg SQ WEEKLY Follow up with: RICKY OBRIEN [Primary Care Provider, [facility]]
--- NOTE | 2025-07-02 15:20 | XRAY ---
CLINICAL HISTORY: low O2 sat COMPARISON: 10/29/2024. TECHNIQUE: X-ray images of the chest were obtained in posteroanterior (PA) projections. FINDINGS: Pulmonary Parenchyma: Bilateral basal fine atelctasis. Bilateral basal zones fine reticulations may indicate possible inflammatory infiltrates. Interval mild progression. Lungs are clear bilaterally. No evidence of consolidation, collapse, or focal opacities. No pulmonary nodules identified. No evidence of pleural effusion or pleural thickening. Heart and Mediastinum: Heart size and shape are normal. No mediastinal widening or masses. No hilar or mediastinal lymphadenopathy. Bony Thorax: Bony thorax appears intact without fractures or deformities. Soft Tissues: The right hyrym-K-nirm tip is seen at the right atrium. Unchanged Soft tissues overlying the chest wall are unremarkable. IMPRESSION: 1. Bilateral basal zones' fine reticulations may indicate possible infiltrates. Clinical evaluation is advised. Unchanged. 2. The right [id number]-hdxv tip is seen at the right atrium. Unchanged. Electronically Signed by: Mahamed Joaquin MD. (06/29/2025 17:05:44 EDT)
[2025-07-20] MEDS ORDERED: Cyanocobalamin B-12 1000 MCG/ML IJ SCH (10:00)
== END 2025-07-01 06:25 | disposition home or self-care (01) ==
LOC: ED 09:08 → MED SURG 14:25
PROVIDERS: ADMIT Internal Medicine; ATTEND Internal Medicine
DX: K76.82 Hepatic encephalopathy (principal); R74.01 Elevation of levels of liver transaminase levels; W19.XXXA Unspecified fall, initial encounter; E88.09 Other disorders of plasma-protein metabolism, not elsewhere classified; N17.9 Acute kidney failure, unspecified; E83.51 Hypocalcemia; E03.9 Hypothyroidism, unspecified; G40.909 Epilepsy, unspecified, not intractable, without status epilepticus; G47.33 Obstructive sleep apnea (adult) (pediatric); J44.9 Chronic obstructive pulmonary disease, unspecified; K21.9 Gastro-esophageal reflux disease without esophagitis; E66.01 Morbid (severe) obesity due to excess calories; F31.9 Bipolar disorder, unspecified; K59.00 Constipation, unspecified; R00.0 Tachycardia, unspecified; E11.9 Type 2 diabetes mellitus without complications; I10 Essential (primary) hypertension; D64.9 Anemia, unspecified; E78.5 Hyperlipidemia, unspecified; R53.1 Weakness; M54.9 Dorsalgia, unspecified; G89.29 Other chronic pain; Z79.899 Other long term (current) drug therapy
CPT/HCPCS: 36415; 36600; 51702; 70450; 71045; 72131; 74018; 80053; 80074; 80307; 81001; 82140; 82306; 82375; 82550; 82607; 82728; 82746; 82803; 83036; 83540; 83550; 83605; 83735; 83880; 83970; 84443; 84484; 85025; 85027; 85379; 87040; 87086; 87637; 93005; 93268; 94640; 94660; 94760; 99285; G0378; P9612; Q3014